=== PATIENT | female | born 1970 | race Caucasian/White ===

== ENCOUNTER 2019-08-08 06:00 | Outpatient (RCR) | payer SELFPAY | END 2019-08-16 00:01 | LOC: SPT 06:00 | PROVIDERS: Family Provider Family Medicine; Visit Provider Podiatrist Foot & Ankle Surgery | DX: Z47.89 Encounter for other orthopedic aftercare (principal) | CPT/HCPCS: 97110 ×2; 97161 ==

== ENCOUNTER → 2019-08-29 00:01 | Outpatient (BNVA) | payer BC, SELFPAY | PROVIDERS: Family Provider Family Medicine; PCP Family Medicine; Visit Provider Podiatrist Foot & Ankle Surgery | DX: S82.401A Unspecified fracture of shaft of right fibula, initial encounter for closed fracture (principal); X58.XXXA Exposure to other specified factors, initial encounter | CPT/HCPCS: 73590; 73610; 73630 ==

== ENCOUNTER 2019-09-14 08:40 | Outpatient (CLI) | payer BC, SELFPAY ==
--- NOTE | 2019-09-14 08:55 | XRR_ITS ---
PROCEDURE INFORMATION: Exam: XR Chest, 2 Views Exam date and time: 09/14/2019 9:29 AM Age: 49 years old Clinical indication: Cough and wheezing; Patient HX: Coughing up phlegm, wheezing; Additional info: Bronchitis TECHNIQUE: Imaging protocol: XR of the chest Views: 2 views. COMPARISON: CR Chest 1 [place] [id number] 12/20/2017 3:39 PM FINDINGS: Lungs: Unremarkable. No consolidation. Pleural space: Unremarkable. No pleural effusion. No pneumothorax. Heart/Mediastinum: Unremarkable. No cardiomegaly. Bones/joints: Unremarkable. XR/XR chest 2V* [id number] IMPRESSION: No acute findings.
== END 2019-09-14 08:41 | disposition home or self-care (01) ==
PROVIDERS: Family Provider Family Medicine; PCP Family Medicine; Visit Provider Family Medicine
DX: J40 Bronchitis, not specified as acute or chronic (principal)
CPT/HCPCS: 71046

== ENCOUNTER → 2019-09-20 14:45 | Outpatient (BNVA) | payer BC, SELFPAY | PROVIDERS: Family Provider Family Medicine; PCP Family Medicine; Visit Provider Anesthesiology | DX: M47.816 Spondylosis without myelopathy or radiculopathy, lumbar region (principal); M47.27 Other spondylosis with radiculopathy, lumbosacral region; M51.36 Other intervertebral disc degeneration, lumbar region; M50.30 Other cervical disc degeneration, unspecified cervical region; Z79.891 Long term (current) use of opiate analgesic | CPT/HCPCS: 99214 ==

== ENCOUNTER → 2019-09-22 13:43 | Outpatient (BNVA) | payer BC, SELFPAY | PROVIDERS: Family Provider Family Medicine; PCP Family Medicine; Visit Provider Podiatrist Foot & Ankle Surgery | DX: S93.322A Subluxation of tarsometatarsal joint of left foot, initial encounter (principal); S82.891A Other fracture of right lower leg, initial encounter for closed fracture; X58.XXXA Exposure to other specified factors, initial encounter; M77.32 Calcaneal spur, left foot | CPT/HCPCS: 73630 ==

== ENCOUNTER 2019-10-03 16:56 | Outpatient (RCR) | payer BC, SELFPAY | END 2019-10-15 23:59 | disposition home or self-care (01) | LOC: SPT 16:56 | PROVIDERS: Absent Provider Podiatrist Foot & Ankle Surgery; Family Provider Family Medicine; PCP Family Medicine; Visit Provider Podiatrist Foot & Ankle Surgery | DX: Z47.89 Encounter for other orthopedic aftercare (principal) | CPT/HCPCS: 97110 ==

== ENCOUNTER 2019-10-07 11:21 | Observation (INO) | payer BC, SELFPAY ==
[2019-10-06 13:06] VITALS: BMI 30.2
[2019-10-07] VITALS (19 sets, daily range): BP systolic 81–132; BP diastolic 60–103; PULSE 72–89; RESP 13–20; TEMP 36.6–37.6; O2SAT 96–100
--- NOTE | 2019-10-07 | SCC_ITS ---
Procedure Done: Primary arthrodesis left first, second and third tarsometatarsal joints. 19 seconds of fluoroscopic guidance, for a cumulative dose of 0.438 mGy, was provided to Dr. Matos by the radiology department. C-arm images of the LEFT foot were saved for the patient's permanent record. [facility]
--- NOTE | 2019-10-07 07:03 | ECG_ITS ---
Measurements Intervals [place] Rate: 79 P: 29 IA: 131 QRS: 6 QRSD: 94 T: 7 QT: 389 QTc: 447 SINUS RHYTHM Compared to ECG 08/18/2018 14:04:18 Sinus bradycardia no longer present Electronically Signed On 10-07-2019 14:13:27 ONLINE PRODUCER by Los Lewis M.D. [email or web address]
[2019-10-07 07:08] LABS: Glucose Point of Care 102 mg/dL (70-110)
--- NOTE | 2019-10-07 07:13 | ANES.PREANE2 ---
Pre-Anesthetic Assessment Pre-Anesthetic Assessment: Height/Weight: Height 1.8 m Weight 98.43 kg Temp Pulse Resp BP Pulse Ox 97.9 F 89 18 132/89 100 10/07/19 06:45 10/07/19 06:45 10/07/19 06:45 10/07/19 06:45 10/07/19 06:45 Preop Diagnosis: Lisfranc dislocation left foot Proposed Procedure: Operation Date: 10/07/19 07:55 Proposed Procedures p First and Second tarsometatarsal joint arthrodesis, poss 3rd metatarsal joint arthrodesis poss percutaneous pinning of the fourt and fifth joint 70001 14757 S93.326A(Left) - Gregorio aMtos DPM s Tendon Lengthening Foot 70600(Left) - Gregorio Matos DPM Familial anesthetic complications: No trouble Was Beta Ashley taken within 24 hours: N/A Last intake: Intake Last Liquid Date 10/06/19 Last Liquid Time 23:59 Last Solid Date 10/06/19 Last Solid Time 18:00 Social: Social History: No alcohol and No tobacco Exam: Pre-Anes Outpt Exam: alert, oriented x 3, clear to auscultation bilaterally and regular rate & rhythm Airway: Cervical ROM: WNL (spondylosis - will have numbness in arms if she extends cervical spine too far) MP: 4 Dentition: False Pulmonary: Comments: Current cold, viral, getting over it. 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, has pseudotumor cerebri Metabolic: Metabolic: DM Musc/skel: Comments: Cervical spondylssis, lumbar facet syndrome, fibromyalgia L Lisfranc facture, tender/painful Neuropsych: Neuropsych: Seizure (last one 5 years ago) Anesthetic Plan: ASA status: 3 Anesthesia: General Risk of > 500 ml blood loss (7ml/kg in children): No PFSH Anesthesia PFSH: Medical History (Updated 10/06/19 @ 15:27 by Brianna Carrillo) DDD (degenerative disc disease), cervical DDD (degenerative disc disease), lumbar Diabetic peripheral neuropathy associated with type 2 diabetes mellitus Facet syndrome, lumbar Fibromyalgia Long-term current use of opiate analgesic Lumbosacral spondylosis with radiculopathy Pain management contract signed Seizures Surgical History History of nephrectomy (~2013) History of ventriculoperitoneal shunting (~01/04/09) Dr. Cordelia Roche 01/04/2009 Ventriculoperitoneal shunt placement. Decision [employer] Programmable Valve, Siphonguard device. Valve at 15cm H2O. 2010 reprogrammed to 14 cm H2O Hx of appendectomy (~2002) Hx of cholecystectomy (~2003) Hx of hysterectomy Social History Smoking and tobacco status: never smoked Alcohol intake: never Caregiver/support person: Yes Lives independently: Yes Household members: spouse Marital status: Current occupational status: disabled History of recent travel: No Data Anesthesia Other Labs: Laboratory Results - last 48 hr 10/07/19 07:02 POC Glucose 102 Cardiac Studies: No Data to Display
[2019-10-07 07:22] LABS: Basophils % 0.4 %; Eosinophils # 0.2 10^3/uL (0.0-0.8); Eosinophils % 3.2 %; Hematocrit 40.3 % (37.0-47.0); Hemoglobin 13.1 g/dL (11.5-15.3); Lymphocytes # 1.5 10^3/uL (0.8-4.8); Lymphocytes % 20.5 %; Mean Corpuscular HGB Conc 32.5 g/dL (30.0-36.0); Mean Corpuscular Hemoglobin 27.5 pg (28.0-34.0); Mean Corpuscular Volume 84.7 fL (81-99); Mean Platelet Volume 10.2 fL (7.4-10.4); Monocytes # 0.5 10^3/uL (0.2-0.9); Monocytes % 6.8 %; Neutrophils # 4.9 10^3/uL (1.8-7.7); Neutrophils % 68.8 %; Nucleated Red Blood Cells % 0 %; Platelet Count 164 10^3/cmm (130-400); Red Blood Count 4.76 10^6/uL (4.1-5.3); Red Cell Distribution Width 12.1 % (12.1-15.1); White Blood Count 7.2 10^3/uL (4.0-10.0)
[2019-10-07 07:34] LABS: Anion Gap 17.2 (5-19); Blood Urea Nitrogen 18 mg/dL (6-20); Calcium 9.8 mg/dL (8.5-10.5); Carbon Dioxide 23 mmol/L (22-29); Chloride 101 mmol/L (98-107); Glomerular Filtration Rate 32.1 mL/min (90-130); Glucose 113 mg/dL (65-115); Osmolality Calculated 281 mOsm/kg (285-295); Potassium 4.2 mmol/L (3.5-5.1); Sodium 137 mmol/L (136-145)
--- NOTE | 2019-10-07 07:56 | W.PM.OPSUD ---
Surgery/Procedure H&P Update DATE OF PROCEDURE: October 07, 2019 DATE H&P PERFORMED: 09/22/19 H&P UPDATE INFORMATION: I have reviewed H&P completed within last 30 days, I have examined patient prior to procedure, No changes to prior documentation and H&P is in [facility] EMR on date indicated PREOP DIAGNOSIS: Lisfranc dislocation left foot PLANNED PROCEDURE: Operation Date: 10/07/19 07:55 Proposed Procedures p First and Second tarsometatarsal joint arthrodesis, poss 3rd metatarsal joint arthrodesis poss percutaneous pinning of the fourt and fifth joint 36167 75520 S93.326A(Left) - Gregorio Matos DPM s Tendon Lengthening Foot 92763(Left) - Gregorio Matos DPM
[2019-10-07] MEDS: sodium chloride 0.9% 1,000 ML 30 ML IV (08:00)
--- NOTE | 2019-10-07 11:16 | XR_ITS ---
WS: [id number] XR foot LT min 3V* [id number] REASON FOR EXAM: post op FINDINGS: Intraoperative fusion of the first, second, third metatarsals with the cuneiforms. Metal pl ates are seen transversing the areas. Fixation appeared to correct a Lisfranc deformity. The foot is seen immobilized in a fiberglass cast. XR/XR foot LT min 3V* [id number] IMPRESSION: Fusion across Lisfranc's joints of the first, second, third metatarsal tarsal a rticulation.
--- NOTE | 2019-10-07 11:44 | SUR.PHASEI ---
1144 PT HAS SENSATION/MOVEMENT TO L. TOES, CAP REFILL <3 SEC
--- NOTE | 2019-10-07 11:51 | PM.OP ---
Operative Report Date of procedure: October 07, 2019 Pre-op Diagnosis: Lisfranc dislocation left foot Post-op diagnosis: same Post-op Findings: Unstable left tarsal metatarsal joint. Procedure Done: Primary arthrodesis left first, second and third tarsometatarsal joints. Implants: Paoli 28 locking plate and screws Specimens removed/disposition: None Pathology: none sent Surgeon: Gregorio Matos D.P.M. Cocktail Lounge Manager: Lloyd Anesthesia: General Estimated blood loss: 50 mL Tourniquet time: See intraoperative documentation IV fluids: None Urine output: None Complications: None Findings: See above Condition: stable Disposition: floor Brief History: Ms. Gan is a pleasant 49-year-old female with history of left Lisfranc injury largely ligamentous with dislocation first, second and third tarsometatarsal joints. This procedure has been staged out for multitude of reasons. Recommending primary arthrodesis. Risks include pain, bleeding, numbness, infection, swelling, bruising, surgical site dehiscence, hardware failure, delayed union, malunion, nonunion, failure to correct deformity, overcorrection of deformity, damage to adjacent soft tissue structures and need for further surgical intervention. Patient is agreeable and wishes to proceed. Procedure: Under mild sedation the patient was brought to the operating room and placed on the operating table in supine position. A timeout was performed. Anesthesia was administered by the anesthesia service. Local anesthesia was injected by myself consisting of 20 cc of 0.5% Marcaine plain and a left ankle block fashion. Well-padded pneumatic tourniquet was applied to the left calf. Left lower extremity was scrubbed, prepped and draped utilizing normal aseptic technique. Left foot was examined a weighted with an Esmarch bandage and the tourniquet was inflated to 250 mmHg. Attention was directed to the dorsal medial aspect of the first tarsometatarsal joint where a linear longitudinal incision was made with a #15 blade. Dissection carried down through subcutaneous tissue utilizing a combination of blunt and sharp technique. Care was taken to retract and preserve neurovascular and tendinous structures. Bleeders were ligated and cauterized as necessary. A periosteal incision was made at the medial aspect of the medial cuneiform and first metatarsal base revealing the dislocation of the first tarsometatarsal joint. This was distracted and articular surface was removed on opposing sides of the arthrodesis site followed by subchondral drilling. First tarsometatarsal joint was reduced in all 3 cardinal planes temporarily fixated and then fixated utilizing standard AO technique with a locking plate and screws provided by Paoli 28. Intra-Op fluoroscopy utilized to confirm positioning of orthopedic hardware and excellent in all 3 cardinal planes. Temporary fixation was removed. Attention was then directed to the second intermetatarsal space where a linear longitudinal incision was made with a #15 blade with dissection carried down through skin and subcutaneous tissue utilizing a combination of blunt and sharp technique. Care was taken to retract and preserve neurovascular and tendinous structures. Bleeders were ligated and cauterized as necessary. Second and third ray periosteal incisions were made revealing the dislocation of the second and third metatarsals on their corresponding cuneiforms. Second and third tarsometatarsal joints were denuded of articular surface utilizing curettage, rongeur followed by subchondral drilling with K wire. Utilizing [id number] tenaculum dislocations were reduced medially utilizing the medial column as a point of contact with a tenaculum to help secure the reduction. Next utilizing standard AO technique locking plates were utilized dorsally at the second and third tarsometatarsal joints provided by Paoli 28 with a combination of locking and nonlocking screws with excellent bony apposition and compression noted. Reduction of the second and third rays were O's appreciated intraoperatively as well as with fluoroscopy in all 3 cardinal planes. Incision sites were flushed with saline solution. Following saline flush periosteal structures were closed at both incisions with 2-0 Vicryl. Subcutaneous tissue closed with 3-0 Vicryl. Skin closed with navneet. Incision sites were dressed with Adaptic, sterile 4 x 4's, Kerlix followed by application of well-padded short leg cast to the left lower extremity. Tourniquet was deflated prior to closure of incisions due to reaching the 120-minute domitila. A prompt hyperemic response was noted to all digits of the left foot. Patient tolerated the procedure well and was transferred to the PACU with vital signs stable and vascular status intact. Following a period of postoperative monitoring she will be transferred to the floor. Dr. Ange Bradshaw agreeable for 24-hour opts, greatly appreciate hospitalist for this. Patient is to remain strict nonweightbearing to the left lower extremity. She is to elevate her left foot at all times while at rest.
--- NOTE | 2019-10-07 12:30 | PC.NURSE ---
Patient in bed upon admission with left foot elevated above hip, patient states that she has to urinate but would rather wait until PT can help her. Bed cross was offered however patient declined bed cross use. Patient resting in bed calmly with no complaints at this time.
--- NOTE | 2019-10-07 13:01 | PC.RESP ---
Patient did not utilize IS at this time. Patient was seeing things move around in her room,and refused the IS at this time. Charge nurse Rhonda was notified.
[2019-10-07 14:16] LABS: Glucose Point of Care 81 mg/dL (70-110)
--- NOTE | 2019-10-07 16:19 | PM.HP ---
Providers/Chief Complaint Admitting Physician: Ange Bradshaw DO Primary Care Provider: Linda Erickson MD Chief Complaint: Dislocation of Tarsometatarsal joints of left foot History of Present Illness Tabby Gan is a 49 year old lady with history of diabetes, peripheral neuropathy, bipolar disorder, anxiety disorder, recurrent falls, DDD, chronic pain, with planned repair of Lisfranc dislocation left foot last month, however, before this could be achieved sustained another fall and had a fracture of the right ankle for which he underwent ORIF, currently being placed in observation after surgical repair of Lisfranc dislocation left foot by podiatry. She is doing well postoperatively, requesting that her home medication break restarted as she is starting to feel somewhat anxious. She otherwise reports is in baseline state of health. Review of Systems Const: Reports: other (Prone to falls.); Denies: fever, chills, body aches or malaise Eyes: Denies: change in vision or eye redness ENMT: Denies: throat pain, oral sores/lesions or ear pain Card: Denies: chest pain, edema, pre-syncope or shortness of breath on exertion Resp: Denies: shortness of breath, productive cough, change in phlegm color or coughing up blood GI: Reports: constipation; Denies: abdominal pain, nausea, vomiting, diarrhea, blood in stool or black tarry stool : Denies: flank pain, urinary frequency or blood in urine Musc: Reports: deformity; Denies: back pain, joint swelling or redness Skin/Breast: Denies: rash, sores or new lesion Neuro: Denies: headache, numbness in extremities, weakness in extremities, dizziness, confusion or seizure-like activity Psych: Reports: anxiety Endo: Denies: excessive urination or excessive thirst Fletcher/Lymph: Denies: easy bleeding or purpura All/Imm: Denies: hives, throat swelling or tongue swelling Medications/Allergies Home Medications Medication Instructions Recorded Confirmed Last Taken Type vitamin B complex 1 cap PO DAILY 10/06/19 10/07/19 10/06/19 History gabapentin 10/07/19 10/07/19 Unknown History metoclopramide HCl [Reglan] 10 mg PO Q6H PRN 10/07/19 10/07/19 Unknown History polyethylene glycol 3350 [Miralax] 17 g PO BID 10/07/19 10/07/19 Unknown History Allergies Allergy/AdvReac Type Severity Reaction Status Date / Time spider venom Allergy ALGY-Anaphy Verified 09/22/19 13:04 laxis NSAIDS (Non-Steroidal AdvReac Unknown CKD4 Verified 09/22/19 13:04 Anti-Inflamma Iodinated Contrast Media AdvReac CKD4 - Verified 09/22/19 13:04 PFSH Acute PFSH: Medical History DDD (degenerative disc disease), cervical DDD (degenerative disc disease), lumbar Diabetic peripheral neuropathy associated with type 2 diabetes mellitus Facet syndrome, lumbar Fibromyalgia Long-term current use of opiate analgesic Lumbosacral spondylosis with radiculopathy Pain management contract signed Seizures Surgical History History of nephrectomy (~2013) History of ventriculoperitoneal shunting (~01/04/09) Dr. Cordelia Roche 01/04/2009 Ventriculoperitoneal shunt placement. [employer] Programmable Valve, Siphonguard device. Valve at 15cm H2O. 2010 reprogrammed to 14 cm H2O Hx of appendectomy (~2002) Hx of cholecystectomy (~2003) Hx of hysterectomy Family History Mother Diabetes DM2 Family/Other Cancer MATERNAL AUNT- BREAST CANCER Social History Smoking and tobacco status: never smoked Alcohol intake: never Caregiver/support person: Yes Lives independently: Yes Household members: spouse Marital status: Current occupational status: disabled History of recent travel: No Vitals/I&O/Wt Last Vital Signs Temp 98.7 F 10/07/19 15:00 Pulse 77 10/07/19 15:00 Resp 20 H 10/07/19 15:00 BP 105/67 10/07/19 15:00 Pulse Ox 99 10/07/19 15:00 10/07/19 10/07/19 10/07/19 06:59 14:59 22:59 Intake Total 50 / 50 Output Total 5 / 5 Balance 45 / 45 Weight last 48 hrs Weight 98.43 kg Physical Exam Const: COMMON NORMALS: no apparent distress and oriented x3 NUTRITIONAL APPEARANCE: obese ORIENTATION/CONSCIOUSNESS: Yes awake HENMT: COMMON NORMALS: oropharynx normal Neck/C-Spine: COMMON NORMALS: no JVD Resp: COMMON NORMALS: normal respiratory effort and clear to auscultation bilaterally AUSCULTATION: clear to auscultation bilaterally Cardio: COMMON NORMALS: no JVD, regular rhythm, S1 normal heart sound, S2 normal heart sound and no murmurs RHYTHM: regular rhythm HEART SOUNDS: S1 normal and S2 normal GI: COMMON NORMALS: normal to inspection, nondistended, normoactive bowel sounds, soft to palpation and non-tender PALPATION: Yes soft Extremity: COMMON NORMALS: no joint enlargement and no pedal edema Neuro: COMMON NORMALS: oriented x3 and moves all extremities Psych: MOOD & AFFECT: Yes anxious Skin: COMMON NORMALS: no rashes or lesions noted GENERAL SKIN EXAM: no rashes or lesions noted Data : 10/07/19 07:04 10/07/19 07:04 A&P Assessment and plan (1) Dislocation of tarsometatarsal joint: S/p repair today. Doing well post surgery. Will restart home medications. Pain management per podiatry. She states has discussed a regimen with Dr Matos already. Discussed with her while here hold DM medications and replace w insulin. Status: Acute Qualifiers: Encounter type: subsequent encounter Laterality: left Qualified Code(s): S93.325D - Dislocation of tarsometatarsal joint of left foot, subsequent encounter Code(s): S93.326A - Dislocation of tarsometatarsal joint of unspecified foot, initial encounter Additional A&P Information Diabetes: Consistent carbohydrate diet. Sliding scale insulin. Resume home medications on discharge. Peripheral neuropathy Recurrent falls: Maintain fall precaution hospital. Follow-up with primary care provider. Consider ambulation assist with cane or walker on a chronic basis. Anxiety: Resume home medications Bipolar disorder: Resume home medications Chronic pain: Continue home morphine dose constipation: Continue bowel regimen Attestations Medical Necessity Statement*: Place in observation. Coding Level of Care Code Acute Clam Bed Laborer for Rama Fwcordelia Exam Comprehensive Diagnoses Dislocation of tarsometatarsal joint S93.325D Encounter type: subsequent encounter Laterality: left
[2019-10-07] MEDS: tizanidine 4 mg Tablet PO (16:38)
[2019-10-07] MEDS: HYDROcodone-acetaminophen 10-325 mg Tablet 1 TAB PO ×2 (16:39→23:09)
[2019-10-07 16:52] LABS: Glucose Point of Care 107 mg/dL (70-110)
[2019-10-07] MEDS: benztropine 1 mg Tablet 2 MG PO (17:26)
[2019-10-07] MEDS: lamoTRIgine 100 mg Tablet 150 MG PO (17:26)
[2019-10-07] MEDS: morphine ER (12 HR) 30 mg tablet PO (17:27)
[2019-10-07] MEDS: CLONazepam 0.5 mg Tablet PO (17:28)
--- NOTE | 2019-10-07 18:43 | PC.RESP ---
Student RT charting reviewed by Namita Ogden CRT.
[2019-10-07 21:30] LABS: Glucose Point of Care 110 mg/dL (70-110)
[2019-10-07] MEDS: prazosin 5 mg Capsule PO (21:57)
[2019-10-07] MEDS: gabapentin 400 mg Capsule PO (21:57)
[2019-10-07] MEDS: gabapentin 300 mg Capsule PO (21:57)
[2019-10-08] VITALS: BP 105/65; PULSE 76; RESP 18; TEMP 36.8; O2SAT 98
[2019-10-08] MEDS: CLONazepam 0.5 mg Tablet PO ×2 (00:30→08:14)
[2019-10-08] MEDS: morphine ER (12 HR) 30 mg tablet PO ×2 (00:30→08:15)
[2019-10-08 04:00] VITALS: BP 139/74; PULSE 124; RESP 18; TEMP 36.9; O2SAT 99
[2019-10-08 05:01] LABS: Basophils % 0.4 %; Eosinophils # 0.1 10^3/uL (0.0-0.8); Eosinophils % 1.6 %; Hematocrit 36.9 % (37.0-47.0); Lymphocytes # 1.8 10^3/uL (0.8-4.8); Lymphocytes % 22.3 %; Mean Corpuscular HGB Conc 32.5 g/dL (30.0-36.0); Mean Corpuscular Hemoglobin 28.3 pg (28.0-34.0); Mean Platelet Volume 9.7 fL (7.4-10.4); Monocytes # 0.7 10^3/uL (0.2-0.9); Neutrophils # 5.3 10^3/uL (1.8-7.7); Neutrophils % 66.4 %; Nucleated Red Blood Cells % 0 %; Platelet Count 141 10^3/cmm (130-400); Red Blood Count 4.24 10^6/uL (4.1-5.3); Red Cell Distribution Width 12.1 % (12.1-15.1); White Blood Count 7.9 10^3/uL (4.0-10.0)
[2019-10-08 05:20] LABS: Anion Gap 15.4 (5-19); Blood Urea Nitrogen 21 mg/dL (6-20); Calcium 9.5 mg/dL (8.5-10.5); Carbon Dioxide 24 mmol/L (22-29); Chloride 101 mmol/L (98-107); Glomerular Filtration Rate 37.1 mL/min (90-130); Glucose 112 mg/dL (65-115); Osmolality Calculated 279 mOsm/kg (285-295); Potassium 4.4 mmol/L (3.5-5.1); Sodium 136 mmol/L (136-145)
[2019-10-08 06:33] LABS: Glucose Point of Care 134 mg/dL (70-110)
[2019-10-08 08:00] VITALS: BP 101/68; PULSE 113; RESP 20; TEMP 36.9; O2SAT 100
[2019-10-08] MEDS: lamoTRIgine 100 mg Tablet 150 MG PO (08:14)
[2019-10-08] MEDS: docusate sodium 100 mg Capsule 400 MG PO (08:14)
[2019-10-08 08:15] VITALS: RESP 16
[2019-10-08] MEDS: gabapentin 300 mg Capsule PO ×2 (08:15→15:10)
[2019-10-08] MEDS: gabapentin 400 mg Capsule PO ×2 (08:15→15:10)
[2019-10-08] MEDS: polyethylene glycol 3350 Pkt 17 gm PO (08:16)
[2019-10-08] MEDS: benztropine 1 mg Tablet 2 MG PO (08:16)
[2019-10-08] MEDS: ARIPiprazole 10 mg Tablet 15 MG PO (08:17)
--- NOTE | 2019-10-08 09:11 | ANE.PACU2 ---
 Inpatient post-anesthesia follow up: Airway intact: Yes Vital signs: Temperature 98.5 F Pulse Rate 113 Respiratory Rate 16 Blood Pressure 101/68 Pulse Oximetry 100 Oxygen Delivery Me thod Room Air Oxygen Flow Rate 8 Fraction of Inspir ed Oxygen Hydration adequate: Yes Nausea and vomiting: No Mental status: Baseline Additional Comments: patient just received morphine for pain, which controls her discomfort
--- NOTE | 2019-10-08 10:16 | PC.NURSE ---
Pt resting in bed watching television. Pt reports that when she went to use the bathroom that she was unsteady, and almost fell This nurse educated patient on importance of using call light and asking for assist when transferring
--- NOTE | 2019-10-08 11:30 | PM.PN ---
Subjective Subjective: Interval history: Patient is 1 day status post left Lisfranc primary arthrodesis. Admitted for 24-hour observation and pain control. Greatly appreciate hospitalist while inpatient. Vitals/I&O/Wt Last Vital Signs Temp 98.5 F 10/08/19 08:00 Pulse 113 H 10/08/19 08:00 Resp 16 10/08/19 08:15 BP 101/68 10/08/19 08:00 Pulse Ox 100 10/08/19 08:00 10/07/19 10/08/19 10/08/19 22:59 06:59 14:59 Intake Total 720 / 770 120 / 120 Output Total 600 / 605 350 / 955 Balance 120 / 165 -350 / -185 120 / 120 Weight last 48 hrs Weight 217 lb Physical Exam Narrative: EXAM NARRATIVE: GENERAL: Patient is alert and oriented ?3 and in no acute distress. The following is a focused left lower extremity exam. VASCULAR:Capillary refill time less than 3 seconds to the distal hallux bilaterally. Calf is supple and nontender proximally and distally. NEUROLOGICAL: Protective sensation diminished to bilateral feet. DERMATOLOGICAL: Toes are pink, normal skin tone at the proximal leg, no proximal streaking, no strikethrough bleeding. Cast was left intact without signs of abrasions or skin necrosis. MUSCULOSKELETAL: Deferred due to postoperative state. No pain with posterior calf squeeze at right. Data : 10/08/19 04:49 10/08/19 04:49 A&P Assessment and plan (1) Postoperative state: Status: Acute Code(s): Z98.890 - Other specified postprocedural states (2) Dislocation of tarsometatarsal joint: Status: Acute Qualifiers: Encounter type: subsequent encounter Laterality: left Qualified Code(s): S93.325D - Dislocation of tarsometatarsal joint of left foot, subsequent encounter Code(s): S93.326A - Dislocation of tarsometatarsal joint of unspecified foot, initial encounter Patient is a 49-year-old pleasant female 1 day status post left tarsometatarsal arthrodesis secondary to Lisfranc injury. Pain controlled overnight, tolerating regular diet. Patient is ready for discharge home with her . She is to remain strict nonweightbearing she has multiple options, she has a wheelchair, knee roller and a walker, she is a high fall risk. She is to remain nonweightbearing, rest and elevate her left foot. She will follow-up on Thursday next week in podiatry clinic. She will continue her 30 mg morphine extended release. DISCONTINUE hydrocodone 10/325 mg at this time, new prescription sent to [facility] for Percocet 10/325 mg to be taken for acute postoperative pain, plan is to step down back to her baseline pain management regimen within 2 weeks. Patient to take 81 mg aspirin once daily. Attestations Medical Necessity Statement*: 1 day postoperative course, status post primary arthrodesis left Lisfranc joint Coding Level of Care Code Acute Database Modeler for Rama Meehan Diagnoses Postoperative state Z98.890 Dislocation of tarsometatarsal joint S93.325D Encounter type: subsequent encounter Laterality: left
--- NOTE | 2019-10-08 14:26 | P.DS_ITS ---
Discharge Providers Date of Admission: 10/07/19 11:21 Date of Discharge: October 08, 2019 Attending Provider at Admission: Ange Bradshaw DO Attending Provider at Discharge: Gregorio Matos DPM Primary Care Provider: Linda Erickson MD Diagnoses at Discharge Discharge Diagnosis (1) Postoperative state: Status: Acute (2) Dislocation of tarsometatarsal joint: Status: Acute Qualifiers: Encounter type: subsequent encounter Laterality: left Qualified Code(s): S93.325D - Dislocation of tarsometatarsal joint of left foot, subsequent encounter Reason for Visit Reason for Visit: Reason For Visit: Dislocation of Tarsometatarsal joints of left foot Hospital Course Hospital Course: 49-year-old pleasant lady with history of diabetes, peripheral neuropathy, recurrent falls, chronic pain, bipolar disorder, anxiety disorder, DDD, underwent repair of Lisfranc dislocation by podiatry with uneventful hospital stay. Pain medications were adjusted by podiatry in consultation with her pain clinic. Hydrocodone and gabapentin are discontinued. Oxycodone is added. Very high risk of falls, instructed to use wheelchair at all times when moving around. Consider additional physical therapy, balance training after she recovers. Physical Exam Const: COMMON NORMALS: no apparent distress and oriented x3 NUTRITIONAL APPEARANCE: obese ORIENTATION/CONSCIOUSNESS: Yes awake HENMT: COMMON NORMALS: oropharynx normal Neck/C-Spine: COMMON NORMALS: no JVD Resp: COMMON NORMALS: normal respiratory effort and clear to auscultation bila terally AUSCULTATION: clear to auscultation bilaterally Cardio: COMMON NORMALS: no JVD, regular rhythm, S1 normal heart sound, S2 normal heart sound and no murmurs RHYTHM: regular rhythm HEART SOUNDS: S1 normal and S2 normal GI: COMMON NORMALS: normal to inspection, nondistended, normoactive bowel sounds, soft to palpation and non-tender PALPATION: Yes soft Extremity: COMMON NORMALS: no joint enlargement and no pedal edema Neuro: COMMON NORMALS: oriented x3 and moves all extremities Psych: MOOD & AFFECT: Yes anxious Skin: COMMON NORMALS: no rashes or lesions noted GENERAL SKIN EXAM: no rashes or lesions noted Discharge Data Data Completed and Pending: Completed Studies During Hospitalization Category Date Time Status XR foot LT min 3V * [id number] Routine Exams 10/07/19 11:16 Completed Pending at discharge Category Date Time Status C-arm Mini [id number] Routine Exams 10/07/19 08:01 Taken Basic Metabolic P [place] AM LABS Lab 10/09/19 04:00 Ordered Basic Metabolic P [place] AM LABS Lab 10/10/19 04:00 Ordered Complete Blood Co unt w/Auto AM LABS Lab 10/09/19 04:00 Ordered Complete Blood Co unt w/Auto AM LABS Lab 10/10/19 04:00 Ordered Labs from last 24 hours 10/08/19 10/08/19 10/08/19 06:25 04:49 04:49 WBC 7.9 RBC 4.24 Hgb 12.0 Hct 36.9 L MCV 87.0 MCH 28.3 MCHC 32.5 RDW 12.1 Plt Count 141 MPV 9.7 Neut % (Auto) 66.4 Lymph % (Auto) 22.3 [place] % (Auto) 9.0 Eos % (Auto) 1.6 Baso % (Auto) 0.4 Neut # (Auto) 5.3 Lymph # (Auto) 1.8 [place] # (Auto) 0.7 Eos # (Auto) 0.1 Baso # (Auto) 0.0 Nucleated RBC % (a uto) 0 Nucleated RBCs # 0.0 Sodium 136 Potassium 4.4 Chloride 101 Carbon Dioxide 24 Anion Gap 15.4 BUN 21 H Creatinine 1.5 H GFR Calculation 37.1 L Glucose 112 POC Glucose 134 Calculated Osmolal ity 279 L Calcium 9.5 10/07/19 10/07/19 21:14 16:49 WBC RBC Hgb Hct MCV MCH MCHC RDW Plt Count MPV Neut % (Auto) Lymph % (Auto) [place] % (Auto) Eos % (Auto) Baso % (Auto) Neut # (Auto) Lymph # (Auto) [place] # (Auto) Eos # (Auto) Baso # (Auto) Nucleated RBC % (a uto) Nucleated RBCs # Sodium Potassium Chloride Carbon Dioxide Anion Gap BUN Creatinine GFR Calculation Glucose POC Glucose 110 107 Calculated Osmolal ity Calcium Vitals: Last Vital Signs Temp 98.5 F 10/08/19 08:00 Pulse 113 H 10/08/19 08:00 Resp 16 10/08/19 08:15 BP 101/68 10/08/19 08:00 Pulse Ox 100 10/08/19 08:00 Discharge Plan Discharge Patient Disposition: Home, Self-Care Condition: Stable Prescriptions: New Percocet 10-325 mg tablet 1 tab PO Q8H 7 Days Qty: 21 RF: 0 Continued lamotrigine [Lamictal] 150 mg tablet 150 mg PO BID RF: 0 bupropion HCl 75 mg tablet 75 mg PO BID RF: 0 prazosin 5 mg capsule 5 mg PO .BEDTIME RF: 0 aripiprazole [Abilify] 15 mg tablet 15 mg PO DAILY RF: 0 morphine 30 mg tablet extended release 30 mg PO Q8H 30 Days Qty: 90 RF: 0 Symproic 0.2 mg tablet 0.2 - 0.4 mg PO QDAY PRN (Reason: constipation) 30 Days Qty: 60 RF: 0 glimepiride 4 mg tablet 4 mg PO QAM RF: 0 tizanidine [Zanaflex] 4 mg tablet 4 mg PO BID PRN (Reason: muscle spasms) RF: 0 Trulicity 1.5 mg/0.5 mL pen injector 1.5 mg SUBCUT .Q WEEKLY RF: 0 rizatriptan 10 mg tablet,disintegrating 10 mg PO .COMPLEX RF: 0 wlxzwmuhuj-vfwigjfchsoxs-apoo 50-325-40 mg tablet 1 tab PO TID PRN (Reason: Migraine Headache) RF: 0 chlorpromazine 50 mg tablet 50 - 100 mg PO . NEEDED RF: 0 aspirin 81 mg tablet,chewable 81 mg PO QDAY RF: 0 docusate sodium 100 mg capsule 400 mg PO QDAY RF: 0 epinephrine 0.3 mg/0.3 mL auto-injector 0.3 mg IM ONCE RF: 0 Januvia 50 mg tablet 50 mg PO QDAY RF: 0 benztropine 1 mg tablet 2 mg PO BID RF: 0 clonazepam 0.5 mg tablet See Rx Instructions PO TID PRN (Reason: Anxiety) RF: 0 metoprolol tartrate 25 mg tablet 12.5 mg PO BID RF: 0 hydroxyzine pamoate [Vistaril] 50 mg capsule 50 mg PO TID PRN (Reason: Itching) RF: 0 melatonin 10 mg capsule See Rx Instructions PO .BEDTIME PRN (Reason: Insomnia) RF: 0 vitamin B complex Capsule 1 cap PO DAILY RF: 0 gabapentin 400 mg capsule 400 mg PO TID RF: 0 Miralax 17 gram/dose Powder 17 g PO BID RF: 0 Reglan 10 mg Tablet 10 mg PO Q6H PRN (Reason: Headache) RF: 0 Discontinued hydrocodone-acetaminophen 10-325 mg tablet 1 tab PO TID PRN (Reason: pain) 30 Days Qty: 90 RF: 0 Discharge Orders: Discharge Order (Routine); Ordered 10/08/19 Ordered By: Rios Lisa Referrals: Linda Erickson MD [Primary Care Provider] - 4-7 days Gregorio Matos DPM [Physician] - 1 week Discharge Diet: Diabetic Discharge Activity: Limit activity as instructed Activity Restrictions/Additional Instructions: Remain nonweightbearing on the left foot. Please use wheelchair to move around at all times. Discharge Attestations Time Spent in Discharge Care*: greater than 30 min Quality Metrics Clinical Quality Measures During this hospital stay, did patient experience: None Coding Level of Care Code Acute Build Automation Engineer for Rama Fwd Diagnoses Postoperative state Z98.890 Dislocation of tarsometatarsal joint S93.325D Encounter type: subsequent encounter Laterality: left
--- NOTE | 2019-10-08 15:14 | PC.NURSE ---
Pt IV cath DC'd intact at this time. Pt tolerated well. Site asymptomatic
[2019-10-08 15:28] VITALS: RESP 16
[2019-10-08 16:22] VITALS: RESP 16
== END 2019-10-08 16:22 | disposition home or self-care (01) ==
LOC: MEDSURG 11:21
PROVIDERS: Anesthesiology; Internal Medicine; Admitting Provider Family Medicine; Family Provider Family Medicine; PCP Family Medicine; Visit Provider Podiatrist Foot & Ankle Surgery
PROC: (CPT 28740; principal; 2019-10-07 07:55)
DX: S93.325A Dislocation of tarsometatarsal joint of left foot, initial encounter (principal); W19.XXXA Unspecified fall, initial encounter; E11.40 Type 2 diabetes mellitus with diabetic neuropathy, unspecified; R29.6 Repeated falls; Z79.891 Long term (current) use of opiate analgesic; E11.22 Type 2 diabetes mellitus with diabetic chronic kidney disease; I12.9 Hypertensive chronic kidney disease with stage 1 through stage 4 chronic kidney disease, or unspecified chronic kidney disease; N18.3 Chronic kidney disease, stage 3 (moderate); M79.7 Fibromyalgia
CPT/HCPCS: 28730; 12345; 36415; 36416; 73630; 76000; 80048; 82962; 85025; 93005; 97161; 97530; C1713; C9290; G0378; J0690; J2001; J2250; J2405; J2704; J2710; J3010; J3490; J7030

== ENCOUNTER → 2019-10-21 13:46 | Outpatient (BNVA) | payer BC, SELFPAY | PROVIDERS: Family Provider Family Medicine; PCP Family Medicine; Visit Provider Podiatrist Foot & Ankle Surgery | DX: Z98.890 Other specified postprocedural states (principal); M24.675 Ankylosis, left foot | CPT/HCPCS: 73630 ==

== ENCOUNTER → 2019-10-27 14:15 | Outpatient (BNVA) | payer BC, SELFPAY | PROVIDERS: Family Provider Family Medicine; PCP Family Medicine; Visit Provider Podiatrist Foot & Ankle Surgery | DX: Z48.89 Encounter for other specified surgical aftercare (principal); S93.305A Unspecified dislocation of left foot, initial encounter; X58.XXXA Exposure to other specified factors, initial encounter | CPT/HCPCS: 73630 ==

== ENCOUNTER → 2019-11-09 14:03 | Outpatient (BNVA) | payer BC, SELFPAY | PROVIDERS: Family Provider Family Medicine; PCP Family Medicine; Visit Provider Podiatrist Foot & Ankle Surgery | DX: Z48.89 Encounter for other specified surgical aftercare (principal); S92.812A Other fracture of left foot, initial encounter for closed fracture; X58.XXXA Exposure to other specified factors, initial encounter | CPT/HCPCS: 73630 ==

== ENCOUNTER → 2019-12-01 11:26 | Outpatient (BNVA) | payer BC, SELFPAY | PROVIDERS: Family Provider Family Medicine; PCP Family Medicine; Visit Provider Podiatrist Foot & Ankle Surgery | DX: Z98.890 Other specified postprocedural states (principal) | CPT/HCPCS: 73630 ==

== ENCOUNTER → 2019-12-22 10:51 | Outpatient (BNVA) | payer BC, SELFPAY | PROVIDERS: Family Provider Family Medicine; PCP Family Medicine; Visit Provider Podiatrist Foot & Ankle Surgery | DX: Z48.89 Encounter for other specified surgical aftercare (principal); M77.32 Calcaneal spur, left foot | CPT/HCPCS: 73630 ==

== ENCOUNTER 2019-12-23 14:15 | Outpatient (CLI) | payer BC, SELFPAY ==
--- NOTE | 2019-12-23 14:55 | XR_ITS ---
WS: [id number] HIP WITH PELVIS RIGHT TECHNIQUE: 3 views of the right hip with pelvis CLINICAL INFORMATION: SOFT TISSUE COMPLAINT, RIGHT HIP PAIN COMPARISON: None. FINDINGS: Degenerative arthritis right hip with moderate joint space narrowing. No acute fractures. Normal femo ral neck. Tubing projected over the pelvis. Normal visualized soft tissues. XR/XR hip RT 2-3V wo/w pel* [id number] IMPRESSION: 1. Moderate degenerative narrowing right hip. No acute fractures. 2. No other abnormalities.
--- NOTE | 2020-11-22 15:33 | XR_ITS ---
WS: [id number] Left foot, 3 views, 11/22/2020. Clinical Data: Post Op Comparison: Left foot, 10/12/2020. Findings: The plate fusions of the second and third metatarsals with the second and third cuneiforms have been removed. There is still a plate fusion with screws of the left first metatarsal with the first cuneif orm. There is a plantar spur.
== END 2019-12-23 14:16 | disposition home or self-care (01) ==
LOC: RADWPI 14:19
PROVIDERS: Family Provider Family Medicine; PCP Family Medicine; Visit Provider Nurse Practitioner Family
DX: M79.9 Soft tissue disorder, unspecified (principal); M16.11 Unilateral primary osteoarthritis, right hip
CPT/HCPCS: 73502

== ENCOUNTER 2019-12-23 15:30 | Outpatient (CLI) | payer BC, SELFPAY ==
--- NOTE | 2019-12-23 | US_ITS ---
WS: [id number] US soft tissue/extremity [id number] REASON FOR EXAM: RT HIP--HARD NODULE WITH PAIN FINDINGS: The soft tissue area over the right hip shows a nodular density increased echogenicity sugg esting a granuloma versus fibroma. Normal alignment is seen throughout the remaining soft tissue. Com parisons were made of the right side which showed no definite changes. US/US soft tissue/extremity 23284 IMPRESSION: A granuloma versus fibroma involving the subcutaneous area of the right hip
== END 2019-12-23 15:31 | disposition home or self-care (01) ==
LOC: LAB 15:38 → RAD 15:38
PROVIDERS: Family Provider Family Medicine; Visit Provider Nurse Practitioner Family
DX: R22.9 Localized swelling, mass and lump, unspecified (principal); M25.551 Pain in right hip
CPT/HCPCS: 36415; 76882

== ENCOUNTER 2019-12-29 10:56 | Outpatient (CLI) | payer BC, SELFPAY ==
--- NOTE | 2019-12-29 11:01 | USCV_ITS ---
Tabby Gan Age: 49 Gender: F : 1970 Exam Date: 12/29/2019 11:08 Ordering Phys: Linda Erickson MD Technologist: Zenaida Lopez [place]am [place] [facility] [place]: R ARM PAIN Risk Factors: Previous Vascular Surgery: Right BP: 110.00 / Left BP: / RIGHT LEFT PSV PSV (cm/s) (cm/s) Waveform Waveform Triphasic 84.7 Subclavian Proximal Triphasic 51.8 Subclavian Distal Triphasic 58.1 Axillary Triphasic 76.0 Brachial Proximal Triphasic 52.5 Brachial Mid Triphasic 46.9 Brachial at AC Triphasic 30.2 Radial Proximal Triphasic 38.0 Radial Mid Triphasic 41.6 Radial at Wrist Triphasic 32.3 Ulnar Proximal Triphasic 40.4 Ulnar Mid Triphasic 30.3 Ulnar at Wrist 1.0 Radial/Brachial Index .90 Ulnar/Brachial Index FINDINGS RADIAL = 100, RT ULNAR = 90 Normal arterial Doppler waveforms Normal Doppler flow velocities Normal RBI and UBI CONCLUSIONS No significant arterial obstruction in the right upper extremity, based on above findings Dr Griselda Bolaños MD [facility] (Electronically Signed) Final Date: 29 Dec 2019 14:24 S
== END 2019-12-29 10:57 | disposition home or self-care (01) ==
LOC: RAD 10:58
PROVIDERS: PCP Family Medicine; Visit Provider Family Medicine
DX: R29.898 Other symptoms and signs involving the musculoskeletal system (principal); M79.601 Pain in right arm
CPT/HCPCS: 93931

== ENCOUNTER 2020-01-04 08:27 | Outpatient (CLI) | payer BC, SELFPAY ==
--- NOTE | 2020-01-04 08:32 | FL_ITS ---
NOTE: Report was unsigned for reason: Order was edited. Original Signature date and time was: 01/04/20 1033 WS: [id number] ESOPHAGRAM TECHNIQUE: Double contrast examination was performed with thin and thick barium. Upright and PRECIADO images were obtained. CLINICAL INFORMATION: DYSPHAGIA COMPARISON: None. FINDINGS: Swallowing: Normal oropharyngeal phase. No evidence of aspiration penetration. Esophagus: Moderate esophageal dysmotility with delayed emptying. Reflux visualized in the supine position to the midesophagus. No significant hiatal hernia. Gastroesophageal reflux: Present Straightening of the normal cervical lordosis with mild spondylitic changes cervical spine. Fluoroscopy time: 2.2 minutes. [facility] FL/FL barium swallow 2cont [id number] IMPRESSION: 1. Normal oropharyngeal phase. No evidence of aspiration or penetration. 2. No evidence of esophageal stricture or obstructing mass. 3. Moderate esophageal dysmotility with reflux visualized to the midesophagus. 4. No significant hiatal hernia.
== END 2020-01-04 08:28 | disposition home or self-care (01) ==
LOC: RAD 08:29
PROVIDERS: PCP Family Medicine; Visit Provider Family Medicine
DX: R13.10 Dysphagia, unspecified (principal); K21.9 Gastro-esophageal reflux disease without esophagitis
CPT/HCPCS: 74220; 74221

== ENCOUNTER → 2020-01-12 13:02 | Outpatient (BNVA) | payer BC, SELFPAY | PROVIDERS: PCP Family Medicine; Visit Provider Podiatrist Foot & Ankle Surgery | DX: M19.072 Primary osteoarthritis, left ankle and foot (principal); Z48.89 Encounter for other specified surgical aftercare; M77.32 Calcaneal spur, left foot | CPT/HCPCS: 73630 ==

== ENCOUNTER → 2020-01-26 13:22 | Outpatient (BNVA) | payer BC, SELFPAY | PROVIDERS: PCP Family Medicine; Visit Provider Anesthesiology | DX: M54.41 Lumbago with sciatica, right side (principal); M54.42 Lumbago with sciatica, left side; M47.816 Spondylosis without myelopathy or radiculopathy, lumbar region; M47.27 Other spondylosis with radiculopathy, lumbosacral region; M51.36 Other intervertebral disc degeneration, lumbar region; M50.30 Other cervical disc degeneration, unspecified cervical region; Z79.891 Long term (current) use of opiate analgesic | CPT/HCPCS: 99214 ==

== ENCOUNTER 2020-02-10 10:01 | Outpatient (CLI) | payer BC, SELFPAY ==
--- NOTE | 2020-02-10 12:36 | PFTS_ITS ---
Date of Study:02/10/20 Date of Dictation: MECHANICS: Forced vital capacity (FVC) is normal. Forced expiratory volume in one second (FEV1) is normal. FEV1/FVC is normal. FLOW VOLUME LOOP: Normal with some degree of hesitation. LUNG VOLUMES: Total lung capacity (TLC) is normal. Residual volume (RV) is normal. DIFFUSING CAPACITY FOR CARBON MONOXIDE: Normal. INTERPRETATION: The pulmonary function tests are normal. MTDD
== END 2020-02-10 10:02 | disposition home or self-care (01) ==
LOC: RT 10:04
PROVIDERS: PCP Family Medicine; Visit Provider Internal Medicine Critical Care Medicine
DX: R06.00 Dyspnea, unspecified (principal)
CPT/HCPCS: 94010; 94726; 94729

== ENCOUNTER 2020-02-23 08:49 | Outpatient (CLI) | payer BC, SELFPAY ==
[2020-02-23] MEDS: barium sulfate 450 mL Oral Susp PO (09:17)
--- NOTE | 2020-02-23 10:30 | CT_ITS ---
WS: [id number] CT ABDOMEN PELVIS TECHNIQUE: Noncontrast CT of the abdomen and pelvis with coronal and sagittal reformatted images. CLINICAL INFORMATION: ABDOMINAL PAIN COMPARISON: March 25, 2019 DLP: 1016.[address] scans at [facility] use at least one of these dose optimization techniques: automat ed exposure control; mA and/or kV adjustment per patient size (includes targeted exams where dose is matched to clinical indication); or iterative reconstruction. FINDINGS: Prior postoperative changes right nephrectomy. Right DIGITAL CONTROLS TECHNICAL OFFICER shunt catheter. Noncontrast liver and spleen are normal in appearance. Prior cholecystectomy. Lung bases are well aerated. Mild fatty atrophy of t he pancreas. Left adrenal gland is normal. Right adrenal gland is normal. No upper abdominal lymphade nopathy. Normal caliber abdominal aorta. Disc space narrowing worse L5-S1. Lumbar curve convex left. No evidence of small or large bowel obstruction. Moderate colonic constipation. No free fluid in the pelvis. Normal bladder. Normal sigmoid colon.Prior hysterectomy. CT/CT abdomen pelvis wo con [id number] IMPRESSION: 1. Prior postoperative changes cholecystectomy and hysterectomy. 2. Prior right nephrectomy. 3. Moderate constipation. 4. No hydronephrosis in the left kidney. No obstructing left renal or ureteral calculi. 5. No free fluid in the abdomen or pelvis. 6. DIGITAL CONTROLS TECHNICAL OFFICER shunt catheter. 7. No acute abdominal or pelvic findings.
== END 2020-02-23 08:50 | disposition home or self-care (01) ==
LOC: RADWPI 08:52
PROVIDERS: Family Provider Family Medicine; PCP Family Medicine; Visit Provider Surgery
DX: R10.9 Unspecified abdominal pain (principal); K59.00 Constipation, unspecified; Z98.2 Presence of cerebrospinal fluid drainage device
CPT/HCPCS: 74176

== ENCOUNTER 2020-03-19 08:17 | Outpatient (CLI) | payer BC, SELFPAY ==
--- NOTE | 2020-03-19 08:26 | XR_ITS ---
WS: [id number] CERVICAL SPINE TECHNIQUE: 3 views of the cervical spine CLINICAL INFORMATION: CERVICALGIA, FALL COMPARISON: None. FINDINGS: Straightening of the normal cervical lordosis. Disc space narrowing C5-C6 and C6-C7. Normal preverteb ral soft tissues. Normal C1-articulation. Mild facet arthropathy. XR/XR cervical spine 3V* [id number] IMPRESSION: Straightening of the normal cervical lordosis. No acute fractures.
== END 2020-03-19 08:18 | disposition home or self-care (01) ==
LOC: RADWPI 08:20
PROVIDERS: Family Provider Family Medicine; PCP Family Medicine; Visit Provider Family Medicine
DX: M54.2 Cervicalgia (principal); W19.XXXA Unspecified fall, initial encounter
CPT/HCPCS: 72040

== ENCOUNTER 2020-03-28 10:40 | Outpatient (CLI) | payer BC, SELFPAY ==
--- NOTE | 2020-03-28 10:46 | XRR_ITS ---
PROCEDURE INFORMATION: Exam: XR Right Hip with Pelvis when Performed Exam date and time: 03/28/2020 11:46 AM Age: 49 years old Clinical indication: Hip pain; Right hip; Additional info: Right hip pain TECHNIQUE: Imaging protocol: XR Right hip with pelvis when performed. Views: 1 view. COMPARISON: CT abdomen pelvis wo con [id number] 02/23/2020 10:50 AM FINDINGS: Bones/joints: Mild right hip joint space narrowing. Mild acetabular and femoral head bony overgrowth/spurring. Femoral head maintains normal round. Soft tissues: Unremarkable. XR/XR hip RT 2-3V wo/w pel* [id number] IMPRESSION: No acute findings. Mild degenerative changes.
== END 2020-03-28 10:41 | disposition home or self-care (01) ==
LOC: RAD 10:44
PROVIDERS: Family Provider Family Medicine; PCP Family Medicine; Visit Provider Specialist
DX: M25.551 Pain in right hip (principal)
CPT/HCPCS: 73502

== ENCOUNTER 2020-03-28 15:09 | Outpatient (CLI) | payer BC, SELFPAY | END 2020-03-28 15:10 | disposition home or self-care (01) | LOC: SPT 15:09 | PROVIDERS: PCP Family Medicine; Visit Provider Podiatrist Foot & Ankle Surgery | DX: Z46.89 Encounter for fitting and adjustment of other specified devices (principal); M21.41 Flat foot [pes planus] (acquired), right foot; M21.42 Flat foot [pes planus] (acquired), left foot | CPT/HCPCS: L3030 ==

== ENCOUNTER → 2020-04-04 09:52 | Outpatient (BNVA) | payer BC, SELFPAY | PROVIDERS: PCP Family Medicine; Visit Provider Nurse Practitioner | DX: M54.42 Lumbago with sciatica, left side (principal); M54.41 Lumbago with sciatica, right side; M47.816 Spondylosis without myelopathy or radiculopathy, lumbar region; M47.27 Other spondylosis with radiculopathy, lumbosacral region; M50.30 Other cervical disc degeneration, unspecified cervical region; K59.03 Drug induced constipation; T40.2X5A Adverse effect of other opioids, initial encounter; X58.XXXA Exposure to other specified factors, initial encounter; Z79.891 Long term (current) use of opiate analgesic | CPT/HCPCS: 99214 ==

== ENCOUNTER 2020-04-23 22:00 | Emergency (ER) | payer BC, MEDICARE, SELFPAY ==
[2020-04-23 22:08] VITALS: BP 124/82; PULSE 86; RESP 18; TEMP 35.1; O2SAT 96; BMI 25.2
--- NOTE | 2020-04-23 22:20 | XR_ITS ---
WS: [id number] CHEST XRAY TECHNIQUE: Portable chest. CLINICAL INFORMATION: ams COMPARISON: None. FINDINGS: Partially visualized left NON PROFIT FINANCIAL CONTROLLER shunt tubing appears intact. Heart: Normal cardiac silhouette. Lungs: Lungs are clear. No consolidation or pleural effusion. Bones: Normal visualized bony structures. XR/XR chest 1V portable [id number] IMPRESSION: 1. Normal chest. 2. Partially visualized left NON PROFIT FINANCIAL CONTROLLER shunt tubing appears intact.
--- NOTE | 2020-04-23 22:20 | CTR_ITS ---
PROCEDURE INFORMATION: Exam: CT Head Without Contrast Exam date and time: 04/23/2020 10:30 PM Age: 50 years old Clinical indication: Altered mental status/memory loss; Confusion or disorientation; Prior surgery; Surgery date: 6+ months; Surgery type: Head Cager shunt; Patient HX: AMS w lethargy TECHNIQUE: Imaging protocol: Computed tomography of the head without contrast. Radiation optimization: All CT scans at this facility use at least one of these dose optimization techniques: automated exposure control; mA and/or kV adjustment per patient size (includes targeted exams where dose is matched to clinical indication); or iterative reconstruction. COMPARISON: CT head wo con* [id number] 03/09/2017 6:57 AM RADIATION DOSE METRICS: Total DLP (mGy-cm): 766.97 FINDINGS: Brain: Normal. No hemorrhage. Unremarkable white matter. No mass effect. Ventricles: There is a left frontal shunt catheter with the tip in the frontal horn of the right lateral ventricle. There is no hydrocephalus. Bones/joints: Unremarkable. No acute fracture. Sinuses: Visualized sinuses are unremarkable. No fluid levels. Mastoid air cells: Visualized mastoid air cells are well aerated. Soft tissues: Unremarkable. CT/CT head wo con* [id number] IMPRESSION: No acute intracranial abnormality. Unchanged exam without hydrocephalus. Radiation Dose CTDIVOL = (mGy): DLP = 766.97 (mGy-cm)
--- NOTE | 2020-04-23 22:21 | ECG_ITS ---
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 Measurements Intervals [place] Rate: 80 P: 49 NV: 164 QRS: 17 QRSD: 93 T: 19 QT: 407 QTc: 472 Interpretive Statements SINUS RHYTHM Compared to ECG 10/07/2019 07:12:56 No significant changes Electronically Signed On 04-24-2020 17:12:00 CDT by Reena Hoyt M.D. [email or web address]
--- NOTE | 2020-04-23 22:27 | W.ED.AMS ---
HPI - Altered Mental Status General: Chief Complaint: Altered Mental Status Stated Complaint: slept all day/fell/ very confused/disoriented Time Seen by Provider: 04/23/20 22:17 Source: patient Mode of arrival: ambulatory Limitations: no limitations History of Present Illness: HPI narrative: 50-year-old female who has a history of diabetes. She states she did not sleep all day yesterday and has been quite tired today. She states she had a fall last night and then fell of her bed today has been found and states that she was confused. Patient denies any confusion states she feels completely normal now. Patient is able to answer all my questions appropriately. She denies any headache. Denies any fever. Associated symptoms: Deny depression Review of Systems Const: Denies: fever(s), chills, body aches or change in appetite Eyes: Denies: blurry vision or eye discomfort ENMT: Denies: throat pain or dental pain Card: Denies: chest pain Resp: Denies: dyspnea GI: Denies: abdominal pain, nausea, vomiting or diarrhea : Denies: dysuria Musc: Denies: neck pain or back pain Skin/Breast: Denies: rash Neuro: Reports: confusion Psych: Denies: depression Fletcher/Lymph: Denies: easy bruising All/Imm: Denies: urticaria PFSH ED PFSH: Medical History Abdominal pain DDD (degenerative disc disease), cervical DDD (degenerative disc disease), lumbar Diabetic peripheral neuropathy associated with type 2 diabetes mellitus Facet syndrome, lumbar Fibromyalgia GERD (gastroesophageal reflux disease) Kidney disease Long-term current use of opiate analgesic Lumbosacral spondylosis with radiculopathy Pain management contract signed Seizures Therapeutic opioid induced constipation Surgical History History of nephrectomy (~2013) History of ventriculoperitoneal shunting (~01/04/09) Dr. Cordelia Roche 01/04/2009 Ventriculoperitoneal shunt placement. William Aaron Programmable Valve, Siphonguard device. Valve at 15cm H2O. 2010 reprogrammed to 14 cm H2O Hx of appendectomy (~2002) Hx of cholecystectomy (~2003) Hx of hysterectomy Family History Mother Diabetes DM2 Family/Other Cancer MATERNAL AUNT- BREAST CANCER Social History Smoking and tobacco status: never smoked Alcohol intake: never Caregiver/support person: Yes Lives independently: Yes Household members: spouse Marital status: Current occupational status: disabled History of recent travel: No Physical Exam Const: COMMON NORMALS: no acute distress, patient oriented x3 and healthy appearing HENMT: COMMON NORMALS: normocephalic and atraumatic HEAD & SCALP: normocephalic and atraumatic Eye: COMMON NORMALS: Equal, round and reactive pupils present and EOMs intact bilaterally PUPIL: Yes Equal, round and reactive pupils present Neck/C-Spine: COMMON NORMALS: full ROM and supple Chest: COMMONS NORMALS: normal inspection of the chest and normal palpation of entire chest wall Resp: COMMON NORMALS: normal respiratory effort, No retractions, No use of accessory muscles and clear to auscultation bilaterally AUSCULTATION: clear to auscultation bilaterally Cardio: COMMON NORMALS: regular rate, regular rhythm and No murmurs present (Cardio) RATE: regular rate RHYTHM: regular rhythm GI: COMMON NORMALS: Normal to inspection, nondistended, normoactive bowel sounds present, Soft to palpation, non-tender and no masses PALPATION: Yes Soft to palpation Extremity: COMMON NORMALS: normal to inspection and full ROM Neuro: COMMON NORMALS: patient oriented x3, moves all extremities and no focal motor deficits Psych: COMMON NORMALS: mental status grossly normal, Normal thought process present and cooperative THOUGHT PROCESS: Normal thought process present Skin: COMMON NORMALS: no rashes or lesions noted and no wounds GENERAL SKIN EXAM: no rashes or lesions noted Course Vital Signs: Vital signs: Vital Signs Temperature 95.2 F L 04/23/20 22:08 Pulse Rate 83 04/23/20 23:56 Respiratory Rate 18 04/23/20 23:56 Blood Pressure 126/76 04/23/20 23:56 Pulse Oximetry 98 04/23/20 23:56 MDM - Altered Mental Status MDM Narrative: Medical decision making narrative: Patient presents with a period of confusion. Her lab work and head CT are normal. This is likely due to hypoglycemia. Patient here is well-appearing and stable for discharge. She is to return if worsening. Lab Data: Labs: Lab Results 04/23/20 04/23/20 04/23/20 Range/Units 22:32 23:55 23:55 WBC 7.0 (4.0-10.0) 10^3/ uL RBC 4.92 (4.1-5.3) 10^6/u L Hgb 13.9 (11.5-15.3) g/dL Hct 43.2 (37.0-47.0) % MCV 87.8 (81-99) fL MCH 28.3 (28.0-34.0) pg MCHC 32.2 (30.0-36.0) g/dL RDW 13.8 (12.1-15.1) % Plt Count 139 (130-400) 10^3/c mm MPV 9.6 (7.4-10.4) fL Neut % (Auto) 80.0 % Lymph % (Auto) 13.6 % [place] % (Auto) 4.7 % Eos % (Auto) 1.1 % Baso % (Auto) 0.3 % Neut # (Auto) 5.58 (1.8-7.7) 10^3/u L Lymph # (Auto) 1.0 (0.8-4.8) 10^3/u L [place] # (Auto) 0.3 (0.2-0.9) 10^3/u L Eos # (Auto) 0.1 (0.0-0.8) 10^3/u L Baso # (Auto) 0.0 (0.0-0.1) 10^3/u L Nucleated RBC % (a uto) 0 % Nucleated RBCs # 0.0 /100WBC Sodium 137 (136-145) mmol/L Potassium 5.0 (3.5-5.1) mmol/L Chloride 103 (98-107) mmol/L Carbon Dioxide 27 (22-29) mmol/L Anion Gap 12.0 (5-19) BUN 12 (6-20) mg/dL Creatinine 1.3 H (0.5-0.9) mg/dL GFR Calculation 43.5 L (90-130) mL/min Glucose 170 H (65-115) mg/dL POC Glucose 75 (70-110) mg/dL Calculated Osmolal ity 284 L (285-295) mOsm/k g Calcium 9.9 (8.5-10.5) mg/dL Total Bilirubin 0.3 (0.15-1.2) mg/dL AST 18 (0-32) U/L ALT 12 (0-33) U/L Alkaline Phosphata se 109 H (35-105) IU/L Total Protein 7.7 (6.6-8.7) g/dL Albumin 4.3 (3.5-5.2) g/dL Globulin 3.4 (1.3-4.6) g/dL Ethyl Alcohol < 10 (0-10) mg/dL Imaging Data^: CXR: Attestation: I personally reviewed and interpreted this imaging study as follows: My impression: No acute abnormality CT Head: Radiologist's impression: [address] [address] [address] Scan Report Signed Patient: Tabby Gan Unit #: [id number] : 1970 Age/Sex: 50 / F ADM Date: 04/23/20 Loc: ER Room/Bed: Attending Dr: Ordering Provider/Ordering MD: Claudette Green MD Date of Service: 04/23/20 Procedure(s): CT head wo con* [id number] Accession Number(s): [id number] Report Number: [id number] PROCEDURE INFORMATION: Exam: CT Head Without Contrast Exam date and time: 04/23/2020 10:30 PM Age: 50 years old Clinical indication: Altered mental status/memory loss; Confusion or disorientation; Prior surgery; Surgery date: 6+ months; 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 Radiation optimization: All CT scans at this facility use at least one of these dose optimization techniques: automated exposure control; mA and/or kV adjustment per patient size (includes targeted exams where dose is matched to clinical indication); or iterative reconstruction. COMPARISON: CT head wo con* [id number] 03/09/2017 6:57 AM RADIATION DOSE METRICS: Total DLP (mGy-cm): 766.97 FINDINGS: Brain: Normal. No hemorrhage. Unremarkable white matter. No mass effect. Ventricles: There is a left frontal shunt catheter with the tip in the frontal horn of the right lateral ventricle. There is no hydrocephalus. Bones/joints: Unremarkable. No acute fracture. Sinuses: Visualized sinuses are unremarkable. No fluid levels. Mastoid air cells: Visualized mastoid air cells are well aerated. Soft tissues: Unremarkable. CT/CT head wo con* [id number] IMPRESSION: No acute intracranial abnormality. Unchanged exam without hydrocephalus. EKG Data^: EKG 1: Attestation: I personally reviewed and interpreted this EKG as follows: EKG interpretation date: 04/23/20 EKG interpretation time: 22:42 Interpretation: Normal sinus rhythm heart rate [address] or T wave normalities QRS 93 QTc 443 Discharge Plan Discharge Patient Disposition: Home Clinical Impression: Confusion Condition: Stable Prescriptions: No Action lamotrigine [Lamictal] 150 mg tablet 150 mg PO BID RF: 0 bupropion HCl 75 mg tablet 75 mg PO BID RF: 0 prazosin 5 mg capsule 5 mg PO .BEDTIME RF: 0 aripiprazole [Abilify] 15 mg tablet 15 mg PO DAILY RF: 0 glimepiride 4 mg tablet 4 mg PO QAM RF: 0 tizanidine [Zanaflex] 4 mg tablet 4 mg PO BID PRN (Reason: muscle spasms) RF: 0 Trulicity 1.5 mg/0.5 mL pen injector 1.5 mg SUBCUT .Q WEEKLY RF: 0 rizatriptan 10 mg tablet,disintegrating 10 mg PO .COMPLEX RF: 0 chlorpromazine 50 mg tablet 50 - 100 mg PO . NEEDED RF: 0 aspirin 81 mg tablet,chewable 81 mg PO QDAY RF: 0 docusate sodium 100 mg capsule 400 mg PO QDAY RF: 0 epinephrine 0.3 mg/0.3 mL auto-injector 0.3 mg IM ONCE RF: 0 Januvia 50 mg tablet 50 mg PO QDAY RF: 0 benztropine 1 mg tablet 2 mg PO BID RF: 0 metoprolol tartrate 25 mg tablet 25 mg PO BID RF: 0 hydroxyzine pamoate [Vistaril] 50 mg capsule 50 mg PO TID PRN (Reason: Itching) RF: 0 melatonin 10 mg capsule See Rx Instructions PO .BEDTIME PRN (Reason: Insomnia) RF: 0 clonazepam 0.5 mg tablet See Rx Instructions PO .1-2 BID PRN (Reason: Anxiety) RF: 0 Symproic 0.2 mg tablet See Rx Instructions PO DAILY PRN (Reason: oic) 30 Days Qty: 180 RF: 1 morphine 30 mg tablet extended release 30 mg PO Q8H 30 Days Qty: 90 RF: 0 morphine 30 mg tablet extended release 30 mg PO Q8H 30 Days Qty: 90 RF: 0 (DME) Sole Supports See Rx Instructions .ROUTE .MEDSUPPLY Qty: 1 RF: 0 topiramate [Topamax] 50 mg tablet 50 mg PO DAILY RF: 0 diclofenac sodium [Voltaren] 1 % gel 4 gm TOPICAL QID 30 Days Qty: 100 RF: 5 diclofenac sodium [Voltaren] 1 % gel 2 gm TOPICAL QID RF: 0 coenzyme Q10 [CoQ-10] 100 mg capsule 400 mg PO DAILY RF: 0 ascorbic acid (vitamin C) 500 mg capsule 500 mg PO DAILY RF: 0 omega-3 fatty acids [Fish Oil Concentrate] 1,000 mg capsule 500 mg PO DAILY RF: 0 biotin 10,000 mcg capsule 10,000 mcg PO DAILY RF: 0 garlic [garlic oil] 1,000 mg capsule 1,000 mg PO DAILY RF: 0 apple cider vinegar 500 mg tablet 1,500 mg PO .am RF: 0 ketoconazole 2 % cream 1 applic TOPICAL BID Qty: 30 RF: 0 (DME) Diabetic Shoes See Rx Instructions .ROUTE .MEDSUPPLY Qty: 1 RF: 0 vitamin B complex Capsule 1 cap PO DAILY RF: 0 gabapentin 400 mg capsule 400 mg PO TID RF: 0 polyethylene glycol 3350 [Miralax] 17 gram/dose Powder 17 g PO BID RF: 0 metoclopramide HCl [Reglan] 10 mg Tablet 10 mg PO Q6H PRN (Reason: Headache) RF: 0 metoclopramide HCl 10 mg tablet 10 mg PO DAILY RF: 0 Discharge Orders: Discharge Order (Routine); Ordered 04/24/20 Ordered By: Claudette Green Referrals: Linda Erickson MD [Primary Care Provider] - 1-3 days Discharge Diet: Advance as tolerated Discharge Activity: Resume usual activity Patient Instructions: Confusion Coding Level of Care Code ED Inorganic Chemistry Professor for Chg Fwd Exam Comprehensive
[2020-04-23 22:39] LABS: Glucose Point of Care 75 mg/dL (70-110)
[2020-04-23 23:56] VITALS: BP 126/76; PULSE 83; RESP 18; O2SAT 98
[2020-04-23 23:58] LABS: Basophils % 0.3 %; Eosinophils # 0.1 10^3/uL (0.0-0.8); Eosinophils % 1.1 %; Hematocrit 43.2 % (37.0-47.0); Hemoglobin 13.9 g/dL (11.5-15.3); Lymphocytes % 13.6 %; Mean Corpuscular HGB Conc 32.2 g/dL (30.0-36.0); Mean Corpuscular Hemoglobin 28.3 pg (28.0-34.0); Mean Corpuscular Volume 87.8 fL (81-99); Mean Platelet Volume 9.6 fL (7.4-10.4); Monocytes # 0.3 10^3/uL (0.2-0.9); Monocytes % 4.7 %; Neutrophils # 5.58 10^3/uL (1.8-7.7); Nucleated Red Blood Cells % 0 %; Platelet Count 139 10^3/cmm (130-400); Red Blood Count 4.92 10^6/uL (4.1-5.3); Red Cell Distribution Width 13.8 % (12.1-15.1)
[2020-04-24 00:28] LABS: Alanine Aminotransferase 12 U/L (0-33); Albumin Level 4.3 g/dL (3.5-5.2); Alkaline Phosphatase 109 IU/L (35-105); Aspartate Amino Transferase 18 U/L (0-32); Blood Urea Nitrogen 12 mg/dL (6-20); Calcium 9.9 mg/dL (8.5-10.5); Carbon Dioxide 27 mmol/L (22-29); Chloride 103 mmol/L (98-107); Globulin 3.4 g/dL (1.3-4.6); Glomerular Filtration Rate 43.5 mL/min (90-130); Glucose 170 mg/dL (65-115); Osmolality Calculated 284 mOsm/kg (285-295); Sodium 137 mmol/L (136-145); Total Bilirubin 0.3 mg/dL (0.15-1.2); Total Protein 7.7 g/dL (6.6-8.7)
[2020-04-24 00:29] LABS: Alcohol Level < 10 mg/dL (0-10)
[2020-04-24 00:44] VITALS: BP 120/81; PULSE 83; RESP 18; O2SAT 100
== END 2020-04-24 00:44 | disposition home or self-care (01) ==
PROVIDERS: Emergency Provider Emergency Medicine; PCP Family Medicine
DX: R41.0 Disorientation, unspecified (principal); Z79.82 Long term (current) use of aspirin; E11.42 Type 2 diabetes mellitus with diabetic polyneuropathy; Z90.5 Acquired absence of kidney
CPT/HCPCS: 12345; 36416; 70450; 71045; 80053; 80307; 82962; 85025; 93005; 99281; 99283

== ENCOUNTER 2020-04-26 10:00 | Outpatient (CLI) | payer BC, SELFPAY | END 2020-04-26 10:01 | disposition home or self-care (01) | LOC: RAD 03-19 04:09 | PROVIDERS: PCP Family Medicine; Visit Provider Podiatrist Foot & Ankle Surgery | DX: S99.921A Unspecified injury of right foot, initial encounter (principal); W19.XXXA Unspecified fall, initial encounter | CPT/HCPCS: 73630 ==

== ENCOUNTER → 2020-05-04 10:58 | Outpatient (BNVA) | payer BC, SELFPAY | PROVIDERS: PCP Family Medicine; Visit Provider Surgery | DX: R10.9 Unspecified abdominal pain (principal); R13.10 Dysphagia, unspecified | CPT/HCPCS: 87635 ==

== ENCOUNTER 2020-05-09 06:41 | Day surgery (SDC) | payer BC, SELFPAY ==
[2020-05-07 12:34] VITALS: BMI 24.7
[2020-05-09 07:00] VITALS: BP 100/53; PULSE 78; RESP 16; TEMP 36.4; O2SAT 100
--- NOTE | 2020-05-09 07:08 | W.PM.OPSFHP ---
Same Day Surgery H&P Indication for Procedure/HPI DATE OF PROCEDURE: May 09, 2020 CHIEF COMPLAINT/INDICATIONFOR SURGICAL PROCEDURE: Difficulty in swallowing PREOP DIAGNOSIS: Difficulty in swallowing PLANNED PROCEDRUE: Operation Date: 05/09/20 07:45 Proposed Procedures p EGD 36498 R13.10(Not Applicable) - Bryce Ruelas MD History of present illness: Patient comes today as a follow-up status post barium swallow that showed: 1. Normal oropharyngeal phase. No evidence of aspiration or penetration. 2. No evidence of esophageal stricture or obstructing mass. 3. Moderate esophageal dysmotility with reflux visualized to the midesophagus. 4. No significant hiatal hernia. Also we did order a CT scan of the abdomen and pelvis that showed: 1. Prior postoperative changes cholecystectomy and hysterectomy. 2. Prior right nephrectomy. 3. Moderate constipation. 4. No hydronephrosis in the left kidney. No obstructing left renal or ureteral calculi. 5. No free fluid in the abdomen or pelvis. 6. ALLEY TENDER shunt catheter. 7. No acute abdominal or pelvic findings. Patient states that she feels her bowels falling outside , in the light of the history taking, physical examination and reviewing the CT scan images there is no evidence of hernia Interim history 05/09/2020 Patient continues to have same symptoms and she is here today for diagnostic EGD, patient was supposed to get a manometry study for her esophageal motility but unfortunately that was done pending insurance clearance. ROS All systems have been reviewed negative except as per the above or per problem list Medications/Allergies* Home Medications Medication Instructions Recorded Confirmed Type aspirin 81 mg chewable tablet 81 mg PO QDAY 09/16/19 05/09/20 History chlorpromazine 50 mg tablet 50 - 100 mg PO . NEEDED tab 09/16/19 05/09/20 History docusate sodium 100 mg capsule 400 mg PO QDAY cap 09/16/19 05/09/20 History dulaglutide 1.5 mg/0.5 mL 1.5 mg SUBCUT .Q WEEKLY ml 09/16/19 05/09/20 History subcutaneous pen injector epinephrine 0.3 mg/0.3 mL 0.3 mg IM ONCE 09/16/19 05/07/20 History injection, auto-injector glimepiride 4 mg tablet 4 mg PO QAM 09/16/19 05/09/20 History rizatriptan 10 mg disintegrating 10 mg PO .COMPLEX tab 09/16/19 05/09/20 History tablet sitagliptin 50 mg tablet 50 mg PO QDAY 09/16/19 05/09/20 History tizanidine 4 mg tablet 4 mg PO BID PRN 09/16/19 05/09/20 History aripiprazole 15 mg tablet 15 mg PO DAILY 09/20/19 05/09/20 History benztropine 1 mg tablet 2 mg PO BID tab 09/20/19 05/09/20 History bupropion HCl 75 mg tablet 75 mg PO BID tab 09/20/19 05/09/20 History hydroxyzine pamoate 50 mg capsule 50 mg PO TID PRN 09/20/19 05/09/20 History lamotrigine 150 mg tablet 150 mg PO BID 09/20/19 05/09/20 History melatonin 10 mg capsule See Rx Instructions PO .BEDTIME 09/20/19 05/09/20 History PRN cap metoprolol tartrate 25 mg tablet 25 mg PO BID tab 09/20/19 05/09/20 History prazosin 5 mg capsule 5 mg PO .BEDTIME cap 09/20/19 05/09/20 History vitamin B complex 1 cap PO DAILY 10/06/19 05/09/20 History gabapentin 400 mg PO TID 10/07/19 05/09/20 History metoclopramide HCl [Reglan] 10 mg PO Q6H PRN 10/07/19 05/09/20 History polyethylene glycol 3350 [Miralax] 17 g PO BID 10/07/19 05/07/20 History apple cider vinegar 500 mg tablet 1,500 mg PO .am tab 02/02/20 05/09/20 History ascorbic acid (vitamin C) 500 mg 500 mg PO DAILY 02/02/20 05/09/20 History capsule biotin 10,000 mcg capsule 10,000 mcg PO DAILY cap 02/02/20 05/09/20 History coenzyme Q10 100 mg capsule 400 mg PO DAILY cap 02/02/20 05/09/20 History diclofenac sodium 1 % topical gel 2 gm TOPICAL QID 02/02/20 05/09/20 History garlic 1,000 mg capsule 1,000 mg PO DAILY 02/02/20 05/09/20 History omega-3 fatty acids 1,000 mg 500 mg PO DAILY cap 02/02/20 05/09/20 History capsule metoclopramide HCl 10 mg PO DAILY 03/30/20 05/09/20 History clonazepam 0.5 mg tablet See Rx Instructions PO .1-2 BID 04/04/20 05/09/20 History PRN tab Allergies/Adverse Reactions Allergy/AdvReac Type Severity Reaction Status Date / Time spider venom Allergy ALGY-Anaphy Verified 04/26/20 14:03 laxis NSAIDS (Non-Steroidal AdvReac Unknown CKD4 Verified 04/26/20 14:03 Anti-Inflamma Iodinated Contrast Media AdvReac CKD4 - Verified 04/26/20 14:03 Pertinent History/Comorbid Conditions* Medical History (Updated 05/02/20 @ 00:01 by ) Abdominal pain DDD (degenerative disc disease), cervical DDD (degenerative disc disease), lumbar Diabetic peripheral neuropathy associated with type 2 diabetes mellitus Facet syndrome, lumbar Fibromyalgia GERD (gastroesophageal reflux disease) Kidney disease Long-term current use of opiate analgesic Lumbosacral spondylosis with radiculopathy Pain management contract signed Seizures Therapeutic opioid induced constipation Surgical History (Updated 10/08/19 @ 12:14 by Gregorio Matos DPM) History of nephrectomy (~2013) History of ventriculoperitoneal shunting (~01/04/09) Dr. Cordelia Roche 01/04/2009 Ventriculoperitoneal shunt placement. William Aaron Programmable Valve, Siphonguard device. Valve at 15cm H2O. 2010 reprogrammed to 14 cm H2O Hx of appendectomy (~2002) Hx of cholecystectomy (~2003) Hx of hysterectomy Family History (Updated 09/16/19 @ 09:01 by Consuelo Lopez LPN) Diabetes Mother DM2 Cancer Family/Other MATERNAL AUNT- BREAST CANCER Social History Smoking and tobacco status: never smoked Alcohol intake: never Caregiver/support person: Yes Lives independently: Yes Household members: spouse Marital status: Current occupational status: disabled History of recent travel: No Pertinent Exam Findings alert, oriented x 3, clear to auscultation bilaterally and procedure specific exam findings (Abdominal examination nontender nondistended soft) Recommendations Surgery/Procedure today (We will plan to perform a diagnostic EGD today with possible biopsy.) Coding Level of Care Code Acute Client Relationship Manager for [facility] Fwd
[2020-05-09] MEDS: sodium chloride 0.9% 1,000 ML 30 ML IV (07:10)
[2020-05-09 07:12] LABS: Glucose Point of Care 75 mg/dL (70-110)
--- NOTE | 2020-05-09 07:15 | P.ANESASSM_ITS ---
Pre-Anesthetic Assessment Pre-Anesthetic Assessment: Height/Weight: Height 1.8 m Weight 80.286 kg Temp Pulse Resp BP Pulse Ox 97.6 F 78 16 100/53 100 05/09/20 07:00 05/09/20 07:00 05/09/20 07:00 05/09/20 07:00 05/09/20 07:00 Preop Diagnosis: Difficulty in swallowing Proposed Procedure: Operation Date: 05/09/20 07:45 Proposed Procedures p EGD 97989 R13.10(Not Applicable) - Bryce Ruelas MD Familial anesthetic complications: none Was Beta Ashley taken within 24 hours: Yes Last intake: Intake Last Liquid Date 05/08/20 Last Liquid Time 19:00 Last Solid Date 05/08/20 Last Solid Time 19:00 Last Intake: 23:00 Social: Social History: No alcohol and No tobacco Exam: Pre-Anes Outpt Exam: alert, oriented x 3, clear to auscultation bilaterally and regular rate & rhythm Airway: Submandibular: WNL Cervical ROM: WNL MP: 1 Dentition: False Pulmonary: Pulmonary: None reported CV/HEM: CV/HEM: Arrythmia (SVT) : : Chronic renal Insufficiency Hepatic: Hepatic: None reported GI: GI: GERD Metabolic: Metabolic: DM (110's) Musc/skel: Musc/skel: Lower Back Pain Comments: chronic pain pt Neuropsych: Neuropsych: Anxiety, Depression and VAUGHN 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 Anesthetic Plan: ASA status: 3 Anesthesia: MAC Risk of > 500 ml blood loss (7ml/kg in children): No Meds/Allergies Current Medications: Current Medications Generic Name Dose Route Start Last Admin Trade Name Freq PRN Reason Stop Dose Admin Sodium Chloride 1,000 mls @ 30 ml s/hr 05/09/20 06:30 05/09/20 07:10 Sodium Chloride 0.9% IV 05/10/20 06:29 30 mls/hr .Q24H ARMIDA Administration PFSH Anesthesia PFSH: Medical History (Updated 05/02/20 @ 00:01 by ) Abdominal pain DDD (degenerative disc disease), cervical DDD (degenerative disc disease), lumbar Diabetic peripheral neuropathy associated with type 2 diabetes mellitus Facet syndrome, lumbar Fibromyalgia GERD (gastroesophageal reflux disease) Kidney disease Long-term current use of opiate analgesic Lumbosacral spondylosis with radiculopathy Pain management contract signed Seizures Therapeutic opioid induced constipation Surgical History History of nephrectomy (~2013) History of ventriculoperitoneal shunting (~01/04/09) Dr. Cordelia Roche 01/04/2009 Ventriculoperitoneal shunt placement. [email or web address] Programmable Valve, Siphonguard device. Valve at 15cm H2O. 2010 reprogrammed to 14 cm H2O Hx of appendectomy (~2002) Hx of cholecystectomy (~2003) Hx of hysterectomy Family History Mother Diabetes DM2 Family/Other Cancer MATERNAL AUNT- BREAST CANCER Social History Smoking and tobacco status: never smoked Alcohol intake: never Caregiver/support person: Yes Lives independently: Yes Household members: spouse Marital status: Current occupational status: disabled History of recent travel: No Data Anesthesia Other Labs: Laboratory Results - last 48 hr 05/09/20 07:08 POC Glucose 75 Cardiac Studies: No Data to Display
[2020-05-09] MEDS: metoclopramide 5 mg/mL SDV 2 mL 10 MG IVP (07:30)
[2020-05-09 08:20] VITALS: BP 91/66; PULSE 81; RESP 16; TEMP 36.3; O2SAT 96
--- NOTE | 2020-05-09 08:22 | ANE.PACU2 ---
Inpatient post-anesthesia follow up: Airway intact: Yes Vital signs: Temperature 97.6 F Pulse Rate 78 Respiratory Rate 16 Blood Pressure 100/53 Pulse Oximetry 100 Oxygen Delivery Me thod Room Air Oxygen Flow Rate Fraction of Inspir ed Oxygen Hydration adequate: Yes Nausea and vomiting: No Pain level: 1
[2020-05-09 08:38] VITALS: BP 95/60; PULSE 78; RESP 18; O2SAT 100
== END 2020-05-09 09:14 | disposition home or self-care (01) ==
PROVIDERS: PCP Family Medicine; Visit Provider Surgery
PROC: 0DJ08ZZ Inspection of Upper Intestinal Tract, Via Natural or Artificial Opening Endoscopic (ICD-10-PCS; CPT 43235; principal; 2020-05-09 07:45)
DX: R13.10 Dysphagia, unspecified (principal); K21.9 Gastro-esophageal reflux disease without esophagitis; K31.89 Other diseases of stomach and duodenum; E11.42 Type 2 diabetes mellitus with diabetic polyneuropathy; M79.7 Fibromyalgia; Z83.3 Family history of diabetes mellitus; Z79.82 Long term (current) use of aspirin; Z79.891 Long term (current) use of opiate analgesic
CPT/HCPCS: 12345; 36416; 43235; 82962; J2704; J2765; J7030

== ENCOUNTER → 2020-05-31 12:35 | Outpatient (BNVA) | payer BC, SELFPAY | PROVIDERS: PCP Family Medicine; Visit Provider Anesthesiology | DX: M47.816 Spondylosis without myelopathy or radiculopathy, lumbar region (principal); M51.36 Other intervertebral disc degeneration, lumbar region; M47.27 Other spondylosis with radiculopathy, lumbosacral region; M50.30 Other cervical disc degeneration, unspecified cervical region; Z79.891 Long term (current) use of opiate analgesic | CPT/HCPCS: 99214 ==

== ENCOUNTER → 2020-06-10 16:47 | Outpatient (BNVA) | payer BC, SELFPAY | PROVIDERS: PCP Family Medicine; Visit Provider Surgery | DX: Z01.812 Encounter for preprocedural laboratory examination (principal); Z20.828 Contact with and (suspected) exposure to other viral communicable diseases | CPT/HCPCS: 87635 ==

== ENCOUNTER 2020-06-14 07:37 | Day surgery (SDC) | payer BC, SELFPAY ==
[2020-06-13 09:11] VITALS: BMI 24.3
[2020-06-14 08:02] VITALS: BP 95/63; PULSE 72; RESP 18; TEMP 36.4; O2SAT 98
[2020-06-14 08:22] LABS: Glucose Point of Care 83 mg/dL (70-110)
[2020-06-14] MEDS: sodium chloride 0.9% 1,000 ML 30 ML IV (08:23)
--- NOTE | 2020-06-14 08:29 | W.PM.OPSUD ---
Surgery/Procedure H&P Update DATE OF PROCEDURE: June 14, 2020 DATE H&P PERFORMED: 06/05/20 H&P UPDATE INFORMATION: No changes to prior documentation PREOP DIAGNOSIS: Difficulty in swallowing PLANNED PROCEDURE: Operation Date: 06/14/20 09:25 Proposed Procedures p Excision of skin Lesion from right hip/buttocks(Right) - Cisco Gonzales MD
--- NOTE | 2020-06-14 08:51 | ANES.PREANE2 ---
Pre-Anesthetic Assessment Pre-Anesthetic Assessment: Height/Weight: Height 1.8 m Weight 78.925 kg Temp Pulse Resp BP Pulse Ox 97.6 F 72 18 95/63 98 06/14/20 08:02 06/14/20 08:02 06/14/20 08:02 06/14/20 08:02 06/14/20 08:02 Preop Diagnosis: Difficulty in swallowing Proposed Procedure: Operation Date: 06/14/20 09:25 Proposed Procedures p Excision of skin Lesion from right hip/buttocks(Right) - Cisco Gonzales MD Familial anesthetic complications: None Was Beta Ashley taken within 24 hours: N/A Last intake: Intake Last Liquid Date 06/13/20 Last Liquid Time 22:00 Last Solid Date 06/13/20 Last Solid Time 20:30 Social: Social History: No alcohol and No tobacco Exam: Pre-Anes Outpt Exam: alert, oriented x 3, clear to auscultation bilaterally and regular rate & rhythm Airway: MP: 1 Dentition: False CV/HEM: Comments: hx SVT : : Chronic renal Insufficiency GI: GI: GERD Comments: dysphagia Metabolic: Comments: recent weight loss Musc/skel: Musc/skel: Lower Back Pain (chronic pain patient (opiates)) Neuropsych: Neuropsych: Anxiety and Depression 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 Anesthetic Plan: ASA status: 3 Anesthesia: MAC Risk of > 500 ml blood loss (7ml/kg in children): No Meds/Allergies Current Medications: Current Medications Generic Name Dose Route Start Last Admin Trade Name Freq PRN Reason Stop Dose Admin Sodium Chloride 1,000 mls @ 30 ml s/hr 06/14/20 07:45 06/14/20 08:23 Sodium Chloride 0.9% IV 06/15/20 07:44 30 mls/hr .Q24H ARMIDA Administration PFSH Anesthesia PFSH: Medical History Abdominal pain DDD (degenerative disc disease), cervical DDD (degenerative disc disease), lumbar Diabetic peripheral neuropathy associated with type 2 diabetes mellitus Facet syndrome, lumbar Fibromyalgia GERD (gastroesophageal reflux disease) Kidney disease Long-term current use of opiate analgesic Lumbosacral spondylosis with radiculopathy Pain management contract signed Seizures Therapeutic opioid induced constipation Surgical History History of nephrectomy (~2013) History of ventriculoperitoneal shunting (~01/04/09) Dr. Cordelia Roche 01/04/2009 Ventriculoperitoneal shunt placement. [employer] Programmable Valve, Siphonguard device. Valve at 15cm H2O. 2010 reprogrammed to 14 cm H2O Hx of appendectomy (~2002) Hx of cholecystectomy (~2003) Hx of hysterectomy Family History Mother Diabetes DM2 Family/Other Cancer MATERNAL AUNT- BREAST CANCER Social History (Updated 05/31/20 @ 13:04 by Halie Griffin LPN) Smoking and tobacco status: never smoked Alcohol intake: never Caregiver/support person: Yes Lives independently: Yes Household members: spouse Marital status: Current occupational status: disabled History of recent travel: No Data Anesthesia Other Labs: Laboratory Results - last 48 hr 06/14/20 08:19 POC Glucose 83 Cardiac Studies: No Data to Display
[2020-06-14] MEDS: midazolam 1 mg/mL INJ 2 mL 2 MG IVP (09:12)
--- NOTE | 2020-06-14 10:08 | PM.OP ---
Operative Report Date of procedure: June 14, 2020 Pre-op Diagnosis: Right hip granuloma/fibroma. Post-op diagnosis: same Procedure Done: 1. Excision of right hip granuloma/fibroma. 2. Layered closure of 9 cm incision. Specimens removed/disposition: As above. Surgeon: Cisco Gonzales Anesthesia: MAC Estimated blood loss (mL): 5 Complications: None. Condition: stable Disposition: same day Brief History: This is a 50-year-old white female who says that ever since she had an IM injection in the right hip a couple of years ago she has had a painful mass and a bruise on her skin over the right hip area. She wanted to get it removed. Procedure: The patient was brought to the operating room and was placed in a left lateral decubitus position on the operating room table. A monitored anesthetic was induced. The right hip was prepped and draped in the sterile fashion. A combination of 1% lidocaine with 1 100,000 parts epinephrine and 0.5% bupivacaine was used for local anesthesia throughout the procedure. A transverse elliptical incision was carried out around the lesion encompassing the entire skin change. Cautery was used to enter the subcutaneous layer and a fatty fibromatous mass was found at the superior edge where the patient had her complaint of pain. This was completely excised with the specimen. As the specimen was completely removed the remaining incision measured a little over 9 cm in greatest diameter. The skin was undermined slightly on either side and was then irrigated extensively. The incision was brought back together in 2 layers with an underlying layer of inverted interrupted sutures of 2-0 Vicryl in the dermis and the skin being approximated with a running subcuticular suture of 3-0 Vicryl. Benzoin and Steri-Strips were placed over the incision and a sterile bandage followed. The patient was taken to the outpatient recovery area in stable condition after the procedure.
[2020-06-14 10:14] VITALS: BP 100/60; PULSE 75; RESP 18; TEMP 36.6; O2SAT 97
[2020-06-14 10:29] VITALS: BP 105/73; PULSE 72; RESP 18; TEMP 36.6; O2SAT 100
--- NOTE | 2020-06-14 10:45 | ANE.PACU2 ---
Inpatient post-anesthesia follow up: Airway intact: Yes Vital signs: Temperature 97.9 F Pulse Rate 72 Respiratory Rate 18 Blood Pressure 105/73 Pulse Oximetry 100 Oxygen Delivery Me thod Room Air Oxygen Flow Rate Fraction of Inspir ed Oxygen Hydration adequate: Yes Nausea and vomiting: No Pain level: 1 Mental status: Baseline
== END 2020-06-14 10:44 | disposition home or self-care (01) ==
PROVIDERS: PCP Family Medicine; Visit Provider Surgery
PROC: (CPT 11406; principal; 2020-06-14 09:15)
DX: L98.9 Disorder of the skin and subcutaneous tissue, unspecified (principal); M89.8X8 Other specified disorders of bone, other site; E11.42 Type 2 diabetes mellitus with diabetic polyneuropathy; M79.7 Fibromyalgia; K21.9 Gastro-esophageal reflux disease without esophagitis; Z79.891 Long term (current) use of opiate analgesic; M19.90 Unspecified osteoarthritis, unspecified site; Z79.82 Long term (current) use of aspirin
CPT/HCPCS: 11406; 12034; 12345; 36416; 82962; 88305; 96374; J0690; J2250; J2704; J3010; J7030

== ENCOUNTER 2020-07-21 07:21 | Emergency (ER) | payer BC, MEDICARE, SELFPAY ==
[2020-07-21 07:25] VITALS: BP 105/77; PULSE 86; RESP 18; TEMP 36.5; O2SAT 96; BMI 23.1
[2020-07-21 07:32] VITALS: BP 105/78; PULSE 84; RESP 18; O2SAT 100
--- NOTE | 2020-07-21 07:41 | CTR_ITS ---
PROCEDURE INFORMATION: Exam: CT Abdomen And Pelvis With Contrast Exam date and time: 07/21/2020 8:44 AM Age: 50 years old Clinical indication: Abdominal pain; Epigastric; Additional info: Abd pain TECHNIQUE: Imaging protocol: Computed tomography of the abdomen and pelvis with intravenous contrast. Radiation optimization: All CT scans at this facility use at least one of these dose optimization techniques: automated exposure control; mA and/or kV adjustment per patient size (includes targeted exams where dose is matched to clinical indication); or iterative reconstruction. Contrast material: VISI 320; Contrast volume: 75 ml; Contrast route: INTRAVENOUS (IV); COMPARISON: CT abdomen pelvis wo con [id number] 02/23/2020 10:50 AM RADIATION DOSE METRICS: Total DLP (mGy-cm): 702.16 FINDINGS: Tubes, catheters and devices: A ventriculoperitoneal shunt is present with the tip in the right lower quadrant. Liver: Normal. No mass. Gallbladder and bile ducts: The patient has undergone cholecystectomy. The bile ducts are normal. Pancreas: Normal. No ductal dilation. Spleen: Normal. No splenomegaly. Adrenal glands: Normal. No mass. Kidneys and ureters: Right nephrectomy. The left kidney is normal. There is a left extrarenal pelvis. No renal mass or calcification is seen. Stomach and bowel: There is a prominent amount of stool in the ascending and transverse colon consistent with constipation. There is no evidence of small bowel obstruction or dilatation. Appendix: No evidence of appendicitis. Intraperitoneal space: There is a trace amount of nonspecific free fluid in the pelvis. Vasculature: Unremarkable. No abdominal aortic aneurysm. Lymph nodes: Unremarkable. No enlarged lymph nodes. Urinary bladder: Unremarkable as visualized. Reproductive: Hysterectomy. No adnexal masses. Bones/joints: Degenerative changes are present in the spine especially at L5-S1 with disc space narrowing osteophyte and disc bulging. Soft tissues: Unremarkable. CT/CT abdomen pelvis w con* [id number] IMPRESSION: 1. No acute abnormalities are seen. 2. Cholecystectomy, right nephrectomy, hysterectomy. 3. Prominent amount of stool consistent with constipation. Radiation Dose CTDIVOL = (mGy): DLP = 702.16 (mGy-cm)
[2020-07-21 07:59] LABS: Basophils % 0.5 %; Eosinophils # 0.1 10^3/uL (0.0-0.8); Eosinophils % 1.6 %; Hematocrit 39.1 % (37.0-47.0); Hemoglobin 12.8 g/dL (11.5-15.3); Lymphocytes # 1.9 10^3/uL (0.8-4.8); Lymphocytes % 24.8 %; Mean Corpuscular HGB Conc 32.7 g/dL (30.0-36.0); Mean Corpuscular Hemoglobin 28.1 pg (28.0-34.0); Mean Corpuscular Volume 85.9 fL (81-99); Mean Platelet Volume 10.4 fL (7.4-10.4); Monocytes # 0.5 10^3/uL (0.2-0.9); Monocytes % 6.4 %; Neutrophils # 4.97 10^3/uL (1.8-7.7); Neutrophils % 66.3 %; Nucleated Red Blood Cells % 0 %; Platelet Count 197 10^3/cmm (130-400); Red Blood Count 4.55 10^6/uL (4.1-5.3); Red Cell Distribution Width 12.9 % (12.1-15.1); White Blood Count 7.5 10^3/uL (4.0-10.0)
[2020-07-21] MEDS: morphine 4 mg/mL SDV 1 mL IVP (08:20)
[2020-07-21] MEDS: sodium chloride 0.9% 1,000 ML 999 ML IV (08:20)
[2020-07-21] MEDS: ondansetron 2 mg/ML SDV 2 mL 4 MG IVP (08:20)
--- NOTE | 2020-07-21 08:32 | W.ED.ABDPA2 ---
HPI - Abdominal Pain General: Chief Complaint: Abdominal Pain Stated Complaint: abdominal pain Time Seen by Provider: 07/21/20 07:39 History of Present Illness: HPI narrative: 50-year-old female presents with complaint of abdominal pain woke her up this morning. She took a Pepcid and has some transient improvement went back to sleep when she woke up later in the morning she had right upper quadrant abdominal pain and epigastric pain. She reports having had this intermittently throughout the last year and usually the Pepcid will help it. She reports losing about 65 pounds in the last year she looking through the records and the EMR here she has had some evaluation for it additionally 3 weeks ago she had a cervical laminectomy. She denies any significant change in her or new symptoms pertaining to GI or issues. Denies any fever or shortness of breath. She has some nausea but denies vomiting or diarrhea. She has some hemorrhoids and chronically to have small amount of bleeding with bowel movements she is generally constipated because of chronic opioid use. Is not had any change in the hemorrhoid bleeding recently. Patient only had a EGD done in April of this year showed diabetic gastroparesis. Patient had evaluation by general surgery in January of this year for chronic abdominal pain at that time CT was done but no IV contrast was used. Location: RUQ Quality: cramping and stabbing Radiation: epigastric Migration to: epigastric Exacerbating factors: eating Relieving factors: nothing Associated Symptoms: Reports anorexia, bloating, GI cramping, dyspepsia and heartburn; Denies belching, change in bowel habits, change in stool character, chills, coffee ground emesis, constipation, diarrhea, dysuria, excessive flatus, fever(s), hematochezia, hematuria, hematemesis, fecal incontinence, loose stools, melena, nausea, poor appetite, syncope and vomiting Review of Systems Const: Denies: fever(s) or chills ENMT: Denies: throat pain, ear or mastoid pain, nasal discharge or nasal congestion Card: Denies: syncope Resp: Denies: dyspnea, productive cough or non-productive cough GI: Reports: heartburn, bloating and GI cramping; Denies: nausea, vomiting, hematemesis, coffee ground emesis, diarrhea, constipation, belching, excessive flatus, fecal incontinence, change in bowel habits, change in stool character, hematochezia or melena : Denies: dysuria or hematuria Skin/Breast: Denies: rash or pruritus PFSH ED PFSH: Medical History Abdominal pain DDD (degenerative disc disease), cervical DDD (degenerative disc disease), lumbar Diabetic peripheral neuropathy associated with type 2 diabetes mellitus Facet syndrome, lumbar Fibromyalgia GERD (gastroesophageal reflux disease) Kidney disease Long-term current use of opiate analgesic Lumbosacral spondylosis with radiculopathy Pain management contract signed Seizures Therapeutic opioid induced constipation Surgical History History of nephrectomy (~2013) History of ventriculoperitoneal shunting (~01/04/09) Dr. Cordelia Roche 01/04/2009 Ventriculoperitoneal shunt placement. [employer] Ha[employer] Programmable Valve, Siphonguard device. Valve at 15cm H2O. 2010 reprogrammed to 14 cm H2O Hx of appendectomy (~2002) Hx of cholecystectomy (~2003) Hx of hysterectomy Family History Mother Diabetes DM2 Family/Other Cancer MATERNAL AUNT- BREAST CANCER Social History Smoking and tobacco status: never smoked Alcohol intake: never Caregiver/support person: Yes Lives independently: Yes Household members: spouse Marital status: Current occupational status: disabled History of recent travel: No Physical Exam Const: COMMON NORMALS: no acute distress GENERAL APPEARANCE: cooperative and comfortable ORIENTATION/CONSCIOUSNESS: Yes awake, Yes oriented to person, Yes oriented to place and Yes oriented to time HENMT: COMMON NORMALS: normocephalic, atraumatic and hearing grossly normal bilaterally HEAD & SCALP: normocephalic and atraumatic Eye: COMMON NORMALS: Equal, round and reactive pupils present, EOMs intact bilaterally, conjunctivae normal and no scleral icterus CONJUNCTIVA: Yes conjunctivae normal PUPIL: Yes Equal, round and reactive pupils present Neck/C-Spine: COMMON NORMALS: full ROM, no lymphadenopathy, supple and no JVD Lymph: LYMPHATIC: no lymphadenopathy noted and no lymphedema noted Resp: COMMON NORMALS: normal respiratory effort, No retractions, No use of accessory muscles and clear to auscultation bilaterally AUSCULTATION: clear to auscultation bilaterally Cardio: COMMON NORMALS: no JVD, regular rate, regular rhythm and No murmurs present (Cardio) RATE: regular rate RHYTHM: regular rhythm GI: COMMON NORMALS: Soft to palpation and No hepatosplenomegaly present AUSCULTATION: Yes normoactive bowel sounds PALPATION: Yes Soft to palpation, Yes Tenderness to palpation present (GI) (epigastric) Details: RUQ, No Guarding due to palpation present (GI) and Yes No hepatosplenomegaly present Extremity: COMMON NORMALS: normal to inspection, capillary refill normal, no clubbing, cyanosis or edema, no calf tenderness and no pedal edema Neuro: SENSORIUM/ORIENTATION: Yes oriented to person, Yes oriented to place and Yes oriented to time Skin: COMMON NORMALS: no rashes or lesions noted GENERAL SKIN EXAM: no rashes or lesions noted Course Vital Signs: Vital signs: Vital Signs Temperature 97.7 F 07/21/20 07:25 Pulse Rate 77 07/21/20 08:35 Respiratory Rate 14 07/21/20 08:35 Blood Pressure 116/77 07/21/20 08:35 Pulse Oximetry 100 07/21/20 08:35 MDM - Abdominal Pain MDM Narrative: Medical decision making narrative: CT shows significant constipation but no no other significant findings are noted on report. Laboratory studies unremarkable. We will go ahead and discharge patient home to use mag citrate as needed clear liquid diet for 44 hours advance as tolerated. Lab Data: Labs: Lab Results 07/21/20 07/21/20 07/21/20 Range/Units 07:45 07:45 08:38 WBC 7.5 (4.0-10.0) 10^3/ uL RBC 4.55 (4.1-5.3) 10^6/u L Hgb 12.8 (11.5-15.3) g/dL Hct 39.1 (37.0-47.0) % MCV 85.9 (81-99) fL MCH 28.1 (28.0-34.0) pg MCHC 32.7 (30.0-36.0) g/dL RDW 12.9 (12.1-15.1) % Plt Count 197 (130-400) 10^3/c mm MPV 10.4 (7.4-10.4) fL Neut % (Auto) 66.3 % Lymph % (Auto) 24.8 % [place] % (Auto) 6.4 % Eos % (Auto) 1.6 % Baso % (Auto) 0.5 % Neut # (Auto) 4.97 (1.8-7.7) 10^3/u L Lymph # (Auto) 1.9 (0.8-4.8) 10^3/u L [place] # (Auto) 0.5 (0.2-0.9) 10^3/u L Eos # (Auto) 0.1 (0.0-0.8) 10^3/u L Baso # (Auto) 0.0 (0.0-0.1) 10^3/u L Nucleated RBC % (a uto) 0 % Nucleated RBCs # 0.0 /100WBC Sodium 139 (136-145) mmol/L Potassium 3.9 (3.5-5.1) mmol/L Chloride 107 (98-107) mmol/L Carbon Dioxide 22 (22-29) mmol/L Anion Gap 13.9 (5-19) BUN 22 H (6-20) mg/dL Creatinine 1.2 H (0.5-0.9) mg/dL GFR Calculation 47.7 L (90-130) mL/min Glucose 123 H (65-115) mg/dL Calculated Osmolal ity 293 (285-295) mOsm/k g Calcium 9.6 (8.5-10.5) mg/dL Total Bilirubin 0.3 (0.15-1.2) mg/dL AST 15 (0-32) U/L ALT 18 (0-33) U/L Alkaline Phosphata se 107 H (35-105) IU/L Total Protein 7.2 (6.6-8.7) g/dL Albumin 4.3 (3.5-5.2) g/dL Globulin 2.9 (1.3-4.6) g/dL Lipase 84 H (13-60) U/L Urine Color Yellow (Yellow) Urine Appearance Sl hazy (CLEAR) Urine pH 6 (5-7) Ur Specific Gravit y 1.015 (1.005-1.030) Urine Protein Neg (Negative) Urine Glucose (UA) Norm (Normal) Urine Ketones Negative (Negative) Urine Blood Neg (Negative) Urine Nitrate Negative (Negative) Urine Bilirubin Neg (Negative) Urine Urobilinogen Norm (Negative) mg/dL Ur Leukocyte Andreina ase Negative (Negative) Urine RBC None (0-2) /hpf Urine WBC None (0-5) /hpf Ur Squamous Epith Cells 15-25 H (0-5) /hpf Amorphous Sediment Not Reportable Urine Bacteria Trace (NONE) /hpf Urine Mucus Trace /hpf Discharge Plan Discharge Patient Disposition: Home Clinical Impression: Abdominal pain, Constipation Condition: Stable Prescriptions: New magnesium citrate Solution 150 ml PO BID PRN (Reason: constipation) Qty: 296 RF: 0 No Action lamotrigine [Lamictal] 150 mg tablet 150 mg PO BID RF: 0 bupropion HCl 75 mg tablet 75 mg PO BID RF: 0 prazosin 5 mg capsule 5 mg PO .BEDTIME RF: 0 aripiprazole [Abilify] 15 mg tablet 15 mg PO DAILY RF: 0 Trulicity 1.5 mg/0.5 mL pen injector 1.5 mg SUBCUT .Q WEEKLY RF: 0 rizatriptan 10 mg tablet,disintegrating 10 mg PO .COMPLEX RF: 0 chlorpromazine 50 mg tablet 50 - 100 mg PO . NEEDED RF: 0 aspirin 81 mg tablet,chewable 81 mg PO QDAY RF: 0 docusate sodium 100 mg capsule 1,000 mg PO QDAY RF: 0 epinephrine 0.3 mg/0.3 mL auto-injector 0.3 mg IM ONCE PRN (Reason: Allergic Reaction) RF: 0 Januvia 50 mg tablet 50 mg PO QDAY RF: 0 benztropine 1 mg tablet 2 mg PO BID RF: 0 metoprolol tartrate 25 mg tablet 25 mg PO BID RF: 0 hydroxyzine pamoate [Vistaril] 50 mg capsule 50 mg PO TID PRN (Reason: Itching) RF: 0 melatonin 10 mg capsule See Rx Instructions PO .BEDTIME PRN (Reason: Insomnia) RF: 0 clonazepam 0.5 mg tablet 1 mg PO BID RF: 0 (DME) Sole Supports See Rx Instructions .ROUTE .MEDSUPPLY Qty: 1 RF: 0 coenzyme Q10 [CoQ-10] 100 mg capsule 900 mg PO DAILY RF: 0 ascorbic acid (vitamin C) 500 mg capsule 500 mg PO DAILY RF: 0 omega-3 fatty acids [Fish Oil Concentrate] 1,000 mg capsule 500 mg PO DAILY RF: 0 biotin 10,000 mcg capsule 10,000 mcg PO DAILY RF: 0 garlic [garlic oil] 1,000 mg capsule 1,000 mg PO DAILY RF: 0 apple cider vinegar 500 mg tablet 1,000 mg PO .am RF: 0 morphine 30 mg tablet extended release 30 mg PO Q8H 30 Days Qty: 90 RF: 0 (DME) Diabetic Shoes See Rx Instructions .ROUTE .MEDSUPPLY Qty: 1 RF: 0 vitamin B complex Capsule 1 cap PO DAILY RF: 0 gabapentin 400 mg capsule 400 mg PO TID RF: 0 polyethylene glycol 3350 [Miralax] 17 gram/dose Powder 17 g PO BID PRN (Reason: Constipation) RF: 0 metoclopramide HCl 10 mg tablet 10 mg PO DAILY PRN (Reason: Migraine Headache) RF: 0 methocarbamol 500 mg tablet 1,000 mg PO TID PRN (Reason: Muscle Pain) RF: 0 glimepiride 2 mg Tablet 2 mg PO QAM RF: 0 ketoconazole 2 % cream 1 applic TOPICAL BID PRN (Reason: Itching) RF: 0 Voltaren 1 % gel 4 gm TOPICAL QID MDD pain PRN (Reason: arthritis) RF: 0 Symproic 0.2 mg tablet See Rx Instructions PO DAILY RF: 0 magnesium 200 mg Tablet 400 mg PO DAILY RF: 0 Discharge Orders: Discharge ED (Routine); Ordered 07/21/20 Ordered By: Roe Gautam Referrals: Linda Erickson MD [Primary Care Provider] - Discharge Diet: Clear Liquid Discharge Activity: Increase activity as tolerated Activity Restrictions/Additional Instructions: Clear liquid diet for 24 hours then advance as tolerated. Mag citrate [id number] take approximately half a bottle every 8 hours until desired result achieved. Coding Level of Care Code ED Ssrs Report Developer for Chg Fwd Exam Comprehensive
[2020-07-21 08:35] VITALS: BP 116/77; PULSE 77; RESP 14; O2SAT 100
[2020-07-21 08:40] LABS: Alanine Aminotransferase 18 U/L (0-33); Albumin Level 4.3 g/dL (3.5-5.2); Alkaline Phosphatase 107 IU/L (35-105); Anion Gap 13.9 (5-19); Aspartate Amino Transferase 15 U/L (0-32); Blood Urea Nitrogen 22 mg/dL (6-20); Calcium 9.6 mg/dL (8.5-10.5); Carbon Dioxide 22 mmol/L (22-29); Chloride 107 mmol/L (98-107); Globulin 2.9 g/dL (1.3-4.6); Glomerular Filtration Rate 47.7 mL/min (90-130); Glucose 123 mg/dL (65-115); Lipase 84 U/L (13-60); Osmolality Calculated 293 mOsm/kg (285-295); Potassium 3.9 mmol/L (3.5-5.1); Sodium 139 mmol/L (136-145); Total Bilirubin 0.3 mg/dL (0.15-1.2); Total Protein 7.2 g/dL (6.6-8.7)
[2020-07-21 09:04] LABS: Add Urine Microscopic? YES; Bilirubin Urine Neg (Negative); Blood Urine Neg (Negative); Glucose Urine UA Norm (Normal); Ketones Urine Negative (Negative); Leukocyte Esterase Urine Negative (Negative); Nitrate Urine Negative (Negative); Protein Urine Neg (Negative); Specific Gravity, Urine 1.015 (1.005-1.030); Urine Appearance SL Hazy (CLEAR); Urine Color Yellow (Yellow); Urobilinogen Urine Norm (Negative); pH Urine 6 (5-7)
[2020-07-21 09:05] LABS: Bacteria Urine TRACE /hpf; Mucus Urine TRACE /hpf; Squamous Epithelial Cell Urine 15-25 /hpf (0-5)
[2020-07-21 09:06] LABS: Add Urine Culture? No
[2020-07-21] MEDS: iodixanol 320 mg/mL 100mL Btl IV (09:14)
[2020-07-21 10:34] VITALS: BP 115/73; PULSE 65; RESP 18; O2SAT 100
[2020-07-21 10:39] VITALS: BP 115/73; PULSE 65; RESP 18; O2SAT 100
== END 2020-07-21 10:40 | disposition home or self-care (01) ==
PROVIDERS: Emergency Provider Family Medicine; PCP Family Medicine
DX: K59.00 Constipation, unspecified (principal); Z79.82 Long term (current) use of aspirin; Z79.84 Long term (current) use of oral hypoglycemic drugs; E11.42 Type 2 diabetes mellitus with diabetic polyneuropathy; Z90.5 Acquired absence of kidney
CPT/HCPCS: 12345; 74177; 80053; 81001; 83690; 85025; 96361; 96374; 96375; 99283; J2270; J2405; J7030; Q9967

== ENCOUNTER → 2020-07-24 14:03 | Outpatient (BNVA) | payer BC, SELFPAY | PROVIDERS: PCP Family Medicine; Visit Provider Anesthesiology | DX: M54.2 Cervicalgia (principal); M47.816 Spondylosis without myelopathy or radiculopathy, lumbar region; M47.27 Other spondylosis with radiculopathy, lumbosacral region; M51.36 Other intervertebral disc degeneration, lumbar region; Z79.891 Long term (current) use of opiate analgesic | CPT/HCPCS: 99214 ==

== ENCOUNTER 2020-07-27 20:44 | Emergency (ER) | payer BC, MEDICARE, SELFPAY ==
[2020-07-27 21:08] VITALS: BP 119/82; PULSE 82; RESP 18; TEMP 36.5; O2SAT 98; BMI 23.1
--- NOTE | 2020-07-27 21:12 | XRR_ITS ---
PROCEDURE INFORMATION: Exam: XR Abdomen, 1 View Exam date and time: 07/27/2020 9:40 PM Age: 50 years old Clinical indication: Prior surgery; Surgery date: 6+ months; Surgery type: Nephrectomy 2013. Shunt 2008; Patient HX: C/O constipation, lower abd pain TECHNIQUE: Imaging protocol: XR of the abdomen. Views: Frontal supine view of the abdomen. 1 View. COMPARISON: CT abdomen pelvis w con* [id number] 07/21/2020 8:57 AM FINDINGS: Gastrointestinal tract: Normal. No bowel dilation. Bones/joints: Unremarkable. Other findings: Status post right nephrectomy. XR/XR KUB [id number] IMPRESSION: There are no acute abdominal findings.
--- NOTE | 2020-07-27 21:17 | ED_ITS ---
HPI - Abdominal Pain General: Chief Complaint: Abdominal Pain Stated Complaint: lower abd pain Time Seen by Provider: 07/27/20 21:10 Source: patient Mode of arrival: ambulatory Limitations: no limitations History of Present Illness: HPI narrative: 50-year-old female patient presents to the emergency department with 1-1/2-hour history of right-sided abdominal pain. She reports seen in the ED 07/21/2020, constipation visualized on CT scan, resolved with use of magnesium citrate. States pain is similar to that of small bowel obstruction she experiences from time to time. She denies vomiting, reports nausea. MD elicited complaint: abdominal pain Pertinent past history: other (Small bowel obstruction, right-sided nephrectomy, appendectomy, cholecystectomy) Onset (ago): hour(s) (1-2) Pain Consistency: intermittent Location: RLQ and R flank Severity: moderate Pain scale (0-10): 6 Quality: sharp Radiation: RUQ and RLQ Exacerbating factors: nothing Relieving factors: nothing Associated Symptoms: Reports constipation (States constipation now resolved with use of mag citrate), hematochezia (Due to hemorrhoid, none today) and nausea; Denies change in bowel habits, chills, diarrhea, fever(s), heartburn, hematuria, syncope and vomiting Review of Systems General: Reports: 10 or more systems reviewed and unremarkable except in HPI and below Const: Denies: fever(s), chills or diaphoresis Eyes: Denies: blurry vision or eye redness ENMT: Denies: throat pain, dental pain or disequilibrium Card: Denies: syncope Resp: Denies: dyspnea, productive cough, non-productive cough or wheezing GI: Reports: nausea, constipation (States constipation now resolved with use of mag citrate) and hematochezia (Due to hemorrhoid, none today); Denies: vomiting, heartburn, diarrhea or change in bowel habits : Denies: hematuria Musc: Reports: neck pain (chronic) and back pain (chronic); Denies: joint pain Skin/Breast: Denies: rash or pruritus Neuro: Denies: headache(s), numbness in extremities, weakness in extremities, difficulty walking or behavioral changes Psych: Denies: anxiety, depression or change in appetite Fletcher/Lymph: Denies: easy bruising PFS ED PFSH: Medical History (Updated 07/27/20 @ 23:55 by SAMMI Malcolm) Abdominal pain DDD (degenerative disc disease), cervical DDD (degenerative disc disease), lumbar Diabetic peripheral neuropathy associated with type 2 diabetes mellitus Facet syndrome, lumbar Fibromyalgia GERD (gastroesophageal reflux disease) Kidney disease Long-term current use of opiate analgesic Lumbosacral spondylosis with radiculopathy Pain management contract signed Seizures Therapeutic opioid induced constipation Surgical History History of nephrectomy (~2013) History of ventriculoperitoneal shunting (~01/04/09) Dr. Cordelia Roche 01/04/2009 Ventriculoperitoneal shunt placement. [employer] Programmable Valve, Siphonguard device. Valve at 15cm H2O. 2010 reprogrammed to 14 cm H2O Hx of appendectomy (~2002) Hx of cholecystectomy (~2003) Hx of hysterectomy Family History Mother Diabetes DM2 Family/Other Cancer MATERNAL AUNT- BREAST CANCER Social History Smoking and tobacco status: never smoked Alcohol intake: never Caregiver/support person: Yes Lives independently: Yes Household members: spouse Marital status: Current occupational status: disabled History of recent travel: No Physical Exam Const: COMMON NORMALS: no acute distress, patient oriented x3, healthy appearing and alert GENERAL APPEARANCE: cooperative, comfortable and well hydrated HENMT: COMMON NORMALS: normocephalic, Normal external nose present and moist oral mucous membranes HEAD & SCALP: normocephalic NOSE: Normal external nose present Eye: COMMON NORMALS: Equal, round and reactive pupils present and EOMs intact bilaterally GENERAL EYE: appearance normal, both eyes and all related structures PUPIL: Yes Equal, round and reactive pupils present Neck/C-Spine: COMMON NORMALS: full ROM and no lymphadenopathy GENERAL: Yes normal visual inspection and Yes trachea midline CERVICAL SPINE: Yes cervical ROM normal Lymph: LYMPHATIC: no lymphadenopathy noted Chest: COMMONS NORMALS: normal inspection of the chest Resp: COMMON NORMALS: normal respiratory effort and clear to auscultation bilaterally AUSCULTATION: clear to auscultation bilaterally Cardio: COMMON NORMALS: regular rhythm, S1 normal heart sound present and S2 normal heart sound present RHYTHM: regular rhythm HEART SOUNDS: S1 normal heart sound present and S2 normal heart sound present GI: COMMON NORMALS: Normal to inspection, nondistended, normoactive bowel sounds present, Soft to palpation and no masses INSPECTION: Yes normal to inspection, No abdominal wall ecchymosis, No Abdominal wall edema, Yes central obesity, Yes scar, No visible herniation and No GI erythema present AUSCULTATION: Yes normoactive bowel sounds PALPATION: Yes Soft to palpation and Yes Tenderness to palpation present (GI) Details: RLQ and RUQ Back/Pelvis: COMMON NORMALS: thoracic and lumbar spine normal to inspection, no thoracic nor lumbar tenderness and thoraco-lumbar ROM normal GENERAL BACK: Yes CVA tenderness CVA tenderness: right Extremity: COMMON NORMALS: normal to inspection and capillary refill normal Neuro: COMMON NORMALS: patient oriented x3 and no focal motor deficits SENSORIUM/ORIENTATION: Yes alert Psych: COMMON NORMALS: mental status grossly normal, Normal thought process present and cooperative ACTIVITY/MOTOR BEHAVIOR: Yes appropriate eye contact THOUGHT PROCESS: Normal thought process present Skin: COMMON NORMALS: no rashes or lesions noted and turgor normal GENERAL SKIN EXAM: no rashes or lesions noted and turgor normal Course ED course: 50-year-old female patient presents to the emergency department with right side abdominal pain. Previous appendectomy, cholecystectomy, right nephrectomy. Reports nausea, Zofran administered, she states Zofran does not work well is requesting prescription of promethazine for home. She has not experienced vomiting. Nausea is mild and resolved in the ED. White blood count normal, lipase 92, CT scan of the abdomen pelvis revealed bowel wall thickening and subtle haziness of the descending colon. Mild colitis suspected, diverticulosis noted of the descending colon. Prescription of Augmentin with follow-up with primary care provider next week recommended. Advised to return the emergency department if she developed continued vomiting despite use of promethazine. Verbalized understanding. She request prescription of Diflucan to take with Augmentin due to yeast infections that occur. Vital Signs: Vital signs: Vital Signs Temperature 97.7 F 07/27/20 21:08 Pulse Rate 72 07/27/20 23:32 Respiratory Rate 16 07/27/20 23:32 Blood Pressure 111/75 07/27/20 23:32 Pulse Oximetry 100 07/27/20 23:32 MDM - Abdominal Pain Differential Diagnosis: Differential diagnosis abdominal pain: Likely abdominal pain, diverticulitis and small bowel obstruction Lab Data: Labs: Lab Results 07/27/20 07/27/20 07/27/20 Range/Units 21:44 21:57 21:57 WBC 9.1 (4.0-10.0) 10^3/ uL RBC 4.71 (4.1-5.3) 10^6/u L Hgb 13.5 (11.5-15.3) g/dL Hct 41.6 (37.0-47.0) % MCV 88.3 (81-99) fL MCH 28.7 (28.0-34.0) pg MCHC 32.5 (30.0-36.0) g/dL RDW 13.3 (12.1-15.1) % Plt Count 160 (130-400) 10^3/c mm MPV 10.2 (7.4-10.4) fL Neut % (Auto) 60.9 % Lymph % (Auto) 28.2 % Ware % (Auto) 6.6 % Eos % (Auto) 3.6 % Baso % (Auto) 0.4 % Neut # (Auto) 5.55 (1.8-7.7) 10^3/u L Lymph # (Auto) 2.6 (0.8-4.8) 10^3/u L Ware # (Auto) 0.6 (0.2-0.9) 10^3/u L Eos # (Auto) 0.3 (0.0-0.8) 10^3/u L Baso # (Auto) 0.0 (0.0-0.1) 10^3/u L Nucleated RBC % (a uto) 0 % Nucleated RBCs # 0.0 /100WBC Sodium 141 (136-145) mmol/L Potassium 3.9 (3.5-5.1) mmol/L Chloride 110 H (98-107) mmol/L Carbon Dioxide 20 L (22-29) mmol/L Anion Gap 14.9 (5-19) BUN 20 (6-20) mg/dL Creatinine 1.2 H (0.5-0.9) mg/dL GFR Calculation 47.7 L (90-130) mL/min Glucose 99 (65-115) mg/dL Calculated Osmolal ity 295 (285-295) mOsm/k g Calcium 9.7 (8.5-10.5) mg/dL Total Bilirubin 0.2 (0.15-1.2) mg/dL AST 15 (0-32) U/L ALT 26 (0-33) U/L Alkaline Phosphata se 99 (35-105) IU/L Total Protein 7.3 (6.6-8.7) g/dL Albumin 4.0 (3.5-5.2) g/dL Globulin 3.3 (1.3-4.6) g/dL Lipase 92 H (13-60) U/L Urine Color Yellow (Yellow) Urine Appearance Clear (CLEAR) Urine pH 7 (5-7) Ur Specific Gravit y 1.010 (1.005-1.030) Urine Protein Neg (Negative) Urine Glucose (UA) Norm (Normal) Urine Ketones Negative (Negative) Urine Blood Neg (Negative) Urine Nitrate Negative (Negative) Urine Bilirubin Neg (Negative) Urine Urobilinogen Norm (Negative) mg/dL Ur Leukocyte Andreina ase Negative (Negative) Imaging Data ^: Other CT: Radiologist's impression: [place] [address] XRay Report Signed Patient: Tabby Gan #: [id number] : 1970Acct#:[id number] Age/Sex: 50 / FADM Date: 07/27/20 Loc: [facility]/Bed: Attending Dr: Ordering Provider/Ordering MD: Alix Foote Date of Service: 07/27/20 Procedure(s): XR [id number] Accession Number(s): [id number] Report Number: [id number] PROCEDURE INFORMATION: Exam: XR Abdomen, 1 View Exam date and time: 07/27/2020 9:40 PM Age: 50 years old Clinical indication: Prior surgery; Surgery date: 6+ months; Surgery type: Nephrectomy 2013. Shunt 2008; Patient HX: C/O constipation, lower abd pain TECHNIQUE: Imaging protocol: XR of the abdomen. Views: Frontal supine view of the abdomen. 1 View. COMPARISON: CT abdomen pelvis w con* [id number] 07/21/2020 8:57 AM FINDINGS: Gastrointestinal tract: Normal. No bowel dilation. Bones/joints: Unremarkable. Other findings: Status post right nephrectomy. XR/XR KUB [id number] IMPRESSION: There are no acute abdominal findings. Dictated By:Matt Boyle MD Signed By:Matt Boyle MDSigned Date/Time:07/27/202204 DD/ 03 CT Abd/Pel: Radiologist's impression: [facility] [address] [place] [address] CT Scan Report Signed Patient: Tabby Gan Unit #: [id number] : 1970 Age/Sex: 50 / F ADM Date: 07/27/20 Loc: ER Room/Bed: Attending Dr: Ordering Provider/Ordering MD: Alix Foote Date of Service: 07/27/20 Procedure(s): CT chest abd pel w con* Accession Number(s): [id number] Report Number: [id number] PROCEDURE INFORMATION: Exam: CT Chest With Contrast; Diagnostic Exam date and time: 07/27/2020 10:58 PM Age: 50 years old Clinical indication: Abdominal pain; Localized; Right lower quadrant (rlq); Prior surgery; Surgery type: Customer Technical Services Manager shunt. Nephrectomy. Cervical laminectomy. ; Patient HX: Epigastric and rlq pain. History of medication induced constipation. ; Additional info: Continued abdominal pain TECHNIQUE: Imaging protocol: Diagnostic computed tomography of the chest with intravenous contrast. Radiation optimization: All CT scans at this facility use at least one of these dose optimization techniques: automated exposure control; mA and/or kV adjustment per patient size (includes targeted exams where dose is matched to clinical indication); or iterative reconstruction. Contrast material: VISI 320; Contrast volume: 75 ml; Contrast route: INTRAVENOUS (IV); COMPARISON: No relevant prior studies available. RADIATION DOSE METRICS: Total DLP (mGy-cm): 1354.21 FINDINGS: Lungs: Some strandy opacities are seen in the lung apices compatible some pleural and parenchymal scarring. Minimal haziness seen in the dependent portion of the lungs likely representing mild dependent atelectasis. Pleural space: Unremarkable. No pneumothorax. No pleural effusion. Heart: Unremarkable. No cardiomegaly. No pericardial effusion. Aorta: Unremarkable. No aortic aneurysm. Lymph nodes: Unremarkable. No enlarged lymph nodes. Bones/joints: Unremarkable. No acute fracture. Soft tissues: Unremarkable. IMPRESSION: There are no acute chest findings. PROCEDURE INFORMATION: Exam: CT Abdomen And Pelvis With Contrast Exam date and time: 07/27/2020 10:58 PM Age: 50 years old Clinical indication: Abdominal pain; Localized; Right lower quadrant (rlq); Prior surgery; Surgery type: Customer Technical Services Manager shunt. Nephrectomy. Cervical laminectomy. ; Patient HX: Epigastric and rlq pain. History of medication induced constipation. ; Additional info: Continued abdominal pain TECHNIQUE: Imaging protocol: Computed tomography of the abdomen and pelvis with intravenous contrast. Radiation optimization: All CT scans at this facility use at least one of these dose optimization techniques: automated exposure control; mA and/or kV adjustment per patient size (includes targeted exams where dose is matched to clinical indication); or iterative reconstruction. Contrast material: VISI 320; Contrast volume: 75 ml; Contrast route: INTRAVENOUS (IV); COMPARISON: No relevant prior studies available. RADIATION DOSE METRICS: Total DLP (mGy-cm): 1354.21 FINDINGS: Tubes, catheters and devices: Ventriculoperitoneal shunt tubing is seen within the abdomen on the right. Liver: Normal. No mass. Gallbladder and bile ducts: Status post cholecystectomy. Pancreas: Normal. No ductal dilation. Spleen: Normal. No splenomegaly. Adrenal glands: Normal. No mass. Kidneys and ureters: Status post right nephrectomy. There is a 9 mm hypoattenuation cystic lesions seen within the left kidney posteriorly compatible with a simple cyst. Stomach and bowel: There are diverticula present on the descending colon. There is some bowel wall thickening and subtle haziness seen along the serosal margin of the descending colon, findings that could represent mild colitis although the descending colon is decompressed. Appendix: No evidence of appendicitis. Intraperitoneal space: Unremarkable. No free air. No significant fluid collection. Vasculature: Unremarkable. No abdominal aortic aneurysm. Lymph nodes: Unremarkable. No enlarged lymph nodes. Urinary bladder: Unremarkable as visualized. Reproductive: Status post hysterectomy. Bones/joints: Loss of disc height and vacuum disc phenomenon is seen at the L5-S1 level compatible with degenerative disc disease. Soft tissues: Unremarkable. CT/CT chest abd pel w con* IMPRESSION: 1. Bowel wall thickening and subtle haziness seen along the serosal margin of the descending colon, finding that could represent mild colitis although the descending colon appears decompressed. 2. Mild diverticulosis of the descending colon 3. Simple left renal cyst measuring 9 mm. No further workup needed. COMMENTS: Consistent with the [employer]'s Incidental Findings Committee white paper (J Am Ale Radiol 2018): Any incidental renal lesion less than 1 cm or classified as too small to characterize, or any incidental cystic renal lesion characterized as simple-appearing, is likely benign. No follow-up imaging is recommended for these lesions per consensus recommendations based on imaging criteria. Radiation Dose CTDIVOL = (mGy): DLP = 1354.21 1354.21 (mGy-cm) Dictated By: Matt Boyle MD Signed By: Matt Boyle MD Signed Date/Time: 07/27/202337 DD/ 36 Discharge Plan Discharge Patient Disposition: Home Clinical Impression: Colitis Abdominal pain Qualifiers: Abdominal location: right lower quadrant Qualified Code(s): R10.31 - Right lower quadrant pain Condition: Stable Prescriptions: New Augmentin 875-125 mg tablet 1 tab PO BID Qty: 14 RF: 0 Diflucan 150 mg tablet 150 mg PO Q3D Qty: 2 RF: 0 promethazine 25 mg tablet 25 mg PO Q6H PRN (Reason: nausea and vomiting) Qty: 10 RF: 0 No Action lamotrigine [Lamictal] 150 mg tablet 150 mg PO BID RF: 0 bupropion HCl 75 mg tablet 75 mg PO BID RF: 0 prazosin 5 mg capsule 5 mg PO .BEDTIME RF: 0 aripiprazole [Abilify] 15 mg tablet 15 mg PO DAILY RF: 0 Trulicity 1.5 mg/0.5 mL pen injector 1.5 mg SUBCUT .Q WEEKLY RF: 0 rizatriptan 10 mg tablet,disintegrating 10 mg PO .COMPLEX RF: 0 chlorpromazine 50 mg tablet 50 - 100 mg PO . NEEDED RF: 0 aspirin 81 mg tablet,chewable 81 mg PO QDAY RF: 0 docusate sodium 100 mg capsule 1,000 mg PO QDAY RF: 0 epinephrine 0.3 mg/0.3 mL auto-injector 0.3 mg IM ONCE PRN (Reason: Allergic Reaction) RF: 0 Januvia 50 mg tablet 50 mg PO QDAY RF: 0 benztropine 1 mg tablet 2 mg PO BID RF: 0 metoprolol tartrate 25 mg tablet 25 mg PO BID RF: 0 hydroxyzine pamoate [Vistaril] 50 mg capsule 50 mg PO TID PRN (Reason: Itching) RF: 0 melatonin 10 mg capsule See Rx Instructions PO .BEDTIME PRN (Reason: Insomnia) RF: 0 clonazepam 0.5 mg tablet 1 mg PO BID RF: 0 (DME) Sole Supports See Rx Instructions .ROUTE .MEDSUPPLY Qty: 1 RF: 0 coenzyme Q10 [CoQ-10] 100 mg capsule 900 mg PO DAILY RF: 0 ascorbic acid (vitamin C) 500 mg capsule 500 mg PO DAILY RF: 0 omega-3 fatty acids [Fish Oil Concentrate] 1,000 mg capsule 500 mg PO DAILY RF: 0 biotin 10,000 mcg capsule 10,000 mcg PO DAILY RF: 0 garlic [garlic oil] 1,000 mg capsule 1,000 mg PO DAILY RF: 0 apple cider vinegar 500 mg tablet 1,000 mg PO .am RF: 0 morphine 30 mg tablet extended release 30 mg PO Q8H 30 Days Qty: 90 RF: 0 oxycodone-acetaminophen [Percocet] 5-325 mg tablet 1 tab PO Q6H PRN (Reason: pain) 30 Days Qty: 120 RF: 0 Symproic 0.2 mg tablet See Rx Instructions PO DAILY 30 Days Qty: 60 RF: 1 (DME) Diabetic Shoes See Rx Instructions .ROUTE .MEDSUPPLY Qty: 1 RF: 0 vitamin B complex Capsule 1 cap PO DAILY RF: 0 gabapentin 400 mg capsule 400 mg PO TID RF: 0 polyethylene glycol 3350 [Miralax] 17 gram/dose Powder 17 g PO BID PRN (Reason: Constipation) RF: 0 metoclopramide HCl 10 mg tablet 10 mg PO DAILY PRN (Reason: Migraine Headache) RF: 0 magnesium citrate Solution 150 ml PO BID PRN (Reason: constipation) Qty: 296 RF: 0 methocarbamol 500 mg tablet 1,000 mg PO TID PRN (Reason: Muscle Pain) RF: 0 glimepiride 2 mg Tablet 2 mg PO QAM RF: 0 ketoconazole 2 % cream 1 applic TOPICAL BID PRN (Reason: Itching) RF: 0 Voltaren 1 % gel 4 gm TOPICAL QID MDD pain PRN (Reason: arthritis) RF: 0 magnesium 200 mg Tablet 400 mg PO DAILY RF: 0 Discharge Orders: Discharge ED (Routine); Ordered 07/27/20 Ordered By: Alix Foote Referrals: Linda Erickson MD [Primary Care Provider] - Discharge Diet: GI Soft Discharge Activity: Resume usual activity Patient Instructions: Diverticulosis (ED), Acute Abdominal Pain (ED), Diverticulitis Diet (ED), Abdominal Pain (ED), Infectious Colitis (ED) Activity Restrictions/Additional Instructions: Follow-up with your primary care provider next week to ensure you are improving Return to the emergency department if you develop worsening abdominal pain, vomiting despite use of promethazine, inability to tolerate oral fluids Take antibiotics, Augmentin until all gone Coding Level of Care Code ED Metalsmith Apprentice for Chg Fwd Exam Comprehensive
[2020-07-27 21:55] VITALS: BP 116/75; PULSE 79; RESP 16; RESP 18; O2SAT 97; O2SAT 99
[2020-07-27] MEDS: ondansetron 2 mg/ML SDV 2 mL 4 MG IVP (21:55)
[2020-07-27] MEDS: morphine 4 mg/mL SDV 1 mL IVP (21:55)
[2020-07-27 22:08] LABS: Add Urine Microscopic? NO
[2020-07-27 22:34] LABS: Bilirubin Urine Neg (Negative); Blood Urine Neg (Negative); Glucose Urine UA Norm (Normal); Ketones Urine Negative (Negative); Leukocyte Esterase Urine Negative (Negative); Nitrate Urine Negative (Negative); Protein Urine Neg (Negative); Urine Appearance Clear (CLEAR); Urine Color Yellow (Yellow); Urobilinogen Urine Norm (Negative); pH Urine 7 (5-7)
[2020-07-27 22:34] LABS: Basophils % 0.4 %; Eosinophils # 0.3 10^3/uL (0.0-0.8); Eosinophils % 3.6 %; Hematocrit 41.6 % (37.0-47.0); Hemoglobin 13.5 g/dL (11.5-15.3); Lymphocytes # 2.6 10^3/uL (0.8-4.8); Lymphocytes % 28.2 %; Mean Corpuscular HGB Conc 32.5 g/dL (30.0-36.0); Mean Corpuscular Hemoglobin 28.7 pg (28.0-34.0); Mean Corpuscular Volume 88.3 fL (81-99); Mean Platelet Volume 10.2 fL (7.4-10.4); Monocytes # 0.6 10^3/uL (0.2-0.9); Monocytes % 6.6 %; Neutrophils # 5.55 10^3/uL (1.8-7.7); Neutrophils % 60.9 %; Nucleated Red Blood Cells % 0 %; Platelet Count 160 10^3/cmm (130-400); Red Blood Count 4.71 10^6/uL (4.1-5.3); Red Cell Distribution Width 13.3 % (12.1-15.1); White Blood Count 9.1 10^3/uL (4.0-10.0)
[2020-07-27 22:41] LABS: Alanine Aminotransferase 26 U/L (0-33); Alkaline Phosphatase 99 IU/L (35-105); Anion Gap 14.9 (5-19); Aspartate Amino Transferase 15 U/L (0-32); Blood Urea Nitrogen 20 mg/dL (6-20); Calcium 9.7 mg/dL (8.5-10.5); Carbon Dioxide 20 mmol/L (22-29); Chloride 110 mmol/L (98-107); Globulin 3.3 g/dL (1.3-4.6); Glomerular Filtration Rate 47.7 mL/min (90-130); Glucose 99 mg/dL (65-115); Lipase 92 U/L (13-60); Osmolality Calculated 295 mOsm/kg (285-295); Potassium 3.9 mmol/L (3.5-5.1); Sodium 141 mmol/L (136-145); Total Bilirubin 0.2 mg/dL (0.15-1.2); Total Protein 7.3 g/dL (6.6-8.7)
[2020-07-27 22:44] VITALS: BP 110/74; PULSE 76; RESP 18; O2SAT 98
--- NOTE | 2020-07-27 22:48 | CTR_ITS ---
PROCEDURE INFORMATION: Exam: CT Chest With Contrast; Diagnostic Exam date and time: 07/27/2020 10:58 PM Age: 50 years old Clinical indication: Abdominal pain; Localized; Right lower quadrant (rlq); Prior surgery; Surgery type: Shuttlecock Feather Trimmer shunt. Nephrectomy. Cervical laminectomy. ; Patient HX: Epigastric and rlq pain. History of medication induced constipation. ; Additional info: Continued abdominal pain TECHNIQUE: Imaging protocol: Diagnostic computed tomography of the chest with intravenous contrast. Radiation optimization: All CT scans at this facility use at least one of these dose optimization techniques: automated exposure control; mA and/or kV adjustment per patient size (includes targeted exams where dose is matched to clinical indication); or iterative reconstruction. Contrast material: VISI 320; Contrast volume: 75 ml; Contrast route: INTRAVENOUS (IV); COMPARISON: No relevant prior studies available. RADIATION DOSE METRICS: Total DLP (mGy-cm): 1354.21 FINDINGS: Lungs: Some strandy opacities are seen in the lung apices compatible some pleural and parenchymal scarring. Minimal haziness seen in the dependent portion of the lungs likely representing mild dependent atelectasis. Pleural space: Unremarkable. No pneumothorax. No pleural effusion. Heart: Unremarkable. No cardiomegaly. No pericardial effusion. Aorta: Unremarkable. No aortic aneurysm. Lymph nodes: Unremarkable. No enlarged lymph nodes. Bones/joints: Unremarkable. No acute fracture. Soft tissues: Unremarkable. IMPRESSION: There are no acute chest findings. PROCEDURE INFORMATION: Exam: CT Abdomen And Pelvis With Contrast Exam date and time: 07/27/2020 10:58 PM Age: 50 years old Clinical indication: Abdominal pain; Localized; Right lower quadrant (rlq); Prior surgery; Surgery type: Shuttlecock Feather Trimmer shunt. Nephrectomy. Cervical laminectomy. ; Patient HX: Epigastric and rlq pain. History of medication induced constipation. ; Additional info: Continued abdominal pain TECHNIQUE: Imaging protocol: Computed tomography of the abdomen and pelvis with intravenous contrast. Radiation optimization: All CT scans at this facility use at least one of these dose optimization techniques: automated exposure control; mA and/or kV adjustment per patient size (includes targeted exams where dose is matched to clinical indication); or iterative reconstruction. Contrast material: VISI 320; Contrast volume: 75 ml; Contrast route: INTRAVENOUS (IV); COMPARISON: No relevant prior studies available. RADIATION DOSE METRICS: Total DLP (mGy-cm): 1354.21 FINDINGS: Tubes, catheters and devices: Ventriculoperitoneal shunt tubing is seen within the abdomen on the right. Liver: Normal. No mass. Gallbladder and bile ducts: Status post cholecystectomy. Pancreas: Normal. No ductal dilation. Spleen: Normal. No splenomegaly. Adrenal glands: Normal. No mass. Kidneys and ureters: Status post right nephrectomy. There is a 9 mm hypoattenuation cystic lesions seen within the left kidney posteriorly compatible with a simple cyst. Stomach and bowel: There are diverticula present on the descending colon. There is some bowel wall thickening and subtle haziness seen along the serosal margin of the descending colon, findings that could represent mild colitis although the descending colon is decompressed. Appendix: No evidence of appendicitis. Intraperitoneal space: Unremarkable. No free air. No significant fluid collection. Vasculature: Unremarkable. No abdominal aortic aneurysm. Lymph nodes: Unremarkable. No enlarged lymph nodes. Urinary bladder: Unremarkable as visualized. Reproductive: Status post hysterectomy. Bones/joints: Loss of disc height and vacuum disc phenomenon is seen at the L5-S1 level compatible with degenerative disc disease. Soft tissues: Unremarkable. CT/CT chest abd pel w con* IMPRESSION: 1. Bowel wall thickening and subtle haziness seen along the serosal margin of the descending colon, finding that could represent mild colitis although the descending colon appears decompressed. 2. Mild diverticulosis of the descending colon 3. Simple left renal cyst measuring 9 mm. No further workup needed. COMMENTS: Consistent with the [employer]'s Incidental Findings Committee white paper (J Am Ale Radiol 2018): Any incidental renal lesion less than 1 cm or classified as too small to characterize, or any incidental cystic renal lesion characterized as simple-appearing, is likely benign. No follow-up imaging is recommended for these lesions per consensus recommendations based on imaging criteria. Radiation Dose CTDIVOL = (mGy): DLP = 1354.21~1354.21 (mGy-cm)
[2020-07-27] MEDS: iodixanol 320 mg/mL 100mL Btl IV (23:15)
[2020-07-27 23:32] VITALS: BP 111/75; PULSE 72; RESP 16; O2SAT 100
[2020-07-28] MEDS: amoxicillin-clav 875-125 mg Tablet 1 TAB PO (01:11)
[2020-07-28 01:18] VITALS: BP 102/70; PULSE 81; RESP 18; O2SAT 100
== END 2020-07-28 01:18 | disposition home or self-care (01) ==
PROVIDERS: Emergency Provider Nurse Practitioner Family; PCP Family Medicine
DX: K52.9 Noninfective gastroenteritis and colitis, unspecified (principal); Z79.82 Long term (current) use of aspirin; E11.42 Type 2 diabetes mellitus with diabetic polyneuropathy; Z90.5 Acquired absence of kidney
CPT/HCPCS: 12345; 36415; 71260; 74018; 74177; 80053; 81003; 83690; 85025; 96374; 96375; 99283; J2270; J2405; Q9967

== ENCOUNTER → 2020-08-01 08:50 | Outpatient (BNVA) | payer BC, SELFPAY | PROVIDERS: PCP Family Medicine; Visit Provider Podiatrist Foot & Ankle Surgery | DX: M19.072 Primary osteoarthritis, left ankle and foot (principal); S93.325D Dislocation of tarsometatarsal joint of left foot, subsequent encounter; X58.XXXD Exposure to other specified factors, subsequent encounter | CPT/HCPCS: 73630 ==

== ENCOUNTER 2020-08-02 09:46 | Outpatient (CLI) | payer BC, SELFPAY ==
--- NOTE | 2020-08-02 09:51 | MM_ITS ---
WS: [id number] Bilateral screening digital mammogram, 08/02/2020 Clinical Data: SCREENING Comparison: 06/29/2014, 03/11/2013, 03/24/2012, 05/05/2008. Findings: The breast parenchymal pattern shows fibroglandular tissue. No spiculated masses or clustered calcifi cations are seen. There are no secondary signs of carcinoma. MM/[id number] Impression: 1. Negative bilateral mammogram unchanged. 2. Recommend annual screening mammograms. BIRADS: 1-Negative FOLLOW UP: 1 Year Follow-up The CAD raspberry checker was used.
== END 2020-08-02 09:47 | disposition home or self-care (01) ==
LOC: RADSHAW 09:48
PROVIDERS: PCP Family Medicine; Visit Provider Family Medicine
DX: Z12.31 Encounter for screening mammogram for malignant neoplasm of breast (principal)
CPT/HCPCS: 77067

== ENCOUNTER 2020-08-16 15:18 | Outpatient (CLI) | payer BC, SELFPAY ==
--- NOTE | 2020-08-16 | XR_ITS ---
WS: [id number] Exam: XR elbow RT min 3V* [id number] Date/Time of Exam: 08/16/2020 3:35 PM Reason For Exam: RIGHT ELBOW PAIN Comparison 06/13/2013. Findings: There are no fractures, soft tissue swelling, or calcifications. The elbow shows normal bony alignme nt. There is no irregularity of the bony architecture. XR/XR elbow RT min 3V* [id number] IMPRESSION: Negative right elbow.
== END 2020-08-16 15:19 | disposition home or self-care (01) ==
PROVIDERS: PCP Family Medicine; Visit Provider Family Medicine
DX: M25.521 Pain in right elbow (principal)
CPT/HCPCS: 73080

== ENCOUNTER 2020-08-16 15:27 | Outpatient (CLI) | payer BC, SELFPAY ==
[2020-08-16 16:42] LABS: Albumin Level 4.4 g/dL (3.5-5.2); Anion Gap 12.2 (5-19); Blood Urea Nitrogen 26 mg/dL (6-20); Calcium 9.5 mg/dL (8.5-10.5); Carbon Dioxide 28 mmol/L (22-29); Chloride 103 mmol/L (98-107); Glomerular Filtration Rate 36.9 mL/min (90-130); Glucose 80 mg/dL (65-115); Phosphorus 4.3 mg/dL (2.5-4.5); Potassium 4.2 mmol/L (3.5-5.1); Sodium 139 mmol/L (136-145)
[2020-08-16 16:59] LABS: Calcium 9.7 mg/dL (8.5-10.5)
[2020-08-16 18:19] LABS: Creatinine Urine, Random 224 mg/dL (28-217)
[2020-08-16 18:56] LABS: Microalbum Creatinine Ratio Ur 4 mg/dL (0-20); Microalbumin Random Urine 1 ug/dL (0-20)
[2020-08-17 00:16] LABS: Parathyroid Hormone 9.5 pg/mL (15-65)
== END 2020-08-16 15:28 | disposition home or self-care (01) ==
PROVIDERS: PCP Family Medicine; Visit Provider Internal Medicine Nephrology
DX: N18.30 Chronic kidney disease, stage 3 unspecified (principal)
CPT/HCPCS: 36415; 80069; 82044; 82310; 83970

== ENCOUNTER → 2020-08-21 12:47 | Outpatient (BNVA) | payer BC, SELFPAY | PROVIDERS: PCP Family Medicine; Visit Provider Anesthesiology | DX: G89.29 Other chronic pain (principal); M50.30 Other cervical disc degeneration, unspecified cervical region; M47.816 Spondylosis without myelopathy or radiculopathy, lumbar region; M51.36 Other intervertebral disc degeneration, lumbar region; M47.27 Other spondylosis with radiculopathy, lumbosacral region; Z79.891 Long term (current) use of opiate analgesic | CPT/HCPCS: 99214 ==

== ENCOUNTER → 2020-08-30 17:20 | Outpatient (BNVA) | payer BC, SELFPAY | PROVIDERS: PCP Family Medicine; Visit Provider Nurse Practitioner Family | DX: Z11.59 Encounter for screening for other viral diseases (principal) | CPT/HCPCS: 87635 ==

== ENCOUNTER 2020-09-21 13:42 | Outpatient (CLI) | payer BC, SELFPAY ==
[2020-09-21 15:04] LABS: Albumin Level 3.9 g/dL (3.5-5.2); Anion Gap 14.2 (5-19); Blood Urea Nitrogen 24 mg/dL (6-20); Calcium 9.3 mg/dL (8.5-10.5); Carbon Dioxide 20 mmol/L (22-29); Chloride 107 mmol/L (98-107); Glomerular Filtration Rate 43.5 mL/min (90-130); Glucose 61 mg/dL (65-115); Potassium 4.2 mmol/L (3.5-5.1); Sodium 137 mmol/L (136-145)
== END 2020-09-21 13:43 | disposition home or self-care (01) ==
PROVIDERS: PCP Family Medicine; Visit Provider Internal Medicine Nephrology
DX: N18.32 Chronic kidney disease, stage 3b (principal); R30.0 Dysuria
CPT/HCPCS: 80069

== ENCOUNTER → 2020-10-12 13:58 | Outpatient (BNVA) | payer BC, SELFPAY | PROVIDERS: PCP Family Medicine; Visit Provider Podiatrist Foot & Ankle Surgery | DX: S93.326A Dislocation of tarsometatarsal joint of unspecified foot, initial encounter (principal); S90.121A Contusion of right lesser toe(s) without damage to nail, initial encounter; M79.673 Pain in unspecified foot | CPT/HCPCS: 73610; 73630 ==

== ENCOUNTER → 2020-10-16 13:10 | Outpatient (BNVA) | payer BC, SELFPAY | PROVIDERS: PCP Family Medicine; Visit Provider Anesthesiology | DX: G89.29 Other chronic pain (principal); M47.27 Other spondylosis with radiculopathy, lumbosacral region; M47.816 Spondylosis without myelopathy or radiculopathy, lumbar region; M51.36 Other intervertebral disc degeneration, lumbar region; M50.30 Other cervical disc degeneration, unspecified cervical region; Z79.891 Long term (current) use of opiate analgesic | CPT/HCPCS: 99214 ==

== ENCOUNTER → 2020-10-20 13:30 | Outpatient (BNVA) | payer BC, SELFPAY | PROVIDERS: PCP Family Medicine; Visit Provider Podiatrist Foot & Ankle Surgery | DX: T84.84XA Pain due to internal orthopedic prosthetic devices, implants and grafts, initial encounter (principal); Z11.52 Encounter for screening for COVID-19; X58.XXXA Exposure to other specified factors, initial encounter | CPT/HCPCS: 87635 ==

== ENCOUNTER 2020-10-26 06:35 | Day surgery (SDC) | payer BC, SELFPAY ==
[2020-10-25 11:09] VITALS: BMI 23.8
[2020-10-26] VITALS (7 sets, daily range): BP systolic 98–121; BP diastolic 69–85; PULSE 75–84; RESP 15–20; TEMP 36.2–36.6; O2SAT 97–100
--- NOTE | 2020-10-26 | SCC_ITS ---
Procedure Done: Deep Hardware Removal Left Foot [id number] 60 seconds of fluoroscopic guidance, for a cumulative dose of 1.1 mGy, was provided to Dr. Matos by the radiology department. C-arm images of the LEFT foot were saved for the patient's permanent record. [facility]
[2020-10-26 07:21] LABS: Glucose Point of Care 90 mg/dL (70-110)
--- NOTE | 2020-10-26 07:40 | P.ANESASSM_ITS ---
Pre-Anesthetic Assessment Pre-Anesthetic Assessment: Height/Weight: Height 1.8 m Weight 77.564 kg Temp Pulse Resp BP Pulse Ox 97.3 F L 80 18 119/77 99 10/26/20 07:10 10/26/20 07:10 10/26/20 07:10 10/26/20 07:10 10/26/20 07:10 Preop Diagnosis: Painful retained hardware left foot Proposed Procedure: Operation Date: 10/26/20 08:10 Proposed Procedures p Deep Hardware Removal Left Foot 34314 T84.84XA(Left) - Gregorio Matos, DPM Was Beta Ashley taken within 24 hours: N/A Last intake: Intake Last Liquid Date 10/25/20 Last Liquid Time 20:00 Last Solid Date 10/25/20 Last Solid Time 18:00 Social: Social History: No alcohol and No tobacco Exam: Pre-Anes Outpt Exam: alert, oriented x 3, clear to auscultation bilaterally and regular rate & rhythm Airway: Submandibular: WNL Cervical ROM: WNL MP: 2 Dentition: False CV/HEM: CV/HEM: Arrythmia (PSVT) Metabolic: Metabolic: DM Musc/skel: Musc/skel: Fibromyalgia Comments: Chronic pain/opioid Neuropsych: Neuropsych: Anxiety and Seizure 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: 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 Anesthetic Plan: ASA status: 3 Anesthesia: MAC Risk of > 500 ml blood loss (7ml/kg in children): No PFSH Anesthesia PFSH: Medical History Abdominal pain DDD (degenerative disc disease), cervical DDD (degenerative disc disease), lumbar Diabetic peripheral neuropathy associated with type 2 diabetes mellitus Facet syndrome, lumbar Fibromyalgia GERD (gastroesophageal reflux disease) Kidney disease Long-term current use of opiate analgesic Lumbosacral spondylosis with radiculopathy Pain management contract signed Seizures Therapeutic opioid induced constipation Surgical History History of nephrectomy (~2013) History of ventriculoperitoneal shunting (~01/04/09) Dr. Cordelia Roche 01/04/2009 Ventriculoperitoneal shunt placement. William Aaron Programmable Valve, Siphonguard device. Valve at 15cm H2O. 2010 reprogrammed to 14 cm H2O Hx of appendectomy (~2002) Hx of cholecystectomy (~2003) Hx of hysterectomy Family History Mother Diabetes DM2 Family/Other Cancer MATERNAL AUNT- BREAST CANCER Social History Smoking and tobacco status: never smoked Alcohol intake: never Caregiver/support person: Yes Lives independently: Yes Household members: spouse Marital status: Current occupational status: disabled History of recent travel: No Data Anesthesia Other Labs: Laboratory Results - last 48 hr 10/26/20 07:16 POC Glucose 90 Cardiac Studies: No Data to Display
--- NOTE | 2020-10-26 08:22 | W.PM.OPSUD ---
Surgery/Procedure H&P Update DATE OF PROCEDURE: October 26, 2020 DATE H&P PERFORMED: 10/12/20 H&P UPDATE INFORMATION: I have reviewed H&P completed within last 30 days, I have examined patient prior to procedure, No changes to prior documentation and H&P is in [facility] EMR on date indicated PREOP DIAGNOSIS: Painful retained hardware left foot PLANNED PROCEDURE: Operation Date: 10/26/20 08:10 Proposed Procedures p Deep Hardware Removal Left Foot 59512 T84.84XA(Left) - Gregorio Matos DPM
[2020-10-26] MEDS: midazolam 1 mg/mL INJ 2 mL 2 MG IVP (08:35)
[2020-10-26] MEDS: sodium chloride 0.9% 1,000 ML 30 ML IV (08:43)
[2020-10-26 09:37] LABS: Glucose Point of Care 79 mg/dL (70-110)
--- NOTE | 2020-10-26 14:33 | ANE.PACU2 ---
Inpatient post-anesthesia follow up: Airway intact: Yes Vital signs: Temperature 97.1 F Pulse Rate 79 Respiratory Rate 18 Blood Pressure 121/83 Pulse Oximetry 100 Oxygen Delivery Me thod Room Air Oxygen Flow Rate 8 Fraction of Inspir ed Oxygen Hydration adequate: Yes Nausea and vomiting: No Pain level: 1 Mental status: Baseline
--- NOTE | 2020-10-26 18:32 | P.OP_ITS ---
Operative Report Date of procedure: October 26, 2020 Pre-op Diagnosis: Painful retained hardware left foot Post-op diagnosis: same Post-op Findings: None Procedure Done: Deep Hardware Removal Left Foot [id number] Implants: 3-0 Vicryl, 4-0 Vicryl, 4-0 nylon Specimens removed/disposition: 2 plates 11 screws removed from left foot Pathology: none sent Surgeon: Gregorio Matos D.P.M. Senior It Architect: See intraoperative documentation Anesthesia: MAC Estimated blood loss: Less than 5 mL Tourniquet time: See intraoperative documentation IV fluids: None Urine output: none Complications: none Findings: none Condition: stable Disposition: PACU Brief History: Patient complains of irritation at the site of hardware at the second third tarsometatarsal joints. Describes the pain is more of an achiness increased with activity. Denies any instability or weakness. Would like to have hardware removed. Risks include pain, bleeding, numbness, infection, failure to remove hardware/extract hardware, hardware breakage, damage to adjacent soft tissue structures and failure to alleviate underlying pain. Patient is agreeable wishes to proceed. Patient interviewed preoperatively and informed consent was signed by myself and patient. I initialed patient's left foot. All questions answered to patient satisfaction she wishes to proceed. No guarantees written, expressed or implied. Procedure: Under mild sedation the patient was brought to the operating room and placed on the operating table in supine position. A timeout was performed. Anesthesia was then administered by the anesthesia service. Local anesthesia injected by myself consisting of 20 cc of a left ankle block utilizing one-to-one mixture 1% lidocaine and 0.5% Marcaine plain. Well-padded pneumatic tourniquet applied to the left ankle. Left lower extremity was then scrubbed, prepped and draped utilizing normal aseptic technique. Left foot was extenuated with an Esmarch bandage and the tourniquet inflated to 250 mmHg. Attention was directed to the dorsum of the left foot where previous cicatrix was utilized as the incision site directly over the previous scar a #15 blade was utilized to perform a linear incision over the second interspace adjacent to the second and third metatarsals and intermediate and lateral cuneiforms. Dissection was carried down through subcutaneous tissue utilizing accommodation of blunt and sharp technique. Care was taken to retract and preserve all neurovascular and tendinous structures. All bleeders were ligated and ca uterized as necessary. Hardware was removed at the arthrodesis site of the tarsal metatarsal joints 2 and 3 total of 2 plates and 11 screws and intraoperative fluoroscopy confirming removal of complete hardware at these 2 locations. It was noted intraoperatively that no crepitus, binding or impingement with range of motion of the first ray indicated, first ray hardware was left intact. Incision site was flushed with copious amounts of sterile saline solution. Deep structures closed utilizing 3-0 Vicryl. Subcutaneous tissue closed utilizing 4-0 Vicryl and skin closed utilizing 4-0 nylon. Incision site was dressed with Adaptic, sterile 4 x 4, Kerlix and John wrap, postop shoe was applied. Tourniquet was deflated and a prompt hyperemic response was noted to the distal digits of the left foot. Patient tolerated the procedure and anesthesia well and was transferred to the PACU with vital signs stable vascular status intact. Following a period of postoperative monitoring she will be discharged home. Will hold her current pain medication regimen which entails Percocet 7.5/325 mg 4 times daily. During 7 days postoperative immediately she will be taking an increase in pain medication I prescribed her Percocet 10/325 mg to be taken every 6 hours as needed for pain. Planning on returning back to her current regimen through pain management following November 02, 2020. Patient may be weightbearing as tolerated in a postop shoe.
== END 2020-10-26 10:40 | disposition home or self-care (01) ==
PROVIDERS: PCP Family Medicine; Visit Provider Podiatrist Foot & Ankle Surgery
PROC: (CPT 20680; principal; 2020-10-26 08:00)
DX: T84.84XA Pain due to internal orthopedic prosthetic devices, implants and grafts, initial encounter (principal); E11.9 Type 2 diabetes mellitus without complications; M79.7 Fibromyalgia; E11.40 Type 2 diabetes mellitus with diabetic neuropathy, unspecified; Z79.891 Long term (current) use of opiate analgesic
CPT/HCPCS: 20680; 36416; 76000; 82962; 96365; 96374; J0690; J2250; J2704; J3010; J3490; J7030

== ENCOUNTER → 2020-11-03 14:49 | Outpatient (BNVA) | payer BC, SELFPAY | PROVIDERS: PCP Family Medicine; Visit Provider Nurse Practitioner Family | DX: Z20.822 Contact with and (suspected) exposure to COVID-19 (principal) | CPT/HCPCS: 87635 ==

== ENCOUNTER 2020-11-08 12:39 | Outpatient (CLI) | payer BC, SELFPAY ==
--- NOTE | 2020-11-08 | XR_ITS ---
WS: [id number] CERVICAL SPINE TECHNIQUE: 3 views of the cervical spine CLINICAL INFORMATION: CERVICAL SPINAL STENOSIS COMPARISON: March 19, 2020 FINDINGS: Straightening of the normal cervical lordosis. Slight retrolisthesis C3 on C4. Posterior element fusi on C3-C6 with interconnecting rods. Normal prevertebral soft tissues. Normal C1-2 articulation. Hard kidd appears intact. Lung apices are well aerated. Normal dens. XR/XR cervical spine 3V* [id number] IMPRESSION: 1. Postoperative changes posterior element fusion C3-C6. Hardware appears inta ct. 2. Mild disc space narrowing C5-C6 and C6-C7 is unchanged from previous. 3. Cervical alignment with straightening of the normal cervical lordosis is un changed.
== END 2020-11-08 12:40 | disposition home or self-care (01) ==
LOC: RADWPI 12:44
PROVIDERS: PCP Family Medicine; Visit Provider Physician Assistant
DX: M48.02 Spinal stenosis, cervical region (principal)
CPT/HCPCS: 72040

== ENCOUNTER → 2020-11-22 16:00 | Outpatient (BNVA) | payer BC, SELFPAY | PROVIDERS: PCP Family Medicine; Visit Provider Podiatrist Foot & Ankle Surgery | DX: Z48.89 Encounter for other specified surgical aftercare (principal); L97.522 Non-pressure chronic ulcer of other part of left foot with fat layer exposed; S93.326A Dislocation of tarsometatarsal joint of unspecified foot, initial encounter | CPT/HCPCS: 73630; 87070; 87075; 87205 ==

== ENCOUNTER 2020-11-25 16:17 | Emergency (ER) | payer BC, SELFPAY ==
[2020-11-25 17:00] VITALS: BP 92/65; PULSE 91; RESP 18; TEMP 36.9; O2SAT 97; BMI 23.7
--- NOTE | 2020-11-25 17:46 | W.ED.ABDPA2 ---
HPI - Abdominal Pain General: Chief Complaint: Abdominal Pain Stated Complaint: AB PAIN Time Seen by Provider: 11/25/20 17:46 History of Present Illness: HPI narrative: Patient is a 50-year-old female comes to the ED with abdominal pain and nausea. Patient has a past medical history of hypertension, chronic kidney disease and has had 1 kidney removed. Past surgical history of an appendectomy and cholecystectomy. Patient says abdominal pain started this morning when she woke up. Pain has gotten more severe throughout the day. Abdominal pain is located in the left lower quadrant and she rates it currently a 6 out of 10. She describes the pain as a sharp, stabbing and intermittent pain. She endorses having nausea with it but denies any diarrhea, emesis or blood in the stool or blood in vomit. Patient has been able to eat normally today with no worsening symptoms. She states she has been told in the past that she has diverticulosis. Patient also says that she sees chronic pain management and has been taking oxycodone to help with her abdominal pain today. She also reports that she currently sees Dr. Matos due to a ulcer on left foot and was recently taking cephalexin and Levaquin to help treat ulcer. Associated Symptoms: Reports nausea; Denies chills, constipation, diarrhea, dysuria, fever(s), hematochezia, hematuria and vomiting Review of Systems Const: Denies: fever(s), chills or fatigue Eyes: Denies: change in vision or eye discomfort ENMT: Denies: throat pain, odynophagia, nasal discharge or nasal congestion Card: Denies: chest pain, palpitations, edema, swelling of feet/ankles, dyspnea on exertion or orthopnea Resp: Denies: dyspnea, productive cough or non-productive cough GI: Reports: abdominal pain and nausea; Denies: vomiting, diarrhea, constipation or hematochezia : Denies: flank pain, dysuria or hematuria Musc: Denies: neck pain, back pain or extremity swelling Skin/Breast: Denies: rash or new lesions Neuro: Denies: headache(s), numbness in extremities or weakness in extremities FORMERLY [facility], [facility] ED PFSH: Medical History Abdominal pain DDD (degenerative disc disease), cervical DDD (degenerative disc disease), lumbar Diabetic peripheral neuropathy associated with type 2 diabetes mellitus Facet syndrome, lumbar Fibromyalgia GERD (gastroesophageal reflux disease) Kidney disease Long-term current use of opiate analgesic Lumbosacral spondylosis with radiculopathy Pain management contract signed Seizures Therapeutic opioid induced constipation Surgical History History of nephrectomy (~2013) History of ventriculoperitoneal shunting (~01/04/09) Dr. Cordelia Roche 01/04/2009 Ventriculoperitoneal shunt placement. [employer] Programmable Valve, Siphonguard device. Valve at 15cm H2O. 2010 reprogrammed to 14 cm H2O Hx of appendectomy (~2002) Hx of cholecystectomy (~2003) Hx of hysterectomy Family History Mother Diabetes DM2 Family/Other Cancer MATERNAL AUNT- BREAST CANCER Social History Smoking and tobacco status: never smoked Alcohol intake: never Caregiver/support person: Yes Lives independently: Yes Household members: spouse Marital status: Current occupational status: disabled History of recent travel: No Female Reproductive History: Spontaneous abortions: No Physical Exam Const: COMMON NORMALS: no acute distress, patient oriented x3, healthy appearing and alert GENERAL APPEARANCE: cooperative and comfortable HENMT: COMMON NORMALS: normocephalic HEAD & SCALP: normocephalic MOUTH: Normal oral and palatal mucosa present THROAT: posterior oropharynx normal and uvula midline Eye: COMMON NORMALS: Equal, round and reactive pupils present PUPIL: Yes Equal, round and reactive pupils present Neck/C-Spine: COMMON NORMALS: supple GENERAL: Yes normal visual inspection Resp: COMMON NORMALS: normal respiratory effort, No retractions, No use of accessory muscles and clear to auscultation bilaterally AUSCULTATION: clear to auscultation bilaterally Cardio: COMMON NORMALS: regular rate, regular rhythm, S1 normal heart sound present, S2 normal heart sound present, No gallops present (Cardio), No clicks present (Cardio), No murmurs present (Cardio) and Peripheral pulses 2+ throughout RATE: regular rate RHYTHM: regular rhythm HEART SOUNDS: S1 normal heart sound present and S2 normal heart sound present PERIPHERAL PULSES: Peripheral pulses 2+ throughout GI: COMMON NORMALS: Soft to palpation and no masses INSPECTION: Yes normal to inspection and No abdominal distension AUSCULTATION: Yes Hypoactive bowel sounds present PALPATION: Yes Soft to palpation and Yes Tenderness to palpation present (GI) Details: LLQ : COMMON NORMALS: Yes no CVA tenderness BLADDER/KIDNEY EXAM: Yes no CVA tenderness Back/Pelvis: COMMON NORMALS: no CVA tenderness Extremity: COMMON NORMALS: no pedal edema NARRATIVE EXTREMITY EXAM: Patient had bandage on left foot. GENERAL: Yes normal exam except as noted Neuro: COMMON NORMALS: patient oriented x3 SENSORIUM/ORIENTATION: Yes alert GAIT: Yes Normal gait present Skin: GENERAL SKIN EXAM: dry skin Course Vital Signs: Vital signs: Vital Signs Temperature 98.4 F 11/25/20 17:00 Pulse Rate 83 11/25/20 20:37 Respiratory Rate 18 11/25/20 17:00 Blood Pressure 105/70 11/25/20 18:55 Pulse Oximetry 99 11/25/20 20:37 MDM - Abdominal Pain MDM Narrative: Medical decision making narrative: Patient is a 50-year-old female who comes to the ED with abdominal pain. Patient has a past medical history of hypertension, CKD degenerative disc disease, diabetes. Patient appears nontoxic and in no acute distress. She has some left lower quadrant abdominal tenderness upon palpation. CBC and CMP, lipase and UA were all unremarkable. CT of the abdomen showed some mild enlargement of the spleen but no other acute findings. Patient's symptoms were controlled with IV morphine, Zofran while here in the ED. Patient diagnosed with abdominal pain and was discharged home with a prescription for Zofran for nausea. Patient currently has a prescription of oxycodone for pain and sees pain management. She was told to contact her PCP and follow-up with them in 7 to 10 days for reevaluation. Return to ED precautions given. Patient understood and agreed with plan. Lab Data: Attestation: I reviewed the patient's lab results. Labs: Lab Results 11/25/20 11/25/20 11/25/20 Range/Units 19:12 19:12 19:35 WBC 8.7 (4.0-10.0) 10^3/ uL RBC 4.22 (4.1-5.3) 10^6/u L Hgb 12.6 (11.5-15.3) g/dL Hct 39.7 (37.0-47.0) % MCV 94.1 (81-99) fL MCH 29.9 (28.0-34.0) pg MCHC 31.7 (30.0-36.0) g/dL RDW 13.2 (12.1-15.1) % Plt Count 136 (130-400) 10^3/c mm MPV 10.1 (7.4-10.4) fL Neut % (Auto) 70.7 % Lymph % (Auto) 19.0 % [place] % (Auto) 6.4 % Eos % (Auto) 3.1 % Baso % (Auto) 0.5 % Neut # (Auto) 6.15 (1.8-7.7) 10^3/u L Lymph # (Auto) 1.7 (0.8-4.8) 10^3/u L [place] # (Auto) 0.6 (0.2-0.9) 10^3/u L Eos # (Auto) 0.3 (0.0-0.8) 10^3/u L Baso # (Auto) 0.0 (0.0-0.1) 10^3/u L Nucleated RBC % (a uto) 0 % Nucleated RBCs # 0.0 /100WBC Sodium 139 (136-145) mmol/L Potassium 3.7 (3.5-5.1) mmol/L Chloride 104 (98-107) mmol/L Carbon Dioxide 26 (22-29) mmol/L Anion Gap 12.7 (5-19) BUN 21 H (6-20) mg/dL Creatinine 1.1 H (0.5-0.9) mg/dL GFR Calculation 52.8 L (90-130) mL/min Glucose 84 (65-115) mg/dL Calculated Osmolal ity 290 (285-295) mOsm/k g Calcium 8.8 (8.5-10.5) mg/dL Total Bilirubin 0.2 (0.15-1.2) mg/dL AST 10 (0-32) U/L ALT 12 (0-33) U/L Alkaline Phosphata se 79 (35-105) IU/L Total Protein 6.8 (6.6-8.7) g/dL Albumin 4.1 (3.5-5.2) g/dL Globulin 2.7 (1.3-4.6) g/dL Lipase 23 (13-60) U/L Urine Color Yellow (Yellow) Urine Appearance Clear (CLEAR) Urine pH 7 (5-7) Ur Specific Gravit y 1.005 (1.005-1.030) Urine Protein Neg (Negative) Urine Glucose (UA) Norm (Normal) Urine Ketones Negative (Negative) Urine Blood Neg (Negative) Urine Nitrate Negative (Negative) Urine Bilirubin Neg (Negative) Urine Urobilinogen Norm (Negative) mg/dL Ur Leukocyte Andreina ase Negative (Negative) Urine RBC 0-4 H (0-2) /hpf Urine WBC 0-4 H (0-5) /hpf Ur Squamous Epith Cells 0-4 H (0-5) /hpf Amorphous Sediment Trace /hpf Urine Bacteria Trace (NONE) /hpf Imaging Data ^: CT Abd/Pel: Attestation: I personally reviewed and interpreted this imaging study as follows: Radiologist's impression: [place] [address] CT Scan Report Signed Patient: Tabby Gan Unit #: [id number] : 1970 Age/Sex: 50 / F ADM Date: 11/25/20 Loc: ER Room/Bed: Attending Dr: Ordering Provider/Ordering MD: Rick Palm Date of Service: 11/25/20 Procedure(s): CT abdomen pelvis wo con [id number] Accession Number(s): [id number] Report Number: [id number] PROCEDURE INFORMATION: Exam: CT Abdomen And Pelvis Without Contrast Exam date and time: 11/25/2020 6:09 PM Age: 50 years old Clinical indication: Abdominal pain; Localized; Left lower quadrant (llq); Prior surgery; Surgery date: 6+ months; Surgery type: R neph, appy, gb, hyst, vp care management shunt; Patient HX: C/O llq abd pain; Additional info: Llq abdom pain TECHNIQUE: Imaging protocol: Computed tomography of the abdomen and pelvis without contrast. Radiation optimization: All CT scans at this facility use at least one of these dose optimization techniques: automated exposure control; mA and/or kV adjustment per patient size (includes targeted exams where dose is matched to clinical indication); or iterative reconstruction. COMPARISON: CT chest abd pel w con* 07/27/2020 11:05 PM RADIATION DOSE METRICS: Total DLP (mGy-cm): 1517.28 FINDINGS: Tubes, catheters and devices: COUNSEL[employer] shunt tubing demonstrated with tip adjacent to the liver. No fluid collection associated. Lungs: The lung bases appear unremarkable. Liver: The liver is unremarkable in appearance. Gallbladder and bile ducts: The gallbladder is surgically absent. No biliary dilatation. Pancreas: Unremarkable. No ductal dilation. Spleen: There is mild splenomegaly present. The spleen measures 14 cm in length. Adrenal glands: Unremarkable. No mass. Kidneys and ureters: Status post right nephrectomy. Left kidney is morphologically normal. Extrarenal pelvis noted. No hydronephrosis. No calculus. Left ureter is unremarkable. Stomach and bowel: No acute gastric abnormality demonstrated. The small bowel is unremarkable as demonstrated. The ascending and transverse portions of the colon are distended with stool and air. The descending and rectosigmoid portions of the colon are relatively empty. Appendix: Status post appendectomy by history. Intraperitoneal space: No pneumoperitoneum. No significant fluid collection. Vasculature: The aorta is unremarkable as demonstrated. Lymph nodes: No enlarged lymph nodes. Urinary bladder: Unremarkable as visualized. Reproductive: The uterus is not visualized, consistent with hysterectomy. Bones/joints: Degenerative spine changes are noted. No fracture or other acute osseous abnormality. Soft tissues: Unremarkable. CT/CT abdomen pelvis wo con [id number] IMPRESSION: 1. There is mild splenomegaly present. The spleen measures 14 cm in length. 2. COUN[employer] shunt tubing demonstrated with tip adjacent to the liver. No fluid collection associated. 3. Status post right nephrectomy. 4. The ascending and transverse portions of the colon are distended with stool and air. The descending and rectosigmoid portions of the colon are relatively empty. This is a nonspecific finding. This is unchanged from 07/27/2020. No inflammatory change of the colon noted. Radiation Dose CTDIVOL = (mGy): DLP = 1517.28 (mGy-cm) Dictated By: Clark Gaspar MD Signed By: Clark Gaspar MD Signed Date/Time: 11/25/201853 DD/ 52 Discharge Plan Discharge Patient Disposition: Home Clinical Impression: Abdominal pain Qualifiers: Abdominal location: left lower quadrant Qualified Code(s): R10.32 - Left lower quadrant pain Condition: Stable Prescriptions: New ondansetron 4 mg tablet,disintegrating 4 mg PO Q8H Qty: 10 RF: 0 No Action lamotrigine [Lamictal] 150 mg tablet 150 mg PO BID@0700,2099 RF: 0 bupropion HCl 75 mg tablet 75 mg PO BID@699,2099 RF: 0 prazosin 5 mg capsule 5 mg PO BEDTIME@2099 RF: 0 aripiprazole [Abilify] 15 mg tablet 7.5 mg PO DAILY@2099 RF: 0 Trulicity 1.5 mg/0.5 mL pen injector 1.5 mg SUBCUT Q7D RF: 0 rizatriptan 10 mg tablet,disintegrating 10 mg PO .COMPLEX RF: 0 docusate sodium 100 mg capsule 1,000 mg PO DAILY RF: 0 epinephrine 0.3 mg/0.3 mL auto-injector 0.3 mg IM ONCE PRN (Reason: Allergic Reaction) RF: 0 benztropine 1 mg tablet 2 mg PO BID@699,2099 RF: 0 metoprolol tartrate 25 mg tablet 25 mg PO BID@699,2099 RF: 0 (DME) Sole Supports See Rx Instructions .ROUTE .MEDSUPPLY Qty: 1 RF: 0 oxycodone-acetaminophen 7.5-325 mg tablet 1 tab PO QID PRN (Reason: pain) 30 Days Qty: 120 RF: 0 Hold Instructions: Resume on 11/02/20. coenzyme Q10 [CoQ-10] 100 mg capsule 800 mg PO DAILY@0700 RF: 0 ascorbic acid (vitamin C) 500 mg capsule 500 mg PO DAILY@0700 RF: 0 biotin 10,000 mcg capsule 10,000 mcg PO DAILY@0700 RF: 0 apple cider vinegar 500 mg tablet 1,600 mg PO DAILY@0700 RF: 0 (DME) Diabetic Shoes See Rx Instructions .ROUTE .MEDSUPPLY Qty: 1 RF: 0 gabapentin 400 mg capsule 400 mg PO TID@,, RF: 0 polyethylene glycol 3350 [Miralax] 17 gram/dose Powder 17 g PO BID PRN (Reason: Constipation) RF: 0 melatonin 1 mg Tablet 1 mg PO BEDTIME RF: 0 diphenhydramine HCl [Benadryl Allergy] 25 mg Tablet 25 mg PO TID PRN (Reason: Allergic Symptoms) RF: 0 Symproic 0.2 mg Tablet 0.2 mg PO DAILY@2099 RF: 0 garlic 1,000 mg Capsule 1,000 mg PO DAILY@2099 RF: 0 topiramate 50 mg Tablet 50 mg PO DAILY@0700 RF: 0 fish,bora,flax oils-om3,6,9no1 [Triple [place] 3-6-9] 400-400-400 mg Capsule 3 cap PO DAILY@2099 RF: 0 methocarbamol 500 mg tablet 3,000 mg PO TID PRN (Reason: Muscle Pain) RF: 0 glimepiride 2 mg Tablet 1 mg PO DAILY@0700 RF: 0 magnesium 200 mg Tablet 400 mg PO DAILY@2099 RF: 0 atorvastatin 20 mg tablet 20 mg PO DAILY@0700 RF: 0 hydroxyzine pamoate 50 mg capsule 50 mg PO TID@,, RF: 0 pantoprazole 40 mg tablet,delayed release (DR/EC) 40 mg PO BID@0700,2099 RF: 0 diazepam 5 mg tablet 5 mg PO TID PRN (Reason: Anxiety) RF: 0 Rexulti 1 mg tablet 1 mg PO DAILY@0700 RF: 0 Vitamin B-12 1 tab PO DAILY@0700 RF: 0 Vitamin B-2 1 tab PO DAILY@0700 RF: 0 Vitamin C 1 tab PO DAILY@0700 RF: 0 geriatric multivitamin-min 1 tab PO DAILY@0700 RF: 0 Diflucan 150 mg tablet 150 mg PO DAILY@0700 RF: 0 levofloxacin 750 mg tablet 750 mg PO DAILY@0700 RF: 0 Discharge Orders: Discharge ED (Routine); Ordered 11/25/20 Ordered By: Rick Palm Referrals: Linda Erickson MD [Primary Care Provider] - Discharge Diet: Advance as tolerated Discharge Activity: Increase activity as tolerated Patient Instructions: Abdominal Pain (ED) Activity Restrictions/Additional Instructions: Follow-up with medical provider as directed in 7 days for reevaluation. Take medications as prescribed. Return to the ER or your medical provider if condition worsens. Please read and understand discharge instructions. If any questions, please ask. Coding Level of Care Code ED Pediatric Clinical Nurse Specialist for Rama Fwd Exam Comprehensive
--- NOTE | 2020-11-25 18:04 | CTR_ITS ---
PROCEDURE INFORMATION: Exam: CT Abdomen And Pelvis Without Contrast Exam date and time: 11/25/2020 6:09 PM Age: 50 years old Clinical indication: Abdominal pain; Localized; Left lower quadrant (llq); Prior surgery; Surgery date: 6+ months; Surgery type: R neph, appy, gb, hyst, second vp hr assessment shunt; Patient HX: C/O llq abd pain; Additional info: Llq abdom pain TECHNIQUE: Imaging protocol: Computed tomography of the abdomen and pelvis without contrast. Radiation optimization: All CT scans at this facility use at least one of these dose optimization techniques: automated exposure control; mA and/or kV adjustment per patient size (includes targeted exams where dose is matched to clinical indication); or iterative reconstruction. COMPARISON: CT chest abd pel w con* 07/27/2020 11:05 PM RADIATION DOSE METRICS: Total DLP (mGy-cm): 1517.28 FINDINGS: Tubes, catheters and devices: [employer] shunt tubing demonstrated with tip adjacent to the liver. No fluid collection associated. Lungs: The lung bases appear unremarkable. Liver: The liver is unremarkable in appearance. Gallbladder and bile ducts: The gallbladder is surgically absent. No biliary dilatation. Pancreas: Unremarkable. No ductal dilation. Spleen: There is mild splenomegaly present. The spleen measures 14 cm in length. Adrenal glands: Unremarkable. No mass. Kidneys and ureters: Status post right nephrectomy. Left kidney is morphologically normal. Extrarenal pelvis noted. No hydronephrosis. No calculus. Left ureter is unremarkable. Stomach and bowel: No acute gastric abnormality demonstrated. The small bowel is unremarkable as demonstrated. The ascending and transverse portions of the colon are distended with stool and air. The descending and rectosigmoid portions of the colon are relatively empty. Appendix: Status post appendectomy by history. Intraperitoneal space: No pneumoperitoneum. No significant fluid collection. Vasculature: The aorta is unremarkable as demonstrated. Lymph nodes: No enlarged lymph nodes. Urinary bladder: Unremarkable as visualized. Reproductive: The uterus is not visualized, consistent with hysterectomy. Bones/joints: Degenerative spine changes are noted. No fracture or other acute osseous abnormality. Soft tissues: Unremarkable. CT/CT abdomen pelvis wo con [id number] IMPRESSION: 1. There is mild splenomegaly present. The spleen measures 14 cm in length. 2. [employer] shunt tubing demonstrated with tip adjacent to the liver. No fluid collection associated. 3. Status post right nephrectomy. 4. The ascending and transverse portions of the colon are distended with stool and air. The descending and rectosigmoid portions of the colon are relatively empty. This is a nonspecific finding. This is unchanged from 07/27/2020. No inflammatory change of the colon noted. Radiation Dose CTDIVOL = (mGy): DLP = 1517.28 (mGy-cm)
--- NOTE | 2020-11-25 18:13 | PC.NURSE ---
pt to CT by stretcher with tech
[2020-11-25] MEDS: ondansetron 2 mg/ML SDV 2 mL 4 MG IVP (18:51)
[2020-11-25] MEDS: morphine 4 mg/mL SDV 1 mL IVP ×2 (18:51→20:19)
[2020-11-25 18:55] VITALS: BP 105/70; PULSE 79; O2SAT 100
[2020-11-25 19:19] LABS: Basophils % 0.5 %; Eosinophils # 0.3 10^3/uL (0.0-0.8); Eosinophils % 3.1 %; Hematocrit 39.7 % (37.0-47.0); Hemoglobin 12.6 g/dL (11.5-15.3); Lymphocytes # 1.7 10^3/uL (0.8-4.8); Mean Corpuscular HGB Conc 31.7 g/dL (30.0-36.0); Mean Corpuscular Hemoglobin 29.9 pg (28.0-34.0); Mean Corpuscular Volume 94.1 fL (81-99); Mean Platelet Volume 10.1 fL (7.4-10.4); Monocytes # 0.6 10^3/uL (0.2-0.9); Monocytes % 6.4 %; Neutrophils # 6.15 10^3/uL (1.8-7.7); Neutrophils % 70.7 %; Nucleated Red Blood Cells % 0 %; Platelet Count 136 10^3/cmm (130-400); Red Blood Count 4.22 10^6/uL (4.1-5.3); Red Cell Distribution Width 13.2 % (12.1-15.1); White Blood Count 8.7 10^3/uL (4.0-10.0)
[2020-11-25 19:43] LABS: Alanine Aminotransferase 12 U/L (0-33); Albumin Level 4.1 g/dL (3.5-5.2); Alkaline Phosphatase 79 IU/L (35-105); Anion Gap 12.7 (5-19); Aspartate Amino Transferase 10 U/L (0-32); Blood Urea Nitrogen 21 mg/dL (6-20); Calcium 8.8 mg/dL (8.5-10.5); Carbon Dioxide 26 mmol/L (22-29); Chloride 104 mmol/L (98-107); Globulin 2.7 g/dL (1.3-4.6); Glomerular Filtration Rate 52.8 mL/min (90-130); Glucose 84 mg/dL (65-115); Lipase 23 U/L (13-60); Osmolality Calculated 290 mOsm/kg (285-295); Potassium 3.7 mmol/L (3.5-5.1); Sodium 139 mmol/L (136-145); Total Bilirubin 0.2 mg/dL (0.15-1.2); Total Protein 6.8 g/dL (6.6-8.7)
[2020-11-25 20:00] LABS: Bilirubin Urine Neg (Negative); Blood Urine Neg (Negative); Glucose Urine UA Norm (Normal); Ketones Urine Negative (Negative); Leukocyte Esterase Urine Negative (Negative); Nitrate Urine Negative (Negative); Protein Urine Neg (Negative); Specific Gravity, Urine 1.005 (1.005-1.030); Urine Appearance Clear (CLEAR); Urine Color Yellow (Yellow); Urobilinogen Urine Norm (Negative); pH Urine 7 (5-7)
[2020-11-25 20:02] LABS: Add Urine Culture? No; Amorphous Sediment Urine TRACE /hpf; Bacteria Urine TRACE /hpf; RBC Urine 0-4 /hpf (0-2); Squamous Epithelial Cell Urine 0-4 /hpf (0-5); WBC Urine 0-4 /hpf (0-5)
[2020-11-25 20:37] VITALS: PULSE 83; O2SAT 99
== END 2020-11-25 20:35 | disposition home or self-care (01) ==
PROVIDERS: Emergency Provider Physician Assistant; PCP Family Medicine
DX: R10.32 Left lower quadrant pain (principal); E11.42 Type 2 diabetes mellitus with diabetic polyneuropathy; Z90.5 Acquired absence of kidney
CPT/HCPCS: 74176; 80053; 81001; 83690; 85025; 96374; 96375; 96376; 99283; J2270; J2405

== ENCOUNTER → 2020-12-04 09:05 | Outpatient (BNVA) | payer BC, SELFPAY | PROVIDERS: PCP Family Medicine; Visit Provider Nurse Practitioner | DX: M47.27 Other spondylosis with radiculopathy, lumbosacral region (principal); M47.816 Spondylosis without myelopathy or radiculopathy, lumbar region; M51.36 Other intervertebral disc degeneration, lumbar region; M50.30 Other cervical disc degeneration, unspecified cervical region; T40.2X5A Adverse effect of other opioids, initial encounter; X58.XXXA Exposure to other specified factors, initial encounter; Z79.891 Long term (current) use of opiate analgesic | CPT/HCPCS: 99214 ==

== ENCOUNTER → 2020-12-19 13:58 | Outpatient (BNVA) | payer BC, SELFPAY | PROVIDERS: PCP Family Medicine; Visit Provider Podiatrist Foot & Ankle Surgery | DX: T84.84XA Pain due to internal orthopedic prosthetic devices, implants and grafts, initial encounter (principal) | CPT/HCPCS: 73630 ==

== ENCOUNTER 2021-01-11 23:32 | Emergency (ER) | payer BC, SELFPAY ==
[2021-01-11 23:35] VITALS: BP 136/80; PULSE 108; RESP 24; TEMP 36.9; O2SAT 97; BMI 23.1
--- NOTE | 2021-01-11 23:45 | ED_ITS ---
HPI - General Adult General: Chief complaint: Abdominal Pain Stated complaint: constipation, ab pain Time Seen by Provider: 01/11/21 23:40 History of Present Illness: HPI narrative: Patient states she was fine up to 2 hours ago then she need to have a bowel movement and she can get her bowels moving so she does got it because it was hurting and she said she is got a fecal impaction now she has a history of this and needs to have stool removed from her rectal cavity denies fever chills or bladder problems. MD complaint: Constipation Onset (ago): year(s) (Worse last 2 hours) Severity: similar to prior episodes Severity scale (1-10): 10 Quality: aching Pain Consistency: constant Relieving factors: none Associated symptoms: Reports no associated symptoms; Deny chest pain, dyspnea, headache(s), nausea, rash or vomiting Treatments prior to arrival: other (Remove stool by herself with her finger) Review of Systems Const: Denies: fever(s), chills or body aches Eyes: Denies: change in vision or blurry vision ENMT: Denies: throat pain or nasal congestion Card: Denies: chest pain or dyspnea on exertion Resp: Denies: dyspnea, productive cough or non-productive cough GI: Reports: abdominal pain (Back pain), constipation (Says she feels she has a fecal impaction) and rectal pain; Denies: nausea or vomiting Musc: Denies: extremity pain Skin/Breast: Denies: rash Neuro: Denies: headache(s) Psych: Denies: anxiety or depression Fletcher/Lymph: Denies: easy bruising PFSH ED PFSH: Medical History Abdominal pain DDD (degenerative disc disease), cervical DDD (degenerative disc disease), lumbar Diabetic peripheral neuropathy associated with type 2 diabetes mellitus Facet syndrome, lumbar Fibromyalgia GERD (gastroesophageal reflux disease) Kidney disease Long-term current use of opiate analgesic Lumbosacral spondylosis with radiculopathy Pain management contract signed Seizures Therapeutic opioid induced constipation Surgical History History of nephrectomy (~2013) History of ventriculoperitoneal shunting (~01/04/09) Dr. Cordelia Roche 01/04/2009 Ventriculoperitoneal shunt placement. William Aaron Programmable Valve, Siphonguard device. Valve at 15cm H2O. 2010 reprogrammed to 14 cm H2O Hx of appendectomy (~2002) Hx of cholecystectomy (~2003) Hx of hysterectomy Family History Mother Diabetes DM2 Family/Other Cancer MATERNAL AUNT- BREAST CANCER Social History Smoking and tobacco status: never smoked Alcohol intake: never Caregiver/support person: Yes Lives independently: Yes Household members: spouse Marital status: Current occupational status: disabled History of recent travel: No Female Reproductive History: Spontaneous abortions: No Physical Exam Const: GENERAL APPEARANCE: anxious Resp: COMMON NORMALS: normal respiratory effort Cardio: RATE: tachycardic GI: AUSCULTATION: Yes Hypoactive bowel sounds present PERCUSSION: dullness to percussion Course Vital Signs: Vital signs: Vital Signs Temperature 98.4 F 01/11/21 23:35 Pulse Rate 108 H 01/11/21 23:35 Respiratory Rate 24 H 01/11/21 23:35 Blood Pressure 136/80 01/11/21 23:35 Pulse Oximetry 97 01/11/21 23:35 MDM - General Adult MDM Narrative: Medical decision making narrative: Patient had a large bowel movement here and felt much better and requesting go home. Discharge Plan Discharge Patient Disposition: Home Clinical Impression: Constipation Qualifiers: Constipation type: drug induced constipation Qualified Code(s): K59.03 - Drug induced constipation Condition: Stable Prescriptions: No Action lamotrigine [Lamictal] 150 mg tablet 150 mg PO BID@699,2099 RF: 0 bupropion HCl 75 mg tablet 75 mg PO BID@699,2099 RF: 0 prazosin 5 mg capsule 5 mg PO BEDTIME@2099 RF: 0 Trulicity 1.5 mg/0.5 mL pen injector 1.5 mg SUBCUT Q7D RF: 0 rizatriptan 10 mg tablet,disintegrating 10 mg PO .COMPLEX RF: 0 docusate sodium 100 mg capsule 1,000 mg PO DAILY RF: 0 epinephrine 0.3 mg/0.3 mL auto-injector 0.3 mg IM ONCE PRN (Reason: Allergic Reaction) RF: 0 benztropine 1 mg tablet 2 mg PO BID@0700,2100 RF: 0 metoprolol tartrate 25 mg tablet 25 mg PO BID@0700,2100 RF: 0 (DME) Sole Supports See Rx Instructions .ROUTE .MEDSUPPLY Qty: 1 RF: 0 Symproic 0.2 mg tablet See Rx Instructions PO DAILY@2100 90 Days Qty: 180 RF: 0 oxycodone-acetaminophen 7.5-325 mg tablet 1 tab PO QID PRN (Reason: pain) 30 Days Qty: 120 RF: 0 oxycodone-acetaminophen 7.5-325 mg tablet 1 tab PO QID PRN (Reason: pain) 30 Days Qty: 120 RF: 0 coenzyme Q10 [CoQ-10] 100 mg capsule 800 mg PO DAILY@0700 RF: 0 ascorbic acid (vitamin C) 500 mg capsule 500 mg PO DAILY@0700 RF: 0 biotin 10,000 mcg capsule 10,000 mcg PO DAILY@0700 RF: 0 apple cider vinegar 500 mg tablet 1,600 mg PO DAILY@0700 RF: 0 (DME) Diabetic Shoes See Rx Instructions .ROUTE .MEDSUPPLY Qty: 1 RF: 0 gabapentin 400 mg capsule 400 mg PO TID@,, RF: 0 polyethylene glycol 3350 [Miralax] 17 gram/dose Powder 17 g PO BID PRN (Reason: Constipation) RF: 0 melatonin 1 mg Tablet 1 mg PO BEDTIME RF: 0 diphenhydramine HCl [Benadryl Allergy] 25 mg Tablet 25 mg PO TID PRN (Reason: Allergic Symptoms) RF: 0 garlic 1,000 mg Capsule 1,000 mg PO DAILY@2099 RF: 0 fish,bora,flax oils-om3,6,9no1 [Triple [place] 3-6-9] 400-400-400 mg Capsule 3 cap PO DAILY@2099 RF: 0 methocarbamol 500 mg tablet 3,000 mg PO TID PRN (Reason: Muscle Pain) RF: 0 glimepiride 2 mg Tablet 1 mg PO DAILY@0700 RF: 0 magnesium 200 mg Tablet 400 mg PO DAILY@2100 RF: 0 atorvastatin 20 mg tablet 20 mg PO DAILY@0700 RF: 0 hydroxyzine pamoate 50 mg capsule 50 mg PO TID@,, RF: 0 diazepam 5 mg tablet 5 mg PO TID PRN (Reason: Anxiety) RF: 0 Vitamin B-12 1 tab PO DAILY@0700 RF: 0 Vitamin B-2 1 tab PO DAILY@0700 RF: 0 geriatric multivitamin-min 1 tab PO DAILY@0700 RF: 0 Diflucan 150 mg tablet 150 mg PO DAILY@0700 PRNRF: 0 Discharge Orders: Discharge ED (Routine); Ordered 01/12/21 Ordered By: Kristopher Alejo Referrals: Linda Erickson MD [Primary Care Provider] - Discharge Diet: As Directed Discharge Activity: Resume usual activity Patient Instructions: Laxatives, Stimulant (Enema) (Rectal), Constipation (ED) Activity Restrictions/Additional Instructions: Use enemas as needed. Follow-up family medical provider as needed. Crease fiber in diet drink plenty of fluids. 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
--- NOTE | 2021-01-12 00:31 | PC.NURSE ---
Pt states she is here for constipation but after being placed in room has a very large bowel movement. Pt provided depends per request.
== END 2021-01-12 00:34 | disposition home or self-care (01) ==
PROVIDERS: Emergency Provider Nurse Practitioner Family; PCP Family Medicine
DX: K59.03 Drug induced constipation (principal); Z79.84 Long term (current) use of oral hypoglycemic drugs; E11.42 Type 2 diabetes mellitus with diabetic polyneuropathy; Z90.5 Acquired absence of kidney
CPT/HCPCS: 99281

== ENCOUNTER 2021-02-16 17:37 | Emergency (ER) | payer BC, SELFPAY ==
[2021-02-16 17:42] VITALS: BP 146/77; PULSE 117; RESP 19; TEMP 36.1; O2SAT 98; BMI 26.4
[2021-02-16] MEDS: famotidine 20 mg/2 mL INJ IVP (17:52)
[2021-02-16 17:59] VITALS: PULSE 93; RESP 18; O2SAT 98
[2021-02-16] MEDS: haloperidol inj 5 mg/mL INJ 1 mL 3 MG IVP (18:42)
--- NOTE | 2021-02-16 18:53 | W.ED.ALLEREA ---
HPI - Allergic Reaction General: Chief complaint: Allergic Reaction Stated complaint: ALLERGIC REACTION/ams Time Seen by Provider: 02/16/21 18:12 History of Present Illness: HPI narrative: 50-year-old female who states that she was cleaning a closet, and several brown recluse spiders were there. She reports that they crawled on her hands. She may have been bitten. Following this, she had an intense allergic reaction in which she started itching, and she felt tightness in her throat. 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 In route she was given 0.3 mg of IM epinephrine, and 50 mg of IM Benadryl. complaint: allergic reaction Onset (ago): minute(s) Exposure: insect bite (See above) Associated symptoms: Reports difficulty breathing, dysphagia, hoarseness, itching, nausea and rash; Deny abdominal pain, lip swelling or vomiting Severity: moderate Treatment prior to arrival: benadryl and epinephrine Previous Allergic Reaction History: anaphylaxis Review of Systems Const: Denies: fever(s) ENMT: Reports: hoarseness Card: Denies: chest pain or palpitations Resp: Reports: dyspnea; Denies: productive cough, non-productive cough or wheezing GI: Reports: nausea and dysphagia; Denies: abdominal pain or vomiting : Denies: difficulty voiding Skin/Breast: Reports: rash, pruritus and erythema Neuro: Reports: headache(s); Denies: weakness in extremities PFS ED PFSH: Medical History Abdominal pain DDD (degenerative disc disease), cervical DDD (degenerative disc disease), lumbar Diabetic peripheral neuropathy associated with type 2 diabetes mellitus Facet syndrome, lumbar Fibromyalgia GERD (gastroesophageal reflux disease) Kidney disease Long-term current use of opiate analgesic Lumbosacral spondylosis with radiculopathy Pain management contract signed Seizures Therapeutic opioid induced constipation Surgical History History of nephrectomy (~2013) History of ventriculoperitoneal shunting (~01/04/09) Dr. Cordelia Roche 01/04/2009 Ventriculoperitoneal shunt placement. William Aaron Programmable Valve, Siphonguard device. Valve at 15cm H2O. 2010 reprogrammed to 14 cm H2O Hx of appendectomy (~2002) Hx of cholecystectomy (~2003) Hx of hysterectomy Family History Mother Diabetes DM2 Family/Other Cancer MATERNAL AUNT- BREAST CANCER Social History Smoking and tobacco status: never smoked Alcohol intake: never Caregiver/support person: Yes Lives independently: Yes Household members: spouse Marital status: Current occupational status: disabled History of recent travel: No Female Reproductive History: Spontaneous abortions: No Physical Exam Const: GENERAL APPEARANCE: cooperative and anxious ORIENTATION/CONSCIOUSNESS: Yes oriented to person, Yes oriented to place and Yes oriented to time HENMT: COMMON NORMALS: normocephalic, external ears normal and Normal external nose present HEAD & SCALP: normocephalic FACE & SINUS: normal facial exam NOSE: Normal external nose present and No nasal discharge present EXTERNAL EAR: Yes external ears normal MOUTH: tongue normal TEETH & GINGIVA: no abnormal tooth and associated gingiva THROAT: posterior oropharynx normal Eye: COMMON NORMALS: Equal, round and reactive pupils present, EOMs intact bilaterally and conjunctivae normal EYELID: eyelids normal CONJUNCTIVA: Yes conjunctivae normal PUPIL: Yes Equal, round and reactive pupils present Neck/C-Spine: GENERAL: No tracheal deviation Chest: COMMONS NORMALS: normal inspection of the chest Resp: COMMON NORMALS: clear to auscultation bilaterally EFFORT & INSPECTION: No tachypneic, No respiratory distress, No retractions, No uses accessory muscles and No tracheal deviation AUSCULTATION: clear to auscultation bilaterally, no rhonchi, no wheezes and lung sounds not diminished Cardio: COMMON NORMALS: regular rate and regular rhythm RATE: regular rate RHYTHM: regular rhythm HEART SOUNDS: no murmurs PERIPHERAL PULSES: radial pulses present GI: INSPECTION: No abdominal distension AUSCULTATION: No Hyperactive bowel sounds present and No Hypoactive bowel sounds present PALPATION: No Guarding due to palpation present (GI) and No Rigid due to palpation Neuro: TOMAS COMA SCALE: document GCS findings [place] coma scale eye opening: Spontaneous [place] coma scale verbal response: Orientated [place] coma scale motor response: Obey commands Tomas coma scale total score: 15 COMMON NORMALS: no focal motor deficits SENSORIUM/ORIENTATION: Yes oriented to person, Yes oriented to place and Yes oriented to time Psych: COMMON NORMALS: mental status grossly normal and Normal thought process present APPEARANCE: Yes grossly normal ATTITUDE: Yes bizarre and Yes agitated ACTIVITY/MOTOR BEHAVIOR: Yes psychomotor agitation, Yes fidgeting and Yes restless SPEECH: Yes Pressured speech present THOUGHT PROCESS: Normal thought process present THOUGHT CONTENT: No Suicidality present Skin: NARRATIVE SKIN EXAM: Excoriations on neck present from scratching. No noted urticaria. No definite insect bite. Course Vital Signs: Vital signs: Vital Signs Temperature 97.0 F L 02/16/21 17:42 Pulse Rate 95 02/16/21 19:21 Respiratory Rate 14 02/16/21 19:21 Blood Pressure 114/65 02/16/21 19:21 Pulse Oximetry 97 02/16/21 19:21 MDM - Allergic Reaction MDM Narrative: Medical decision making narrative: 50-year-old anxious female after exposure to spiders she has had bad reactions to in the past. She was given Benadryl and epinephrine in route to the hospital. Her heart rate is 96. Oxygen saturation 98% on room air. Tongue appears normal. She states she has a headache, is nauseated, and is seeing halos . She is given IV haloperidol for nausea, itch, and the halos. Lab Data: Labs: Lab Results 02/16/21 Range/Units 19:15 POC Glucose 268 H (70-110) mg/dL Discharge Plan Discharge Patient Disposition: Home Clinical Impression: Allergic reaction Qualifiers: Encounter type: initial encounter Qualified Code(s): T78.40XA - Allergy, unspecified, initial encounter Condition: Stable Prescriptions: No Action lamotrigine [Lamictal] 150 mg tablet 150 mg PO BID@0700,2100 RF: 0 bupropion HCl 75 mg tablet 75 mg PO BID@0700,2100 RF: 0 prazosin 5 mg capsule 5 mg PO BEDTIME@2100 RF: 0 Trulicity 1.5 mg/0.5 mL pen injector 1.5 mg SUBCUT Q7D RF: 0 epinephrine 0.3 mg/0.3 mL auto-injector 0.3 mg IM ONCE PRN (Reason: Allergic Reaction) RF: 0 metoprolol tartrate 25 mg tablet 25 mg PO BID@0700,2100 RF: 0 (DME) Sole Supports See Rx Instructions .ROUTE .MEDSUPPLY Qty: 1 RF: 0 oxycodone-acetaminophen 7.5-325 mg tablet 1 tab PO QID PRN (Reason: pain) 30 Days Qty: 120 RF: 0 biotin 10,000 mcg capsule 10,000 mcg PO DAILY@0700 RF: 0 lactulose 10 gram/15 mL solution 10 g PO BID@0700,2100 RF: 0 (DME) Diabetic Shoes See Rx Instructions .ROUTE .MEDSUPPLY Qty: 1 RF: 0 gabapentin 400 mg capsule 400 mg PO TID@,, RF: 0 melatonin 1 mg Tablet 1 mg PO BEDTIME@2100 RF: 0 diphenhydramine HCl [Benadryl Allergy] 25 mg Tablet 25 mg PO TID PRN (Reason: Allergic Symptoms) RF: 0 fish,bora,flax oils-om3,6,9no1 [Triple [place] 3-6-9] 400-400-400 mg Capsule 3 cap PO DAILY@2100 RF: 0 Aspir-81 81 mg PO PRN RF: 0 clonazepam 0.5 mg tablet 0.5 mg PO TID PRN (Reason: unknown) RF: 0 glimepiride 1 mg tablet 1 mg PO DAILY@0700 RF: 0 pantoprazole 40 mg tablet,delayed release (DR/EC) 40 mg PO BID@07,2099 RF: 0 Premarin 0.625 mg/gram cream See Rx Instructions .ROUTE .COMPLEX RF: 0 ziprasidone HCl 40 mg capsule 40 mg PO DAILY@1700 RF: 0 estradiol 0.0375 mg/24 hr patch semiweekly 0.0675 mg transdermal Q14D RF: 0 metoclopramide HCl 10 mg tablet 10 mg PO PRN RF: 0 Symproic 0.2 mg tablet 0.2 mg PO BID@0700,2099 RF: 0 multivitamin 1 tab PO DAILY@0700 RF: 0 methocarbamol 500 mg tablet 3,000 mg PO TID PRN (Reason: Muscle Pain) RF: 0 atorvastatin 20 mg tablet 20 mg PO DAILY@0700 RF: 0 hydroxyzine pamoate 50 mg capsule 50 mg PO TID@, RF: 0 diazepam 5 mg tablet 5 mg PO TID PRN (Reason: Anxiety) RF: 0 Discharge Orders: Discharge ED (Routine); Ordered 02/16/21 Ordered By: Jorge Jarrett Referrals: [place],Linda A, MD [Primary Care Provider] - 4-7 days Patient Instructions: Allergic Reaction Activity Restrictions/Additional Instructions: Return for return of hives, itching, worsening trouble breathing, swelling of the face or tongue, other concerning symptoms. Coding Level of Care Code ED [employer] Bi Consultant for Chg Fwd Exam Comprehensive
[2021-02-16 19:19] LABS: Glucose Point of Care 268 mg/dL (70-110)
[2021-02-16 19:21] VITALS: BP 114/65; PULSE 95; RESP 14; O2SAT 97
== END 2021-02-16 19:57 | disposition home or self-care (01) ==
PROVIDERS: Emergency Provider Emergency Medicine; PCP Family Medicine
DX: T78.40XA Allergy, unspecified, initial encounter (principal); Z79.82 Long term (current) use of aspirin; Z79.84 Long term (current) use of oral hypoglycemic drugs; E11.42 Type 2 diabetes mellitus with diabetic polyneuropathy; Z90.5 Acquired absence of kidney
CPT/HCPCS: 36416; 82962; 96374; 96375; 99283; J1630; J3490

== ENCOUNTER → 2021-02-20 15:35 | Outpatient (BNVA) | payer BC, SELFPAY | PROVIDERS: PCP Family Medicine; Visit Provider Podiatrist Foot & Ankle Surgery | DX: M79.672 Pain in left foot (principal); S99.929A Unspecified injury of unspecified foot, initial encounter; X58.XXXA Exposure to other specified factors, initial encounter | CPT/HCPCS: 73630 ==

== ENCOUNTER 2021-02-20 16:29 | Outpatient (CLI) | payer BC, SELFPAY | END 2021-02-20 16:30 | disposition home or self-care (01) | LOC: SPT 16:29 | PROVIDERS: PCP Family Medicine; Visit Provider Podiatrist Foot & Ankle Surgery | DX: Z46.89 Encounter for fitting and adjustment of other specified devices (principal); S93.602D Unspecified sprain of left foot, subsequent encounter; X58.XXXD Exposure to other specified factors, subsequent encounter | CPT/HCPCS: 97760; L4361 ==

== ENCOUNTER → 2021-02-21 12:56 | Outpatient (BNVA) | payer BC, SELFPAY | PROVIDERS: PCP Family Medicine; Visit Provider Anesthesiology | DX: G89.29 Other chronic pain (principal); M47.27 Other spondylosis with radiculopathy, lumbosacral region; M47.816 Spondylosis without myelopathy or radiculopathy, lumbar region; M51.36 Other intervertebral disc degeneration, lumbar region; M50.30 Other cervical disc degeneration, unspecified cervical region; M79.673 Pain in unspecified foot; M25.579 Pain in unspecified ankle and joints of unspecified foot; Z79.891 Long term (current) use of opiate analgesic | CPT/HCPCS: 99214 ==

== ENCOUNTER 2021-02-22 14:41 | Outpatient (CLI) | payer BC, SELFPAY ==
[2021-02-22 15:30] LABS: Basophils # 0.1 10^3/uL (0.0-0.1); Basophils % 0.9 %; Eosinophils # 0.3 10^3/uL (0.0-0.8); Eosinophils % 4.6 %; Hematocrit 44.5 % (37.0-47.0); Hemoglobin 14.5 g/dL (11.5-15.3); Lymphocytes # 1.6 10^3/uL (0.8-4.8); Lymphocytes % 23.9 %; Mean Corpuscular HGB Conc 32.6 g/dL (30.0-36.0); Mean Platelet Volume 9.6 fL (7.4-10.4); Monocytes # 0.5 10^3/uL (0.2-0.9); Monocytes % 7.4 %; Neutrophils # 4.09 10^3/uL (1.8-7.7); Neutrophils % 62.7 %; Nucleated Red Blood Cells % 0 %; Platelet Count 170 10^3/cmm (130-400); White Blood Count 6.5 10^3/uL (4.0-10.0)
[2021-02-22 15:32] LABS: Albumin Level 4.2 g/dL (3.5-5.2); Blood Urea Nitrogen 18 mg/dL (6-20); Calcium 9.6 mg/dL (8.5-10.5); Carbon Dioxide 19 mmol/L (22-29); Chloride 104 mmol/L (98-107); Glomerular Filtration Rate 47.7 mL/min (90-130); Glucose 159 mg/dL (65-115); Phosphorus 3.2 mg/dL (2.5-4.5); Sodium 134 mmol/L (136-145)
[2021-02-22 15:36] LABS: Anion Gap 15.8 (5-19); Potassium 4.8 mmol/L (3.5-5.1)
[2021-02-22 15:54] LABS: Creatinine Urine, Random 84 mg/dL (28-217)
[2021-02-22 15:55] LABS: Calcium 9.2 mg/dL (8.5-10.5)
[2021-02-22 15:58] LABS: Microalbum Creatinine Ratio Ur 12 mg/dL (0-20); Microalbumin Random Urine 1 ug/dL (0-20)
== END 2021-02-22 14:42 | disposition home or self-care (01) ==
PROVIDERS: PCP Family Medicine; Visit Provider Internal Medicine Nephrology
DX: N18.32 Chronic kidney disease, stage 3b (principal)
CPT/HCPCS: 36415; 80069; 82044; 82310; 83970; 85025

== ENCOUNTER → 2021-03-06 14:49 | Outpatient (BNVA) | payer BC, SELFPAY | PROVIDERS: PCP Family Medicine; Visit Provider Nurse Practitioner Family | DX: Z20.822 Contact with and (suspected) exposure to COVID-19 (principal); J06.9 Acute upper respiratory infection, unspecified | CPT/HCPCS: 87635 ==

== ENCOUNTER → 2021-04-01 13:48 | Outpatient (BNVA) | payer BC, SELFPAY | PROVIDERS: PCP Family Medicine; Visit Provider Nurse Practitioner Family | DX: Z20.822 Contact with and (suspected) exposure to COVID-19 (principal); J06.9 Acute upper respiratory infection, unspecified | CPT/HCPCS: 87426 ==

== ENCOUNTER 2021-04-04 12:28 | Outpatient (RCR) | payer BC, SELFPAY | END 2021-04-16 23:59 | disposition home or self-care (01) | LOC: SPT 12:28 | PROVIDERS: PCP Family Medicine; Referring Provider Podiatrist Foot & Ankle Surgery; Visit Provider Podiatrist Foot & Ankle Surgery | DX: M79.672 Pain in left foot (principal); S93.602D Unspecified sprain of left foot, subsequent encounter; X58.XXXD Exposure to other specified factors, subsequent encounter | CPT/HCPCS: 97161 ==

== ENCOUNTER → 2021-04-15 13:50 | Outpatient (BNVA) | payer BC, SELFPAY | PROVIDERS: PCP Family Medicine; Visit Provider Podiatrist Foot & Ankle Surgery | DX: Z01.818 Encounter for other preprocedural examination (principal); Z20.822 Contact with and (suspected) exposure to COVID-19 | CPT/HCPCS: 87635 ==

== ENCOUNTER 2021-04-19 09:05 | Day surgery (SDC) | payer BC, MEDICARE, SELFPAY ==
[2021-04-18 09:47] VITALS: BMI 28.5
--- NOTE | 2021-04-19 | SCC_ITS ---
Procedure Done: Deep hardware removal left foot CPT code 01583 1seconds of fluoroscopic guidance, for a cumulative dose of 0.03mGy, was provided to Dr. Matos by the radiology department. C-arm images of the LEFT foot were saved for the patient's permanent record. [facility]
[2021-04-19 09:25] VITALS: BP 135/84; PULSE 70; RESP 18; TEMP 36.1; O2SAT 97
[2021-04-19] MEDS: sodium chloride 0.9% 1,000 ML 30 ML IV (09:30)
--- NOTE | 2021-04-19 10:23 | P.HPUD_ITS ---
Surgery/Procedure H&P Update DATE OF PROCEDURE: April 19, 2021 DATE H&P PERFORMED: 04/19/21 H&P UPDATE INFORMATION: I have reviewed H&P completed within last 30 days, I have examined patient prior to procedure, No changes to prior documentation and H&P is in [facility] EMR on date indicated PREOP DIAGNOSIS: Painful retained hardware left foot PLANNED PROCEDURE: Operation Date: 04/19/21 10:45 Proposed Procedures p Hardware Removal left foot [id number] T84.84X(Left) - Gregorio Matos DPM
--- NOTE | 2021-04-19 10:23 | PM.OPSURHP ---
Providers/Chief Complaint Primary Care Provider: Linda Erickson MD Chief Complaint: deep hardware removal History of Present Illness Tabby Gan is a 51 year old female with painful retained hardware to her left foot is also will be limiting the effectiveness of MRI which will be next step in her work-up. Requesting hardware removal. Covid is negative. Has been n.p.o. Meet with her preoperatively. Patient denies any subjective nausea, vomiting, fever, chills, shortness of breath or chest pain. Review of Systems General: Reports: 10 or more systems reviewed and unremarkable except in HPI and below Const: Denies: fever(s) or chills Eyes: Denies: change in vision Card: Denies: chest pain or palpitations Resp: Denies: dyspnea or productive cough GI: Denies: abdominal pain, nausea or vomiting : Denies: flank pain Musc: Reports: extremity pain, joint pain, joint stiffness, limited range of motion and deformity Skin/Breast: Reports: skin tenderness; Denies: rash Neuro: Reports: difficulty walking; Denies: numbness in extremities, sensory changes or frequent falls Psych: Denies: suicidal ideation Fletcher/Lymph: Denies: easy bruising Medications/Allergies Home Medications Medication Instructions Recorded Confirmed Last Taken Type dulaglutide 1.5 mg/0.5 mL 1.5 mg SUBCUT Q7D ml 09/16/19 04/18/21 02/09/21 History subcutaneous pen injector epinephrine 0.3 mg/0.3 mL 0.3 mg IM ONCE PRN 09/16/19 04/18/21 Unknown History injection, auto-injector bupropion HCl 75 mg tablet 75 mg PO BID@0700,2100 tab 09/20/19 04/19/21 1 Day Ago History ~04/18/21 lamotrigine 150 mg tablet 150 mg PO BID@0700,2100 09/20/19 04/19/21 1 Day Ago History ~04/18/21 metoprolol tartrate 25 mg tablet 25 mg PO BID@0700,2100 tab 09/20/19 04/19/21 04/19/21 08:00 History prazosin 5 mg capsule 5 mg PO BEDTIME@2100 cap 09/20/19 04/19/21 1 Day Ago History ~04/18/21 gabapentin 400 mg PO TID@06,12,18 10/07/1904/19/21 1 Day Ago History ~04/18/21 Diabetic Shoes #1 each 01/25/20 04/05/21 Unknown Rx biotin 10,000 mcg capsule 10,000 mcg PO DAILY@0700 cap 02/02/20 04/19/21 1 Day Ago History ~04/18/21 Sole Supports #1 each 02/06/20 04/05/21 Unknown Rx methocarbamol 3,000 mg PO TID PRN 06/13/20 04/19/21 1 Day Ago History ~04/18/21 diphenhydramine HCl [Benadryl 25 mg PO TID PRN 10/25/20 04/19/21 1 Day Ago History Allergy] ~04/18/21 fish,bora,flax oils-om3,6,9no1 3 cap PO DAILY@2100 10/25/20 04/19/21 3 Days Ago History [Triple [place] 3-6-9] ~04/16/21 melatonin 1 mg PO BEDTIME@2100 10/25/20 04/19/21 1 Day Ago History ~04/18/21 atorvastatin 20 mg PO DAILY@0700 11/25/20 04/19/21 1 Day Ago History ~04/18/21 hydroxyzine pamoate 50 mg PO TID@11/25/20 04/19/21 1 Day Ago History ~04/18/21 Aspir-81 81 mg PO PRN 02/16/21 04/19/21 2 Days Ago History ~04/17/21 clonazepam 0.5 mg PO TID PRN 02/16/21 04/19/21 04/19/21 08:00 History conjugated estrogens [Premarin] See Rx Instructions .ROUTE .COMPLEX 02/16/21 04/18/21 Unknown History estradiol 0.0675 mg TRANSDERMAL Q14D 02/16/21 04/18/21 Unknown History metoclopramide HCl 10 mg PO PRN 02/16/21 04/18/21 Unknown History multivitamin 1 tab PO DAILY@0700 02/16/21 04/19/21 1 Day Ago History ~04/18/21 pantoprazole 40 mg PO BID@0700,2100 02/16/21 04/19/21 04/19/21 08:00 History ziprasidone HCl 40 mg PO DAILY@1700 02/16/21 04/19/21 1 Day Ago History ~04/18/21 cam boot #1 ea 02/20/21 04/05/21 Unknown Rx oxycodone-acetaminophen 10 mg-325 1 tab PO .5 times a day PRN 30 04/04/21 04/19/21 04/19/21 08:00 Rx mg tablet Days #150 tab lactulose 15 ml PO BID 04/18/21 04/19/21 1 Day Ago History ~04/18/21 Allergies Allergy/AdvReac Type Severity Reaction Status Date / Time spider venom Allergy ALGY-Anaphy Verified 04/19/21 09:29 laxis NSAIDS (Non-Steroidal AdvReac Unknown CKD4 Verified 04/19/21 09:29 Anti-Inflamma Iodinated Contrast Media AdvReac CKD4 - Verified 04/19/21 09:29 PFSH PFSH: Medical History Abdominal pain DDD (degenerative disc disease), cervical DDD (degenerative disc disease), lumbar Diabetic peripheral neuropathy associated with type 2 diabetes mellitus Facet syndrome, lumbar Fibromyalgia GERD (gastroesophageal reflux disease) Kidney disease Long-term current use of opiate analgesic Lumbosacral spondylosis with radiculopathy Pain management contract signed Seizures Therapeutic opioid induced constipation Surgical History History of nephrectomy (~2013) History of ventriculoperitoneal shunting (~01/04/09) Dr. Cordelia Roche 01/04/2009 Ventriculoperitoneal shunt placement. William Aaron Programmable Valve, Siphonguard device. Valve at 15cm H2O. 2010 reprogrammed to 14 cm H2O Hx of appendectomy (~2002) Hx of cholecystectomy (~2003) Hx of hysterectomy Family History Mother Diabetes DM2 Family/Other Cancer MATERNAL AUNT- BREAST CANCER Social History Alcohol intake: never Caregiver/support person: Yes Lives independently: Yes Household members: spouse Marital status: Current occupational status: disabled History of recent travel: No Female Reproductive History: Spontaneous abortions: No Dietary Habits: Caffeine: Yes Caffeine intake frequency: tea Vital Signs Vitals Signs: Last Vital Signs Temp 97 F L 04/19/21 09:25 Pulse 70 04/19/21 09:25 Resp 18 04/19/21 09:25 BP 135/84 04/19/21 09:25 Pulse Ox 97 04/19/21 09:25 Weight: Weight last 48 hrs Weight 205 lb Physical Exam Narrative: EXAM NARRATIVE: Patient is alert and oriented ?3 and in no acute distress. The following is a focused left lower extremity exam. VASCULAR: Dorsalis pedis and posterior tibial arteries palpable +2. Capillary refill time less than 3 seconds to the distal hallux bilaterally. Calf is supple and nontender proximally and distally. Mild edema to the left medial midfoot and forefoot. NEUROLOGICAL: Positive Tinel's sign on percussion of left common peroneal nerve as well as left tarsal tunnel. DERMATOLOGICAL: Ecchymosis at the left foot just dorsal to the first metatarsal base as well as plantar to the first metatarsal base at the instep. No open wounds. No erythema. MUSCULOSKELETAL: Tenderness to the area of hardware at the first metatarsal medial cuneiform left foot. CARDIOVASCULAR: S1, S2, normal rate, normal rhythm. Dorsalis pedis and posterior tibial arteries palpable. LUNGS: Clear to auscltation, no use of acessory muscles, no crackles or wheezes. A&P Assessment and plan (1) Retained orthopedic hardware: Status: Acute Retained hardware left foot will likely obscure MRI work-up for soft tissue injury also could be contributing to hardware pain she is painful to this region. Recommending hardware removal in a stepwise approach followed by MRI left foot without contrast. Would like to proceed with hardware removal on April 19 can be done outpatient under MAC anesthesia, risks include pain, bleeding, numbness, infection, failure to alleviate pain and need for further surgical intervention. Patient will have Covid screening done Thursday prior to surgery. Hardware removal left foot 04/19/2021, MAC anesthesia, duration of procedure 30 minutes. Coding Level of Care Code Acute Retirement Manager for Rama Meehan Diagnoses Retained orthopedic hardware Z96.9
--- NOTE | 2021-04-19 10:31 | P.ANESASSM_ITS ---
Pre-Anesthetic Assessment Pre-Anesthetic Assessment: Height/Weight: Height 1.8 m Weight 92.986 kg Temp Pulse Resp BP Pulse Ox 97 F L 70 18 135/84 97 04/19/21 09:25 04/19/21 09:25 04/19/21 09:25 04/19/21 09:25 04/19/21 09:25 Preop Diagnosis: Painful retained hardware left foot Proposed Procedure: Operation Date: 04/19/21 10:45 Proposed Procedures p Hardware Removal left foot [id number] T84.84X(Left) - JOSEPHINE OglesbyM Was Beta Ashley taken within 24 hours: N/A Was Clonidine taken within 24 hours: N/A Last intake: Intake Last Liquid Date 04/18/21 Last Liquid Time 21:00 Last Solid Date 04/18/21 Last Solid Time 21:00 Social: Social History: No alcohol and No tobacco Exam: Pre-Anes Outpt Exam: alert, oriented x 3, clear to auscultation bilaterally and regular rate & rhythm Airway: Submandibular: WNL Cervical ROM: WNL MP: 2 Dentition: Full History/ROS: No significant history except as noted and No significant complaints Pulmonary: Pulmonary: None reported CV/HEM: CV/HEM: None reported : : Chronic renal Insufficiency Hepatic: Hepatic: None reported GI: GI: GERD Metabolic: Metabolic: DM Musc/skel: Musc/skel: Lower Back Pain and OA/DJD Neuropsych: Neuropsych: Seizure Anesthetic Plan: ASA status: 3 Anesthesia: Anesthesia Evaluation and MAC Risk of > 500 ml blood loss (7ml/kg in children): No Meds/Allergies Current Medications: Current Medications Generic Name Dose Route Start Last Admin Trade Name Freq PRN Reason Stop Dose Admin Sodium Chloride 1,000 mls @ 30 ml s/hr 04/19/21 09:30 04/19/21 09:30 Sodium Chloride 0.9% IV 04/20/21 09:29 30 mls/hr .Q24H ARMIDA Administration PFSH Anesthesia PFSH: Medical History Abdominal pain DDD (degenerative disc disease), cervical DDD (degenerative disc disease), lumbar Diabetic peripheral neuropathy associated with type 2 diabetes mellitus Facet syndrome, lumbar Fibromyalgia GERD (gastroesophageal reflux disease) Kidney disease Long-term current use of opiate analgesic Lumbosacral spondylosis with radiculopathy Pain management contract signed Seizures Therapeutic opioid induced constipation Surgical History History of nephrectomy (~2013) History of ventriculoperitoneal shunting (~01/04/09) Dr. Cordelia Roche 01/04/2009 Ventriculoperitoneal shunt placement. [employer] Programmable Valve, Siphonguard device. Valve at 15cm H2O. 2010 reprogrammed to 14 cm H2O Hx of appendectomy (~2002) Hx of cholecystectomy (~2003) Hx of hysterectomy Family History Mother Diabetes DM2 Family/Other Cancer MATERNAL AUNT- BREAST CANCER Social History Alcohol intake: never Caregiver/support person: Yes Lives independently: Yes Household members: spouse Marital status: Current occupational status: disabled History of recent travel: No Female Reproductive History: Spontaneous abortions: No Data Anesthesia Cardiac Studies: No Data to Display
[2021-04-19] MEDS: lidocaine 1% INJ 20 mL 10 ML INJECTION (11:10)
[2021-04-19 12:00] VITALS: BP 115/65; PULSE 75; RESP 20; TEMP 36.1; O2SAT 98
--- NOTE | 2021-04-19 12:00 | PM.OP ---
Operative Report Date of procedure: April 19, 2021 Pre-op Diagnosis: Painful retained hardware left foot Post-op diagnosis: same Post-op Findings: None Procedure Done: Deep hardware removal left foot CPT code 69671 Implants: 4-0 PDS and 4-0 Prolene Specimens removed/disposition: 5 screws 1 plate removed from the left foot. Pathology: none sent Surgeon: Gregorio Matos D.P.M. Digital Strategy Manager: Carri Anesthesia: MAC Estimated blood loss: Less than 5 mL Tourniquet time: 55 minutes IV fluids: None Urine output: None Complications: None Findings: None Condition: stable Disposition: PACU Brief History: Painful retained hardware also next step would be an MRI of her left foot requiring hardware removal. Risks include pain, bleeding, numbness, infection, failure to alleviate pain, need for further surgical invention and advanced imaging as well as therapy. Also need for orthotics and functional support through bracing and dirty shoes. Patient has been n.p.o. since midnight, Covid screening negative, informed consent signed by patient and myself I initialed her left foot she wishes to proceed. Procedure: Under mild sedation the patient was brought to the operating room and remained on the gurney in supine position. A timeout was performed. Anesthesia was then administered by the anesthesia service. Local anesthesia injected by myself consisting of 0.5% Marcaine plain and a proximal Kelly block of the left foot total of 20 cc utilized. Well-padded pneumatic tourniquet applied to the left calf and the left lower extremity was then scrubbed, prepped and draped utilizing normal aseptic technique. Left foot wrapped with an Esmarch bandage and the tourniquet inflated to 250 mmHg. Over the previous cicatrix the incision was planned out and directly over the previous incision a 15 blade was utilized through skin with blunt and sharp dissection through subcutaneous tissue with care taken to retract and preserve neurovascular and tendinous structures. All bleeders were ligated and cauterized as necessary. Hardware was removed from bone total of 5 screws one plate and passed from operative field. Incision was irrigated with copious amounts of sterile saline solution. I did attempt stressing the spring ligament I was unable to see any diastases under C arm. Would like to get an MRI for further evaluation now the hardware is out. Incision was closed with 4-0 PDS and 4-0 Prolene. Incision was then dressed with Adaptic, sterile 4 x 4, Kerlix and John wrap followed by postop shoe. Tourniquet was deflated and a prompt hyperemic response was noted to the distal digits of the left foot. Patient tolerated the procedure and anesthesia well and was transferred to the PACU with vital signs stable and vascular status intact. Following a period of postoperative monitoring she will be discharged home may be weightbearing as tolerated and is to elevate her left foot while at rest. Follow-up next week in podiatry clinic.
[2021-04-19 12:05] VITALS: BP 128/78; PULSE 72; RESP 18; TEMP 36.5; O2SAT 98
[2021-04-19 12:09] VITALS: BP 109/84; PULSE 74; RESP 18; TEMP 36.2; O2SAT 98
--- NOTE | 2021-04-19 12:10 | XR_ITS ---
WS: [id number] Left foot, 3 views, 04/19/2021 Clinical Data: post op Comparison: Left foot, 02/20/2021. Findings: The fusion plate and screws which were at the base of the first metatarsal and first cuneiform have b een removed. There are postfusion changes of the second and third metatarsals and adjacent cuneiforms .The bunion of the head of the left first metatarsal and the plantar spur are noted. XR/XR foot LT min 3V* [id number] Impression: 1. Removal of fusion plate and screws from base of left first metatarsal and le ft first cuneiform. 2. The remainder of the left foot appears the same.
[2021-04-19 12:35] VITALS: BP 102/69; PULSE 65; RESP 18; O2SAT 98
[2021-04-19 13:00] VITALS: BP 138/84; PULSE 65; RESP 18; O2SAT 98
--- NOTE | 2021-04-19 16:01 | ANE.PACU2 ---
Inpatient post-anesthesia follow up: Airway intact: Yes Vital signs: Temperature 97.2 F Pulse Rate 65 Respiratory Rate 18 Blood Pressure 138/84 Pulse Oximetry 98 Oxygen Delivery Me thod Room Air Oxygen Flow Rate Fraction of Inspir ed Oxygen Hydration adequate: Yes Nausea and vomiting: No Pain level: 2 Mental status: Baseline
[2021-04-21 07:59] LABS: Glucose Point of Care 121 mg/dL (70-110)
== END 2021-04-19 13:05 | disposition home or self-care (01) ==
PROVIDERS: PCP Family Medicine; Visit Provider Podiatrist Foot & Ankle Surgery
PROC: (CPT 20680; principal; 2021-04-19 10:35)
DX: T84.84XA Pain due to internal orthopedic prosthetic devices, implants and grafts, initial encounter (principal); K21.9 Gastro-esophageal reflux disease without esophagitis; M19.90 Unspecified osteoarthritis, unspecified site; E11.42 Type 2 diabetes mellitus with diabetic polyneuropathy; M79.7 Fibromyalgia
CPT/HCPCS: 20680; 36416; 73630; 76000; 82962; J0690; J2250; J2704; J3010; J3490; J7030

== ENCOUNTER 2021-04-20 01:24 | Emergency (ER) | payer BC, MEDICARE, SELFPAY ==
[2021-04-20 01:31] VITALS: BP 87/57; PULSE 83; RESP 16; TEMP 36.7; O2SAT 96; BMI 28.5
[2021-04-20] MEDS: fentaNYL 100 mcg Patch 1 PATCH TRANSDERMA (04:01)
[2021-04-20 04:18] VITALS: BP 114/72; PULSE 75; RESP 18; O2SAT 97
--- NOTE | 2021-04-20 04:38 | ED_ITS ---
HPI - General Adult General: Chief complaint: General Medical Stated complaint: post op site pain Time Seen by Provider: 04/20/21 03:12 History of Present Illness: HPI narrative: 51-year-old female who had surgery yesterday on her foot for hardware removal. She is on oxycodone chronically for other chronic pain issues. She presents with uncontrolled postoperative pain to her left foot. She has noticed some bloody drainage from the incision. She denies any fever or other drainage. She has tried ice without much relief. She has been taking her normal oxycodone pills without significant relief. Onset (ago): hour(s) Location: lower extremity Radiation: non-radiation Severity: severe Quality: stabbing and aching Pain Consistency: constant Relieving factors: none Exacerbating factors: movement Associated symptoms: Deny chest pain, cough, diaphoresis, headache(s) or vomiting Review of Systems Const: Denies: diaphoresis Card: Denies: chest pain GI: Denies: vomiting Neuro: Denies: headache(s) PFS ED PFSH: Medical History Abdominal pain DDD (degenerative disc disease), cervical DDD (degenerative disc disease), lumbar Diabetic peripheral neuropathy associated with type 2 diabetes mellitus Facet syndrome, lumbar Fibromyalgia GERD (gastroesophageal reflux disease) Kidney disease Long-term current use of opiate analgesic Lumbosacral spondylosis with radiculopathy Pain management contract signed Seizures Therapeutic opioid induced constipation Surgical History History of nephrectomy (~2013) History of ventriculoperitoneal shunting (~01/04/09) Dr. Cordelia Roche 01/04/2009 Ventriculoperitoneal shunt placement. William Aaron Programmable Valve, Siphonguard device. Valve at 15cm H2O. 2010 reprogrammed to 14 cm H2O Hx of appendectomy (~2002) Hx of cholecystectomy (~2003) Hx of hysterectomy Family History Mother Diabetes DM2 Family/Other Cancer MATERNAL AUNT- BREAST CANCER Social History Alcohol intake: never Caregiver/support person: Yes Lives independently: Yes Household members: spouse Marital status: Current occupational status: disabled History of recent travel: No Female Reproductive History: Spontaneous abortions: No Physical Exam Const: COMMON NORMALS: no acute distress and alert Resp: COMMON NORMALS: normal respiratory effort and No use of accessory muscles Cardio: COMMON NORMALS: regular rate and regular rhythm RATE: regular rate RHYTHM: regular rhythm Extremity: NARRATIVE EXTREMITY EXAM: Examination of the left foot reveals the clean, closed surgical incision. Some light ecchymosis surrounding. There is mild bloody drainage from the site. no redness, no streaking. No tightness of the skin to suggest compartment syndrome sensation is intact distally capillary refill is 2 sec Neuro: SENSORIUM/ORIENTATION: Yes alert Course Vital Signs: Vital signs: Vital Signs Temperature 98.1 F 04/20/21 01:31 Pulse Rate 75 04/20/21 04:18 Respiratory Rate 18 04/20/21 04:18 Blood Pressure 114/72 04/20/21 04:18 Pulse Oximetry 97 04/20/21 04:18 MDM - General Adult MDM Narrative: Medical decision making narrative: Plan is to give the patient 1 Duragesic patch here for baseline pain control. She can use her oxycodone for breakthrough pain if needed. She states that she has morphine at home, that is long-acting. She used to take 30 mg 3 times daily she was told she has the option to do this after the Duragesic patch runs out and is removed, but not before. She will call her pain management physician in the beginning of the week. She has an appointment on . She was also told to ice diligently, as it can help with pain postoperatively, particularly orthopedic pain. Discharge Plan Discharge Patient Disposition: Home Clinical Impression: Post-operative pain Condition: Stable Prescriptions: No Action lamotrigine [Lamictal] 150 mg tablet 150 mg PO BID@0700,2100 RF: 0 bupropion HCl 75 mg tablet 75 mg PO BID@0700,2099 RF: 0 prazosin 5 mg capsule 5 mg PO BEDTIME@2099 RF: 0 Trulicity 1.5 mg/0.5 mL pen injector 1.5 mg SUBCUT Q7D RF: 0 epinephrine 0.3 mg/0.3 mL auto-injector 0.3 mg IM ONCE PRN (Reason: Allergic Reaction) RF: 0 metoprolol tartrate 25 mg tablet 25 mg PO BID@0700,2100 RF: 0 (DME) Sole Supports See Rx Instructions .ROUTE .MEDSUPPLY Qty: 1 RF: 0 (DME) cam boot See Rx Instructions .ROUTE .MEDSUPPLY Qty: 1 RF: 0 biotin 10,000 mcg capsule 10,000 mcg PO DAILY@0700 RF: 0 (DME) Diabetic Shoes See Rx Instructions .ROUTE .MEDSUPPLY Qty: 1 RF: 0 oxycodone-acetaminophen 10-325 mg tablet 1 tab PO .5 times a day PRN (Reason: pain) 30 Days Qty: 150 RF: 0 gabapentin 400 mg capsule 400 mg PO TID@,,18 RF: 0 melatonin 1 mg Tablet 1 mg PO BEDTIME@2100 RF: 0 diphenhydramine HCl [Benadryl Allergy] 25 mg Tablet 25 mg PO TID PRN (Reason: Allergic Symptoms) RF: 0 fish,bora,flax oils-om3,6,9no1 [[place]ple [place] 3-6-9] 400-400-400 mg Capsule 3 cap PO DAILY@2100 RF: 0 Aspir-81 81 mg PO PRN RF: 0 clonazepam 0.5 mg tablet 0.5 mg PO TID PRN (Reason: unknown) RF: 0 pantoprazole 40 mg tablet,delayed release (DR/EC) 40 mg PO BID@0700,2100 RF: 0 Premarin 0.625 mg/gram cream See Rx Instructions .ROUTE .COMPLEX RF: 0 ziprasidone HCl 40 mg capsule 40 mg PO DAILY@1700 RF: 0 estradiol 0.0375 mg/24 hr patch semiweekly 0.0675 mg transdermal Q14D RF: 0 metoclopramide HCl 10 mg tablet 10 mg PO PRN RF: 0 multivitamin 1 tab PO DAILY@0700 RF: 0 methocarbamol 500 mg tablet 3,000 mg PO TID PRN (Reason: Muscle Pain) RF: 0 atorvastatin 20 mg tablet 20 mg PO DAILY@0700 RF: 0 hydroxyzine pamoate 50 mg capsule 50 mg PO TID@,, RF: 0 lactulose 10 gram/15 mL solution 15 ml PO BID RF: 0 Discharge Orders: Discharge ED (Routine); Ordered 04/20/21 Ordered By: Jorge Jarrett Referrals: Linda Erickson MD [Primary Care Provider] - Patient Instructions: Opioid Safety, Pain Management Activity Restrictions/Additional Instructions: You have been supplied a fentanyl patch for baseline pain management. You may use oxycodone you have at home for breakthrough pain, but please be careful to monitor your mental status as well as your breathing, as pain medication can affect both. Call your doctor on Thursday, and let them know that you had to come in to the emergency department for pain management, and what the plan was. Keep your foot cold with ice, as ice can help considerably in postoperative orthopedic pain management. Return for any problems. Coding Level of Care Code ED Battery Container Tester for Rama Meehan
== END 2021-04-20 04:15 | disposition home or self-care (01) ==
PROVIDERS: Emergency Provider Emergency Medicine; PCP Family Medicine
DX: G89.18 Other acute postprocedural pain (principal); Z79.82 Long term (current) use of aspirin; E11.42 Type 2 diabetes mellitus with diabetic polyneuropathy; Z90.5 Acquired absence of kidney
CPT/HCPCS: 99283

== ENCOUNTER → 2021-04-25 12:55 | Outpatient (BNVA) | payer BC, MEDICARE, SELFPAY | PROVIDERS: PCP Family Medicine; Visit Provider Anesthesiology | DX: M47.27 Other spondylosis with radiculopathy, lumbosacral region (principal); M47.816 Spondylosis without myelopathy or radiculopathy, lumbar region; M51.36 Other intervertebral disc degeneration, lumbar region; M50.30 Other cervical disc degeneration, unspecified cervical region; M79.673 Pain in unspecified foot; Z79.891 Long term (current) use of opiate analgesic | CPT/HCPCS: 99214 ==

== ENCOUNTER → 2021-06-04 07:51 | Outpatient (BNVA) | payer BC, SELFPAY | PROVIDERS: PCP Family Medicine; Visit Provider Anesthesiology | DX: G89.29 Other chronic pain (principal); M51.36 Other intervertebral disc degeneration, lumbar region; M47.816 Spondylosis without myelopathy or radiculopathy, lumbar region; M47.27 Other spondylosis with radiculopathy, lumbosacral region; M50.30 Other cervical disc degeneration, unspecified cervical region; Z79.891 Long term (current) use of opiate analgesic | CPT/HCPCS: 99214 ==

== ENCOUNTER 2021-06-15 14:09 | Observation (INO) | payer BC, SELFPAY ==
[2021-06-15 14:14] VITALS: BP 155/92; PULSE 105; RESP 22; TEMP 37; O2SAT 97; BMI 30.7
--- NOTE | 2021-06-15 14:20 | W.ED.PSYCH ---
HPI - Psych General: Chief Complaint: Psychiatric Symptoms Stated Complaint: MHE Time Seen by Provider: 06/15/21 14:20 History of Present Illness: HPI Narrative: Ms Gan is a 51-year-old lady with complex past medical history including psychiatric disorder who presents emergency department due to altered mental status and behavior changes. She has had a longstanding history of depression and was previously started on vilazodone. This was increased about a week ago from 10 mg to 20 mg. Last definitive normal as far as behavior and mental status change was about 4 days ago however today has been noticed that she was confused, agitated, and not acting like her normal self. She has difficulty characterizing her symptoms and shows emotional lability. She does endorse hallucinations and not feeling herself. She is unsure specifically of infectious symptoms however did feel flushed and hot yesterday. She otherwise denies changes in health. No similar episodes. No other known specific exacerbating or relieving factors. Review of Systems General: Reports: 10 or more systems reviewed and unremarkable except in HPI and below PFSH ED PFSH: Medical History Abdominal pain chronic Anxiety Chronic kidney disease DDD (degenerative disc disease), cervical DDD (degenerative disc disease), lumbar Depression Diabetes mellitus, type II Diabetic peripheral neuropathy associated with type 2 diabetes mellitus Facet syndrome, lumbar Fibromyalgia GERD (gastroesophageal reflux disease) History of pulmonary function tests (01/2020) normal Hyperlipidemia Long-term current use of opiate analgesic Lumbosacral spondylosis with radiculopathy Panic attacks Seizures Therapeutic opioid induced constipation Surgical History History of ankle surgery (~2018) ORIF right ankle, Dr Matos History of arthrodesis (09/2019) left 1st, 2nd, and 3rd tarsometatarsal joints by Dr Matos, due to Lisfranc dislocation History of esophagogastroduodenoscopy (EGD) (04/2020) Dr Ruelas History of excision of mass (05/2020) right hip fibroma/granuloma by Dr Gonzales History of nephrectomy (~2013) History of ventriculoperitoneal shunting (~01/04/09) Dr. Cordelia Roche 01/04/2009 Ventriculoperitoneal shunt placement. William Aaron Programmable Valve, Siphonguard device. Valve at 15cm H2O. 2010 reprogrammed to 14 cm H2O Hx of appendectomy (~2002) Hx of cholecystectomy (~2003) Hx of hysterectomy Hx of laminectomy S/P hardware removal (10/26/20) deep hardware left foot by Dr Matos Status post hardware removal (04/19/21) deep hardware left foot by Dr Matos Family History Mother Diabetes DM2 Family/Other Cancer MATERNAL AUNT- BREAST CANCER Social History Second hand smoke exposure: No Alcohol intake: never Caregiver/support person: Yes Lives independently: Yes Household members: spouse Marital status: Current occupational status: disabled Female Reproductive History: Spontaneous abortions: No Physical Exam Narrative: EXAM NARRATIVE: GENERAL/CONSTITUTIONAL - well-appearing. Tearful. Tremulous. Eyes - PERRL, no conjunctival injection ENMT - Atraumatic external nose and ears. Moist mucous membranes NECK - supple. trachea midline CARDIOVASCULAR - regular rate and rhythm. Peripheral pulses 2+ and equal RESPIRATORY -clear to auscultation bilaterally. No retractions or accessory muscle use. ABDOMEN/GI - Nontender/Nondistended. No tenderness to percussion or evidence of peritonitis MSK - Extremities without obvious deformity or tenderness to palpation SKIN - Warm, Dry NEURO - alert and appropriately oriented. Cranial nerves II through XII intact. Patient is hyperreflexic and tremulous though lacks clonus. PSYCH -labile mood. Tearful. Anxious Course ED course: - Patient was seen and evaluated by me at bedside - Patient placed on cardiac monitors, IV access obtained - Initial evaluation notable for exam as noted above. Though somewhat atypical given the combination of tachycardia and hyperreflexia with tremor concern for mild serotonin syndrome -Ativan and fluids ordered - Labs notable for no leukocytosis, normal hemoglobin. New baseline creatinine 1.2. No evidence of urinary tract infection given nitrate negative and squamous epithelial contamination. Toxic ingestion labs positive for benzodiazepine, likely secondary to Ativan administered emergency department, cocaine is positive. - Patient does not have a history of substance abuse and unfortunately due to mental status denial is challenging to interpret. Certainly patient's clinical presentation is not consistent with acute cocaine intoxication toxidrome. Blood pressure more or less normal upon presentation - Imaging notable for no acute intracranial pathology to explain patient's symptoms. Ventricles not dilated, MOTOR BIKE MECHANIC shunt in place - Upon serial reexamination after treatment the patient was improved though mental status remains abnormal - Based on patient history, evaluation, labs, and imaging as interpreted the most likely cause of the patient's condition is altered mental status of unclear etiology. Clinical presentation raises concern for mild serotonin syndrome which improved with treatment. - Discussed case with hospitalist on-call, after discussion with hospitalist and psychiatrist patient to be admitted to psychiatric service with medicine consult. - Patient was admitted without further deterioration or significant events. Vital Signs: Vital signs: Vital Signs Temperature 98.3 F 06/16/21 16:20 Pulse Rate 69 06/16/21 16:20 Respiratory Rate 17 06/16/21 16:20 Blood Pressure 117/75 06/16/21 16:20 Pulse Oximetry 99 06/16/21 16:20 MDM - Psych Medical Records: Attestation: I reviewed the patient's medical records. Lab Data: Attestation: I reviewed the patient's lab results. Labs: Lab Results 06/15/21 06/15/21 06/15/21 15:04 15:14 15:14 WBC 5.8 10^3/uL 10^3/ uL (4.0-10.0) RBC 5.13 10^6/uL 10^6 /uL (4.1-5.3) Hgb 14.5 g/dL g/dL (11.5-15.3) Hct 43.9 % % (37.0-47.0) MCV 85.6 fl fl (81-99) MCH 28.3 pg pg (28.0-34.0) MCHC 33.0 g/dL g/dL (30.0-36.0) RDW 11.9 % L % (12.1-15.1) Plt Count 142 10^3/cmm 10^3 /cmm (130-400) MPV 9.5 fL fL (7.4-10.4) Neut % (Auto) 64.7 % % Lymph % (Auto) 24.9 % % [place] % (Auto) 6.6 % % Eos % (Auto) 2.6 % % Baso % (Auto) 0.3 % % Neut # (Auto) 3.74 10^3/uL 10^3 /uL (1.8-7.7) Lymph # (Auto) 1.4 10^3/uL 10^3/ uL (0.8-4.8) [place] # (Auto) 0.4 10^3/uL 10^3/ uL (0.2-0.9) Eos # (Auto) 0.2 10^3/uL 10^3/ uL (0.0-0.8) Baso # (Auto) 0.0 10^3/uL 10^3/ uL (0.0-0.1) Nucleated RBC % (a uto) 0 % % Nucleated RBCs # 0.0 /100WBC /100W BC Sodium 137 mmol/L mmol/L (136-145) Potassium 3.7 mmol/L mmol/L (3.5-5.1) Chloride 104 mmol/L mmol/L (98-107) Carbon Dioxide 22 mmol/L mmol/L (22-29) Anion Gap 14.7 (5-19) BUN 19 mg/dL mg/dL (6-20) Creatinine 1.2 mg/dL H mg/dL (0.5-0.9) GFR Calculation 47.6 mL/min L mL/ min (90-130) Glucose 146 mg/dL H mg/dL (65-115) POC Glucose 159 mg/dL H mg/dL (70-110) Calculated Osmolal ity 289 mOsm/kg mOsm/ kg (285-295) Calcium 8.5 mg/dL mg/dL (8.5-10.5) Magnesium 1.9 mg/dL mg/dL (1.7-2.3) Total Bilirubin 0.4 mg/dL mg/dL (0.15-1.2) AST 12 U/L U/L (0-32) ALT 15 U/L U/L (0-33) Alkaline Phosphata se 77 IU/L IU/L (35-105) Total Protein 6.9 g/dL g/dL (6.6-8.7) Albumin 3.9 g/dL g/dL (3.5-5.2) Globulin 3.0 g/dL g/dL (1.3-4.6) TSH 1.28 uIU/mL uIU/m L (0.27-4.20) Urine Color Urine Appearance Urine pH Ur Specific Gravit y Urine Protein Urine Glucose (UA) Urine Ketones Urine Blood Urine Nitrate Urine Bilirubin Urine Urobilinogen Ur Leukocyte Andreina ase Urine RBC Urine WBC Ur Squamous Epith Cells Amorphous Sediment Urine Bacteria Urine Mucus Salicylates < 0.3 mg/dL L mg/ dL (3-10) Urine Opiates Scre en Acetaminophen < 5.0 ug/mL L ug/ mL (10-30) Ur Barbiturates Sc reen Ur Phencyclidine S crn Ur Amphetamines Sc reen U Benzodiazepines Scrn Urine Cocaine Scre en U Marijuana (THC) Screen Ethyl Alcohol < 10 mg/dL mg/dL (0-10) 06/15/21 06/15/21 15:52 15:52 WBC RBC Hgb Hct MCV MCH MCHC RDW Plt Count MPV Neut % (Auto) Lymph % (Auto) [place] % (Auto) Eos % (Auto) Baso % (Auto) Neut # (Auto) Lymph # (Auto) [place] # (Auto) Eos # (Auto) Baso # (Auto) Nucleated RBC % (a uto) Nucleated RBCs # Sodium Potassium Chloride Carbon Dioxide Anion Gap BUN Creatinine GFR Calculation Glucose POC Glucose Calculated Osmolal ity Calcium Magnesium Total Bilirubin AST ALT Alkaline Phosphata se Total Protein Albumin Globulin TSH Urine Color Yellow (Yellow) Urine Appearance Sl hazy (CLEAR) Urine pH 5 (5-7) Ur Specific Gravit y 1.020 (1.005-1.030) Urine Protein Trace (Negative) Urine Glucose (UA) Norm (Normal) Urine Ketones Negative (Negative) Urine Blood Neg (Negative) Urine Nitrate Negative (Negative) Urine Bilirubin 1+ H (Negative) Urine Urobilinogen Norm mg/dL mg/dL (Negative) Ur Leukocyte Andreina ase 2+ H (Negative) Urine RBC None /hpf /hpf (0-2) Urine WBC 15-25 /hpf H /hpf (0-5) Ur Squamous Epith Cells 15-25 /hpf H /hpf (0-5) Amorphous Sediment Not Reportable Urine Bacteria 2+ /hpf H /hpf (NONE) Urine Mucus 1+ /hpf /hpf Salicylates Urine Opiates Scre en Negative ng/mL ng /mL (Negative) Acetaminophen Ur Barbiturates Sc reen Negative ng/mL ng /mL (Negative) Ur Phencyclidine S crn Negative ng/mL ng /mL (Negative) Ur Amphetamines Sc reen Negative ng/mL ng /mL (Negative) U Benzodiazepines Scrn Positive ng/mL H ng/mL (Negative) Urine Cocaine Scre en Positive ng/mL H ng/mL (Negative) U Marijuana (THC) Screen Negative ng/mL ng /mL (Negative) Ethyl Alcohol EKG Data^: EKG 1: Attestation: I personally reviewed and interpreted this EKG as follows: EKG interpretation date: 06/15/21 EKG interpretation time: 15:03 Interpretation: Twelve-lead EKG shows a regular rhythm at a rate of 92. MI interval 159, QRS duration 88, QTc 425. Normal axis. Interpretation: Sinus rhythm. Discharge Plan Discharge Patient Disposition: Admitted As Inpatient Admit Provider: Miky Palacios Condition: Stable Discharge Diet: Diabetic Discharge Activity: Resume usual activity Coding Level of Care Code ED Vault Clerk for Rama Meehan
[2021-06-15 14:22] VITALS: BP 150/88; PULSE 112; RESP 22; TEMP 37; O2SAT 96
--- NOTE | 2021-06-15 14:38 | ECG_ITS ---
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
[2021-06-15 15:06] LABS: Glucose Point of Care 159 mg/dL (70-110)
--- NOTE | 2021-06-15 15:17 | XRR_ITS ---
PROCEDURE INFORMATION: Exam: XR Chest Exam date and time: 06/15/2021 3:17 PM Age: 51 years old Clinical indication: Other: AMS TECHNIQUE: Imaging protocol: XR of the chest. Views: 1 view. COMPARISON: CT chest abd pel w con* 07/27/2020 11:05 PM FINDINGS: Tubes, catheters and devices: FINANCIAL QUANTITATIVE ANALYST shunt catheter projects over the left chest. Lungs: Unremarkable. No consolidation. Pleural spaces: Unremarkable. No pleural effusion. No pneumothorax. Heart/Mediastinum: Unremarkable. No cardiomegaly. Bones/joints: Unremarkable. XR/XR chest 1V portable 39020 IMPRESSION: No evidence of active cardiopulmonary disease. Radiation Dose CTDIVOL = (mGy): DLP = (mGy-cm)
--- NOTE | 2021-06-15 15:17 | CTR_ITS ---
PROCEDURE INFORMATION: Exam: CT Head Without Contrast Exam date and time: 06/15/2021 3:17 PM Age: 51 years old Clinical indication: Altered mental status/memory loss; Confusion or disorientation; Prior surgery; Surgery date: 6+ months; Surgery type: It Applications Analyst shunt; Patient HX: AMS TECHNIQUE: Imaging protocol: Computed tomography of the head without contrast. Radiation optimization: All CT scans at this facility use at least one of these dose optimization techniques: automated exposure control; mA and/or kV adjustment per patient size (includes targeted exams where dose is matched to clinical indication); or iterative reconstruction. COMPARISON: No relevant prior studies available. RADIATION DOSE METRICS: Total DLP (mGy-cm): 944.26 FINDINGS: Brain: Normal. No hemorrhage. Unremarkable white matter. No mass effect. Cerebral ventricles: Left frontal ventricular peritoneal shunt coursing through the left frontal bone and lobe with tip in the anterior horn of the right lateral ventricle. Paranasal sinuses: Visualized sinuses are unremarkable. No fluid levels. Mastoid air cells: Visualized mastoid air cells are well aerated. Bones/joints: Unremarkable. No acute fracture. Soft tissues: Unremarkable. CT/CT head wo con* [id number] IMPRESSION: 1. Negative for intracranial hemorrhage or mass effect 2. Left frontal ventricular peritoneal shunt coursing through the left frontal bone and lobe with tip in the anterior horn of the right lateral ventricle. Ventricles appear within normal limits. Radiation Dose CTDIVOL = (mGy): DLP = 944.26 (mGy-cm)
[2021-06-15] MEDS: LORazepam 2 mg/mL INJ 1 mL IVP (15:24)
[2021-06-15] MEDS: sodium chloride 0.9% 1,000 ML 999 ML IV (15:24)
[2021-06-15 15:26] VITALS: PULSE 90; O2SAT 97
[2021-06-15 15:27] LABS: Basophils % 0.3 %; Eosinophils # 0.2 10^3/uL (0.0-0.8); Eosinophils % 2.6 %; Hematocrit 43.9 % (37.0-47.0); Hemoglobin 14.5 g/dL (11.5-15.3); Lymphocytes # 1.4 10^3/uL (0.8-4.8); Lymphocytes % 24.9 %; Mean Corpuscular Hemoglobin 28.3 pg (28.0-34.0); Mean Corpuscular Volume 85.6 fl (81-99); Mean Platelet Volume 9.5 fL (7.4-10.4); Monocytes # 0.4 10^3/uL (0.2-0.9); Monocytes % 6.6 %; Neutrophils # 3.74 10^3/uL (1.8-7.7); Neutrophils % 64.7 %; Nucleated Red Blood Cells % 0 %; Platelet Count 142 10^3/cmm (130-400); Red Blood Count 5.13 10^6/uL (4.1-5.3); Red Cell Distribution Width 11.9 % (12.1-15.1); White Blood Count 5.8 10^3/uL (4.0-10.0)
[2021-06-15 15:57] LABS: Alanine Aminotransferase 15 U/L (0-33); Albumin Level 3.9 g/dL (3.5-5.2); Alkaline Phosphatase 77 IU/L (35-105); Anion Gap 14.7 (5-19); Aspartate Amino Transferase 12 U/L (0-32); Blood Urea Nitrogen 19 mg/dL (6-20); Calcium 8.5 mg/dL (8.5-10.5); Carbon Dioxide 22 mmol/L (22-29); Chloride 104 mmol/L (98-107); Glomerular Filtration Rate 47.6 mL/min (90-130); Glucose 146 mg/dL (65-115); Magnesium 1.9 mg/dL (1.7-2.3); Osmolality Calculated 289 mOsm/kg (285-295); Potassium 3.7 mmol/L (3.5-5.1); Sodium 137 mmol/L (136-145); Thyroid Stimulating Hormone 1.28 uIU/mL (0.27-4.20); Total Bilirubin 0.4 mg/dL (0.15-1.2); Total Protein 6.9 g/dL (6.6-8.7)
[2021-06-15 16:01] LABS: Acetaminophen < 5.0 ug/mL (10-30); Alcohol Level < 10 mg/dL (0-10); Salicylate < 0.3 mg/dL (3-10)
--- NOTE | 2021-06-15 16:02 | PC.NURSE ---
PATIENT APPEARS TO BE MORE RELAXED. PATIENT STRAIGHT CATH FOR UA. PATIENT TOLERATED WELL.
[2021-06-15] MEDS: ondansetron 2 mg/ML SDV 2 mL 4 MG IVP (16:23)
--- NOTE | 2021-06-15 16:24 | PC.NURSE ---
THIS NURSE CHECKED ON PATIENT AND ADMINISTERED MEDICATION. THIS NURSE EXPLAINED MEDS TO BE GIVEN, ZOFRAN, AND PATIENT ASKED ARE YOU GOING TO HURT ME? ARE YOU TRYING TO KILL ME? THIS NURSE EXPLAINED WHAT ZOFRAN IS GIVEN FOR AND STATED NO, THE MEDICINE I'M GIVING YOU IS TO MAKE YOU FEEL BETTER. ARE YOU OK WITH ME ADMINISTERING IT? PATIENT CHECKED WITH PRESENT AT BEDSIDE AND PATIENT WAS OK WITH THIS NURSE ADMINISTERING MEDICATION.
[2021-06-15 16:39] LABS: Amphetamines Screen Urine Negative (Negative); Barbiturates Screen Urine Negative (Negative); Benzodiazepines Screen Urine Positive (Negative); Cocaine Screen Urine Positive (Negative); Opiate Screen Urine Negative (Negative); PCP Screen Urine Negative (Negative); THC Screen Urine Negative (Negative)
[2021-06-15 16:59] LABS: Bilirubin Urine 1+ (Negative); Blood Urine Neg (Negative); Glucose Urine UA Norm (Normal); Ketones Urine Negative (Negative); Nitrate Urine Negative (Negative); Protein Urine Trace (Negative); Urine Appearance SL Hazy (CLEAR); Urine Color Yellow (Yellow); Urobilinogen Urine Norm (Negative); pH Urine 5 (5-7)
[2021-06-15 17:00] LABS: Add Urine Microscopic? YES; Leukocyte Esterase Urine 2+ (Negative)
[2021-06-15 17:04] LABS: Add Urine Culture? No; Bacteria Urine 2+ /hpf; Mucus Urine 1+ /hpf; Squamous Epithelial Cell Urine 15-25 /hpf (0-5); WBC Urine 15-25 /hpf (0-5)
[2021-06-15 17:36] VITALS: BP 126/75; PULSE 76; RESP 16; O2SAT 98
[2021-06-15 19:19] VITALS: BP 134/89; PULSE 83; RESP 17; TEMP 36.6; O2SAT 95
[2021-06-15 20:22] VITALS: BP 121/75; PULSE 79; RESP 16; TEMP 37.1; O2SAT 99
[2021-06-15 20:45] LABS: Creatine Phosphokinase 42 U/L (26-192)
[2021-06-15 20:53] LABS: Troponin(5th) Baseline 8 ng/L (0-10)
[2021-06-15] MEDS: metoprolol tartrate 25 mg Tablet PO (21:02)
[2021-06-15] MEDS: pantoprazole DR 40 mg Tablet PO (21:02)
[2021-06-15 21:36] LABS: Glucose Point of Care 129 mg/dL (70-110)
--- NOTE | 2021-06-15 21:49 | ECG_ITS ---
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
[2021-06-15 22:34] LABS: Troponin 5 2HR 8.07 ng/L (0-10); Troponin 5 2HR Delta 0.07 ABS# (0-10)
[2021-06-15] MEDS: hyDROXYzine 25 mg Capsule 50 MG PO (23:07)
--- NOTE | 2021-06-15 23:52 | PC.ADMIT ---
[email or web address] Admission Note: Ms Gan is a 51-year-old female here on voluntary admission. Patient was transported to [facility] by her for altered mental status. Patient reports she was started on viibryd recently. She reports one week ago the dose was increased. Shortly after medication increase patient began having altered mental status to include AVH and irritability. Patient reports her doctor told her she may have been experiencing serotonin syndrome. Patient endorses current auditory hallucinations of whispers. She has a history of DMII, eczema, diabetic neuropathy, GERD, chronic kidney disease, major depressive disorder, and chronic pain. Patient reports she is incontinent of bladder. Patient has an order for orthopedic shoes. Patient is ACHS accuchecks and uses weekly injectable Trulicity for treatment of DM. Today in the ED patient was confused, agitated, and not acting like her normal self. She has difficulty characterizing her symptoms and shows emotional lability. Patient denies suicidal/homicidal ideation. Vital Signs - 8 hr 06/15/21 17:36 06/15/21 19:19 06/15/21 20:22 Temperature 97.8 F 98.8 F Pulse Rate 83 79 Pulse Rate [Monitor] 76 Respiratory Rate 16 17 16 Blood Pressure 134/89 121/75 Blood Pressure [Left Arm] 126/75 Pulse Oximetry 98 95 99
[2021-06-16 01:41] LABS: Troponin 5 6HR 8.19 ng/L (0-10); Troponin 5 6HR Delta 0.19 ng/L (0-12)
[2021-06-16] MEDS: aspirin 81 mg Chew Tablet PO (01:44)
[2021-06-16] MEDS: metoclopramide 10 mg Tablet PO ×2 (01:44→09:24)
[2021-06-16] MEDS: prazosin 1 mg Capsule 4 MG PO (01:44)
[2021-06-16 01:45] VITALS: RESP 18
[2021-06-16] MEDS: oxyCODONE-APAP 10-325 mg Tablet 1 TAB PO ×2 (01:45→11:07)
--- NOTE | 2021-06-16 01:49 | ECG_ITS ---
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
[2021-06-16] MEDS: pneumococcal (23 valent) SDV 0.5 mL IM (01:53)
[2021-06-16] MEDS: fentaNYL 50 mcg Patch 1 PATCH TRANSDERMA (01:58)
[2021-06-16] MEDS: gabapentin 400 mg Capsule 800 MG PO (02:43)
--- NOTE | 2021-06-16 02:51 | PM.CONSULT ---
Providers/Reason For Consult Consulting Physician/Specialty*: Frase/Hospitalist Reason for Consult*: AMS Attending Physician: Miky Palacios MD Primary Care Provider: Linda Erickson MD History of Present Illness History of Present Illness but she does not think so.Tabby Gan is a 51 year old female who presented to the emergency room with chief complaint of not acting right. Her has been away on a trip for a few days. She was normal when he left. When he returned she was confused and agitated. She reports experiencing both audio and visual hallucinations and knowing that something was wrong. She attributes what has happened to her recent change in the dose of one of her depression medications. She follows with a psychiatrist in [place]. Her dose of vilazodone was increased from 10 to 20 mg daily a week ago. She is also on Lamictal, chronic narcotics, as needed Valium, gabapentin, histamine blockers and other medicines that can impact mental status. She denies any changes to other medicines. No report of any fever. No complaints of acute neck pain or stiffness. Not known if she has been having fluctuating blood sugars. In the emergency room she received 2 mg of Ativan to facilitate cooperation with work-up as well as secondary to concern about possibility of serotonin syndrome from the behavior she was presenting with along with tachycardia. No report of any abnormal movements, recent seizure activity or indications of seizure activity reported. She was improved a while after the ativan, but continued to have auditory hallucinations after the Ativan. CT of the head did not show any abnormalities and laboratory work-up was really unrevealing. Creatinine was 1.2 which is near baseline, blood sugars 140s. Heart rate normalized. Urine drug screen positive for benzodiazepines (prescribed) and cocaine. Patient absolutely denies taking cocaine or any illicit substances. She denies getting any pain medication or other substances from anyone. She was initially moderately hypertensive when agitated but BP has since normalized. Patient was admitted to the [facility] and hospitalist were consulted. At the time of my evaluation, patient feels back to her normal self. No further hallucinations. Review of Systems Const: Reports: fatigue; Denies: fever(s) or chills ENMT: Reports: tinnitus; Denies: throat pain or nasal congestion Card: Denies: chest pain or palpitations Resp: Denies: dyspnea or productive cough GI: Reports: abdominal pain and constipation; Denies: nausea, vomiting or diarrhea : Denies: difficulty voiding or hematuria Musc: Reports: other (No new pains) Skin/Breast: Reports: sores (At the base of the right great toe which is new) and other (Healing surgical wounds to her left foot); Denies: rash Neuro: Reports: headache(s), numbness in extremities (from neuropathy), difficulty walking (chronic), frequent falls and confusion Psych: Reports: anxiety, depression, sleeping less, irritability, visual hallucinations, auditory hallucinations and tactile hallucinations; Denies: suicidal ideation or homicidal ideation Fletcher/Lymph: Denies: easy bruising or easy bleeding Meds/Allergies Home Medications and Allergies Home Medications Medication Instructions Recorded Confirmed Last Taken Type dulaglutide 1.5 mg/0.5 mL 1.5 mg SUBCUT Q7D ml 09/16/19 06/15/21 02/09/21 History subcutaneous pen injector epinephrine 0.3 mg/0.3 mL 0.3 mg IM ONCE PRN 09/16/19 06/15/21 Unknown History injection, auto-injector bupropion HCl 75 mg tablet 75 mg PO BID@0700,2100 tab 09/20/19 06/15/21 06/14/21 History metoprolol tartrate 25 mg tablet 25 mg PO BID@0700,2100 tab 09/20/19 06/15/21 06/15/21 History gabapentin 400 mg PO TID@06,12,18 10/07/19 06/15/21 1 Day Ago History ~04/18/21 Diabetic Shoes #1 each 01/25/20 06/15/21 Unknown Rx biotin 10,000 mcg capsule 10,000 mcg PO DAILY@0700 cap 02/02/20 06/15/21 06/14/21 History Sole Supports #1 each 02/06/20 06/15/21 Unknown Rx diphenhydramine HCl [Benadryl 25 mg PO TID PRN 10/25/20 06/15/21 1 Day Ago History Allergy] ~04/18/21 fish,bora,flax oils-om3,6,9no1 3 cap PO DAILY@209910/25/20 06/15/21 3 Days Ago History [Triple [place] 3-6-9] ~04/16/21 melatonin 1 mg PO BEDTIME@2100 10/25/20 06/15/21 1 Day Ago History ~04/18/21 atorvastatin 20 mg PO DAILY 11/25/20 06/15/21 06/14/21 History hydroxyzine pamoate 50 mg PO TID@11/25/20 06/15/21 1 Day Ago History ~04/18/21 Premarin See Rx Instructions .ROUTE .COMPLEX 02/16/21 06/15/21 Unknown History aspirin 81 mg PO DAILY PRN #0 02/16/21 06/15/21 2 Days Ago History ~04/17/21 metoclopramide HCl 10 mg PO PRN 02/16/21 06/15/21 Unknown History multivitamin 1 tab PO DAILY #0 02/16/21 06/15/21 06/14/21 History pantoprazole 40 mg PO BID@0700,2100 02/16/21 06/15/21 06/15/21 History lactulose 15 ml PO BID PRN 04/18/21 06/15/21 1 Day Ago History ~04/18/21 methocarbamol 500 mg tablet 1,000 mg PO TID PRN tab 04/25/21 06/15/21 06/15/21 History diazepam 2 mg tablet 2.5 mg PO BID PRN tab 06/04/21 06/15/21 Unknown History estradiol 0.5 mg tablet 1 mg PO DAILY tab 06/04/21 06/15/21 Unknown History fentanyl 50 mcg/hr transdermal 1 patch TRANSDERMAL Q72H 30 Days 06/04/21 06/15/21 Unknown Rx patch #10 ea fentanyl 50 mcg/hr transdermal 1 patch TRANSDERMAL Q72H 30 Days 06/04/21 06/15/21 06/15/21 Rx patch #10 ea oxycodone-acetaminophen 10 mg-325 1 tab PO TID PRN 30 Days #90 tab 06/04/21 06/15/21 06/15/21 Rx mg tablet vilazodone 10 mg tablet 20 mg PO DAILY 06/04/21 06/15/21 06/15/21 History B complex-vitamin C-folic acid 1 tab PO DAILY 06/15/21 06/15/21 06/14/21 History [Dialyvite] pizttqpx-xbbqklbsds-vtuq-hops 1 cap PO DAILY 06/15/21 06/15/21 06/14/21 History docusate sodium [Stool Softener] 200 mg PO BID 06/15/21 06/15/21 06/14/21 History lamotrigine [Lamictal] 200 mg PO BID 06/15/21 06/15/21 Unknown History magnesium 250 mg PO DAILY 06/15/21 06/15/21 06/14/21 History mirabegron [Myrbetriq] 25 mg PO DAILY MDD see pharmacy 06/15/21 06/15/21 Unknown History comment prazosin 4 mg PO BEDTIME 06/15/21 06/15/21 06/14/21 History riboflavin (vitamin B2) [Vitamin 25 mg PO DAILY 06/15/21 06/15/21 06/14/21 History B-2] valacyclovir 1,000 mg PO BID 06/15/21 06/15/21 06/14/21 History Allergies Allergy/AdvReac Type Severity Reaction Status Date / Time spider venom Allergy ALGY-Anaphy Verified 06/04/21 08:17 laxis NSAIDS (Non-Steroidal AdvReac Unknown CKD4 Verified 06/04/21 08:17 Anti-Inflamma Iodinated Contrast Media AdvReac CKD4 - Verified 06/04/21 08:17 Current Medications Current Medications Generic Name Dose Route Start Last Admin Trade Name Freq PRN Reason Stop Dose Admin Aspirin 81 mg 06/15/21 19:50 06/16/21 01:44 Aspirin 81 Mg Chew Tablet PO 81 mg DAILY PRN Administration with metoclopramide Fentanyl 1 patch 06/16/21 00:30 06/16/21 01:58 Fentanyl 50 Mcg Patch TRANSDERMA 1 patch Q72H ARMIDA Administration Hydroxyzine Pamoate 50 mg 06/15/21 22:56 06/15/21 23:07 Hydroxyzine 25 Mg Capsule PO 50 mg Q6H PRN Administration ANXIETY Insulin Human Lispro 0 unit 06/15/21 21:00 06/15/21 21:22 Insulin Lispro 100 Unit/1 Ml SUBCUT Not Given BEDTIME ARMIDA Protocol Metoclopramide HCl 10 mg 06/16/21 00:30 06/16/21 01:44 Metoclopramide 10 Mg Tablet PO 10 mg QID PRN Administration STOMACH DISTRESS Oxycodone/Acetaminophen 1 tab 06/16/21 00:17 06/16/21 01:45 Oxycodone-Apap 10-325 Mg Tablet PO 1 tab TID PRN Administration pain Pantoprazole Sodium 40 mg 06/15/21 21:00 06/15/21 21:[address] 40 Mg Tablet PO 40 mg BID@0700,2100 ARMIDA Administration Prazosin HCl 4 mg 06/16/21 00:45 06/16/21 01:44 Prazosin 1 Mg Capsule PO 4 mg BEDTIME ARMIDA Administration PFSH Acute PFSH: Medical History (Updated 06/16/21 @ 04:38 by Sejal Cade MD) Abdominal pain chronic Anxiety Chronic kidney disease DDD (degenerative disc disease), cervical DDD (degenerative disc disease), lumbar Depression Diabetes mellitus, type II Diabetic peripheral neuropathy associated with type 2 diabetes mellitus Facet syndrome, lumbar Fibromyalgia GERD (gastroesophageal reflux disease) History of pulmonary function tests (01/2020) normal Hyperlipidemia Long-term current use of opiate analgesic Lumbosacral spondylosis with radiculopathy Panic attacks Seizures Therapeutic opioid induced constipation Surgical History (Updated 06/16/21 @ 03:17 by Sejal Cade MD) History of ankle surgery (~2018) ORIF right ankle, Dr Matos History of arthrodesis (09/2019) left 1st, 2nd, and 3rd tarsometatarsal joints by Dr Matos, due to Lisfranc dislocation History of esophagogastroduodenoscopy (EGD) (04/2020) Dr Ruelas History of excision of mass (05/2020) right hip fibroma/granuloma by Dr Gonzales History of nephrectomy (~2013) History of ventriculoperitoneal shunting (~01/04/09) Dr. Cordelia Roche 01/04/2009 Ventriculoperitoneal shunt placement. William Aaron Programmable Valve, Siphonguard device. Valve at 15cm H2O. 2010 reprogrammed to 14 cm H2O Hx of appendectomy (~2002) Hx of cholecystectomy (~2003) Hx of hysterectomy Hx of laminectomy S/P hardware removal (10/26/20) deep hardware left foot by Dr Matos Status post hardware removal (04/19/21) deep hardware left foot by Dr Matos Family History Mother Diabetes DM2 Family/Other Cancer MATERNAL AUNT- BREAST CANCER Social History (Updated 06/16/21 @ 02:53 by Sejal Cade MD) Second hand smoke exposure: No Alcohol intake: never Caregiver/support person: Yes Lives independently: Yes Household members: spouse Marital status: Current occupational status: disabled Vitals/I&O/Wt Last Vital Signs Temp 98.8 F 06/15/21 20:22 Pulse 79 06/15/21 20:22 Resp 18 06/16/21 01:45 BP 121/75 06/15/21 20:22 Pulse Ox 99 06/15/21 20:22 06/15/21 06/15/21 06/16/21 14:59 22:59 06:59 Intake Total 1000 / 1000 Balance 1000 / 1000 Weight last 48 hrs Weight 99.79 kg Physical Exam Narrative: EXAM NARRATIVE: Constitutional: Lying in bed, easily arousable, not startled by my approach, cooperative HEENT: Extraocular movements are intact, no nystagmus, pupils are reactive, oropharynx is clear with moist mucous membranes, nasopharynx is clear with no lesions noted Neck: Good range of motion for her Respiratory: Clear to auscultation bilaterally without any rales rhonchi or wheezes Cardiovascular: Regular rate and rhythm without any murmurs gallops or rubs Abdomen: Soft, nontender, positive bowel sounds Extremities: No pitting edema, evidence of prior surgery to foot noted Skin: Scars to left foot are healing well with no open areas, sore to the right great toe at the base with open skin but no drainage, looks where she tried to take a callus off, no redness, skin is dry, no areas of significant bruising Neuro: Speech is clear, smile is symmetric, normal gait for someone with her diabetic neuropathy and chronic foot pain issues, handgrip equal, no abnormal movements noted during my examination Psych: Patient is alert and oriented x3, she is appropriate in response to answers to questions, during our discussions regarding the positive drug scree, she is surprised by the result and is adamant that she has not been around cocaine but is not overly defensive in reporting this. She does not become overly emotional. She talks frankly about the medications that she is on, her chronic pain medication use, her pain medication contract, her medical history. She does not have pressured speech. Her sentences structure and thought processes seem intact. A&P Assessment and plan (1) Diabetes mellitus, type II: Status: Chronic Qualifiers: Diabetes mellitus termite exterminator insulin use: without termite exterminator use Diabetes mellitus complication status: with neurologic complications Diabetes mellitus complication detail: with polyneuropathy Qualified Code(s): E11.42 - Type 2 diabetes mellitus with diabetic polyneuropathy (2) Chronic kidney disease: Status: Chronic Qualifiers: Chronic kidney disease stage: stage 2 (mild) Qualified Code(s): N18.2 - Chronic kidney disease, stage 2 (mild) (3) Hyperlipidemia: Status: Chronic Qualifiers: Hyperlipidemia type: unspecified Qualified Code(s): E78.5 - Hyperlipidemia, unspecified (4) Long-term current use of opiate analgesic: Related to chronic back and neck pain, chronic foot pain from recurrent injuries, follows with Dr. Hayes, has a pain management contract signed Status: Chronic Additional A&P Information Sliding scale insulin for diabetes Anticipate resumption of Trulicity upon disposition Continue home metoprolol Continue home atorvastatin Recommend continuation of home fentanyl and gabapentin with oxycodone for breakthrough pain as she usually takes Hold hormone therapy currently Psychiatric medications as per psychiatrist Hold most as needed home medications at least initially Hold vitamin replacement and herbals currently Serial cardiac enzymes and EKGs Repeat drug screen Check CK level Continue usual stool softeners and laxative therapy Supportive care otherwise Will follow along and address acute medical issues as needed Patient has expressed a desire to be discharged and follow-up with her psychiatrist in [place] on Thursday. Recommended that she speak with attending physician regarding this which will be Dr. Rocha in the morning and she was agreeable to that plan. Coding Level of Care Code Acute Pumper Helper for [facility] Fwd Diagnoses Diabetes mellitus, type II E11.42 Diabetes mellitus termite exterminator insulin use: without termite exterminator use Diabetes mellitus complication status: with neurologic complications Diabetes mellitus complication detail: with polyneuropathy Chronic kidney disease N18.2 Chronic kidney disease stage: stage 2 (mild) Hyperlipidemia E78.5 Hyperlipidemia type: unspecified Long-term current use of opiate analgesic Z79.891
[2021-06-16 04:58] LABS: Amphetamines Screen Urine Negative (Negative); Barbiturates Screen Urine Negative (Negative); Benzodiazepines Screen Urine Positive (Negative); Cocaine Screen Urine Negative (Negative); Opiate Screen Urine Negative (Negative); PCP Screen Urine Negative (Negative); THC Screen Urine Negative (Negative)
[2021-06-16 06:00] VITALS: BP 121/78; PULSE 98; RESP 17; TEMP 36.8; O2SAT 96; BMI 30.7
[2021-06-16] MEDS: pantoprazole DR 40 mg Tablet PO (06:42)
[2021-06-16 06:59] LABS: Glucose Point of Care 117 mg/dL (70-110)
[2021-06-16] MEDS: docusate sodium 100 mg Capsule 200 MG PO (09:23)
[2021-06-16] MEDS: lamoTRIgine 100 mg Tablet 200 MG PO (09:23)
[2021-06-16] MEDS: b-complex-vitamin c Tablet 1 EACH PO (09:23)
[2021-06-16] MEDS: metoprolol tartrate 25 mg Tablet PO (09:23)
[2021-06-16] MEDS: multivitamin therapeutic Tablet 1 TAB PO (09:24)
[2021-06-16] MEDS: hyDROXYzine 25 mg Capsule 50 MG PO ×2 (09:24→16:18)
[2021-06-16] MEDS: gabapentin 400 mg Capsule PO ×2 (09:24→16:19)
[2021-06-16] MEDS: diazePAM 5 mg Tablet 2.5 MG PO (09:25)
[2021-06-16] MEDS: methocarbamol 500 mg Tablet 1000 MG PO ×2 (11:06→16:20)
--- NOTE | 2021-06-16 11:25 | PC.NURSE ---
patient refued blood sugar check
[2021-06-16] MEDS: aspirin 81 mg EC Tablet PO (11:30)
[2021-06-16 12:50] LABS: Basophils % 0.3 %; Eosinophils # 0.2 10^3/uL (0.0-0.8); Eosinophils % 2.8 %; Hematocrit 39.1 % (37.0-47.0); Hemoglobin 12.5 g/dL (11.5-15.3); Lymphocytes # 1.6 10^3/uL (0.8-4.8); Lymphocytes % 22.9 %; Mean Corpuscular Hemoglobin 27.4 pg (28.0-34.0); Mean Corpuscular Volume 85.6 fl (81-99); Mean Platelet Volume 10.4 fL (7.4-10.4); Monocytes # 0.6 10^3/uL (0.2-0.9); Monocytes % 7.8 %; Neutrophils # 4.63 10^3/uL (1.8-7.7); Neutrophils % 65.8 %; Nucleated Red Blood Cells % 0 %; Platelet Count 143 10^3/cmm (130-400); Red Blood Count 4.57 10^6/uL (4.1-5.3); Red Cell Distribution Width 11.9 % (12.1-15.1)
[2021-06-16 13:00] LABS: Anion Gap 13.1 (5-19); Blood Urea Nitrogen 19 mg/dL (6-20); Calcium 8.8 mg/dL (8.5-10.5); Carbon Dioxide 24 mmol/L (22-29); Chloride 104 mmol/L (98-107); Glomerular Filtration Rate 47.6 mL/min (90-130); Glucose 140 mg/dL (65-115); Osmolality Calculated 289 mOsm/kg (285-295); Potassium 4.1 mmol/L (3.5-5.1); Sodium 137 mmol/L (136-145)
--- NOTE | 2021-06-16 13:21 | W.PM.NPUH&PS ---
Providers/Chief Complaint Admitting Physician: Miky Palacios MD Primary Care Provider: Linda Erickson MD Chief Complaint: MHE HPI [facility] History of Present Illness Tabby Gan is a 51 year old female who presented to the ED with the following report: Chief Complaint: Psychiatric Symptoms Stated Complaint: MHE Time Seen by Provider: 06/15/21 14:20 History of Present Illness: HPI Narrative: Ms Gan is a 51-year-old lady with complex past medical history including psychiatric disorder who presents emergency department due to altered mental status and behavior changes. She has had a longstanding history of depression and was previously started on vilazodone. This was increased about a week ago from 10 mg to 20 mg. Last definitive normal as far as behavior and mental status change was about 4 days ago however today has been noticed that she was confused, agitated, and not acting like her normal self. She has difficulty characterizing her symptoms and shows emotional lability. She does endorse hallucinations and not feeling herself. She is unsure specifically of infectious symptoms however did feel flushed and hot yesterday. She otherwise denies changes in health. No similar episodes. No other known specific exacerbating or relieving factors. She was admitted to the neuropsychiatric unit for definitive treatment of those issues. Patient presents today reporting that she has had multiple psychiatric inpatient services and history of outpatient services in this system. Her last noted inpatient stay was in 2018. She reports that she has been making a medication change and that led to her feeling really odd and she discontinued that medication. She came to the hospital because she was feeling odd but she reports that now those feelings have passed and she knows that it was a drug reaction. She reports that there is no need for continued hospitalization and she denies any lethality. We discussed that we would work on evaluating this information by getting collateral information and ensuring that there are no concerns for safety outside of the hospital. She reports that things are stable at home she denies any problems with her life right now and that she was just reacting to this reaction that she had from the medication. An excerpt from her past outpatient psychiatric evaluation is included below for context. Per her 05/31/2015 [facility] outpatient psychiatric evaluation: [facility] Psychiatric Evaluation 900-1000 CHIEF COMPLAINT: I am not sleeping well. HISTORY OF PRESENT ILLNESS: The patient has been previously seen at [facility]. She was then admitted for worsening symptoms of her bipolar disorder. She reported that she was also diagnosed with sleep disordered breathing but has been non compliant to her CPAP due to mask related difficulties. She has been seeing another psychiatrist who has continued her medications. She is not sure that she needs continued follow up here at [facility]. She reported mood irregularities and fluctuations. She suffers from a variety of both physical and mental disorders. She has been many times in mental institutes for bipolar disorder, borderline personality disorder and anxiety disorder. She reported chronic suicidal thoughts. She denied current active thoughts of suicide. She has had history of hearing voices at times telling her to her harm herself. She feels worsening anxiety. She cannot get a deeper asleep. She wakes up gasping for air. She has reported snoring. She has comorbid medical issues likely contributing to also possible obstructive sleep apnea. Somatic symptoms. She has been seeing Neurology services for pseudoseizures. PAST MEDICAL HISTORY: Arrhythmia, hypertension, anemia, diabetes, hyperlipidemia, pseudoseizures, hydrocephalus, irritable bowel syndrome, gastroesophageal reflux disease, gout and fibromyalgia. PAST SURGICAL HISTORY: Appendectomy, bladder suspension surgery, cholecystectomy, hysterectomy, right nephrectomy, ureteral stent placement and [employer] shunt surgeries. MEDICATIONS: BuSpar 10 milligrams twice daily. Lamictal 200 milligrams in the morning. Docusate 300 milligrams daily. Celexa 40 milligrams daily. Aspirin 81 milligrams daily. Zonegran 300 milligrams at bedtime. Seroquel 25 milligrams at bedtime. Lopressor 12.5 milligrams twice daily. Methadone 20 milligrams three times daily. Lamictal 400 milligrams at bedtime. Morphine 15 to 30 milligrams four times daily p.r.n. Insulin. ALLERGIES: Fentanyl. SOCIAL HISTORY: The patient reported that she has a daughter who is 20-year-old. She is . Her had sleep apnea. 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 The last time she was employed was 5 years ago. Her is an research attorney. REVIEW OF SYSTEMS: Review of systems is as described above. Otherwise, the rest of the Review of Systems is negative. FAMILY HISTORY: Denied a family history of psychiatric illness. SUBSTANCE ABUSE HISTORY: She has denied. PHYSICAL EXAMINATION: She was seen through telepsychiatry MENTAL STATUS EXAM: Somewhat anxious. Cooperative. She has good eye contact, spontaneous. speech. Normal rate, volume and tone of speech. Poor insight and judgment. Reports no active suicidal thoughts. She denied current hearing of voices. Described her mood as being very labile. Anxious mood was also reported. Attention and concentration is fair. ASSESSMENT: Bipolar disorder, mixed. F 31.60 Panic disorder. F 41.0 Post-traumatic stress disorder. F 43.1 Borderline personality disorder. 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 Obstructive sleep apnea Global Assessment of Functionin Meds [facility] Home Medications Medication Instructions Recorded Confirmed Last Taken Type dulaglutide 1.5 mg/0.5 mL 1.5 mg SUBCUT Q7D ml 09/16/19 06/18/21 02/09/21 History subcutaneous pen injector epinephrine 0.3 mg/0.3 mL 0.3 mg IM ONCE PRN 09/16/19 06/18/21 Unknown History injection, auto-injector bupropion HCl 75 mg tablet 75 mg PO BID@0700,2100 tab 09/20/19 06/18/21 06/14/21 History metoprolol tartrate 25 mg tablet 25 mg PO BID@0700,2100 tab 09/20/19 06/18/21 06/15/21 History gabapentin 400 mg PO TID@06,12,10/07/19 06/18/21 1 Day Ago History ~04/18/21 Diabetic Shoes #1 each 01/25/20 06/18/21 Unknown Rx biotin 10,000 mcg capsule 10,000 mcg PO DAILY@0700 cap 02/02/20 06/18/21 06/14/21 History Sole Supports #1 each 02/06/20 06/18/21 Unknown Rx diphenhydramine HCl [Benadryl 25 mg PO TID PRN 10/25/20 06/18/21 1 Day Ago History Allergy] ~04/18/21 fish,bora,flax oils-om3,6,9no1 3 cap PO DAILY@209910/25/20 06/18/21 3 Days Ago History [Triple [place] 3-6-9] ~04/16/21 melatonin 1 mg PO BEDTIME@209910/25/20 06/18/21 1 Day Ago History ~04/18/21 atorvastatin 20 mg PO DAILY 0406/18/21 06/14/21 History hydroxyzine pamoate 50 mg PO TID@07,12,11/25/20 06/18/21 1 Day Ago History ~04/18/21 Premarin See Rx Instructions .ROUTE .COMPLEX 02/16/21 06/18/21 Unknown History aspirin 81 mg PO DAILY PRN #0 02/16/21 06/18/21 2 Days Ago History ~04/17/21 metoclopramide HCl 10 mg PO PRN 02/16/21 06/18/21 Unknown History multivitamin 1 tab PO DAILY #0 02/16/21 06/18/21 06/14/21 History pantoprazole 40 mg PO BID@0700,2100 02/16/21 06/18/21 06/15/21 History lactulose 15 ml PO BID PRN 04/18/21 06/18/21 1 Day Ago History ~04/18/21 methocarbamol 500 mg tablet 1,000 mg PO TID PRN tab 04/25/21 06/18/21 06/15/21 History diazepam 2 mg tablet 2.5 mg PO BID PRN tab 06/04/21 06/18/21 Unknown History estradiol 0.5 mg tablet 1 mg PO DAILY tab 06/04/21 06/18/21 Unknown History fentanyl 50 mcg/hr transdermal 1 patch TRANSDERMAL Q72H 30 Days 06/04/21 06/18/21 Unknown Rx patch #10 ea fentanyl 50 mcg/hr transdermal 1 patch TRANSDERMAL Q72H 30 Days 06/04/21 06/18/21 06/15/21 Rx patch #10 ea oxycodone-acetaminophen 10 mg-325 1 tab PO TID PRN 30 Days #90 tab 06/04/21 06/18/21 06/15/21 Rx mg tablet Dialyvite 1 tab PO DAILY 06/15/21 06/18/21 06/14/21 History Lamictal 200 mg PO BID 06/15/21 06/18/21 Unknown History Myrbetriq 25 mg PO DAILY MDD see pharmacy 06/15/21 06/18/21 Unknown History comment Stool Softener 200 mg PO BID 06/15/21 06/18/21 06/14/21 History Vitamin B-2 25 mg PO DAILY 06/15/21 06/18/21 06/14/21 History rutbesol-rrkunyqnhs-brnf-hops 1 cap PO DAILY 06/15/21 06/18/21 06/14/21 History magnesium 250 mg PO DAILY 06/15/21 06/18/21 06/14/21 History prazosin 4 mg PO BEDTIME 06/15/21 06/18/21 06/14/21 History valacyclovir 1,000 mg PO BID 06/15/21 06/18/21 06/14/21 History Allergies Allergy/AdvReac Type Severity Reaction Status Date / Time spider venom Allergy ALGY-Anaphy Verified 06/20/21 02:03 laxis vilazodone [From Viibryd] Allergy ADR-Halluci Verified 06/20/21 02:03 nating NSAIDS (Non-Steroidal AdvReac Unknown CKD4 Verified 06/20/21 02:03 Anti-Inflamma Iodinated Contrast Media AdvReac CKD4 - Verified 06/20/21 02:03 PFSH [facility] PFSH: Medical History Abdominal pain chronic Anxiety Chronic kidney disease DDD (degenerative disc disease), cervical DDD (degenerative disc disease), lumbar Depression Diabetes mellitus, type II Diabetic peripheral neuropathy associated with type 2 diabetes mellitus Facet syndrome, lumbar Fibromyalgia GERD (gastroesophageal reflux disease) History of pulmonary function tests (01/2020) normal Hyperlipidemia Long-term current use of opiate analgesic Lumbosacral spondylosis with radiculopathy Panic attacks Seizures Therapeutic opioid induced constipation Surgical History History of ankle surgery (~2018) ORIF right ankle, Dr Matos History of arthrodesis (09/2019) left 1st, 2nd, and 3rd tarsometatarsal joints by Dr Matos, due to Lisfranc dislocation History of esophagogastroduodenoscopy (EGD) (04/2020) Dr Ruelas History of excision of mass (05/2020) right hip fibroma/granuloma by Dr Gonzales History of nephrectomy (~2013) History of ventriculoperitoneal shunting (~01/04/09) Dr. Cordelia Roche 01/04/2009 Ventriculoperitoneal shunt placement. William Aaron Programmable Valve, Siphonguard device. Valve at 15cm H2O. 2010 reprogrammed to 14 cm H2O Hx of appendectomy (~2002) Hx of cholecystectomy (~2003) Hx of hysterectomy Hx of laminectomy S/P hardware removal (10/26/20) deep hardware left foot by Dr Matos Status post hardware removal (04/19/21) deep hardware left foot by Dr Matos Family History Mother Diabetes DM2 Family/Other Cancer MATERNAL AUNT- BREAST CANCER Social History Second hand smoke exposure: No Alcohol intake: never Caregiver/support person: Yes Lives independently: Yes Household members: spouse Marital status: Current occupational status: disabled Mental Status Exam MSE Comments: This is an overweight versus obese white female in hospital scrubs with adequate grooming and eye contact. No abnormal movements. Cooperative with exam in no acute distress. Speech was normal rate and volume. Mood described as good affect congruent. Thought process organized. Thought content: Patient denied suicidal or homicidal ideation, there were no delusions reported or noted, she denied any auditory or visual hallucinations. Attention and concentration were intact and memory appeared reliable but none were formally tested. She was alert and oriented x3. Insight and judgment appeared fair impulse control appeared fair. Vitals/I&O/Wt Last Vital Signs Temp 98.3 F 06/16/21 06:00 Pulse 98 06/16/21 06:00 Resp 17 06/16/21 06:00 BP 121/78 06/16/21 06:00 Pulse Ox 96 06/16/21 06:00 06/15/21 06/16/21 06/16/21 22:59 06:59 14:59 Intake Total 1000 / 1000 Balance 1000 / 1000 Weight last 48 hrs Weight 99.79 kg Weight 99.79 kg Data [facility] : 06/16/21 12:25 06/16/21 12:25 A&P Assessment and plan (1) Drug reaction resulting in brief psychotic states: Status: Acute (2) Major depressive disorder: Status: Acute (3) Anxiety disorder: Status: Acute Additional A&P Information This is a 51-year-old white female with a long history of psychiatric illness and treatment who presented after recent medication change where she had altered mental status and discontinue that medication but came into the hospital just to be sure that she was all right. During the time that she has been here she has had continued improvement and she would like to discharge and not continue treatment. 1. Continue current medication. 2. Encourage individual, group and milieu therapies. 3. Continue every 15 minute checks for safety. 4. Gathering collateral information to identify and ensure the patient is safe. She is a voluntary patient and if confirmed information is accurate will likely discharge shortly. Involuntary Hold Information 96 Hour Hold: 96 Hour Involuntary Admission: No Attestations [facility] Medical Necessity Statement*: Inpatient hospitalization is medically necessary and the clinically appropriate intervention at this time. We will monitor medications and make changes as indicated. Patient is voluntary and feeling that she is safe for discharge we will verify with significant others her recent stability. Likely discharge today. Coding Level of Care Code Acute Public Service Director for Rama Meehan Diagnoses Drug reaction resulting in brief psychotic states F19.959 Major depressive disorder F32.9 Anxiety disorder F41.9
[2021-06-16 13:22] LABS: Slide Review Slide Review Perform
[2021-06-16 14:00] VITALS: BP 117/75; PULSE 69; RESP 17; TEMP 36.8; O2SAT 99
--- NOTE | 2021-06-16 16:14 | P.NPUDS_ITS ---
Diagnoses at Discharge Discharge Diagnosis (1) Drug reaction resulting in brief psychotic states: Status: Acute (2) Major depressive disorder: Status: Acute (3) Anxiety disorder: Status: Acute Reason for Visit Reason for Visit: MHE Brief History: History of Present Illness Tabby Gan is a 51 year old female who presented to the ED with the following report: Chief Complaint: Psychiatric Symptoms Stated Complaint: MHE Time Seen by Provider: 06/15/21 14:20 History of Present Illness: HPI Narrative: Ms Gan is a 51-year-old lady with complex past medical history including psychiatric disorder who presents emergency department due to altered mental status and behavior changes. She has had a longstanding history of depression and was previously started on vilazodone. This was increased about a week ago from 10 mg to 20 mg. Last definitive normal as far as behavior and mental status change was about 4 days ago however today has been noticed that she was confused, agitated, and not acting like her normal self. She has difficulty characterizing her symptoms and shows emotional lability. She does endorse hallucinations and not feeling herself. She is unsure specifically of infectious symptoms however did feel flushed and hot yesterday. She otherwise denies changes in health. No similar episodes. No other known specific exacerbating or relieving factors. She was admitted to the neuropsychiatric unit for definitive treatment of those issues. Patient presents today reporting that she has had multiple psychiatric inpatient services and history of outpatient services in this system. Her last noted inpatient stay was in 2018. She reports that she has been making a medication change and that led to her feeling really odd and she discontinued that medication. She came to the hospital because she was feeling odd but she reports that now those feelings have passed and she knows that it was a drug reaction. She reports that there is no need for continued hospitalization and she denies any lethality. We discussed that we would work on evaluating this information by getting collateral information and ensuring that there are no concerns for safety outside of the hospital. She reports that things are stable at home she denies any problems with her life right now and that she was just reacting to this reaction that she had from the medication. An excerpt from her past outpatient psychiatric evaluation is included below for context. Per her 05/31/2015 [facility] outpatient psychiatric evaluation: [facility] Psychiatric Evaluation 900-1000 CHIEF COMPLAINT: I am not sleeping well. HISTORY OF PRESENT ILLNESS: The patient has been previously seen at [facility]. She was then admitted for worsening symptoms of her bipolar disorder. She reported that she was also diagnosed with sleep disordered breathing but has been non compliant to her CPAP due to mask related difficulties. She has been seeing another psychiatrist who has continued her medications. She is not sure that she needs continued follow up here at [facility]. She reported mood irregularities and fluctuations. She suffers from a variety of both physical and mental disorders. She has been many times in mental institutes for bipolar disorder, borderline personality disorder and anxiety disorder. She reported chronic suicidal thoughts. She denied current active thoughts of suicide. She has had history of hearing voices at times telling her to her harm herself. She feels worsening anxiety. She cannot get a deeper asleep. She wakes up gasping for air. She has reported snoring. She has comorbid medical issues likely contributing to also possible obstructive sleep apnea. Somatic symptoms. She has been seeing Neur ology services for pseudoseizures. PAST MEDICAL HISTORY: Arrhythmia, hypertension, anemia, diabetes, hyperlipidemia, pseudoseizures, hydrocephalus, irritable bowel syndrome, gastroesophageal reflux disease, gout and fibromyalgia. PAST SURGICAL HISTORY: Appendectomy, bladder suspension surgery, cholecystectomy, hysterectomy, right nephrectomy, ureteral stent placement and COMPUTER PROCESSING SCHEDULER shunt surgeries. MEDICATIONS: BuSpar 10 milligrams twice daily. Lamictal 200 milligrams in the morning. Docusate 300 milligrams daily. Celexa 40 milligrams daily. Aspirin 81 milligrams daily. Zonegran 300 milligrams at bedtime. Seroquel 25 milligrams at bedtime. Lopressor 12.5 milligrams twice daily. Methadone 20 milligrams three times daily. Lamictal 400 milligrams at bedtime. Morphine 15 to 30 milligrams four times daily p.r.n. Insulin. ALLERGIES: Fentanyl. SOCIAL HISTORY: The patient reported that she has a daughter who is 20-year-old. She is . Her had sleep apnea. 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 The last time she was employed was 5 years ago. Her is an sports attorney. REVIEW OF SYSTEMS: Review of systems is as described above. Otherwise, the rest of the Review of Systems is negative. FAMILY HISTORY: Denied a family history of psychiatric illness. SUBSTANCE ABUSE HISTORY: She has denied. PHYSICAL EXAMINATION: She was seen through telepsychiatry MENTAL STATUS EXAM: Somewhat anxious. Cooperative. She has good eye contact, spontaneous. speech. Normal rate, volume and tone of speech. Poor insight and judgment. Reports no active suicidal thoughts. She denied current hearing of voices. Described her mood as being very labile. Anxious mood was also reported. Attention and concentration is fair. ASSESSMENT: Bipolar disorder, mixed. F 31.60 Panic disorder. F 41.0 Post-traumatic stress disorder. F 43.1 Borderline personality disorder. 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 Obstructive sleep apnea Global Assessment of Functionin Hospital Course Hospital Course She quickly acclimated to the individual, group and milieu therapies provided. She never endorsed any lethality nor were there any concerns expressed by previous providers that there was a concern. She had a likely response to a medication and/or interaction between medications which led to strange behavior which had resolved by the time she saw this parts data writer. She had no safety issues and had scheduled appointments in place. She wanted to pursue any adjustments with her outpatient team. She was able to contract for safety prior to discharge. During the hospitalization, she had routine laboratory studies which were within normal limits except for a few outliers. She also had a general medical evaluation which was also within normal limits and revealed no new acute processes outside of her mental status changes. She was seen by hospitalist for medical clearance to ensure there was no clear medical explanation for her presentation. At the time of discharge, she denied lethality or psychosis. Her mood and anxiety were well managed. She endorsed a plan to avoid all drugs of abuse and follow-up with her outpatient appointments that were already in place. She was evaluated and deemed to be absent credible lethality and was a voluntary patient so she was allowed to discharge. Involuntary Hold Information 96 Hour Hold: 96 Hour Involuntary Admission: No Mental Status Exam MSE Comments: This is an overweight versus obese white female in hospital scrubs with adequate grooming and eye contact. No abnormal movements. Cooperative with exam in no acute distress. Speech was normal rate and volume. Mood described as good affect congruent. Thought process organized. Thought content: Patient denied suicidal or homicidal ideation, there were no delusions reported or noted, she denied any auditory or visual hallucinations. Attention and concentration were intact and memory appeared reliable but none were formally tested. She was alert and oriented x3. Insight and judgment appeared fair impulse control appeared fair. Discharge Data Data Completed and Pending: Completed Studies During Hospitalization Category Date Time Status CT head wo con* 7 [id number] Urgent Cat Scan 06/15/21 15:17 Completed XR chest 1V rick ble [id number] Stat Exams 06/15/21 15:17 Completed Labs from last 24 hours 06/16/21 06/16/21 06/16/21 12:25 12:25 06:55 WBC 7.0 RBC 4.57 Hgb 12.5 Hct 39.1 MCV 85.6 MCH 27.4 L MCHC 32.0 RDW 11.9 L Plt Count 143 MPV 10.4 Neut % (Auto) 65.8 Lymph % (Auto) 22.9 Menard % (Auto) 7.8 Eos % (Auto) 2.8 Baso % (Auto) 0.3 Neut # (Auto) 4.63 Lymph # (Auto) 1.6 Menard # (Auto) 0.6 Eos # (Auto) 0.2 Baso # (Auto) 0.0 Nucleated RBC % (a uto) 0 Nucleated RBCs # 0.0 Sodium 137 Potassium 4.1 Chloride 104 Carbon Dioxide 24 Anion Gap 13.1 BUN 19 Creatinine 1.2 H GFR Calculation 47.6 L Glucose 140 H POC Glucose 117 H Calculated Osmolal ity 289 Calcium 8.8 Creatine Kinase Troponin T Baselin e Troponin T 120 Min [place] Troponin T Troponin T Hi Sens 6Hr Troponin T Hi Sens 6Hr Delta Urine Color Urine Appearance Urine pH Ur Specific Gravit y Urine Protein Urine Glucose (UA) Urine Ketones Urine Blood Urine Nitrate Urine Bilirubin Urine Urobilinogen Ur Leukocyte Andreina ase Urine RBC Urine WBC Ur Squamous Epith Cells Amorphous Sediment Urine Bacteria Urine Mucus Urine Opiates Scre en Ur Barbiturates Sc reen Ur Phencyclidine S crn Ur Amphetamines Sc reen U Benzodiazepines Scrn Urine Cocaine Scre en U Marijuana (THC) Screen 06/16/21 06/16/21 06/15/21 04:41 00:50 21:50 WBC RBC Hgb Hct MCV MCH MCHC RDW Plt Count MPV Neut % (Auto) Lymph % (Auto) [place]ard % (Auto) Eos % (Auto) Baso % (Auto) Neut # (Auto) Lymph # (Auto) [place] # (Auto) Eos # (Auto) Baso # (Auto) Nucleated RBC % (a uto) Nucleated RBCs # Sodium Potassium Chloride Carbon Dioxide Anion Gap BUN Creatinine GFR Calculation Glucose POC Glucose Calculated Osmolal ity Calcium Creatine Kinase Troponin T Baselin e Troponin T 120 Min [place] 8.07 Delta Troponin T 0.07 Troponin T Hi Sens 6Hr 8.19 Troponin T Hi Sens 6Hr Delta 0.19 Urine Color Urine Appearance Urine pH Ur Specific Gravit y Urine Protein Urine Glucose (UA) Urine Ketones Urine Blood Urine Nitrate Urine Bilirubin Urine Urobilinogen Ur Leukocyte Andreina ase Urine RBC Urine WBC Ur Squamous Epith Cells Amorphous Sediment Urine Bacteria Urine Mucus Urine Opiates Scre en Negative Ur Barbiturates Sc reen Negative Ur Phencyclidine S crn Negative Ur Amphetamines Sc reen Negative U Benzodiazepines Scrn Positive H Urine Cocaine Scre en Negative U Marijuana (THC) Screen Negative 06/15/21 06/15/21 06/15/21 21:34 19:12 19:12 WBC RBC Hgb Hct MCV MCH MCHC RDW Plt Count MPV Neut % (Auto) Lymph % (Auto) [place] % (Auto) Eos % (Auto) Baso % (Auto) Neut # (Auto) Lymph # (Auto) [place] # (Auto) Eos # (Auto) Baso # (Auto) Nucleated RBC % (a uto) Nucleated RBCs # Sodium Potassium Chloride Carbon Dioxide Anion Gap BUN Creatinine GFR Calculation Glucose POC Glucose 129 H Calculated Osmolal ity Calcium Creatine Kinase 42 Troponin T Baselin e 8 Troponin T 120 Min [place] Troponin T Troponin T Hi Sens 6Hr Troponin T Hi Sens 6Hr Delta Urine Color Urine Appearance Urine pH Ur Specific Gravit y Urine Protein Urine Glucose (UA) Urine Ketones Urine Blood Urine Nitrate Urine Bilirubin Urine Urobilinogen Ur Leukocyte Andreina ase Urine RBC Urine WBC Ur Squamous Epith Cells Amorphous Sediment Urine Bacteria Urine Mucus Urine Opiates Scre en Ur Barbiturates Sc reen Ur Phencyclidine S crn Ur Amphetamines Sc reen U Benzodiazepines Scrn Urine Cocaine Scre en U Marijuana (THC) Screen 06/15/21 06/15/21 15:52 15:52 WBC RBC Hgb Hct MCV MCH MCHC RDW Plt Count MPV Neut % (Auto) Lymph % (Auto) [place] % (Auto) Eos % (Auto) Baso % (Auto) Neut # (Auto) Lymph # (Auto) [place] # (Auto) Eos # (Auto) Baso # (Auto) Nucleated RBC % (a uto) Nucleated RBCs # Sodium Potassium Chloride Carbon Dioxide Anion Gap BUN Creatinine GFR Calculation Glucose POC Glucose Calculated Osmolal ity Calcium Creatine Kinase Troponin T Baselin e Troponin T 120 Min [place] Troponin T Troponin T Hi Sens 6Hr Troponin T Hi Sens 6Hr Delta Urine Color Yellow Urine Appearance Sl hazy Urine pH 5 Ur Specific Gravit y 1.020 Urine Protein Trace Urine Glucose (UA) Norm Urine Ketones Negative Urine Blood Neg Urine Nitrate Negative Urine Bilirubin 1+ H Urine Urobilinogen Norm Ur Leukocyte Andreina ase 2+ H Urine RBC None Urine WBC 15-25 H Ur Squamous Epith Cells 15-25 H Amorphous Sediment Not Reportable Urine Bacteria 2+ H Urine Mucus 1+ Urine Opiates Scre en Negative Ur Barbiturates Sc reen Negative Ur Phencyclidine S crn Negative Ur Amphetamines Sc reen Negative U Benzodiazepines Scrn Positive H Urine Cocaine Scre en Positive H U Marijuana (THC) Screen Negative Vitals: Last Vital Signs Temp 98.3 F 06/16/21 14:00 Pulse 69 06/16/21 14:00 Resp 17 06/16/21 14:00 BP 117/75 06/16/21 14:00 Pulse Ox 99 06/16/21 14:00 Discharge Plan Discharge Patient Disposition: Home Condition: Stable Prescriptions: Continued bupropion HCl 75 mg tablet 75 mg PO BID@0700,2100 RF: 0 Trulicity 1.5 mg/0.5 mL pen injector 1.5 mg SUBCUT Q7D RF: 0 epinephrine 0.3 mg/0.3 mL auto-injector 0.3 mg IM ONCE PRN (Reason: Allergic Reaction) RF: 0 metoprolol tartrate 25 mg tablet 25 mg PO BID@0700,2100 RF: 0 (DME) Sole Supports See Rx Instructions .ROUTE .MEDSUPPLY Qty: 1 RF: 0 fentanyl 50 mcg/hr patch 72 hour 1 patch transdermal Q72H 30 Days Qty: 10 RF: 0 fentanyl 50 mcg/hr patch 72 hour 1 patch transdermal Q72H 30 Days Qty: 10 RF: 0 oxycodone-acetaminophen 10-325 mg tablet 1 tab PO TID PRN (Reason: pain) 30 Days Qty: 90 RF: 0 biotin 10,000 mcg capsule 10,000 mcg PO DAILY@0700 RF: 0 estradiol 0.5 mg tablet 1 mg PO DAILY RF: 0 diazepam [Valium] 2 mg tablet 2.5 mg PO BID PRN (Reason: Anxiety) RF: 0 (DME) Diabetic Shoes See Rx Instructions .ROUTE .MEDSUPPLY Qty: 1 RF: 0 gabapentin 400 mg capsule 400 mg PO TID@,, RF: 0 melatonin 1 mg Tablet 1 mg PO BEDTIME@2099 RF: 0 diphenhydramine HCl [Benadryl Allergy] 25 mg Tablet 25 mg PO TID PRN (Reason: Allergic Symptoms) RF: 0 fish,bora,flax oils-om3,6,9no1 [[place] 3-6-9] 400-400-400 mg Capsule 3 cap PO DAILY@2099 RF: 0 multivitamin Tablet 1 tab PO DAILY Qty: 0 RF: 0 pantoprazole 40 mg tablet,delayed release (DR/EC) 40 mg PO BID@0700,2099 RF: 0 Premarin 0.625 mg/gram cream See Rx Instructions .ROUTE .COMPLEX RF: 0 aspirin 81 mg Tablet,Chewable 81 mg PO DAILY PRN (Reason: with metoclopramide) Qty: 0 RF: 0 metoclopramide HCl 10 mg tablet 10 mg PO PRN RF: 0 methocarbamol 500 mg tablet 1,000 mg PO TID PRN (Reason: Muscle Pain) RF: 0 atorvastatin 20 mg tablet 20 mg PO DAILY RF: 0 hydroxyzine pamoate 50 mg capsule 50 mg PO TID@,, RF: 0 lactulose 10 gram/15 mL solution 15 ml PO BID PRN (Reason: Constipation) RF: 0 Vitamin B-2 25 mg Tablet 25 mg PO DAILY RF: 0 Lamictal 200 mg Tablet 200 mg PO BID RF: 0 valacyclovir 1 gram Tablet 1,000 mg PO BID RF: 0 Stool Softener 100 mg Capsule 200 mg PO BID RF: 0 magnesium 250 mg Tablet 250 mg PO DAILY RF: 0 prazosin 2 mg Capsule 4 mg PO BEDTIME RF: 0 Dialyvite 100-1 mg Tablet 1 tab PO DAILY RF: 0 Myrbetriq 25 mg tablet extended release 24 hr 25 mg PO DAILY MDD see pharmacy comment RF: 0 royavvpv-gzoxghouig-wifx-hops 490 mg Capsule 1 cap PO DAILY RF: 0 Discharge Orders: Discharge Order (Routine); Ordered 06/16/21 Ordered By: Chente Rocha Referrals: Linda Erickson MD [Primary Care Provider] - Discharge Diet: Diabetic Discharge Activity: Resume usual activity Patient Instructions: Opioid Safety Discharge Attestations [facility] Time Spent in Discharge Care*: greater than 30 min Specific Discharge Activities: Specific discharge activities: educating patient, discussing with caser up/social workers/dc planners, documenting/other paperwork and evaluating patient/reviewing data Coding Level of Care Code Acute g DC note Diagnoses Drug reaction resulting in brief psychotic states F19.959 Major depressive disorder F32.9 Anxiety disorder F41.9
--- NOTE | 2021-06-16 16:16 | P.PN_ITS ---
Subjective Subjective: Interval history: Patient unable to be seen today. Discussed with RN at length. I went to psych unit to see her. Patient is continuing to do well from medical standpoint and does not need to be seen today. We will see her tomorrow. She was recently seen by Dr. Cade at 3 AM when the initial consult was done. Labs were reviewed and chart was reviewed. We will continue to follow along. Vitals/I&O/Wt Last Vital Signs Temp 98.3 F 06/16/21 14:00 Pulse 69 06/16/21 14:00 Resp 17 06/16/21 14:00 BP 117/75 06/16/21 14:00 Pulse Ox 99 06/16/21 14:00 Weight last 48 hrs Weight 99.79 kg Weight 99.79 kg Physical Exam Narrative: EXAM NARRATIVE: Did not examine. Data : 06/16/21 12:25 06/16/21 12:25 A&P Assessment and plan (1) Diabetic peripheral neuropathy associated with type 2 diabetes mellitus: Status: Chronic (2) Chronic kidney disease: Status: Chronic Qualifiers: Chronic kidney disease stage: stage 2 (mild) Qualified Code(s): N18.2 - Chronic kidney disease, stage 2 (mild) (3) Hyperlipidemia: Status: Chronic Qualifiers: Hyperlipidemia type: unspecified Qualified Code(s): E78.5 - Hyperlipidemia, unspecified (4) Long-term current use of opiate analgesic: Status: Chronic Additional A&P Information Sliding scale insulin for diabetes Anticipate resumption of Trulicity upon disposition Continue home metoprolol Continue home atorvastatin Recommend continuation of home fentanyl and gabapentin with oxycodone for breakthrough pain as she usually takes Hold hormone therapy currently Psychiatric medications as per psychiatrist Hold most as needed home medications at least initially Hold vitamin replacement and herbals currently Serial cardiac enzymes and EKGs Repeat drug screen Check CK level Continue usual stool softeners and laxative therapy Supportive care otherwise Will follow along and address acute medical issues as needed Attestations Medical Necessity Statement*: defer to primary medical attending Coding Level of Care Code Acute Waste Disposal Leakage Tester for Rama Meehan Diagnoses Diabetic peripheral neuropathy associated with type 2 diabetes mellitus E11.42 Chronic kidney disease N18.2 Chronic kidney disease stage: stage 2 (mild) Hyperlipidemia E78.5 Hyperlipidemia type: unspecified Long-term current use of opiate analgesic Z79.891
[2021-06-16 16:20] VITALS: BP 117/75; PULSE 69; RESP 17; TEMP 36.8; O2SAT 99
== END 2021-06-16 16:30 | disposition home or self-care (01) ==
LOC: ER 18:00 → NP 18:33
PROVIDERS: Hospitalist; Internal Medicine; Admitting Provider Psychiatry & Neurology Child & Adolescent Psychiatry; Emergency Provider Emergency Medicine; PCP Family Medicine; Visit Provider Psychiatry & Neurology Child & Adolescent Psychiatry
DX: F19.959 Other psychoactive substance use, unspecified with psychoactive substance-induced psychotic disorder, unspecified (principal); F32.9 Major depressive disorder, single episode, unspecified; F41.9 Anxiety disorder, unspecified; E78.5 Hyperlipidemia, unspecified; N18.2 Chronic kidney disease, stage 2 (mild); K21.9 Gastro-esophageal reflux disease without esophagitis; M79.7 Fibromyalgia; M47.896 Other spondylosis, lumbar region; M51.36 Other intervertebral disc degeneration, lumbar region; M50.30 Other cervical disc degeneration, unspecified cervical region; Z79.82 Long term (current) use of aspirin; Z79.891 Long term (current) use of opiate analgesic
CPT/HCPCS: 36415; 36416; 51701; 70450; 71045; 80048; 80053; 80306; 80307; 81001; 82550; 82962; 83735; 84443; 84484; 85025; 90471; 90732; 93005; 96361; 96374; 96375; 99285; G0378; J2060; J2405; J7030; J8597

== ENCOUNTER → 2021-06-18 13:59 | Outpatient (BNVA) | payer BC, SELFPAY | PROVIDERS: PCP Family Medicine; Visit Provider Podiatrist Foot & Ankle Surgery | DX: M79.672 Pain in left foot (principal) | CPT/HCPCS: 73630 ==

== ENCOUNTER 2021-06-20 02:00 | Emergency (ER) | payer BC, SELFPAY ==
[2021-06-20 02:04] VITALS: BP 141/107; PULSE 120; RESP 16; TEMP 36.6; O2SAT 99; BMI 29.2
--- NOTE | 2021-06-20 02:04 | XRR_ITS ---
PROCEDURE INFORMATION: Exam: XR Chest Exam date and time: 06/20/2021 2:04 AM Age: 51 years old Clinical indication: Chest pressure; Prior surgery; Surgery type: Machine Binder Stripper shunt; Patient HX: Chest pains with palpitations. ; Additional info: Cp TECHNIQUE: Imaging protocol: XR of the chest. Views: 1 view. COMPARISON: CR (CHEST, ) 06/15/2021 3:27 PM FINDINGS: Lungs: Unremarkable. No consolidation. Pleural spaces: Unremarkable. No pleural effusion. No pneumothorax. Heart/Mediastinum: Unremarkable. No cardiomegaly. Bones/joints: Posterior fusion hardware is present in the cervical spine. Old right clavicular fracture. XR/XR chest 1V portable [id number] IMPRESSION: No acute disease. Radiation Dose CTDIVOL = (mGy): DLP = (mGy-cm)
--- NOTE | 2021-06-20 02:04 | ECG_ITS ---
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 Measurements Intervals [place] Rate: 131 P: 73 NV: 142 QRS: 54 QRSD: 86 T: 57 QT: 325 QTc: 481 Interpretive Statements SINUS TACHYCARDIA POSSIBLE RIGHT VENTRICULAR CONDUCTION DELAY [RSR (QR) IN V1/V2] Compared to ECG 06/16/2021 00:00:32 Sinus rhythm no longer present Electronically Signed On 06-20-2021 17:08:37 CDT by Gordo Burch M.D. [id number]
--- NOTE | 2021-06-20 02:19 | W.ED.CHESTPA ---
HPI - Chest Pain General: Chief Complaint: Chest Pain Stated Complaint: Heart is Racing Time Seen by Provider: 06/20/21 02:05 Source: patient Mode of arrival: ambulatory Limitations: no limitations History of Present Illness: HPI narrative: 51-year-old female states she has a history of SVT and felt like she is having palpitations tonight. States she had done Valsalva maneuvers at home with no improvement in triage she was sinus tach heart rate 130s now in the room her heart rate is 110. Said some slight dyspnea denies any chest pain. She was admitted recently to the psychiatric unit for acute psychosis she has no signs of that currently states she feels much improved. She denies any chest pain denies any abdominal pain. Associated symptoms: Reports dyspnea and palpitations; Deny abdominal pain, fever(s), nausea or vomiting Review of Systems Const: Denies: fever(s), chills, body aches or change in appetite Eyes: Denies: blurry vision or eye discomfort ENMT: Denies: throat pain or dental pain Card: Reports: palpitations Resp: Reports: dyspnea GI: Denies: abdominal pain, nausea, vomiting or diarrhea : Denies: dysuria Musc: Denies: neck pain or back pain Skin/Breast: Denies: rash Neuro: Denies: headache(s) Psych: Denies: depression Fletcher/Lymph: Denies: easy bruising All/Imm: Denies: urticaria PFSH ED PFSH: Medical History Abdominal pain chronic Anxiety Chronic kidney disease DDD (degenerative disc disease), cervical DDD (degenerative disc disease), lumbar Depression Diabetes mellitus, type II Diabetic peripheral neuropathy associated with type 2 diabetes mellitus Facet syndrome, lumbar Fibromyalgia GERD (gastroesophageal reflux disease) History of pulmonary function tests (01/2020) normal Hyperlipidemia Long-term current use of opiate analgesic Lumbosacral spondylosis with radiculopathy Panic attacks Seizures Therapeutic opioid induced constipation Surgical History History of ankle surgery (~2019) ORIF right ankle, Dr Matos History of arthrodesis (09/2019) left 1st, 2nd, and 3rd tarsometatarsal joints by Dr Matos, due to Lisfranc dislocation History of esophagogastroduodenoscopy (EGD) (04/2020) Dr Ruelas History of excision of mass (05/2020) right hip fibroma/granuloma by Dr Gonzales History of nephrectomy (~2013) History of ventriculoperitoneal shunting (~01/04/09) Dr. Cordelia Roche 01/04/2009 Ventriculoperitoneal shunt placement. William Hakim Programmable Valve, Siphonguard device. Valve at 15cm H2O. 2010 reprogrammed to 14 cm H2O Hx of appendectomy (~2002) Hx of cholecystectomy (~2003) Hx of hysterectomy Hx of laminectomy S/P hardware removal (10/26/20) deep hardware left foot by Dr Matos Status post hardware removal (04/19/21) deep hardware left foot by Dr Matos Family History Mother Diabetes DM2 Family/Other Cancer MATERNAL AUNT- BREAST CANCER Social History Second hand smoke exposure: No Alcohol intake: never Caregiver/support person: Yes Lives independently: Yes Household members: spouse Marital status: Current occupational status: disabled Physical Exam Const: COMMON NORMALS: no acute distress, patient oriented x3 and healthy appearing HENMT: COMMON NORMALS: normocephalic and atraumatic HEAD & SCALP: normocephalic and atraumatic Eye: COMMON NORMALS: Equal, round and reactive pupils present and EOMs intact bilaterally PUPIL: Yes Equal, round and reactive pupils present Neck/C-Spine: COMMON NORMALS: full ROM and supple Chest: COMMONS NORMALS: normal inspection of the chest and normal palpation of entire chest wall Resp: COMMON NORMALS: normal respiratory effort, No retractions, No use of accessory muscles and clear to auscultation bilaterally AUSCULTATION: clear to auscultation bilaterally Cardio: COMMON NORMALS: regular rhythm and No murmurs present (Cardio) RATE: tachycardic RHYTHM: regular rhythm GI: COMMON NORMALS: Normal to inspection, nondistended, normoactive bowel sounds present, Soft to palpation, non-tender and no masses PALPATION: Yes Soft to palpation Extremity: COMMON NORMALS: normal to inspection and full ROM Neuro: COMMON NORMALS: patient oriented x3, moves all extremities and no focal motor deficits Psych: COMMON NORMALS: mental status grossly normal, Normal thought process present and cooperative THOUGHT PROCESS: Normal thought process present Skin: COMMON NORMALS: no rashes or lesions noted and no wounds GENERAL SKIN EXAM: no rashes or lesions noted Course Vital Signs: Vital signs: Vital Signs Temperature 97.9 F 06/20/21 02:04 Pulse Rate 55 L 06/20/21 04:22 Respiratory Rate 16 06/20/21 04:22 Blood Pressure 122/76 06/20/21 04:22 Pulse Oximetry 96 06/20/21 04:22 MDM - Chest Pain MDM Narrative: Medical decision making narrative: Patient presents here with palpitations patient's heart rate is improving here is now 104 D-dimer is negative troponins negative she has no signs of acute coronary syndrome or pulmonary embolism she is well-appearing she stable for discharge she is to return if worsening follow-up with PCP. Lab Data: Labs: Lab Results 06/20/21 06/20/21 06/20/21 02:30 02:30 02:30 WBC 7.8 10^3/uL 10^3/ uL (4.0-10.0) RBC 5.02 10^6/uL 10^6 /uL (4.1-5.3) Hgb 13.9 g/dL g/dL (11.5-15.3) Hct 41.3 % % (37.0-47.0) MCV 82.3 fl fl (81-99) MCH 27.7 pg L pg (28.0-34.0) MCHC 33.7 g/dL g/dL (30.0-36.0) RDW 11.9 % L % (12.1-15.1) Plt Count 185 10^3/cmm 10^3 /cmm (130-400) MPV 10.2 fL fL (7.4-10.4) Neut % (Auto) 63.0 % % Lymph % (Auto) 26.6 % % [place] % (Auto) 8.1 % % Eos % (Auto) 1.4 % % Baso % (Auto) 0.4 % % Neut # (Auto) 4.91 10^3/uL 10^3 /uL (1.8-7.7) Lymph # (Auto) 2.1 10^3/uL 10^3/ uL (0.8-4.8) [place] # (Auto) 0.6 10^3/uL 10^3/ uL (0.2-0.9) Eos # (Auto) 0.1 10^3/uL 10^3/ uL (0.0-0.8) Baso # (Auto) 0.0 10^3/uL 10^3/ uL (0.0-0.1) Nucleated RBC % (a uto) 0 % % Nucleated RBCs # 0.0 /100WBC /100W BC D-Dimer Sodium 136 mmol/L mmol/L (136-145) Potassium 3.8 mmol/L mmol/L (3.5-5.1) Chloride 103 mmol/L mmol/L (98-107) Carbon Dioxide 23 mmol/L mmol/L (22-29) Anion Gap 13.8 (5-19) BUN 25 mg/dL H mg/dL (6-20) Creatinine 1.1 mg/dL H mg/dL (0.5-0.9) GFR Calculation 52.6 mL/min L mL/ min (90-130) Glucose 140 mg/dL H mg/dL (65-115) Calculated Osmolal ity 289 mOsm/kg mOsm/ kg (285-295) Calcium 8.5 mg/dL mg/dL (8.5-10.5) Total Bilirubin 0.2 mg/dL mg/dL (0.15-1.2) AST 9 U/L U/L (0-32) ALT 12 U/L U/L (0-33) Alkaline Phosphata se 85 IU/L IU/L (35-105) Troponin T Baselin e 6 ng/L ng/L (0-10) Total Protein 6.5 g/dL L g/dL (6.6-8.7) Albumin 3.9 g/dL g/dL (3.5-5.2) Globulin 2.6 g/dL g/dL (1.3-4.6) 06/20/21 02:30 WBC RBC Hgb Hct MCV MCH MCHC RDW Plt Count MPV Neut % (Auto) Lymph % (Auto) [place] % (Auto) Eos % (Auto) Baso % (Auto) Neut # (Auto) Lymph # (Auto) [place] # (Auto) Eos # (Auto) Baso # (Auto) Nucleated RBC % (a uto) Nucleated RBCs # D-Dimer <= 0.27 ug/mIFEU ug/mIFEU (0-0.59) Sodium Potassium Chloride Carbon Dioxide Anion Gap BUN Creatinine GFR Calculation Glucose Calculated Osmolal ity Calcium Total Bilirubin AST ALT Alkaline Phosphata se Troponin T Baselin e Total Protein Albumin Globulin Imaging Data^: CXR: Attestation: I personally reviewed and interpreted this imaging study as follows: Radiologist's impression: [address] [address] XRay Report Signed Patient: Tabby Gan Unit #: [id number] : 1970 Age/Sex: 51 / F ADM Date: 06/20/21 Loc: ER Room/Bed: Attending Dr: Ordering Provider/Ordering MD: Claudette Green MD Date of Service: 06/20/21 Procedure(s): XR chest 1V portable [id number] Accession Number(s): [id number] Report Number: [id number] PROCEDURE INFORMATION: Exam: XR Chest Exam date and time: 06/20/2021 2:04 AM Age: 51 years old Clinical indication: Chest pressure; Prior surgery; Surgery type: Apiculture Teacher shunt; Patient HX: Chest pains with palpitations. ; Additional info: Cp TECHNIQUE: Imaging protocol: XR of the chest. Views: 1 view. COMPARISON: CR (CHEST, ) 06/15/2021 3:27 PM FINDINGS: Lungs: Unremarkable. No consolidation. Pleural spaces: Unremarkable. No pleural effusion. No pneumothorax. Heart/Mediastinum: Unremarkable. No cardiomegaly. Bones/joints: Posterior fusion hardware is present in the cervical spine. Old right clavicular fracture. XR/XR chest 1V portable [id number] IMPRESSION: No acute disease. Radiation Dose CTDIVOL = (mGy): DLP = (mGy-cm) Dictated By: Thiago Newman Signed By: Thiago Newman Signed Date/Time: 06/20/21 0300 DD/ 0204 EKG Data^: EKG 1: Attestation: I personally reviewed and interpreted this EKG as follows: EKG interpretation date: 06/20/21 EKG interpretation time: 02:07 Interpretation: sinus tach hr [address] or t wave abnormalities qrs 86 qtc 402 Discharge Plan Discharge Patient Disposition: Home Clinical Impression: Heart palpitations Condition: Stable Prescriptions: No Action bupropion HCl 75 mg tablet 75 mg PO BID@0700,2099 RF: 0 Trulicity 1.5 mg/0.5 mL pen injector 1.5 mg SUBCUT Q7D RF: 0 epinephrine 0.3 mg/0.3 mL auto-injector 0.3 mg IM ONCE PRN (Reason: Allergic Reaction) RF: 0 metoprolol tartrate 25 mg tablet 25 mg PO BID@0700,2099 RF: 0 (DME) Sole Supports See Rx Instructions .ROUTE .MEDSUPPLY Qty: 1 RF: 0 fentanyl 50 mcg/hr patch 72 hour 1 patch transdermal Q72H 30 Days Qty: 10 RF: 0 fentanyl 50 mcg/hr patch 72 hour 1 patch transdermal Q72H 30 Days Qty: 10 RF: 0 oxycodone-acetaminophen 10-325 mg tablet 1 tab PO TID PRN (Reason: pain) 30 Days Qty: 90 RF: 0 biotin 10,000 mcg capsule 10,000 mcg PO DAILY@0700 RF: 0 estradiol 0.5 mg tablet 1 mg PO DAILY RF: 0 diazepam [Valium] 2 mg tablet 2.5 mg PO BID PRN (Reason: Anxiety) RF: 0 (DME) Diabetic Shoes See Rx Instructions .ROUTE .MEDSUPPLY Qty: 1 RF: 0 gabapentin 400 mg capsule 400 mg PO TID@06,12,18 RF: 0 melatonin 1 mg Tablet 1 mg PO BEDTIME@2099 RF: 0 diphenhydramine HCl [Benadryl Allergy] 25 mg Tablet 25 mg PO TID PRN (Reason: Allergic Symptoms) RF: 0 fish,bora,flax oils-om3,6,9no1 [Triple [place] 3-6-9] 400-400-400 mg Capsule 3 cap PO DAILY@2099 RF: 0 multivitamin Tablet 1 tab PO DAILY Qty: 0 RF: 0 pantoprazole 40 mg tablet,delayed release (DR/EC) 40 mg PO BID@00,2099 RF: 0 Premarin 0.625 mg/gram cream See Rx Instructions .ROUTE .COMPLEX RF: 0 aspirin 81 mg Tablet,Chewable 81 mg PO DAILY PRN (Reason: with metoclopramide) Qty: 0 RF: 0 metoclopramide HCl 10 mg tablet 10 mg PO PRN RF: 0 methocarbamol 500 mg tablet 1,000 mg PO TID PRN (Reason: Muscle Pain) RF: 0 atorvastatin 20 mg tablet 20 mg PO DAILY RF: 0 hydroxyzine pamoate 50 mg capsule 50 mg PO TID@,, RF: 0 lactulose 10 gram/15 mL solution 15 ml PO BID PRN (Reason: Constipation) RF: 0 Vitamin B-2 25 mg Tablet 25 mg PO DAILY RF: 0 Lamictal 200 mg Tablet 200 mg PO BID RF: 0 valacyclovir 1 gram Tablet 1,000 mg PO BID RF: 0 Stool Softener 100 mg Capsule 200 mg PO BID RF: 0 magnesium 250 mg Tablet 250 mg PO DAILY RF: 0 prazosin 2 mg Capsule 4 mg PO BEDTIME RF: 0 Dialyvite 100-1 mg Tablet 1 tab PO DAILY RF: 0 Myrbetriq 25 mg tablet extended release 24 hr 25 mg PO DAILY MDD see pharmacy comment RF: 0 osjhqayj-ooceqicpbj-ashu-hops 490 mg Capsule 1 cap PO DAILY RF: 0 Discharge Orders: Discharge ED (Routine); Ordered 06/20/21 Ordered By: Claudette Green Referrals: Linda Erickson MD [Primary Care Provider] - Discharge Diet: Advance as tolerated Discharge Activity: Resume usual activity Patient Instructions: Heart Palpitations (ED) Coding Level of Care Code ED Administrative Services Director for Andrewg Fwd Exam Comprehensive
[2021-06-20] MEDS: sodium chloride 0.9% 1,000 ML 999 ML IV (02:30)
[2021-06-20] MEDS: LORazepam 2 mg/mL INJ 1 mL 1 MG IVP ×2 (02:35→03:28)
[2021-06-20 02:55] LABS: Basophils % 0.4 %; Eosinophils # 0.1 10^3/uL (0.0-0.8); Eosinophils % 1.4 %; Hematocrit 41.3 % (37.0-47.0); Hemoglobin 13.9 g/dL (11.5-15.3); Lymphocytes # 2.1 10^3/uL (0.8-4.8); Lymphocytes % 26.6 %; Mean Corpuscular HGB Conc 33.7 g/dL (30.0-36.0); Mean Corpuscular Hemoglobin 27.7 pg (28.0-34.0); Mean Corpuscular Volume 82.3 fl (81-99); Mean Platelet Volume 10.2 fL (7.4-10.4); Monocytes # 0.6 10^3/uL (0.2-0.9); Monocytes % 8.1 %; Neutrophils # 4.91 10^3/uL (1.8-7.7); Nucleated Red Blood Cells % 0 %; Platelet Count 185 10^3/cmm (130-400); Red Blood Count 5.02 10^6/uL (4.1-5.3); Red Cell Distribution Width 11.9 % (12.1-15.1); White Blood Count 7.8 10^3/uL (4.0-10.0)
[2021-06-20 03:27] LABS: D Dimer <= 0.27 ug/mIFEU (0-0.59)
[2021-06-20 03:32] LABS: Troponin(5th) Baseline 6 ng/L (0-10)
[2021-06-20 03:33] LABS: Alanine Aminotransferase 12 U/L (0-33); Albumin Level 3.9 g/dL (3.5-5.2); Alkaline Phosphatase 85 IU/L (35-105); Anion Gap 13.8 (5-19); Aspartate Amino Transferase 9 U/L (0-32); Blood Urea Nitrogen 25 mg/dL (6-20); Calcium 8.5 mg/dL (8.5-10.5); Carbon Dioxide 23 mmol/L (22-29); Chloride 103 mmol/L (98-107); Globulin 2.6 g/dL (1.3-4.6); Glomerular Filtration Rate 52.6 mL/min (90-130); Glucose 140 mg/dL (65-115); Osmolality Calculated 289 mOsm/kg (285-295); Potassium 3.8 mmol/L (3.5-5.1); Sodium 136 mmol/L (136-145); Total Bilirubin 0.2 mg/dL (0.15-1.2); Total Protein 6.5 g/dL (6.6-8.7)
[2021-06-20 03:36] LABS: Creatinine Clr Calc Pharmacy 77.8345
[2021-06-20 04:22] VITALS: BP 122/76; PULSE 55; RESP 16; O2SAT 96
== END 2021-06-20 04:20 | disposition home or self-care (01) ==
PROVIDERS: Emergency Provider Emergency Medicine; PCP Family Medicine
DX: R00.2 Palpitations (principal); Z79.891 Long term (current) use of opiate analgesic; Z79.82 Long term (current) use of aspirin; E11.22 Type 2 diabetes mellitus with diabetic chronic kidney disease; N18.9 Chronic kidney disease, unspecified; Z79.4 Long term (current) use of insulin; E78.5 Hyperlipidemia, unspecified; F41.9 Anxiety disorder, unspecified; G89.29 Other chronic pain
CPT/HCPCS: 71045; 80053; 84484; 85025; 85378; 93005; 96361; 96374; 96376; 99283; J2060; J7030

== ENCOUNTER → 2021-06-25 11:34 | Outpatient (BNVA) | payer BC, SELFPAY | PROVIDERS: PCP Family Medicine; Visit Provider Nurse Practitioner | DX: R39.9 Unspecified symptoms and signs involving the genitourinary system (principal) | CPT/HCPCS: 81000 ==

== ENCOUNTER 2021-07-01 13:03 | Outpatient (CLI) | payer BC, SELFPAY ==
[2021-07-01 13:43] LABS: Basophils # 0.1 10^3/uL (0.0-0.1); Basophils % 0.9 %; Eosinophils # 0.2 10^3/uL (0.0-0.8); Eosinophils % 3.4 %; Hematocrit 40.1 % (37.0-47.0); Hemoglobin 12.9 g/dL (11.5-15.3); Lymphocytes % 34.6 %; Mean Corpuscular HGB Conc 32.2 g/dL (30.0-36.0); Mean Corpuscular Hemoglobin 27.1 pg (28.0-34.0); Mean Corpuscular Volume 84.2 fl (81-99); Mean Platelet Volume 9.4 fL (7.4-10.4); Monocytes # 0.5 10^3/uL (0.2-0.9); Neutrophils # 2.98 10^3/uL (1.8-7.7); Neutrophils % 52.6 %; Nucleated Red Blood Cells % 0 %; Platelet Count 160 10^3/cmm (130-400); Red Blood Count 4.76 10^6/uL (4.1-5.3); Red Cell Distribution Width 11.5 % (12.1-15.1); White Blood Count 5.7 10^3/uL (4.0-10.0)
[2021-07-01 14:03] LABS: Anion Gap 14.4 (5-19); Blood Urea Nitrogen 19 mg/dL (6-20); Carbon Dioxide 23 mmol/L (22-29); Chloride 103 mmol/L (98-107); Glomerular Filtration Rate 43.4 mL/min (90-130); Glucose 118 mg/dL (65-115); Phosphorus 2.8 mg/dL (2.5-4.5); Potassium 4.4 mmol/L (3.5-5.1); Sodium 136 mmol/L (136-145)
[2021-07-01 14:24] LABS: Creatinine Urine, Random 139 mg/dL (28-217)
[2021-07-01 14:26] LABS: Microalbum Creatinine Ratio Ur 7 mg/dL (0-20); Microalbumin Random Urine < 1 ug/dL (0-20)
[2021-07-01 14:27] LABS: Calcium 8.9 mg/dL (8.5-10.5)
== END 2021-07-01 13:04 | disposition home or self-care (01) ==
PROVIDERS: PCP Family Medicine; Visit Provider Internal Medicine Nephrology
DX: N18.32 Chronic kidney disease, stage 3b (principal)
CPT/HCPCS: 36415; 80069; 82044; 82310; 83970; 85025

== ENCOUNTER → 2021-07-08 11:54 | Outpatient (BNVA) | payer BC, SELFPAY | PROVIDERS: PCP Family Medicine; Visit Provider Nurse Practitioner | DX: N39.0 Urinary tract infection, site not specified (principal) | CPT/HCPCS: 81000; 87077; 87086; 87184 ==

== ENCOUNTER 2021-07-09 20:01 | Observation (INO) | payer BC, SELFPAY ==
[2021-07-09 20:12] VITALS: BP 147/80; PULSE 99; RESP 18; TEMP 37.1; O2SAT 99; BMI 29.9
--- NOTE | 2021-07-09 21:03 | ECG_ITS ---
[facility] Test Date: 2021-07-09 Pat Name: Tabby Gan Department: Room: 131 Gender: Female News Director: : 1970 Requested By: Claudette Green Order Number: [id number] Mamadou MD: Gordo Burch M.D. Measurements Intervals [employer] Rate: 89 P: 42 MS: 126 QRS: 2 QRSD: 83 T: 11 QT: 368 QTc: 449 Interpretive Statements SINUS RHYTHM Compared to ECG 06/20/2021 02:07:37 Sinus tachycardia no longer present Electronically Signed On 07-10-2021 17:38:35 INFORMATION AND DATA ARCHITECT ANALYST by Gordo Burch M.D. [id number]
--- NOTE | 2021-07-09 21:10 | W.ED.PSYCHS ---
HPI - Psych General: Chief Complaint: Psychiatric Symptoms Stated Complaint: SI Time Seen by Provider: 07/09/21 20:40 Source: patient and EMS Mode of arrival: EMS Limitations: no limitations History of Present Illness: HPI Narrative: 51-year-old female who is here by EMS for suicidal ideation. Patient here has an extremely flat affect just covers her head with a blanket normal hardly even speak to me at all. She will answer any my questions her is here and states that she has had increasing depression that she had told him today that she just wanted to she laid in the floor when I get up has been sleeping much more lately Associated symptoms: Reports depression and suicidal ideation Review of Systems Const: Denies: fever(s), chills, body aches or change in appetite Eyes: Denies: blurry vision or eye discomfort ENMT: Denies: throat pain or dental pain Card: Denies: chest pain Resp: Denies: dyspnea GI: Denies: abdominal pain, nausea, vomiting or diarrhea : Denies: dysuria Musc: Denies: neck pain or back pain Skin/Breast: Denies: rash Neuro: Denies: headache(s) Psych: Reports: depression and suicidal ideation Fletcher/Lymph: Denies: easy bruising All/Imm: Denies: urticaria PFSH ED PFSH: Medical History Abdominal pain chronic Anxiety Chronic kidney disease DDD (degenerative disc disease), cervical DDD (degenerative disc disease), lumbar Depression Diabetes mellitus, type II Diabetic peripheral neuropathy associated with type 2 diabetes mellitus Facet syndrome, lumbar Fibromyalgia GERD (gastroesophageal reflux disease) History of pulmonary function tests (01/2020) normal Hyperlipidemia Long-term current use of opiate analgesic Lumbosacral spondylosis with radiculopathy Panic attacks Seizures Therapeutic opioid induced constipation Surgical History History of ankle surgery (~2018) ORIF right ankle, Dr Matos History of arthrodesis (09/2019) left 1st, 2nd, and 3rd tarsometatarsal joints by Dr Matos, due to Lisfranc dislocation History of esophagogastroduodenoscopy (EGD) (04/2020) Dr Ruelas History of excision of mass (05/2020) right hip fibroma/granuloma by Dr Gonzales History of nephrectomy (~2013) History of ventriculoperitoneal shunting (~01/04/09) Dr. Cordelia Roche 01/04/2009 Ventriculoperitoneal shunt placement. William Morenom Programmable Valve, Siphonguard device. Valve at 15cm H2O. 2010 reprogrammed to 14 cm H2O Hx of appendectomy (~2002) Hx of cholecystectomy (~2003) Hx of hysterectomy Hx of laminectomy S/P hardware removal (10/26/20) deep hardware left foot by Dr Matos Status post hardware removal (04/19/21) deep hardware left foot by Dr Matos Family History Mother Diabetes DM2 Family/Other Cancer MATERNAL AUNT- BREAST CANCER Social History Second hand smoke exposure: No Alcohol intake: never Caregiver/support person: Yes Lives independently: Yes Household members: spouse Marital status: Current occupational status: disabled Physical Exam Const: COMMON NORMALS: no acute distress, patient oriented x3 and healthy appearing HENMT: COMMON NORMALS: normocephalic and atraumatic HEAD & SCALP: normocephalic and atraumatic Eye: COMMON NORMALS: Equal, round and reactive pupils present and EOMs intact bilaterally PUPIL: Yes Equal, round and reactive pupils present Neck/C-Spine: COMMON NORMALS: full ROM and supple Chest: COMMONS NORMALS: normal inspection of the chest and normal palpation of entire chest wall Resp: COMMON NORMALS: normal respiratory effort, No retractions, No use of accessory muscles and clear to auscultation bilaterally AUSCULTATION: clear to auscultation bilaterally Cardio: COMMON NORMALS: regular rate, regular rhythm and No murmurs present (Cardio) RATE: regular rate RHYTHM: regular rhythm GI: COMMON NORMALS: Normal to inspection, nondistended, normoactive bowel sounds present, Soft to palpation, non-tender and no masses PALPATION: Yes Soft to palpation Extremity: COMMON NORMALS: normal to inspection and full ROM Neuro: COMMON NORMALS: patient oriented x3, moves all extremities and no focal motor deficits Psych: COMMON NORMALS: mental status grossly normal and cooperative ACTIVITY/MOTOR BEHAVIOR: Yes Avoids eye contact (attititude/behavior) MOOD & AFFECT: Yes depressed mood and Yes Flat affect present THOUGHT CONTENT: Yes Suicidality present Skin: COMMON NORMALS: no rashes or lesions noted and no wounds GENERAL SKIN EXAM: no rashes or lesions noted Course Vital Signs: Vital signs: Vital Signs Temperature 98.7 F 07/09/21 20:12 Pulse Rate 99 07/09/21 20:12 Respiratory Rate 18 07/09/21 20:12 Blood Pressure 147/80 07/09/21 20:12 Pulse Oximetry 99 07/09/21 20:12 MDM - Psych MDM Narrative: Medical decision making narrative: Patient presents here with suicidal ideation patient placed under 96-hour hold medically cleared and will admit. I spoke to psychiatrist and will bit to the Neuropsych Unit Lab Data: Labs: Lab Results 07/09/21 07/09/21 22:42 22:42 WBC 7.3 10^3/uL 10^3/ uL (4.0-10.0) RBC 4.79 10^6/uL 10^6 /uL (4.1-5.3) Hgb 13.2 g/dL g/dL (11.5-15.3) Hct 41.6 % % (37.0-47.0) MCV 86.8 fl fl (81-99) MCH 27.6 pg L pg (28.0-34.0) MCHC 31.7 g/dL g/dL (30.0-36.0) RDW 12.1 % % (12.1-15.1) Plt Count 168 10^3/cmm 10^3 /cmm (130-400) MPV 9.4 fL fL (7.4-10.4) Neut % (Auto) 72.9 % % Lymph % (Auto) 18.5 % % [place] % (Auto) 5.8 % % Eos % (Auto) 1.9 % % Baso % (Auto) 0.4 % % Neut # (Auto) 5.30 10^3/uL 10^3 /uL (1.8-7.7) Lymph # (Auto) 1.4 10^3/uL 10^3/ uL (0.8-4.8) [place] # (Auto) 0.4 10^3/uL 10^3/ uL (0.2-0.9) Eos # (Auto) 0.1 10^3/uL 10^3/ uL (0.0-0.8) Baso # (Auto) 0.0 10^3/uL 10^3/ uL (0.0-0.1) Nucleated RBC % (a uto) 0 % % Nucleated RBCs # 0.0 /100WBC /100W BC Sodium 139 mmol/L mmol/L (136-145) Potassium 4.5 mmol/L mmol/L (3.5-5.1) Chloride 104 mmol/L mmol/L (98-107) Carbon Dioxide 22 mmol/L mmol/L (22-29) Anion Gap 17.5 (5-19) BUN 20 mg/dL mg/dL (6-20) Creatinine 1.3 mg/dL H mg/dL (0.5-0.9) GFR Calculation 43.4 mL/min L mL/ min (90-130) Glucose 125 mg/dL H mg/dL (65-115) Calculated Osmolal ity 292 mOsm/kg mOsm/ kg (285-295) Calcium 8.4 mg/dL L mg/dL (8.5-10.5) Total Bilirubin 0.2 mg/dL mg/dL (0.15-1.2) AST 12 U/L U/L (0-32) ALT 14 U/L U/L (0-33) Alkaline Phosphata se 86 IU/L IU/L (35-105) Total Protein 7.0 g/dL g/dL (6.6-8.7) Albumin 4.0 g/dL g/dL (3.5-5.2) Globulin 3.0 g/dL g/dL (1.3-4.6) Salicylates 1.2 mg/dL L mg/dL (3-10) Acetaminophen < 5.0 ug/mL L ug/ mL (10-30) Ethyl Alcohol < 10 mg/dL mg/dL (0-10) EKG Data^: EKG 1: Attestation: I personally reviewed and interpreted this EKG as follows: EKG interpretation date: 07/09/21 EKG interpretation time: 23:02 Interpretation: nsr hr [address] or t wave abnormalities qrs 83 qtc 415 Discharge Plan Discharge Patient Disposition: Admitted As Inpatient Clinical Impression: Suicidal ideation Condition: Stable Coding Level of Care Code ED Junior Paralegal for Chg Fwd Exam Comprehensive
[2021-07-09 22:50] LABS: Basophils % 0.4 %; Eosinophils # 0.1 10^3/uL (0.0-0.8); Eosinophils % 1.9 %; Hematocrit 41.6 % (37.0-47.0); Hemoglobin 13.2 g/dL (11.5-15.3); Lymphocytes # 1.4 10^3/uL (0.8-4.8); Lymphocytes % 18.5 %; Mean Corpuscular HGB Conc 31.7 g/dL (30.0-36.0); Mean Corpuscular Hemoglobin 27.6 pg (28.0-34.0); Mean Corpuscular Volume 86.8 fl (81-99); Mean Platelet Volume 9.4 fL (7.4-10.4); Monocytes # 0.4 10^3/uL (0.2-0.9); Monocytes % 5.8 %; Neutrophils % 72.9 %; Nucleated Red Blood Cells % 0 %; Platelet Count 168 10^3/cmm (130-400); Red Blood Count 4.79 10^6/uL (4.1-5.3); Red Cell Distribution Width 12.1 % (12.1-15.1); White Blood Count 7.3 10^3/uL (4.0-10.0)
[2021-07-09 23:17] LABS: Alanine Aminotransferase 14 U/L (0-33); Alkaline Phosphatase 86 IU/L (35-105); Anion Gap 17.5 (5-19); Aspartate Amino Transferase 12 U/L (0-32); Blood Urea Nitrogen 20 mg/dL (6-20); Calcium 8.4 mg/dL (8.5-10.5); Carbon Dioxide 22 mmol/L (22-29); Chloride 104 mmol/L (98-107); Glomerular Filtration Rate 43.4 mL/min (90-130); Glucose 125 mg/dL (65-115); Osmolality Calculated 292 mOsm/kg (285-295); Potassium 4.5 mmol/L (3.5-5.1); Salicylate 1.2 mg/dL (3-10); Sodium 139 mmol/L (136-145); Total Bilirubin 0.2 mg/dL (0.15-1.2)
[2021-07-09 23:28] LABS: Acetaminophen < 5.0 ug/mL (10-30); Alcohol Level < 10 mg/dL (0-10)
[2021-07-10 00:03] VITALS: BP 140/88; PULSE 74; RESP 20; O2SAT 97
--- NOTE | 2021-07-10 00:05 | PC.NURSE ---
pt refusing napoleon stating she had a bad reaction last time but could not provide details of reaction. Dr notified. ok with pt refusal if pt is willing to cooperate with blood draw and ECG. Pt cooperated with blood draw and ECG
[2021-07-10 00:25] VITALS: BP 140/88; PULSE 74; RESP 20; O2SAT 97
[2021-07-10 00:30] VITALS: BP 157/77; PULSE 97; RESP 22; TEMP 36.7; O2SAT 99
[2021-07-10] MEDS: hyDROXYzine 25 mg Capsule 50 MG PO (01:46)
[2021-07-10] MEDS: trazodone 50 mg Tablet PO (01:46)
[2021-07-10 03:50] LABS: Add Urine Microscopic? YES; Bilirubin Urine Neg (Negative); Blood Urine Neg (Negative); Glucose Urine UA Norm (Normal); Ketones Urine Negative (Negative); Leukocyte Esterase Urine 2+ (Negative); Nitrate Urine Positive (Negative); Protein Urine Neg (Negative); Urine Appearance Cloudy (CLEAR); Urine Color Yellow (Yellow); Urobilinogen Urine Neg (Negative); pH Urine 6.5 (5-7)
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
[2021-07-10 04:50] LABS: Add Urine Culture? Yes; Bacteria Urine 4+ /hpf; Mucus Urine 1+ /hpf; RBC Urine 0-4 /hpf (0-2); Squamous Epithelial Cell Urine RARE /hpf (0-5); WBC Urine 80-100 /hpf (0-5)
[2021-07-10 05:16] LABS: Amphetamines Screen Urine Negative (Negative); Barbiturates Screen Urine Negative (Negative); Cocaine Screen Urine Negative (Negative); PCP Screen Urine Negative (Negative); THC Screen Urine Negative (Negative)
[2021-07-10 05:17] LABS: Benzodiazepines Screen Urine Positive (Negative); Opiate Screen Urine Negative (Negative)
[2021-07-10] MEDS: acetaminophen 325 mg Tablet 650 MG PO (05:44)
[2021-07-10 06:00] VITALS: BP 139/80; PULSE 88; RESP 16; TEMP 37.1; O2SAT 97
--- NOTE | 2021-07-10 07:11 | PC.NURSE ---
pt glucose was 101
--- NOTE | 2021-07-10 08:25 | P.NPUHP_ITS ---
Providers/Chief Complaint Admitting Physician: Van James MD Primary Care Provider: Linda Erickson MD Chief Complaint: SI HPI [facility] History of Present Illness Tabby Gan is a 51 year old female admitted through the emergency department with the following report: HPI Narrative: 51-year-old female who is here by EMS for suicidal ideation. Patient here has an extremely flat affect just covers her head with a blanket normal hardly even speak to me at all. She will answer any my questions her is here and states that she has had increasing depression that she had told him today that she just wanted to she laid in the floor when I get up has been sleeping much more lately Associated symptoms: Reports depression and suicidal ideation She was recently discharged from this unit approximately 1 month ago with the following discharge summary: Reason for Visit Reason for Visit: MHE Brief History: History of Present Illness Tabby Gan is a 51 year old female who presented to the ED with the following report: Chief Complaint: Psychiatric Symptoms Stated Complaint: MHE Time Seen by Provider: 06/15/21 14:20 History of Present Illness: HPI Narrative: Ms Gan is a 51-year-old lady with complex past medical history including psychiatric disorder who presents emergency department due to altered mental status and behavior changes. She has had a longstanding history of depression and was previously started on vilazodon e. This was increased about a week ago from 10 mg to 20 mg. Last definitive normal as far as behavior and mental status change was about 4 days ago however today has been noticed that she was confused, agitated, and not acting like her normal self. She has difficulty characterizing her symptoms and shows emotional lability. She does endorse hallucinations and not feeling herself. She is unsure specifically of infectious symptoms however did feel flushed and hot yesterday. She otherwise denies changes in health. No similar episodes. No other known specific exacerbating or relieving factors. She was admitted to the neuropsychiatric unit for definitive treatment of those issues. Patient presents today reporting that she has had multiple psychiatric inpatient services and history of outpatient services in this system. Her last noted inpatient stay was in 2018. She reports that she has been making a medication change and that led to her feeling really odd and she discontinued th at medication. She came to the hospital because she was feeling odd but she reports that now those feelings have passed and she knows that it was a drug reaction. She reports that there is no need for continued hospitalization and she denies any lethality. We discussed that we would work on evaluating this information by getting collateral information and ensuring that there are no concerns for safety outside of the hospital. She reports that things are stable at home she denies any problems with her life right now and that she was just reacting to this reaction that she had from the medication. An excerpt from her past outpatient psychiatric evaluation is included below for context. Per her 05/31/2015 [facility] outpatient psychiatric evaluation: [facility] Psychiatric Evaluation 900-1000 CHIEF COMPLAINT: I am not sleeping well. HISTORY OF PRESENT ILLNESS: The patient has been previously seen at [facility]. She was then admitted for worsening symptoms of her bipolar disorder. She reported t hat she was also diagnosed with sleep disordered breathing but has been non compliant to her CPAP due to mask related difficulties. She has been seeing another psychiatrist who has continued her medications. She is not sure that she needs continued follow up here at [facility]. She reported mood irregularities and fluctuations. She suffers from a variety of both physical and mental disorders. She has been many times in mental institutes for bipolar disorder, borderline personality disorder and anxiety disorder. She reported chronic suicidal thoughts. She denied current active thoughts of suicide. She has had history of hearing voices at times telling her to her harm herself. She feels worsening anxiety. She cannot get a deeper asleep. She wakes up gasping for air. She has reported snoring. She has comorbid medical issues likely contributing to also possible obstructive sleep apnea. Somatic symptoms. She has been seeing Neurology services for pseudoseizures. PAST MEDICAL HISTORY: Arrhythmia, hypertension, anemia, diabetes, hyperlipidemia, pseudoseizures, hydrocephalus, irritable bowel syndrome, gastroesophageal reflux disease, gout and fibromyalgia. 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 MEDICATIONS: BuSpar 10 milligrams twice daily. Lamictal 200 milligrams in the morning. Docusate 300 milligrams daily. Celexa 40 milligrams daily. Aspirin 81 milligrams daily. Zonegran 300 milligrams at bedtime. Seroquel 25 milligrams at bedtime. Lopressor 12.5 milligrams twice daily. Methadone 20 milligrams three times daily. Lamictal 400 milligrams at bedtime. Morphine 15 to 30 milligrams four times daily p.r.n. Insulin. ALLERGIES: Fentanyl. SOCIAL HISTORY: The patient reported that she has a daughter who is 20-year-old. She is . Her had sleep apnea. 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 The last time she was employed was 5 years ago. Her is an assistant prosecuting attorney. REVIEW OF SYSTEMS: Review of systems is as described above. Otherwise, the rest of the Review of Systems is negative. FAMILY HISTORY: Denied a family history of psychiatric illness. SUBSTANCE ABUSE HISTORY: She has denied. PHYSICAL EXAMINATION: She was seen through telepsychiatry MENTAL STATUS EXAM: Somewhat anxious. Cooperative. She has good eye contact, spontaneous. speech. Normal rate, volume and tone of speech. Poor insight and judgment. Reports no active suicidal thoughts. She denied current hearing of voices. Described her mood as being very labile. Anxious mood was also reported. Attention and concentration is fair. ASSESSMENT: Bipolar disorder, mixed. F 31.60 Panic disorder. F 41.0 Post-traumatic stress disorder. F 43.1 Borderline personality disorder. 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 Obstructive sleep apnea Global Assessment of Functionin Hospital Course Hospital Course She quickly acclimated to the individual, group and milieu therapies provided. She never endorsed any lethality nor were there any concerns expressed by previous providers that there was a concern. She had a likely response to a medication and/or interaction between medications which led to strange behavior which had resolved by the time she saw this advertising copywriter. She had no safety issues and had scheduled appointments in place. She wanted to pursue any adjustments with her outpatient team. She was able to contract for safety prior to discharge. During the hospitalization, she had routine laboratory studies which were within normal limits except for a few outliers. She also had a general medical evaluation which was also within normal limits and revealed no new acute processes outside of her mental status changes. She was seen by hospitalist for medical clearance to ensure there was no clear medical explanation for her presentation. At the time of discharge, she denied lethality or psychosis. Her mood and anxiety were well managed. She endorsed a plan to avoid all drugs of abuse and follow-up with her outpatient appointments that were already in place. She was evaluated and deemed to be absent credible lethality and was a voluntary patient so she was allowed to discharge. She was admitted to the neuropsychiatry unit for definitive treatment of these issues. She was angry that she was in the hospital. She complained of not getting her medication and having terrible pain and it felt like her brain was coming out her ear. She complained that she had medication at home for her urinary tract infection which she felt was a large part of her problem. Her also agreed that she should be home. He did not feel that her statement of wanting to kill herself was credible. They were both adamant that she was safe to go home and she was allowed to return home. Meds [facility] Home Medications Medication Instructions Recorded Confirmed Last Taken Type dulaglutide 1.5 mg/0.5 mL 1.5 mg SUBCUT Q7D ml 09/16/19 07/10/21 02/09/21 History subcutaneous pen injector epinephrine 0.3 mg/0.3 mL 0.3 mg IM ONCE PRN 09/16/19 07/10/21 Unknown History injection, auto-injector bupropion HCl 75 mg tablet 75 mg PO BID@0700,2100 tab 09/20/19 07/10/21 06/14/21 History metoprolol tartrate 25 mg tablet 25 mg PO BID@0700,2100 tab 09/20/19 07/10/21 06/15/21 History gabapentin 400 mg PO TID@,10/07/19 07/10/21 1 Day Ago History ~04/18/21 Diabetic Shoes #1 each 01/25/20 07/10/21 Unknown Rx biotin 10,000 mcg capsule 10,000 mcg PO DAILY@0700 cap 02/02/20 07/10/21 06/14/21 History Sole Supports #1 each 02/06/20 07/10/21 Unknown Rx diphenhydramine HCl [Benadryl 25 mg PO TID PRN 10/25/20 07/10/21 1 Day Ago History Allergy] ~04/18/21 fish,bora,flax oils-om3,6,9no1 3 cap PO DAILY@209910/25/20 07/10/21 3 Days Ago History [Triple [place] 3-6-9] ~04/16/21 melatonin 1 mg PO BEDTIME@209910/25/20 07/10/21 1 Day Ago History ~04/18/21 atorvastatin 20 mg PO DAILY 11/25/20 07/10/21 06/14/21 History hydroxyzine pamoate 50 mg PO TID@,,11/25/20 07/10/21 1 Day Ago History ~04/18/21 Premarin See Rx Instructions .ROUTE .COMPLEX 02/16/21 07/10/21 Unknown History aspirin 81 mg PO DAILY PRN #0 02/16/21 07/10/21 2 Days Ago History ~04/17/21 metoclopramide HCl 10 mg PO PRN 02/16/21 07/10/21 Unknown History multivitamin 1 tab PO DAILY #0 02/16/21 07/10/21 06/14/21 History pantoprazole 40 mg PO BID@0700,2100 02/16/21 07/10/21 06/15/21 History lactulose 15 ml PO BID PRN 04/18/21 07/10/21 1 Day Ago History ~04/18/21 methocarbamol 500 mg tablet 1,000 mg PO TID PRN tab 04/25/21 07/10/21 06/15/21 History diazepam 2 mg tablet 2.5 mg PO BID PRN tab 06/04/21 07/10/21 Unknown History estradiol 0.5 mg tablet 1 mg PO DAILY tab 06/04/21 07/10/21 Unknown History fentanyl 50 mcg/hr transdermal 1 patch TRANSDERMAL Q72H 30 Days 06/04/21 07/10/21 06/15/21 Rx patch #10 ea oxycodone-acetaminophen 10 mg-325 1 tab PO TID PRN 30 Days #90 tab 06/04/21 07/10/21 06/15/21 Rx mg tablet Dialyvite 1 tab PO DAILY 06/15/21 07/10/21 06/14/21 History Myrbetriq 25 mg PO DAILY MDD see pharmacy 06/15/21 07/10/21 Unknown History comment Vitamin B-2 25 mg PO DAILY 06/15/21 07/10/21 06/14/21 History kvsofrxm-vrlfalkleu-ctco-hops 1 cap PO DAILY 06/15/21 07/10/21 06/14/21 History docusate sodium [Stool Softener] 200 mg PO BID 06/15/21 07/10/21 06/14/21 History lamotrigine [Lamictal] 200 mg PO BID 06/15/21 07/10/21 Unknown History magnesium 250 mg PO DAILY 06/15/21 07/10/21 06/14/21 History prazosin 4 mg PO BEDTIME 06/15/21 07/10/21 06/14/21 History valacyclovir 1,000 mg PO BID 06/15/21 07/10/21 06/14/21 History sulfamethoxazole 800 1 tab PO Q12H 7 Days #14 tab 07/09/21 07/10/21 Unknown Rx mg-trimethoprim 160 mg tablet phenazopyridine 200 mg PO TID 07/10/21 07/10/21 Unknown History Allergies Allergy/AdvReac Type Severity Reaction Status Date / Time spider venom Allergy ALGY-Anaphy Verified 07/08/21 11:13 laxis vilazodone [From Viibryd] Allergy ADR-Halluci Verified 07/08/21 11:13 nating NSAIDS (Non-Steroidal AdvReac Unknown CKD4 Verified 07/08/21 11:13 Anti-Inflamma Iodinated Contrast Media AdvReac CKD4 - Verified 07/08/21 11:13 PFSH [facility] PFSH: Medical History Abdominal pain chronic Anxiety Chronic kidney disease DDD (degenerative disc disease), cervical DDD (degenerative disc disease), lumbar Depression Diabetes mellitus, type II Diabetic peripheral neuropathy associated with type 2 diabetes mellitus Facet syndrome, lumbar Fibromyalgia GERD (gastroesophageal reflux disease) History of pulmonary function tests (01/2020) normal Hyperlipidemia Long-term current use of opiate analgesic Lumbosacral spondylosis with radiculopathy Panic attacks Seizures Therapeutic opioid induced constipation Surgical History History of ankle surgery (~2018) ORIF right ankle, Dr Matos History of arthrodesis (09/2019) left 1st, 2nd, and 3rd tarsometatarsal joints by Dr Matos, due to Lisfranc dislocation History of esophagogastroduodenoscopy (EGD) (04/2020) Dr Ruelas History of excision of mass (05/2020) right hip fibroma/granuloma by Dr Gonzales History of nephrectomy (~2013) History of ventriculoperitoneal shunting (~01/04/09) Dr. Cordelia Roche 01/04/2009 Ventriculoperitoneal shunt placement. [employer] Programmable Valve, Siphonguard device. Valve at 15cm H2O. 2010 reprogrammed to 14 cm H2O Hx of appendectomy (~2002) Hx of cholecystectomy (~2003) Hx of hysterectomy Hx of laminectomy S/P hardware removal (10/26/20) deep hardware left foot by Dr Matos Status post hardware removal (04/19/21) deep hardware left foot by Dr Matos Family History Mother Diabetes DM2 Family/Other Cancer MATERNAL AUNT- BREAST CANCER Social History Second hand smoke exposure: No Alcohol intake: never Caregiver/support person: Yes Lives independently: Yes Household members: spouse Marital status: Current occupational status: disabled Mental Status Exam MSE Comments: This is a 51-year old overweight female who appears her stated age in hospital scrubs. She is somewhat disheveled. psychomotor activity increased. Speech is at a regular rate and rhythm, normal volume, good articulation, not pressured. She was angry and complaining and difficult to interview other than her complaints about her medical issues that are not being addressed. Alert, she was very angry and we did not talk about orientation questions Attention and concentration appear to be intact. Memory is intact Mood is angry. Affect is irritable. Thought process is logical and goal-directed. Thought content: Denies auditory and visual hallucinations. No delusions or paranoia are noted. No current suicidal ideation, and no homicidal ideation. Fund of knowledge is appears to be intact. Insight and judgment appear to be poor. Impulse control is poor. Vitals/I&O/Wt Last Vital Signs Temp 98.7 F 07/10/21 06:00 Pulse 88 07/10/21 06:00 Resp 16 07/10/21 06:00 BP 139/80 07/10/21 06:00 Pulse Ox 97 07/10/21 06:00 Weight last 48 hrs Weight 97.522 kg Data [facility] : 07/09/21 22:42 07/09/21 22:42 A&P Assessment and plan (1) Borderline personality disorder: Status: Acute (2) Major depressive disorder: Status: Acute (3) Anxiety disorder: Status: Acute Additional A&P Information Plan: 1. We did not give her any medications. She was only here for about 2 hours and insisted on going home and we allowed her to go home where she felt her medical needs were more adequately addressed. 2. Continue every 15 minute checks for safety. 3. Encourage sober living treatment after discharge at the highest level of care to which she is willing to commit. 4. We will monitor for safety for herself in the community prior to discharge. Involuntary Hold Information 96 Hour Hold: 96 Hour Involuntary Admission: Yes Attestations [facility] Medical Necessity Statement*: Inpatient hospitalization is medically necessary and the clinically appropriate intervention at this time. We will initiate med ications and make changes as indicated. She will be in the hospital for over 2 midnights. Likely length of stay 4-6 days Coding Level of Care Code Acute Student Services Vice President for Rama Meehan Diagnoses Borderline personality disorder F60.3 Major depressive disorder F32.9 Anxiety disorder F41.9
[2021-07-10 10:09] VITALS: BP 139/80; PULSE 88; RESP 16; TEMP 37.1; O2SAT 97
--- NOTE | 2021-07-11 06:44 | P.NPUDS_ITS ---
Diagnoses at Discharge Discharge Diagnosis (1) Borderline personality disorder: Status: Acute (2) Major depressive disorder: Status: Acute (3) Anxiety disorder: Status: Acute Reason for Visit Reason for Visit: SI Brief History: History of Present Illness Tabby Gan is a 51 year old female admitted through the emergency department with the following report: HPI Narrative: 51-year-old female who is here by EMS for suicidal ideation. Patient here has an extremely flat affect just covers her head with a blanket normal hardly even speak to me at all. She will answer any my questions her is here and states that she has had increasing depression that she had told him today that she just wanted to she laid in the floor when I get up has been sleeping much more lately Associated symptoms: Reports depression and suicidal ideation She was recently discharged from this unit approximately 1 month ago with the following discharge summary: Reason for Visit Reason for Visit: MHE Brief History: History of Present Illness Tabby Gan is a 51 year old female who presented to the ED with the following report: Chief Complaint: Psychiatric Symptoms Stated Complaint: MHE Time Seen by Provider: 06/15/21 14:20 History of Present Illness: HPI Narrative: Ms Gan is a 51-year-old lady with complex past medical history including psychiatric disorder who presents emergency department due to altered mental status and behavior changes. She has had a longstanding history of depression and was previously started on vilazodone. This was increased about a week ago from 10 mg to 20 mg. Last definitive normal as far as behavior and mental status change was about 4 days ago however today has been noticed that she was confused, agitated, and not acting like her normal self. She has difficulty characterizing her symptoms and shows emotional lability. She does endorse hallucinations and not feeling herself. She is unsure specifically of infectious symptoms however did feel flushed and hot yesterday. She otherwise denies changes in health. No similar episodes. No other known specific exacerbating or relieving factors. She was admitted to the neuropsychiatric unit for definitive treatment of those issues. Patient presents today reporting that she has had multiple psychiatric inpatient services and history of outpatient services in this system. Her last noted inpatient stay was in 2018. She reports that she has been making a medication change and that led to her feeling really odd and she discontinued that medication. She came to the hospital because she was feeling odd but she reports that now those feelings have passed and she knows that it was a drug reaction. She reports that there is no need for continued hospitalization and she denies any lethality. We discussed that we would work on evaluating this information by getting collateral information and ensuring that there are no concerns for safety outside of the hospital. She reports that things are stable at home she denies any problems with her life right now and that she was just reacting to this reaction that she had from the medication. An excerpt from her past outpatient psychiatric evaluation is included below for context. Per her 05/31/2015 [facility] [place] outpatient psychiatric evaluation: [facility] [place] Psychiatric Evaluation 900-1000 CHIEF COMPLAINT: I am not sleeping well. HISTORY OF PRESENT ILLNESS: The patient has been previously seen at [facility]. She was then admitted for worsening symptoms of her bipolar disorder. She reported that she was also diagnosed with sleep disordered breathing but has been non compliant to her CPAP due to mask related difficulties. She has been seeing another psychiatrist who has continued her medications. She is not sure that she needs continued follow up here at [facility] [place]. She reported mood irregularities and fluctuations. She suffers from a variety of both physical and mental disorders. She has been many times in mental institutes for bipolar disorder, borderline personality disorder and anxiety disorder. She reported chronic suicidal thoughts. She denied current active thoughts of suicide. She has had history of hearing voices at times telling her to her harm herself. She feels worsening anxiety. She cannot get a deeper asleep. She wakes up gasping for air. She has reported snoring. She has comorbid medical issues likely contributing to also possible obstructive sleep apnea. Somatic symptoms. She has been seeing Neurology services for pseudoseizures. PAST MEDICAL HISTORY: Arrhythmia, hypertension, anemia, diabetes, hyperlipidemia, pseudoseizures, hydrocephalus, irritable bowel syndrome, gastroesophageal reflux disease, gout and fibromyalgia. 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 MEDICATIONS: BuSpar 10 milligrams twice daily. Lamictal 200 milligrams in the morning. Docusate 300 milligrams daily. Celexa 40 milligrams daily. Aspirin 81 milligrams daily. Zonegran 300 milligrams at bedtime. Seroquel 25 milligrams at bedtime. Lopressor 12.5 milligrams twice daily. Methadone 20 milligrams three times daily. Lamictal 400 milligrams at bedtime. Morphine 15 to 30 milligrams four times daily p.r.n. Insulin. ALLERGIES: Fentanyl. SOCIAL HISTORY: The patient reported that she has a daughter who is 20-year-old. She is . Her had sleep apnea. 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 The last time she was employed was 5 years ago. Her is an electrolysis engineer. REVIEW OF SYSTEMS: Review of systems is as described above. Otherwise, the rest of the Review of Systems is negative. FAMILY HISTORY: Denied a family history of psychiatric illness. SUBSTANCE ABUSE HISTORY: She has denied. PHYSICAL EXAMINATION: She was seen through telepsychiatry MENTAL STATUS EXAM: Somewhat anxious. Cooperative. She has good eye contact, spontaneous. speech. Normal rate, volume and tone of speech. Poor insight and judgment. Reports no active suicidal thoughts. She denied current hearing of voices. Described her mood as being very labile. Anxious mood was also reported. Attention and concentration is fair. ASSESSMENT: Bipolar disorder, mixed. F 31.60 Panic disorder. F 41.0 Post-traumatic stress disorder. F 43.1 Borderline personality disorder. 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 Obstructive sleep apnea Global Assessment of Functionin Hospital Course Hospital Course She quickly acclimated to the individual, group and milieu therapies provided. She never endorsed any lethality nor were there any concerns expressed by previous providers that there was a concern. She had a likely response to a medication and/or interaction between medications which led to strange behavior which had resolved by the time she saw this documentation writer. She had no safety issues and had scheduled appointments in place. She wanted to pursue any adjustments with her outpatient team. She was able to contract for safety prior to d ischarge. During the hospitalization, she had routine laboratory studies which were within normal limits except for a few outliers. She also had a general medical evaluation which was also within normal limits and revealed no new acute processes outside of her mental status changes. She was seen by hospitalist for medical clearance to ensure there was no clear medical explanation for her presentation. At the time of discharge, she denied lethality or psychosis. Her mood and anxiety were well managed. She endorsed a plan to avoid all drugs of abuse and follow-up with her outpatient appointments that were already in place. She was evaluated and deemed to be absent credible lethality and was a voluntary patient so she was allowed to discharge. She was admitted to the neuropsychiatry unit for definitive treatment of these issues. She was angry that she was in the hospital. She complained of not getting her medication and having terrible pain and it felt like her brain was coming out her ear. She complained that she had medication at home for her urinary tract infection which she felt was a large part of her problem. Her also agreed that she should be home. He did not feel that her statement of wanting to kill herself was credible. They were both adamant that she was safe to go home and she was allowed to return home. Hospital Course Hospital Course She slowly acclimated to the individual, group and milieu therapies provided. She was not given medication because she insisted on leaving immediately after arrival. She was able to contract for safety outside hospital prior to discharge. During the hospitalization, patient had routine laboratory studies which were within normal limits except for few outliers. Additionally there was a general medical evaluation which was also within normal limits and revealed no new acute processes. Discharge Summary: At the time of discharge, lethality was denied. Mood and anxiety were well managed. Patient endorsed a plan to follow-up with the aftercare recommendations of the treatment team. Patient was evaluated and deemed to be absent credible lethality, and had achieved the maximum benefit from an inpatient hospitalization, so was discharged. Involuntary Hold Information 96 Hour Hold: 96 Hour Involuntary Admission: Yes Mental Status Exam MSE Comments: This is a 51-year old overweight female who appears her stated age in hospital scrubs. She is somewhat disheveled. psychomotor activity increased. Speech is at a regular rate and rhythm, normal volume, good articulation, not pressured. She was angry and complaining and difficult to interview other than her complaints about her medical issues that are not being addressed. Alert, she was very angry and we did not talk about orientation questions Attention and concentration appear to be intact. Memory is intact Mood is angry. Affect is irritable. Thought process is logical and goal-directed. Thought content: Denies auditory and visual hallucinations. No delusions or paranoia are noted. No current suicidal ideation, and no homicidal ideation. Fund of knowledge is appears to be intact. Insight and judgment appear to be poor. Impulse control is poor. Cognition: Level of Consciousness: Awake, Alert and Appropriate Patient Cognition Impaired: No Ability to Follow Directions: Fair Patient Orientation (long list): Time Comprehension Ability: No Impairment Hallucination Type: None Delusion Description: Not Present Thought Process: Blocking Affect: Affect Description: Appropriate and Anxious Depressive Symptoms: Unhappiness Behavior: Patient Behavior: Appropriate and Cooperative Speech Pattern: Appropriate, Clear and Delayed Discharge Data Data Completed and Pending: Pending at discharge Category Date Time Status Urine Culture Sta t Lab 07/10/21 03:30 Received Vitals: Last Vital Signs Temp 98.7 F 07/10/21 10:09 Pulse 88 07/10/21 10:09 Resp 16 07/10/21 10:09 BP 139/80 07/10/21 10:09 Pulse Ox 97 07/10/21 10:09 Discharge Plan Discharge Patient Disposition: Home Condition: Stable Prescriptions: Continued bupropion HCl 75 mg tablet 75 mg PO BID@0700,2100 RF: 0 Trulicity 1.5 mg/0.5 mL pen injector 1.5 mg SUBCUT Q7D RF: 0 epinephrine 0.3 mg/0.3 mL auto-injector 0.3 mg IM ONCE PRN (Reason: Allergic Reaction) RF: 0 metoprolol tartrate 25 mg tablet 25 mg PO BID@0700,2100 RF: 0 (DME) Sole Supports See Rx Instructions .ROUTE .MEDSUPPLY Qty: 1 RF: 0 fentanyl 50 mcg/hr patch 72 hour 1 patch transdermal Q72H 30 Days Qty: 10 RF: 0 oxycodone-acetaminophen 10-325 mg tablet 1 tab PO TID PRN (Reason: pain) 30 Days Qty: 90 RF: 0 biotin 10,000 mcg capsule 10,000 mcg PO DAILY@0700 RF: 0 estradiol 0.5 mg tablet 1 mg PO DAILY RF: 0 diazepam [Valium] 2 mg tablet 2.5 mg PO BID PRN (Reason: Anxiety) RF: 0 (DME) Diabetic Shoes See Rx Instructions .ROUTE .MEDSUPPLY Qty: 1 RF: 0 sulfamethoxazole-trimethoprim [Bactrim DS] 800-160 mg tablet 1 tab PO Q12H 7 Days Qty: 14 RF: 0 gabapentin 400 mg capsule 400 mg PO TID@06,12,18 RF: 0 melatonin 1 mg Tablet 1 mg PO BEDTIME@2100 RF: 0 diphenhydramine HCl [Benadryl Allergy] 25 mg Tablet 25 mg PO TID PRN (Reason: Allergic Symptoms) RF: 0 fish,bora,flax oils-om3,6,9no1 [Triple [place] 3-6-9] 400-400-400 mg Capsule 3 cap PO DAILY@2100 RF: 0 multivitamin Tablet 1 tab PO DAILY Qty: 0 RF: 0 pantoprazole 40 mg tablet,delayed release (DR/EC) 40 mg PO BID@0700,2100 RF: 0 Premarin 0.625 mg/gram cream See Rx Instructions .ROUTE .COMPLEX RF: 0 aspirin 81 mg Tablet,Chewable 81 mg PO DAILY PRN (Reason: with metoclopramide) Qty: 0 RF: 0 metoclopramide HCl 10 mg tablet 10 mg PO PRN RF: 0 phenazopyridine 200 mg Tablet 200 mg PO TID RF: 0 methocarbamol 500 mg tablet 1,000 mg PO TID PRN (Reason: Muscle Pain) RF: 0 atorvastatin 20 mg tablet 20 mg PO DAILY RF: 0 hydroxyzine pamoate 50 mg capsule 50 mg PO TID@,, RF: 0 lactulose 10 gram/15 mL solution 15 ml PO BID PRN (Reason: Constipation) RF: 0 Vitamin B-2 25 mg Tablet 25 mg PO DAILY RF: 0 lamotrigine [Lamictal] 200 mg Tablet 200 mg PO BID RF: 0 valacyclovir 1 gram Tablet 1,000 mg PO BID RF: 0 docusate sodium [Stool Softener] 100 mg Capsule 200 mg PO BID RF: 0 magnesium 250 mg Tablet 250 mg PO DAILY RF: 0 prazosin 2 mg Capsule 4 mg PO BEDTIME RF: 0 Dialyvite 100-1 mg Tablet 1 tab PO DAILY RF: 0 Myrbetriq 25 mg tablet extended release 24 hr 25 mg PO DAILY MDD see pharmacy comment RF: 0 sfvjnwpe-ksqwtoevva-pcju-hops 490 mg Capsule 1 cap PO DAILY RF: 0 Discharge Orders: Discharge Order (Routine); Ordered 07/10/21 Ordered By: Van James Referrals: Linda Erickson MD [Primary Care Provider] - Discharge Diet: Regular Discharge Activity: Resume usual activity Patient Instructions: Bipolar Disorder (ED), Opioid Safety Discharge Attestations [facility] Time Spent in Discharge Care*: less than 30 min Specific Discharge Activities: Specific discharge activities: educating patient, discussing with pillowcase cleaner/social workers/dc planners, documenting/other paperwork and evaluating patient/reviewing data Coding Level of Care Code Acute g FW MO note Diagnoses Borderline personality disorder F60.3 Major depressive disorder F32.9 Anxiety disorder F41.9
== END 2021-07-10 11:05 | disposition home or self-care (01) ==
LOC: ER 23:09 → NP 07-10 09:52
PROVIDERS: Admitting Provider Psychiatry & Neurology Psychiatry; Emergency Provider Emergency Medicine; PCP Family Medicine; Visit Provider Psychiatry & Neurology Psychiatry
DX: F60.3 Borderline personality disorder (principal); F32.9 Major depressive disorder, single episode, unspecified; F41.9 Anxiety disorder, unspecified; I10 Essential (primary) hypertension; E11.9 Type 2 diabetes mellitus without complications; E78.5 Hyperlipidemia, unspecified; K21.9 Gastro-esophageal reflux disease without esophagitis; M79.7 Fibromyalgia; D64.9 Anemia, unspecified; M10.9 Gout, unspecified; Z79.82 Long term (current) use of aspirin; Z79.891 Long term (current) use of opiate analgesic
CPT/HCPCS: 80053; 80306; 80307; 81001; 85025; 87077; 87086; 87186; 93005; 99285; G0378

== ENCOUNTER 2021-07-22 01:48 | Emergency (ER) | payer BC, SELFPAY ==
[2021-07-22] VITALS (29 sets, daily range): BP systolic 107–123; BP diastolic 63–81; PULSE 79–84; RESP 11–23; TEMP 36.7; O2SAT 89–97; BMI 29.2
--- NOTE | 2021-07-22 01:55 | XRR_ITS ---
PROCEDURE INFORMATION: Exam: XR Chest Exam date and time: 07/22/2021 1:55 AM Age: 51 years old Clinical indication: Sternal or substernal pain; Prior surgery; Surgery date: 6+ months; Additional info: Chest pain TECHNIQUE: Imaging protocol: XR of the chest. Views: 1 view. Total images: 1 COMPARISON: CR (CHEST, ) 06/20/2021 2:17 AM FINDINGS: Lungs: Unremarkable. No consolidation. Pleural spaces: Unremarkable. No pleural effusion. No pneumothorax. Heart/Mediastinum: Unremarkable. No cardiomegaly. Bones/joints: Partially visualized spinal fusion hardware noted. Osseous structures are unchanged from the prior exam. XR/XR chest 1V portable [id number] IMPRESSION: No acute cardiopulmonary process. Radiation Dose CTDIVOL = (mGy): DLP = (mGy-cm)
--- NOTE | 2021-07-22 01:55 | ECG_ITS ---
[facility] Test Date: 2021-07-22 Pat Name: Tabby Gan Department: Room: Gender: Female Molecular Geneticist: : 1970 Requested By: Yoshi Steward Order Number: [id number] Mamadou MD: Gordo Burch M.D. Measurements Intervals [place] Rate: 81 P: 43 LA: 141 QRS: 2 QRSD: 93 T: 14 QT: 405 QTc: 471 Interpretive Statements SINUS RHYTHM Compared to ECG 07/09/2021 23:02:21 No significant changes Electronically Signed On 07-22-2021 16:58:55 OFFICE SERVICE COORDINATOR by Gordo Burch M.D. [id number]
--- NOTE | 2021-07-22 01:57 | ED_ITS ---
Documented by User: KADEN Morejon 07/22/21 02:31 HPI - Chest Pain General: Chief Complaint: Chest Pain Stated Complaint: Chest Pain Time Seen by Provider: 07/22/21 01:57 History of Present Illness: HPI narrative: 51-year-old female comes in today with complaints of chest discomfort radiating to her left arm with tingling going into the fingertips. Patient reports that it started this afternoon but then worsened tonight at about 8:00. Patient reports similar episode about a year ago and was diagnosed with an esophageal spasm. Patient does have a history of diabetes mellitus type 2, neuropathy, intervertebral disc disease, anxiety, chronic pain, chronic opioid use, chronic kidney disease, 1 active kidney, [employer] WORK[employer] shunt, pseudotumor cerebri, degenerative disc disease of the spine. Patient took 3 nitro tablets at home without any relief of pain prior to coming to ER. Review of Systems General: Reports: 10 or more systems reviewed and unremarkable except in HPI and below Card: Reports: chest pain [facility] ED PFSH: Medical History Abdominal pain chronic Anxiety Chronic kidney disease DDD (degenerative disc disease), cervical DDD (degenerative disc disease), lumbar Depression Diabetes mellitus, type II Diabetic peripheral neuropathy associated with type 2 diabetes mellitus Facet syndrome, lumbar Fibromyalgia GERD (gastroesophageal reflux disease) History of pulmonary function tests (01/2020) normal Hyperlipidemia Long-term current use of opiate analgesic Lumbosacral spondylosis with radiculopathy Panic attacks Seizures Therapeutic opioid induced constipation Surgical History History of ankle surgery (~2018) ORIF right ankle, Dr Matos History of arthrodesis (09/2019) left 1st, 2nd, and 3rd tarsometatarsal joints by Dr Matos, due to Lisfranc dislocation History of esophagogastroduodenoscopy (EGD) (04/2020) Dr Ruelas History of excision of mass (05/2020) right hip fibroma/granuloma by Dr Gonzales History of nephrectomy (~2013) History of ventriculoperitoneal shunting (~01/04/09) Dr. Cordelia Roche 01/04/2009 Ventriculoperitoneal shunt placement. William Aaron Programmable Valve, Siphonguard device. Valve at 15cm H2O. 2010 reprogrammed to 14 cm H2O Hx of appendectomy (~2002) Hx of cholecystectomy (~2003) Hx of hysterectomy Hx of laminectomy S/P hardware removal (10/26/20) deep hardware left foot by Dr Matos Status post hardware removal (04/19/21) deep hardware left foot by Dr Matos Family History Mother Diabetes DM2 Family/Other Cancer MATERNAL AUNT- BREAST CANCER Social History Second hand smoke exposure: No Alcohol intake: never Caregiver/support person: Yes Lives independently: Yes Household members: spouse Marital status: Current occupational status: disabled Physical Exam Const: COMMON NORMALS: no acute distress and patient oriented x3 GENERAL APPEARANCE: cooperative HENMT: COMMON NORMALS: normocephalic and Normal external nose present HEAD & SCALP: normal to inspection and normocephalic NOSE: Normal external nose present MOUTH: Normal oral and palatal mucosa present Eye: GENERAL EYE: appearance normal, both eyes and all related structures Neck/C-Spine: COMMON NORMALS: full ROM Lymph: LYMPHATIC: no lymphadenopathy noted Chest: COMMONS NORMALS: normal inspection of the chest Resp: COMMON NORMALS: normal respiratory effort EFFORT & INSPECTION: Yes able to speak in complete sentences Cardio: COMMON NORMALS: regular rate and regular rhythm RATE: regular rate RHYTHM: regular rhythm GI: COMMON NORMALS: Soft to palpation and non-tender AUSCULTATION: Yes normoactive bowel sounds PALPATION: Yes Soft to palpation, No Guarding due to palpation present (GI) and No Rebound tenderness present : COMMON NORMALS: Yes no CVA tenderness BLADDER/KIDNEY EXAM: Yes no CVA tenderness Back/Pelvis: COMMON NORMALS: no CVA tenderness and thoracic and lumbar spine normal to inspection Extremity: NARRATIVE EXTREMITY EXAM: Some pain and discomfort was elicited with movement of the left shoulder. Neuro: COMMON NORMALS: patient oriented x3 and moves all extremities Psych: COMMON NORMALS: mental status grossly normal and cooperative Skin: COMMON NORMALS: no rashes or lesions noted GENERAL SKIN EXAM: no rashes or lesions noted Course ED course: 10 06, discussed with Dr. Jarrett patient's chest pain. I believe the pain might be more due to musculoskeletal issue versus cardiac. I requested IV ketamine for pain at [address] Jarrett agreed to plan an order was placed. Vital Signs: Vital signs: Vital Signs Temperature 98.1 F 07/22/21 02:00 Pulse Rate 84 07/22/21 02:00 Respiratory Rate 18 07/22/21 03:22 Blood Pressure 114/73 07/22/21 02:00 Pulse Oximetry 96 07/22/21 02:00 MDM - Chest Pain Lab Data: Labs: Lab Results 07/22/21 07/22/21 07/22/21 02:03 02:03 02:03 WBC 6.6 10^3/uL 10^3/ uL (4.0-10.0) RBC 4.35 10^6/uL 10^6 /uL (4.1-5.3) Hgb 11.8 g/dL g/dL (11.5-15.3) Hct 37.4 % % (37.0-47.0) MCV 86.0 fl fl (81-99) MCH 27.1 pg L pg (28.0-34.0) MCHC 31.6 g/dL g/dL (30.0-36.0) RDW 12.2 % % (12.1-15.1) Plt Count 155 10^3/cmm 10^3 /cmm (130-400) MPV 9.6 fL fL (7.4-10.4) Neut % (Auto) 52.7 % % Lymph % (Auto) 32.6 % % [place] % (Auto) 9.4 % % Eos % (Auto) 4.1 % % Baso % (Auto) 0.6 % % Neut # (Auto) 3.47 10^3/uL 10^3 /uL (1.8-7.7) Lymph # (Auto) 2.2 10^3/uL 10^3/ uL (0.8-4.8) [place] # (Auto) 0.6 10^3/uL 10^3/ uL (0.2-0.9) Eos # (Auto) 0.3 10^3/uL 10^3/ uL (0.0-0.8) Baso # (Auto) 0.0 10^3/uL 10^3/ uL (0.0-0.1) Nucleated RBC % (a uto) 0 % % Nucleated RBCs # 0.0 /100WBC /100W BC D-Dimer Sodium 138 mmol/L mmol/L (136-145) Potassium 4.3 mmol/L mmol/L (3.5-5.1) Chloride 104 mmol/L mmol/L (98-107) Carbon Dioxide 22 mmol/L mmol/L (22-29) Anion Gap 16.3 (5-19) BUN 19 mg/dL mg/dL (6-20) Creatinine 1.2 mg/dL H mg/dL (0.5-0.9) GFR Calculation 47.6 mL/min L mL/ min (90-130) Glucose 195 mg/dL H mg/dL (65-115) Calculated Osmolal ity 294 mOsm/kg mOsm/ kg (285-295) Calcium 8.0 mg/dL L mg/dL (8.5-10.5) Total Bilirubin 0.2 mg/dL mg/dL (0.15-1.2) AST 13 U/L U/L (0-32) ALT 16 U/L U/L (0-33) Alkaline Phosphata se 97 IU/L IU/L (35-105) Troponin T Baselin e 6 ng/L ng/L (0-10) NT-Pro-B Natriuret Pep 136 pg/mL H pg/mL (0-125) Total Protein 5.9 g/dL L g/dL (6.6-8.7) Albumin 3.6 g/dL g/dL (3.5-5.2) Globulin 2.3 g/dL g/dL (1.3-4.6) 07/22/21 02:03 WBC RBC Hgb Hct MCV MCH MCHC RDW Plt Count MPV Neut % (Auto) Lymph % (Auto) Mckin[place] % (Auto) Eos % (Auto) Baso % (Auto) Neut # (Auto) Lymph # (Auto) Mck[place] # (Auto) Eos # (Auto) Baso # (Auto) Nucleated RBC % (a uto) Nucleated RBCs # D-Dimer 0.39 ug/mIFEU ug/ mIFEU (0-0.59) Sodium Potassium Chloride Carbon Dioxide Anion Gap BUN Creatinine GFR Calculation Glucose Calculated Osmolal ity Calcium Total Bilirubin AST ALT Alkaline Phosphata se Troponin T Baselin e NT-Pro-B Natriuret Pep Total Protein Albumin Globulin Discharge Plan Discharge Patient Disposition: Home Clinical Impression: Chest pain Qualifiers: Chest pain type: unspecified Qualified Code(s): R07.9 - Chest pain, unspecified Condition: Stable Prescriptions: No Action bupropion HCl 75 mg tablet 75 mg PO BID@0700,2099 RF: 0 Trulicity 1.5 mg/0.5 mL pen injector 1.5 mg SUBCUT Q7D RF: 0 epinephrine 0.3 mg/0.3 mL auto-injector 0.3 mg IM ONCE PRN (Reason: Allergic Reaction) RF: 0 metoprolol tartrate 25 mg tablet 25 mg PO BID@0700,2099 RF: 0 (DME) Sole Supports See Rx Instructions .ROUTE .MEDSUPPLY Qty: 1 RF: 0 fentanyl 50 mcg/hr patch 72 hour 1 patch transdermal Q72H 30 Days Qty: 10 RF: 0 oxycodone-acetaminophen 10-325 mg tablet 1 tab PO TID PRN (Reason: pain) 30 Days Qty: 90 RF: 0 biotin 10,000 mcg capsule 10,000 mcg PO DAILY@0700 RF: 0 estradiol 0.5 mg tablet 1 mg PO DAILY RF: 0 diazepam [Valium] 2 mg tablet 2.5 mg PO BID PRN (Reason: Anxiety) RF: 0 (DME) Diabetic Shoes See Rx Instructions .ROUTE .MEDSUPPLY Qty: 1 RF: 0 sulfamethoxazole-trimethoprim [Bactrim DS] 800-160 mg tablet 1 tab PO Q12H 7 Days Qty: 14 RF: 0 gabapentin 400 mg capsule 400 mg PO TID@06,12,18 RF: 0 melatonin 1 mg Tablet 1 mg PO BEDTIME@2099 RF: 0 diphenhydramine HCl [Benadryl Allergy] 25 mg Tablet 25 mg PO TID PRN (Reason: Allergic Symptoms) RF: 0 fish,bora,flax oils-om3,6,9no1 [Triple [place] 3-6-9] 400-400-400 mg Capsule 3 cap PO DAILY@2099 RF: 0 multivitamin Tablet 1 tab PO DAILY Qty: 0 RF: 0 pantoprazole 40 mg tablet,delayed release (DR/EC) 40 mg PO BID@0700,2100 RF: 0 Premarin 0.625 mg/gram cream See Rx Instructions .ROUTE .COMPLEX RF: 0 aspirin 81 mg Tablet,Chewable 81 mg PO DAILY PRN (Reason: with metoclopramide) Qty: 0 RF: 0 metoclopramide HCl 10 mg tablet 10 mg PO PRN RF: 0 phenazopyridine 200 mg Tablet 200 mg PO TID RF: 0 methocarbamol 500 mg tablet 1,000 mg PO TID PRN (Reason: Muscle Pain) RF: 0 atorvastatin 20 mg tablet 20 mg PO DAILY RF: 0 hydroxyzine pamoate 50 mg capsule 50 mg PO TID@07,, RF: 0 lactulose 10 gram/15 mL solution 15 ml PO BID PRN (Reason: Constipation) RF: 0 Vitamin B-2 25 mg Tablet 25 mg PO DAILY RF: 0 lamotrigine [Lamictal] 200 mg Tablet 200 mg PO BID RF: 0 valacyclovir 1 gram Tablet 1,000 mg PO BID RF: 0 docusate sodium [Stool Softener] 100 mg Capsule 200 mg PO BID RF: 0 magnesium 250 mg Tablet 250 mg PO DAILY RF: 0 prazosin 2 mg Capsule 4 mg PO BEDTIME RF: 0 Dialyvite 100-1 mg Tablet 1 tab PO DAILY RF: 0 Myrbetriq 25 mg tablet extended release 24 hr 25 mg PO DAILY MDD see pharmacy comment RF: 0 kvcojqmf-tjfmphteyt-fyko-hops 490 mg Capsule 1 cap PO DAILY RF: 0 clonazepam 0.5 mg Tablet 0.5 mg PO BID RF: 0 nitroglycerin 0.4 mg Tablet, Sublingual 0.4 mg SUBLINGUAL Q5M PRN (Reason: Chest Pain) RF: 0 tizanidine 4 mg Capsule 4 mg PO TID RF: 0 Discharge Orders: Discharge ED (Routine); Ordered 07/22/21 Ordered By: Jorge Jarrett Referrals: Linda Erickson MD [Primary Care Provider] - 4-7 days Activity Restrictions/Additional Instructions: Return to the emergency room for worsening chest pain, shortness of breath, fever greater than 100, other concerning symptoms. Coding Level of Care Code ED Member Services Coordinator for Chg Fwd Exam Comprehensive Documented by User: Jorge Jarrett DO 07/22/21 03:48 HPI - Chest Pain General: Chief Complaint: Chest Pain Stated Complaint: Chest Pain Time Seen by Provider: 07/22/21 01:57 PFSH ED PFSH: Medical History Abdominal pain chronic Anxiety Chronic kidney disease DDD (degenerative disc disease), cervical DDD (degenerative disc disease), lumbar Depression Diabetes mellitus, type II Diabetic peripheral neuropathy associated with type 2 diabetes mellitus Facet syndrome, lumbar Fibromyalgia GERD (gastroesophageal reflux disease) History of pulmonary function tests (01/2020) normal Hyperlipidemia Long-term current use of opiate analgesic Lumbosacral spondylosis with radiculopathy Panic attacks Seizures Therapeutic opioid induced constipation Surgical History History of ankle surgery (~2018) ORIF right ankle, Dr Matos History of arthrodesis (09/2019) left 1st, 2nd, and 3rd tarsometatarsal joints by Dr Matos, due to Lisfranc dislocation History of esophagogastroduodenoscopy (EGD) (04/2020) Dr Ruelas History of excision of mass (05/2020) right hip fibroma/granuloma by Dr Gonzales History of nephrectomy (~2013) History of ventriculoperitoneal shunting (~01/04/09) Dr. Cordelia Roche 01/04/2009 Ventriculoperitoneal shunt placement. William Aaron Programmable Valve, Siphonguard device. Valve at 15cm H2O. 2010 reprogrammed to 14 cm H2O Hx of appendectomy (~2002) Hx of cholecystectomy (~2003) Hx of hysterectomy Hx of laminectomy S/P hardware removal (10/26/20) deep hardware left foot by Dr Matos Status post hardware removal (04/19/21) deep hardware left foot by Dr Matos Family History Mother Diabetes DM2 Family/Other Cancer MATERNAL AUNT- BREAST CANCER Social History Second hand smoke exposure: No Alcohol intake: never Caregiver/support person: Yes Lives independently: Yes Household members: spouse Marital status: Current occupational status: disabled Course Vital Signs: Vital signs: Vital Signs Temperature 98.1 F 07/22/21 02:00 Pulse Rate 84 07/22/21 02:00 Respiratory Rate 18 07/22/21 03:22 Blood Pressure 114/73 07/22/21 02:00 Pulse Oximetry 96 07/22/21 02:00 MDM - Chest Pain MDM Narrative: Medical decision making narrative: This patient was originally seen by KADEN Yoder. I agree with his history, evaluation, and treatment. This is a 51-year-old female with chest pain, and paresthesia to her left upper extremity. She has had a history of cervical fusion in the past. Ketamine helped some with pain, morphine and GI cocktail of helped as well. Her EKG shows a normal sinus rhythm with a normal axis normal intervals rate of 80 and n o acute ST changes whatsoever. Her troponin is 6. Her CBC is normal. Her BMP shows a creatinine of 1.2. Her D-dimer is 0.39. This patient is is on multiple medications for pain. Her chest x-ray is negative. She will be allowed home. Lab Data: Labs: Lab Results 07/22/21 07/22/21 07/22/21 02:03 02:03 02:03 WBC 6.6 10^3/uL 10^3/ uL (4.0-10.0) RBC 4.35 10^6/uL 10^6 /uL (4.1-5.3) Hgb 11.8 g/dL g/dL (11.5-15.3) Hct 37.4 % % (37.0-47.0) MCV 86.0 fl fl (81-99) MCH 27.1 pg L pg (28.0-34.0) MCHC 31.6 g/dL g/dL (30.0-36.0) RDW 12.2 % % (12.1-15.1) Plt Count 155 10^3/cmm 10^3 /cmm (130-400) MPV 9.6 fL fL (7.4-10.4) Neut % (Auto) 52.7 % % Lymph % (Auto) 32.6 % % Mck[place] % (Auto) 9.4 % % Eos % (Auto) 4.1 % % Baso % (Auto) 0.6 % % Neut # (Auto) 3.47 10^3/uL 10^3 /uL (1.8-7.7) Lymph # (Auto) 2.2 10^3/uL 10^3/ uL (0.8-4.8) M[place] # (Auto) 0.6 10^3/uL 10^3/ uL (0.2-0.9) Eos # (Auto) 0.3 10^3/uL 10^3/ uL (0.0-0.8) Baso # (Auto) 0.0 10^3/uL 10^3/ uL (0.0-0.1) Nucleated RBC % (a uto) 0 % % Nucleated RBCs # 0.0 /100WBC /100W BC D-Dimer Sodium 138 mmol/L mmol/L (136-145) Potassium 4.3 mmol/L mmol/L (3.5-5.1) Chloride 104 mmol/L mmol/L (98-107) Carbon Dioxide 22 mmol/L mmol/L (22-29) Anion Gap 16.3 (5-19) BUN 19 mg/dL mg/dL (6-20) Creatinine 1.2 mg/dL H mg/dL (0.5-0.9) GFR Calculation 47.6 mL/min L mL/ min (90-130) Glucose 195 mg/dL H mg/dL (65-115) Calculated Osmolal ity 294 mOsm/kg mOsm/ kg (285-295) Calcium 8.0 mg/dL L mg/dL (8.5-10.5) Total Bilirubin 0.2 mg/dL mg/dL (0.15-1.2) AST 13 U/L U/L (0-32) ALT 16 U/L U/L (0-33) Alkaline Phosphata se 97 IU/L IU/L (35-105) Troponin T Baselin e 6 ng/L ng/L (0-10) NT-Pro-B Natriuret Pep 136 pg/mL H pg/mL (0-125) Total Protein 5.9 g/dL L g/dL (6.6-8.7) Albumin 3.6 g/dL g/dL (3.5-5.2) Globulin 2.3 g/dL g/dL (1.3-4.6) 07/22/21 02:03 WBC RBC Hgb Hct MCV MCH MCHC RDW Plt Count MPV Neut % (Auto) Lymph % (Auto) [place] % (Auto) Eos % (Auto) Baso % (Auto) Neut # (Auto) Lymph # (Auto) [place] # (Auto) Eos # (Auto) Baso # (Auto) Nucleated RBC % (a uto) Nucleated RBCs # D-Dimer 0.39 ug/mIFEU ug/ mIFEU (0-0.59) Sodium Potassium Chloride Carbon Dioxide Anion Gap BUN Creatinine GFR Calculation Glucose Calculated Osmolal ity Calcium Total Bilirubin AST ALT Alkaline Phosphata se Troponin T Baselin e NT-Pro-B Natriuret Pep Total Protein Albumin Globulin Discharge Plan Discharge Patient Disposition: Home Clinical Impression: Chest pain Qualifiers: Chest pain type: unspecified Qualified Code(s): R07.9 - Chest pain, unspecified Condition: Stable Prescriptions: No Action bupropion HCl 75 mg tablet 75 mg PO BID@0700,2100 RF: 0 Trulicity 1.5 mg/0.5 mL pen injector 1.5 mg SUBCUT Q7D RF: 0 epinephrine 0.3 mg/0.3 mL auto-injector 0.3 mg IM ONCE PRN (Reason: Allergic Reaction) RF: 0 metoprolol tartrate 25 mg tablet 25 mg PO BID@0700,2100 RF: 0 (DME) Sole Supports See Rx Instructions .ROUTE .MEDSUPPLY Qty: 1 RF: 0 fentanyl 50 mcg/hr patch 72 hour 1 patch transdermal Q72H 30 Days Qty: 10 RF: 0 oxycodone-acetaminophen 10-325 mg tablet 1 tab PO TID PRN (Reason: pain) 30 Days Qty: 90 RF: 0 biotin 10,000 mcg capsule 10,000 mcg PO DAILY@0700 RF: 0 estradiol 0.5 mg tablet 1 mg PO DAILY RF: 0 diazepam [Valium] 2 mg tablet 2.5 mg PO BID PRN (Reason: Anxiety) RF: 0 (DME) Diabetic Shoes See Rx Instructions .ROUTE .MEDSUPPLY Qty: 1 RF: 0 sulfamethoxazole-trimethoprim [Bactrim DS] 800-160 mg tablet 1 tab PO Q12H 7 Days Qty: 14 RF: 0 gabapentin 400 mg capsule 400 mg PO TID@06,12,18 RF: 0 melatonin 1 mg Tablet 1 mg PO BEDTIME@2100 RF: 0 diphenhydramine HCl [Benadryl Allergy] 25 mg Tablet 25 mg PO TID PRN (Reason: Allergic Symptoms) RF: 0 fish,bora,flax oils-om3,6,9no1 [Triple [place] 3-6-9] 400-400-400 mg Capsule 3 cap PO DAILY@2100 RF: 0 multivitamin Tablet 1 tab PO DAILY Qty: 0 RF: 0 pantoprazole 40 mg tablet,delayed release (DR/EC) 40 mg PO BID@0700,2100 RF: 0 Premarin 0.625 mg/gram cream See Rx Instructions .ROUTE .COMPLEX RF: 0 aspirin 81 mg Tablet,Chewable 81 mg PO DAILY PRN (Reason: with metoclopramide) Qty: 0 RF: 0 metoclopramide HCl 10 mg tablet 10 mg PO PRN RF: 0 phenazopyridine 200 mg Tablet 200 mg PO TID RF: 0 methocarbamol 500 mg tablet 1,000 mg PO TID PRN (Reason: Muscle Pain) RF: 0 atorvastatin 20 mg tablet 20 mg PO DAILY RF: 0 hydroxyzine pamoate 50 mg capsule 50 mg PO TID@ RF: 0 lactulose 10 gram/15 mL solution 15 ml PO BID PRN (Reason: Constipation) RF: 0 Vitamin B-2 25 mg Tablet 25 mg PO DAILY RF: 0 lamotrigine [Lamictal] 200 mg Tablet 200 mg PO BID RF: 0 valacyclovir 1 gram Tablet 1,000 mg PO BID RF: 0 docusate sodium [Stool Softener] 100 mg Capsule 200 mg PO BID RF: 0 magnesium 250 mg Tablet 250 mg PO DAILY RF: 0 prazosin 2 mg Capsule 4 mg PO BEDTIME RF: 0 Dialyvite 100-1 mg Tablet 1 tab PO DAILY RF: 0 Myrbetriq 25 mg tablet extended release 24 hr 25 mg PO DAILY MDD see pharmacy comment RF: 0 vknbgeem-jazvziwfst-jiaz-hops 490 mg Capsule 1 cap PO DAILY RF: 0 clonazepam 0.5 mg Tablet 0.5 mg PO BID RF: 0 nitroglycerin 0.4 mg Tablet, Sublingual 0.4 mg SUBLINGUAL Q5M PRN (Reason: Chest Pain) RF: 0 tizanidine 4 mg Capsule 4 mg PO TID RF: 0 Discharge Orders: Discharge ED (Routine); Ordered 07/22/21 Ordered By: Jorge Jarrett Referrals: Linda Erickson MD [Primary Care Provider] - 4-7 days Activity Restrictions/Additional Instructions: Return to the emergency room for worsening chest pain, shortness of breath, fever greater than 100, other concerning symptoms. Coding Level of Care Code ED Member Services Coordinator for Chg Fwd Exam Comprehensive
[2021-07-22 02:10] LABS: Basophils % 0.6 %; Eosinophils # 0.3 10^3/uL (0.0-0.8); Eosinophils % 4.1 %; Hematocrit 37.4 % (37.0-47.0); Hemoglobin 11.8 g/dL (11.5-15.3); Lymphocytes # 2.2 10^3/uL (0.8-4.8); Lymphocytes % 32.6 %; Mean Corpuscular HGB Conc 31.6 g/dL (30.0-36.0); Mean Corpuscular Hemoglobin 27.1 pg (28.0-34.0); Mean Platelet Volume 9.6 fL (7.4-10.4); Monocytes # 0.6 10^3/uL (0.2-0.9); Monocytes % 9.4 %; Neutrophils # 3.47 10^3/uL (1.8-7.7); Neutrophils % 52.7 %; Nucleated Red Blood Cells % 0 %; Platelet Count 155 10^3/cmm (130-400); Red Blood Count 4.35 10^6/uL (4.1-5.3); Red Cell Distribution Width 12.2 % (12.1-15.1); White Blood Count 6.6 10^3/uL (4.0-10.0)
[2021-07-22 02:35] LABS: Troponin(5th) Baseline 6 ng/L (0-10)
[2021-07-22 02:36] LABS: D Dimer 0.39 ug/mIFEU (0-0.59)
[2021-07-22 02:40] LABS: Alanine Aminotransferase 16 U/L (0-33); Albumin Level 3.6 g/dL (3.5-5.2); Alkaline Phosphatase 97 IU/L (35-105); Anion Gap 16.3 (5-19); Aspartate Amino Transferase 13 U/L (0-32); Blood Urea Nitrogen 19 mg/dL (6-20); Carbon Dioxide 22 mmol/L (22-29); Chloride 104 mmol/L (98-107); Globulin 2.3 g/dL (1.3-4.6); Glomerular Filtration Rate 47.6 mL/min (90-130); Glucose 195 mg/dL (65-115); NT Pro B Type Natriuretic Pept 136 pg/mL (0-125); Osmolality Calculated 294 mOsm/kg (285-295); Potassium 4.3 mmol/L (3.5-5.1); Sodium 138 mmol/L (136-145); Total Bilirubin 0.2 mg/dL (0.15-1.2); Total Protein 5.9 g/dL (6.6-8.7)
[2021-07-22 02:55] LABS: Creatinine Clr Calc Pharmacy 71.3483
[2021-07-22] MEDS: ondansetron 2 mg/ML SDV 2 mL 4 MG IVP (03:21)
[2021-07-22] MEDS: morphine 4 mg/mL SDV 1 mL 8 MG IVP (03:22)
== END 2021-07-22 04:18 | disposition home or self-care (01) ==
PROVIDERS: Nurse Practitioner Family; Emergency Provider Emergency Medicine; PCP Family Medicine
DX: R07.9 Chest pain, unspecified (principal); Z79.82 Long term (current) use of aspirin; E11.42 Type 2 diabetes mellitus with diabetic polyneuropathy; E78.5 Hyperlipidemia, unspecified
CPT/HCPCS: 71045; 80053; 83880; 84484; 85025; 85378; 93005; 96374; 96375; 99284; J2270; J2405; J3490

== ENCOUNTER → 2021-07-25 15:45 | Outpatient (BNVA) | payer BC, SELFPAY | PROVIDERS: PCP Family Medicine; Visit Provider Registered Nurse Neonatal Intensive Care | DX: N39.0 Urinary tract infection, site not specified (principal) | CPT/HCPCS: 81000 ==

== ENCOUNTER → 2021-09-03 13:13 | Outpatient (BNVA) | payer BC, SELFPAY | PROVIDERS: PCP Family Medicine; Visit Provider Family Medicine Adult Medicine | DX: N39.0 Urinary tract infection, site not specified (principal); N20.0 Calculus of kidney; N18.30 Chronic kidney disease, stage 3 unspecified | CPT/HCPCS: 81000 ==

== ENCOUNTER → 2021-09-05 08:08 | Outpatient (BNVA) | payer BC, SELFPAY | PROVIDERS: PCP Family Medicine; Visit Provider Podiatrist Foot & Ankle Surgery | DX: M25.572 Pain in left ankle and joints of left foot (principal); M19.072 Primary osteoarthritis, left ankle and foot | CPT/HCPCS: 73610; 73630 ==

== ENCOUNTER 2021-09-05 09:42 | Outpatient (CLI) | payer BC, SELFPAY | END 2021-09-05 09:43 | disposition home or self-care (01) | LOC: SPT 09:44 | PROVIDERS: PCP Family Medicine; Visit Provider Podiatrist Foot & Ankle Surgery | DX: Z46.89 Encounter for fitting and adjustment of other specified devices (principal); M19.172 Post-traumatic osteoarthritis, left ankle and foot; M25.372 Other instability, left ankle; M79.672 Pain in left foot | CPT/HCPCS: 97760; L1902 ==

== ENCOUNTER 2021-09-19 01:06 | Observation (INO) | payer BC, SELFPAY ==
[2021-09-19] VITALS (19 sets, daily range): BP systolic 142–195; BP diastolic 87–147; PULSE 86–130; RESP 13–32; TEMP 36.5–37.1; O2SAT 93–99; BMI 29.9
--- NOTE | 2021-09-19 | USCV_ITS ---
Transthoracic Echo Tabby Gan Age: 51 Gender: F : 1970 Exam Date: 09/19/2021 10:53 Ordering Phys: Vielka Gamez MD Technologist: VEL Exam Location: [facility] Indication: HTN Emergency BP: 196 / 97 HR: 90 Rhythm: Sinus Technical Quality: Technically difficult study, Very technically difficult study MEASUREMENTS (Male / Female) Normal Values 2D ECHO LV Diastolic Diameter PLAX 2.2 cm 4.2 - 5.9 / 3.9 - 5.3 cm LV Systolic Diameter PLAX 1.6 cm IVS Diastolic Thickness 1.1 cm 0.6 - 1.0 / 0.6 - 0.9 cm IVS Systolic Thickness 1.2 cm LVPW Diastolic Thickness 0.8 cm 0.6 - 1.0 / 0.6 - 0.9 cm LVPW Systolic Thickness 1.1 cm LVOT Diameter 2.0 cm LV Ejection Fraction 2D Teich 61.2 % LA Diameter 3.1 cm LA Width 2.6 cm LA Height 4.0 cm Aorta at Sinotubular Diameter 1.8 cm M-MODE Aortic Annulus Diameter 2.5 cm LA Ao Ratio MM 1.7 MV E Point Septal Separation 1.8 cm DOPPLER AV Peak Velocity 71.0 cm/s LVOT Peak Velocity 48.0 cm/s AV Area Cont Eq vti 2.0 cm squared AV Area Cont Eq pk 2.1 cm squared MV Peak Velocity 77.0 cm/s MV Area PHT 3.9 cm squared Mitral E to A Ratio 0.6 MV E' Velocity 43.0 cm/s TR Peak Velocity 97.0 cm/s TR Peak Gradient 3.8 mmHg TR Mean Velocity 63.0 cm/s TR Mean Gradient 1.7 mmHg TR Velocity Time Integral 15.5 cm Right Atrial Pressure 3.0 mmHg Pulmonary Artery Systolic Pressu 6.8 mmHg PV Peak Velocity 108.0 cm/s RV Acceleration Time 0.1 s RV Ejection Time 0.3 s RV AcT/ET 0.4 FINDINGS Left Ventricle Technically limited quality echocardiogram because of poor ultrasonic windows. LV systolic function is normal with EF 55 to 60%. Grade 1 diastolic dysfunction. Right Ventricle Grossly normal in size and function. Right Atrium Not well-visualized Left Atrium Not well-visualized Mitral Valve Grossly normal Aortic Valve Not well-visualized. No significant aortic stenosis. Tricuspid Valve Not well visualized Pulmonic Valve Not visualized Pericardium Grossly normal Aorta Grossly normal CONCLUSIONS Limitied quality echocardiogram because of poor ultrasonic windows LV systolic function is normal with EF of 55-60% Grade 1 diastolic dysfunction Valvular structures are not well visualized No prior comparison studies are available Gordo Burch MD (Electronically Signed) Final Date: 20 September 2021 10:47 S
--- NOTE | 2021-09-19 01:18 | ECG_ITS ---
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 [id number]
--- NOTE | 2021-09-19 01:18 | XRR_ITS ---
PROCEDURE INFORMATION: Exam: XR Chest Exam date and time: 09/19/2021 1:18 AM Age: 51 years old Clinical indication: Chest pressure; Patient HX: C/O chest pain with hypertension. ; Additional info: P TECHNIQUE: Imaging protocol: XR of the chest. Views: 1 view. COMPARISON: CR XR chest 1V portable [id number] 07/22/2021 2:19 AM FINDINGS: Lungs: Unremarkable. No consolidation. Pleural spaces: Unremarkable. No pleural effusion. No pneumothorax. Heart/Mediastinum: Unremarkable. No cardiomegaly. Bones/joints: Unremarkable. XR/XR chest 1V portable [id number] IMPRESSION: No acute findings.
--- NOTE | 2021-09-19 01:20 | ED_ITS ---
HPI - Chest Pain General: Chief Complaint: ER Hold Stated Complaint: Chest pain High Blood Pressure Time Seen by Provider: 09/19/21 01:25 Source: patient Mode of arrival: ambulatory Limitations: no limitations History of Present Illness: 57-year-old female states that she was sitting around watching TV roughly 3 hours ago and started having chest pain in the center of her chest that is also going down her left arm. She states she started having palpitations having little anxiety as well patient is tachycardic here and hypertensive. States she had a little shortness of breath states she took nitro spray with no relief of her pain she still has the pain has been constant she rates a 4 out of 10. Associated symptoms: Reports dyspnea and palpitations; Deny abdominal pain, fever(s), nausea or vomiting Review of Systems Const: Denies: fever(s), chills, body aches or change in appetite Eyes: Denies: blurry vision or eye discomfort ENMT: Denies: throat pain or dental pain Card: Reports: chest pain and palpitations Resp: Reports: dyspnea GI: Denies: abdominal pain, nausea, vomiting or diarrhea : Denies: dysuria Musc: Denies: neck pain or back pain Skin/Breast: Denies: rash Neuro: Denies: headache(s) Psych: Denies: depression Fletcher/Lymph: Denies: easy bruising All/Imm: Denies: urticaria PFSH ED PFSH: Medical History Abdominal pain chronic Anxiety CKD (chronic kidney disease) stage 3, GFR 30-59 ml/min DDD (degenerative disc disease), cervical DDD (degenerative disc disease), lumbar Depression Diabetes mellitus, type II Diabetic peripheral neuropathy associated with type 2 diabetes mellitus Facet syndrome, lumbar Fibromyalgia GERD (gastroesophageal reflux disease) History of pulmonary function tests (01/2020) normal Hyperlipidemia Kidney stone Long-term current use of opiate analgesic Lumbosacral spondylosis with radiculopathy Panic attacks Seizures Therapeutic opioid induced constipation Surgical History History of ankle surgery (~2018) ORIF right ankle, Dr Matos History of arthrodesis (09/2019) left 1st, 2nd, and 3rd tarsometatarsal joints by Dr Matos, due to Lisfranc dislocation History of esophagogastroduodenoscopy (EGD) (04/2020) Dr Ruelas History of excision of mass (05/2020) right hip fibroma/granuloma by Dr Gonzales History of nephrectomy (~2013) History of ventriculoperitoneal shunting (~01/04/09) Dr. Cordelia Roche 01/04/2009 Ventriculoperitoneal shunt placement. William Hakim Programmable Valve, Siphonguard device. Valve at 15cm H2O. 2010 reprogrammed to 14 cm H2O Hx of appendectomy (~2002) Hx of cholecystectomy (~2003) Hx of hysterectomy Hx of laminectomy S/P hardware removal (10/26/20) deep hardware left foot by Dr Matos Status post hardware removal (04/19/21) deep hardware left foot by Dr Matos Family History Mother Diabetes DM2 Family/Other Cancer MATERNAL AUNT- BREAST CANCER Social History Second hand smoke exposure: No Alcohol intake: never Caregiver/support person: Yes Lives independently: Yes Household members: spouse Marital status: Current occupational status: disabled Physical Exam Const: COMMON NORMALS: patient oriented x3 GENERAL APPEARANCE: in distress and anxious HENMT: COMMON NORMALS: normocephalic and atraumatic HEAD & SCALP: normocephalic and atraumatic Eye: COMMON NORMALS: Equal, round and reactive pupils present and EOMs intact bilaterally PUPIL: Yes Equal, round and reactive pupils present Neck/C-Spine: COMMON NORMALS: full ROM and supple Chest: COMMONS NORMALS: normal inspection of the chest and normal palpation of entire chest wall Resp: COMMON NORMALS: normal respiratory effort, No retractions, No use of accessory muscles and clear to auscultation bilaterally AUSCULTATION: clear to auscultation bilaterally Cardio: COMMON NORMALS: regular rhythm and No murmurs present (Cardio) RATE: tachycardic RHYTHM: regular rhythm GI: COMMON NORMALS: Normal to inspection, nondistended, normoactive bowel sounds present, Soft to palpation, non-tender and no masses PALPATION: Yes Soft to palpation Extremity: COMMON NORMALS: normal to inspection and full ROM Neuro: COMMON NORMALS: patient oriented x3, moves all extremities and no focal motor deficits Psych: COMMON NORMALS: mental status grossly normal, Normal thought process present and cooperative THOUGHT PROCESS: Normal thought process present Skin: COMMON NORMALS: no rashes or lesions noted and no wounds GENERAL SKIN EXAM: no rashes or lesions noted Course Vital Signs: Vital signs: Vital Signs Temperature 97.7 F 09/19/21 01:13 Pulse Rate 104 H 09/19/21 03:37 Respiratory Rate 24 H 09/19/21 03:37 Blood Pressure 186/104 09/19/21 03:37 Pulse Oximetry 96 09/19/21 03:37 MDM - Chest Pain Medical Decision Making Patient presents here with chest pain along with hypertension. With some the pain is likely due to anxiety I did give her Ativan given her total 40 mg of labetalol and she still is hypertensive at 184/112. Blood work CT scan of her chest are all normal. I spoke to hospitalist who will admit for her hypertension. Lab Data : 09/19/21 01:42 09/19/21 01:42 Radiology Impressions Chest X-Ray 09/19/21 01:18 IMPRESSION: No acute findings. Chest CTA 09/19/21 02:22 IMPRESSION: No acute findings. Laboratory Results WBC 9.4 10^3/uL (4.0-10.0) 09/19/21 01:42 RBC 5.45 10^6/uL (4.1-5.3) H 09/19/21 01:42 Hgb 14.3 g/dL (11.5-15.3) 09/19/21 01:42 Hct 44.1 % (37.0-47.0) 09/19/21 01:42 MCV 80.9 fl (81-99) L 09/19/21 01:42 MCH 26.2 pg (28.0-34.0) L 09/19/21 01:42 MCHC 32.4 g/dL (30.0-36.0) 09/19/21 01:42 RDW 11.6 % (12.1-15.1) L 09/19/21 01:42 Plt Count 167 10^3/cmm (130-400) 09/19/21 01:42 MPV 9.6 fL (7.4-10.4) 09/19/21 01:42 Neut % (Auto) 66.3 % 09/19/21 01:42 Lymph % (Auto) 22.1 % 09/19/21 01:42 Mckean % (Auto) 7.1 % 09/19/21 01:42 Eos % (Auto) 3.0 % 09/19/21 01:42 Baso % (Auto) 0.6 % 09/19/21 01:42 Neut # (Auto) 6.22 10^3/uL (1.8-7.7) 09/19/21 01:42 Lymph # (Auto) 2.1 10^3/uL (0.8-4.8) 09/19/21 01:42 Mckean # (Auto) 0.7 10^3/uL (0.2-0.9) 09/19/21 01:42 Eos # (Auto) 0.3 10^3/uL (0.0-0.8) 09/19/21 01:42 Baso # (Auto) 0.1 10^3/uL (0.0-0.1) 09/19/21 01:42 Nucleated RBC % (auto) 0 % 09/19/21 01:42 Nucleated RBCs # 0.0 /100WBC 09/19/21 01:42 D-Dimer 0.49 ug/mIFEU (0-0.59) 09/19/21 01:42 Sodium 136 mmol/L (136-145) 09/19/21 01:42 Potassium 4.4 mmol/L (3.5-5.1) 09/19/21 01:42 Chloride 101 mmol/L (98-107) 09/19/21 01:42 Carbon Dioxide 21 mmol/L (22-29) L 09/19/21 01:42 Anion Gap 18.4 (5-19) 09/19/21 01:42 BUN 27 mg/dL (6-20) H 09/19/21 01:42 Creatinine 1.2 mg/dL (0.5-0.9) H 09/19/21 01:42 GFR Calculation 47.6 mL/min (90-130) L 09/19/21 01:42 Glucose 196 mg/dL (65-115) H 09/19/21 01:42 Calculated Osmolality 293 mOsm/kg (285-295) 09/19/21 01:42 Calcium 9.4 mg/dL (8.5-10.5) 09/19/21 01:42 Total Bilirubin 0.2 mg/dL (0.15-1.2) 09/19/21 01:42 AST 21 U/L (0-32) 09/19/21 01:42 ALT 26 U/L (0-33) 09/19/21 01:42 Alkaline Phosphatase 147 IU/L (35-105) H 09/19/21 01:42 Troponin T Baseline 6 ng/L (0-10) 09/19/21 01:42 Troponin T 120 Minute 6.00 ng/L (0-10) 09/19/21 03:20 Delta Troponin T 0 ABS# (0-10) 09/19/21 03:20 NT-Pro-B Natriuret Pep 69 pg/mL (0-125) 09/19/21 01:42 Total Protein 7.1 g/dL (6.6-8.7) 09/19/21 01:42 Albumin 4.3 g/dL (3.5-5.2) 09/19/21 01:42 Globulin 2.8 g/dL (1.3-4.6) 09/19/21 01:42 EKG Data EKG 1: I personally reviewed and interpreted this EKG as follows: EKG interpretation date: 09/19/21 EKG interpretation time: 01:14 Interpretation: sinus tach hr [address] or t wave abnormalities qrs 82 qtc 389 EKG 2: I personally reviewed and interpreted this EKG as follows: EKG interpretation date: 09/19/21 EKG interpretation time: 03:16 Interpretation: nsr hr [address] or t wave anbnormalities qrs 84 qtc 414 Discharge Plan Discharge Patient Disposition: Admitted As Inpatient Clinical Impression: Chest pain, Hypertension Condition: Stable Discharge Diet: Advance as tolerated Discharge Activity: Resume usual activity Coding Level of Care Code ED Hospital Scientist for Chg Fwd Exam Comprehensive
[2021-09-19 01:52] LABS: Basophils # 0.1 10^3/uL (0.0-0.1); Basophils % 0.6 %; Eosinophils # 0.3 10^3/uL (0.0-0.8); Hematocrit 44.1 % (37.0-47.0); Hemoglobin 14.3 g/dL (11.5-15.3); Lymphocytes # 2.1 10^3/uL (0.8-4.8); Lymphocytes % 22.1 %; Mean Corpuscular HGB Conc 32.4 g/dL (30.0-36.0); Mean Corpuscular Hemoglobin 26.2 pg (28.0-34.0); Mean Corpuscular Volume 80.9 fl (81-99); Mean Platelet Volume 9.6 fL (7.4-10.4); Monocytes # 0.7 10^3/uL (0.2-0.9); Monocytes % 7.1 %; Neutrophils # 6.22 10^3/uL (1.8-7.7); Neutrophils % 66.3 %; Nucleated Red Blood Cells % 0 %; Platelet Count 167 10^3/cmm (130-400); Red Blood Count 5.45 10^6/uL (4.1-5.3); Red Cell Distribution Width 11.6 % (12.1-15.1); White Blood Count 9.4 10^3/uL (4.0-10.0)
[2021-09-19] MEDS: ondansetron 2 mg/ML SDV 2 mL 4 MG IVP (01:52)
[2021-09-19] MEDS: morphine 4 mg/mL SDV 1 mL IVP (01:52)
[2021-09-19] MEDS: labetalol 5 mg/mL SDV 20mL 10 MG IVP ×2 (01:53→03:35)
[2021-09-19] MEDS: HYDROmorphone 1 mg/mL INJ 1 mL IVP (02:06)
[2021-09-19] MEDS: LORazepam 2 mg/mL INJ 1 mL IVP (02:14)
[2021-09-19 02:15] LABS: Troponin(5th) Baseline 6 ng/L (0-10)
[2021-09-19 02:16] LABS: D Dimer 0.49 ug/mIFEU (0-0.59)
--- NOTE | 2021-09-19 02:22 | CTR_ITS ---
PROCEDURE INFORMATION: Exam: CTA Chest With Contrast Exam date and time: 09/19/2021 2:22 AM Age: 51 years old Clinical indication: Chest pressure; Prior surgery; Surgery type: Cervical fusion. ; Patient HX: C/O anterior left sided chest pain with radiation into left arm. Hypertensive. Having episodes of involuntary tremors. ; Additional info: Cp TECHNIQUE: Imaging protocol: Computed tomographic angiography of the chest with contrast. 3D rendering (Not supervised by radiologist): MIP and/or 3D reconstructed images were created by the technologist. Radiation optimization: All CT scans at this facility use at least one of these dose optimization techniques: automated exposure control; mA and/or kV adjustment per patient size (includes targeted exams where dose is matched to clinical indication); or iterative reconstruction. Contrast material: VISI 320; Contrast volume: 75 ml; Contrast route: INTRAVENOUS (IV); COMPARISON: CT chest abd pel w con* 07/27/2020 11:05 PM RADIATION DOSE METRICS: Total DLP (mGy-cm): 1668.56 FINDINGS: Pulmonary arteries: Normal. No pulmonary emboli. Aorta: Unremarkable. No aortic aneurysm. No aortic dissection. Lungs: Unremarkable. No consolidation. No masses. Pleural spaces: Unremarkable. No pneumothorax. No pleural effusion. Heart: Unremarkable. No cardiomegaly. No pericardial effusion. Lymph nodes: Unremarkable. No enlarged lymph nodes. Bones/joints: Unremarkable. No acute fracture. Soft tissues: Unremarkable. CT/CT angio chest [id number] IMPRESSION: No acute findings.
[2021-09-19 02:25] LABS: Alanine Aminotransferase 26 U/L (0-33); Albumin Level 4.3 g/dL (3.5-5.2); Alkaline Phosphatase 147 IU/L (35-105); Anion Gap 18.4 (5-19); Aspartate Amino Transferase 21 U/L (0-32); Blood Urea Nitrogen 27 mg/dL (6-20); Calcium 9.4 mg/dL (8.5-10.5); Carbon Dioxide 21 mmol/L (22-29); Chloride 101 mmol/L (98-107); Globulin 2.8 g/dL (1.3-4.6); Glomerular Filtration Rate 47.6 mL/min (90-130); Glucose 196 mg/dL (65-115); NT Pro B Type Natriuretic Pept 69 pg/mL (0-125); Osmolality Calculated 293 mOsm/kg (285-295); Potassium 4.4 mmol/L (3.5-5.1); Sodium 136 mmol/L (136-145); Total Bilirubin 0.2 mg/dL (0.15-1.2); Total Protein 7.1 g/dL (6.6-8.7)
[2021-09-19] MEDS: LORazepam 2 mg/mL INJ 1 mL 1 MG IVP (02:46)
[2021-09-19] MEDS: iodixanol 320 mg/mL 100mL Btl IV (02:55)
--- NOTE | 2021-09-19 03:18 | ECG_ITS ---
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 Measurements Intervals [place] Rate: 96 P: 26 AL: 158 QRS: -3 QRSD: 84 T: -4 QT: 360 QTc: 457 Interpretive Statements SINUS RHYTHM Compared to ECG 07/22/2021 01:56:47 No significant changes Electronically Signed On 09-19-2021 9:21:56 ROAD CONTRACTOR by Reena Hoyt M.D. [id number]
[2021-09-19 04:00] LABS: Troponin 5 2HR Delta 0 ABS# (0-10)
[2021-09-19] MEDS: labetalol 5 mg/mL SDV 20mL 20 MG IVP ×2 (04:15→11:44)
--- NOTE | 2021-09-19 04:59 | P.HP_ITS ---
Providers/Chief Complaint Primary Care Provider: Linda Erickson MD Chief Complaint: Chest pain High Blood Pressure History of Present Illness Tabby Gan is a 51 year old female with past medical history of diabetes, anxiety disorder, depression fibromyalgia , GERD , SVT, came in with chief complaint of acute onset of palpitation accompanied with chest pain as well as diaphoresis, according to the patient she is usually able to terminate the palpitation episodes With vagal maneuvers, but this time the palpitation did not responded to vagal maneuvers. Chest pain was substernal tearing in nature, sharp, with no significant radiation, relieved with nitro sprays. Upon arrival in the ER she was worked up for above-mentioned complaint. When She came to the ER she had elevated blood pressure: Maximum noted blood pressure was:186/104 Pertinent imaging studies: CTA chest: Failed to show any PE or aortic dissection. No acute findings EKG has failed to show any acute ST-T wave changes. Troponin trend is normal. Given labetalol IV in the ER, along with morphine, as well as Ativan. Review of Systems General: Reports: 10 or more systems reviewed and unremarkable except in HPI and below Const: Denies: fever(s), chills, body aches, change in appetite or diaphoresis Card: Denies: edema, swelling of feet/ankles, orthopnea or leg pain with exertion Resp: Denies: dyspnea, productive cough, wheezing or pain on inspiration GI: Denies: abdominal pain, nausea, vomiting, diarrhea or constipation : Denies: flank pain Musc: Denies: back pain, extremity pain or extremity swelling Neuro: Denies: headache(s), difficulty walking or confusion Medications/Allergies Home Medications Medication Instructions Recorded Confirmed Last Taken Type dulaglutide 1.5 mg/0.5 mL 1.5 mg SUBCUT Q7D ml 09/16/19 09/05/21 02/09/21 History subcutaneous pen injector (Trulicity) epinephrine 0.3 mg/0.3 mL 0.3 mg IM ONCE PRN 09/16/19 09/05/21 Unknown History injection, auto-injector bupropion HCl 75 mg tablet 75 mg PO BID@0700,2100 tab 09/20/19 09/05/21 06/14/21 History metoprolol tartrate 25 mg tablet 25 mg PO BID@0700,2100 tab 09/20/19 09/05/21 06/15/21 History gabapentin 400 mg capsule 400 mg PO TID@10/07/19 09/05/21 1 Day Ago History ~04/18/21 Diabetic Shoes #1 each 01/25/20 09/05/21 Unknown Rx biotin 10,000 mcg capsule 10,000 mcg PO DAILY@0700 cap 02/02/20 09/05/21 06/14/21 History Sole Supports #1 each 02/06/20 09/05/21 Unknown Rx diphenhydramine HCl 25 mg tablet 25 mg PO TID PRN 10/25/20 09/05/21 1 Day Ago History (Benadryl Allergy) ~04/18/21 fish, borage, flaxseed oils-omega 3 cap PO DAILY@209910/25/20 09/05/21 3 Days Ago History 3,6,9 cb #1 400 mg-400 mg-400 mg ~04/16/21 cap (Triple Donald 3-6-9) melatonin 1 mg tablet 1 mg PO BEDTIME@209910/25/20 09/05/21 1 Day Ago History ~04/18/21 atorvastatin 20 mg tablet 20 mg PO DAILY 11/25/20 09/05/21 06/14/21 History hydroxyzine pamoate 50 mg capsule 50 mg PO TID@11/25/20 09/05/21 1 Day Ago History ~04/18/21 aspirin 81 mg chewable tablet 81 mg PO DAILY PRN #0 02/16/21 09/05/21 2 Days Ago History ~04/17/21 conjugated estrogens 0.625 mg/gram See Rx Instructions .ROUTE .COMPLEX 02/16/21 09/05/21 Unknown History vaginal cream (Premarin) metoclopramide HCl 10 mg tablet 10 mg PO PRN 02/16/21 09/05/21 Unknown History multivitamin 1 tab PO DAILY #0 02/16/21 09/05/21 06/14/21 History pantoprazole 40 mg tablet,delayed 40 mg PO BID@0700,2100 02/16/21 09/05/21 06/15/21 History release lactulose 10 gram/15 mL oral 15 ml PO BID PRN 04/18/21 09/05/21 1 Day Ago History solution ~04/18/21 diazepam 2 mg tablet (Valium) 2.5 mg PO BID PRN tab 06/04/21 09/05/21 Unknown History estradiol 0.5 mg tablet 1 mg PO DAILY tab 06/04/21 09/05/21 Unknown History fentanyl 50 mcg/hr transdermal 1 patch TRANSDERMAL Q72H 30 Days 06/04/21 09/05/21 06/15/21 Rx patch #10 ea oxycodone-acetaminophen 10 mg-325 1 tab PO TID PRN 30 Days #90 tab 06/04/21 09/05/21 06/15/21 Rx mg tablet collagen-hyaluronic 1 cap PO DAILY 06/15/21 09/05/21 06/14/21 History sjqn-ymrvysyfhp-ppcz extract 490 mg capsule docusate sodium 100 mg capsule 200 mg PO BID 06/15/21 09/05/21 06/14/21 History (Stool Softener) lamotrigine 200 mg tablet 200 mg PO BID 06/15/21 09/05/21 Unknown History (Lamictal) magnesium 250 mg tablet 250 mg PO DAILY 06/15/21 09/05/21 06/14/21 History mirabegron 25 mg tablet,extended 25 mg PO DAILY MDD see pharmacy 06/15/21 09/05/21 Unknown History release 24 hr (Myrbetriq) comment prazosin 2 mg capsule 4 mg PO BEDTIME 06/15/21 09/05/21 06/14/21 History riboflavin (vitamin B2) 25 mg 25 mg PO DAILY 06/15/21 09/05/21 06/14/21 History tablet (Vitamin B-2) valacyclovir 1 gram tablet 1,000 mg PO BID 06/15/21 09/05/21 06/14/21 History vitamin B complex-vitamin C 100 1 tab PO DAILY 06/15/21 09/05/21 06/14/21 History mg-folic acid 1 mg tablet (Dialyvite) phenazopyridine 200 mg tablet 200 mg PO TID 07/10/21 09/05/21 Unknown History clonazepam 0.5 mg tablet 0.5 mg PO BID 07/22/21 09/05/21 Unknown History nitroglycerin 0.4 mg sublingual 0.4 mg SUBLINGUAL Q5M PRN 07/22/21 09/05/21 Unknown History tablet tizanidine 4 mg capsule 4 mg PO TID 07/22/21 09/05/21 Unknown History nitrofurantoin 100 mg PO BID 5 Days #10 cap 07/25/21 09/05/21 Unknown Rx monohydrate/macrocrystals 100 mg capsule (Macrobid) doxycycline hyclate 100 mg capsule 100 mg PO BID #30 cap 09/03/21 09/05/21 Unknown Rx fluconazole 150 mg tablet 150 mg PO ONCE #2 tab 09/03/21 09/05/21 Unknown Rx (Diflucan) ASO to the left #1 ea 09/05/21 09/05/21 Unknown Rx Custom Molded Accommodative #1 ea 09/05/21 09/05/21 Unknown Rx Orthotics metoprolol tartrate 50 mg tablet 50 mg PO BID #60 tab 09/19/21 Unknown Rx Allergies Allergy/AdvReac Type Severity Reaction Status Date / Time spider venom Allergy ALGY-Anaphy Verified 09/05/21 08:20 laxis vilazodone [From Viibryd] Allergy ADR-Halluci Verified 09/05/21 08:20 nating NSAIDS (Non-Steroidal AdvReac Unknown CKD4 Verified 09/05/21 08:20 Anti-Inflamma Iodinated Contrast Media AdvReac CKD4 - Verified 09/05/21 08:20 PFSH Acute PFSH: Medical History Abdominal pain chronic Anxiety CKD (chronic kidney disease) stage 3, GFR 30-59 ml/min DDD (degenerative disc disease), cervical DDD (degenerative disc disease), lumbar Depression Diabetes mellitus, type II Diabetic peripheral neuropathy associated with type 2 diabetes mellitus Facet syndrome, lumbar Fibromyalgia GERD (gastroesophageal reflux disease) History of pulmonary function tests (01/2020) normal Hyperlipidemia Kidney stone Long-term current use of opiate analgesic Lumbosacral spondylosis with radiculopathy Panic attacks Seizures Therapeutic opioid induced constipation Surgical History History of ankle surgery (~2018) ORIF right ankle, Dr Matos History of arthrodesis (09/2019) left 1st, 2nd, and 3rd tarsometatarsal joints by Dr Matos, due to Lisfranc dislocation History of esophagogastroduodenoscopy (EGD) (04/2020) Dr Ruelas History of excision of mass (05/2020) right hip fibroma/granuloma by Dr Gonzales History of nephrectomy (~2013) History of ventriculoperitoneal shunting (~01/04/09) Dr. Cordelia Roche 01/04/2009 Ventriculoperitoneal shunt placement. Kaileeglen De León[place]ham Programmable Valve, Siphonguard device. Valve at 15cm H2O. 2010 reprogrammed to 14 cm H2O Hx of appendectomy (~2002) Hx of cholecystectomy (~2003) Hx of hysterectomy Hx of laminectomy S/P hardware removal (10/26/20) deep hardware left foot by Dr Matos Status post hardware removal (04/19/21) deep hardware left foot by Dr Matos Family History Mother Diabetes DM2 Family/Other Cancer MATERNAL AUNT- BREAST CANCER Social History Second hand smoke exposure: No Alcohol intake: never Caregiver/support person: Yes Lives independently: Yes Household members: spouse Marital status: Current occupational status: disabled Vitals/I&O/Wt Last Vital Signs Temp 97.7 F 09/19/21 01:13 Pulse 104 H 09/19/21 03:37 Resp 24 H 09/19/21 03:37 BP 186/104 09/19/21 03:37 Pulse Ox 96 09/19/21 03:37 Weight last 48 hrs Weight 97.522 kg Physical Exam Const: COMMON NORMALS: patient oriented x3 HENMT: COMMON NORMALS: normocephalic, atraumatic, hearing grossly normal bilaterally and external ears normal HEAD & SCALP: normocephalic and atraumatic EXTERNAL EAR: Yes external ears normal Eye: COMMON NORMALS: no scleral icterus GENERAL EYE: appearance normal, both eyes and all related structures Chest: CHEST: Yes Symmetrical chest wall rise Resp: COMMON NORMALS: normal respiratory effort, No retractions, No use of accessory muscles and clear to auscultation bilaterally EFFORT & INSPECTION: Yes symmetric chest movement AUSCULTATION: clear to auscultation bilaterally Cardio: COMMON NORMALS: regular rate, regular rhythm, S1 normal heart sound present, S2 normal heart sound present, No gallops present (Cardio), No murmurs present (Cardio), No rub (Cardio) and Peripheral pulses 2+ throughout RATE: regular rate RHYTHM: regular rhythm HEART SOUNDS: S1 normal heart sound present and S2 normal heart sound present PERIPHERAL PULSES: Peripheral pulses 2+ throughout GI: COMMON NORMALS: Normal to inspection, nondistended, normoactive bowel sounds present, Soft to palpation, non-tender, No hepatosplenomegaly present and no masses AUSCULTATION: Yes normoactive bowel sounds PALPATION: Yes Soft to palpation and Yes No hepatosplenomegaly present RECTAL EXAM: deferred Extremity: COMMON NORMALS: no clubbing, cyanosis or edema and no pedal edema Neuro: COMMON NORMALS: patient oriented x3 Data : 09/19/21 01:42 09/19/21 01:42 A&P Assessment and plan (1) Chest pain: Status: Acute (2) Hypertensive urgency: Status: Acute (3) Diabetes mellitus, type II: Status: Chronic Qualifiers: Diabetes mellitus complication detail: with polyneuropathy Diabetes mellitus complication status: with neurologic complications Diabetes mellitus superintendent marine oil terminal insulin use: without superintendent marine oil terminal use Qualified Code(s): E11.42 - Type 2 diabetes mellitus with diabetic polyneuropathy Plan Assessment #Hypertensive urgency #Noncardiac chest pain #Diabetes #Depression #Anxiety disorder #History of SVT Plan Patient has no prior history of hypertension. We will start her on amlodipine 10 mg p.o. daily. Continue to monitor blood pressure, titrate antihypertensive medication accordingly. Continue telemetry monitoring Continue other home medications Lovenox for DVT prophylaxis Attestations Medical Necessity Statement*: In hospital for management of hypertensive urgency. Coding Level of Care Code Acute Pressure Dispatcher for [facility] Fwd Exam Comprehensive Diagnoses Chest pain R07.9 Hypertensive urgency I16.0 Diabetes mellitus, type II E11.42 Diabetes mellitus complication detail: with polyneuropathy Diabetes mellitus complication status: with neurologic complications Diabetes mellitus detention insulin use: without detention use
[2021-09-19] MEDS: enoxaparin 40 mg/0.4 mL Syringe SUBCUT (05:38)
[2021-09-19] MEDS: amlodipine 10 mg Tablet PO (05:39)
--- NOTE | 2021-09-19 07:12 | PC.NURSE ---
PATIENT ON CONTINUOUS BEDSIDE CARDIAC, BP AND O2 MONITOR.
--- NOTE | 2021-09-19 07:18 | ECG_ITS ---
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 Measurements Intervals [place] Rate: 93 P: 28 IL: 160 QRS: 0 QRSD: 86 T: 8 QT: 365 QTc: 454 Interpretive Statements SINUS RHYTHM POSSIBLE LEFT ATRIAL ENLARGEMENT [-0.1mV P-WAVE IN V1/V2] Compared to ECG 09/19/2021 03:16:48 No significant changes Electronically Signed On 09-19-2021 9:19:43 ORACLE TECHNICAL ARCHITECT by Reena Hoyt M.D. [id number]
[2021-09-19 07:25] LABS: Glucose Point of Care 154 mg/dL (70-110)
[2021-09-19] MEDS: insulin lispro 100 unit/1 mL SUBCUT ×4 (07:57→22:41)
[2021-09-19] MEDS: hydroCHLOROthiazide 25 mg Tablet 12.5 MG PO (07:58)
[2021-09-19] MEDS: metoprolol tartrate 25 mg Tablet 12.5 MG PO (08:00)
[2021-09-19] MEDS: ALPRAZolam 0.5 mg Tablet PO (09:05)
--- NOTE | 2021-09-19 09:39 | PC.NURSE ---
PATIENT HAVING INTERMITTENT TREMORS, PATIENT UNSURE WHY. PATIENT VITAL SIGNS ARE STABLE. DR. ST MADE AWARE, DR. ST ORDERED XANAX 0.5 PO, MED GIVEN. PATIENT GIVEN DIRECTIONS TO TRY TO BREATH THROUGH THE TREMORS WHEN THEY OCCUR.
[2021-09-19 10:08] LABS: Troponin 5 6HR Delta 0 ng/L (0-12)
[2021-09-19] MEDS: oxyCODONE-APAP 10-325 mg Tablet 1 TAB PO ×2 (10:25→17:47)
--- NOTE | 2021-09-19 10:29 | PC.NURSE ---
PATIENT STATES THAT SHE NEEDS ALL OF HER HOME MEDICATIONS, DR. ST MADE AWARE. PATIENT MEDS ARE TO BE ORDERED.
[2021-09-19] MEDS: gabapentin 400 mg Capsule PO ×3 (10:39→21:24)
[2021-09-19] MEDS: buPROPion XL (24 HR) 150 mg Tablet PO (11:45)
[2021-09-19] MEDS: nitroglycerin 1 gm/inch oint Pkt 1 INCH TOPICAL ×2 (11:51→22:43)
[2021-09-19 13:11] LABS: Glucose Point of Care 214 mg/dL (70-110)
[2021-09-19] MEDS: hyDRALAzine 10 mg Tablet PO ×2 (14:27→21:24)
--- NOTE | 2021-09-19 14:36 | PC.NURSE ---
PATIENT GIVEN HOSPITAL BED FOR HER ROOM.
[2021-09-19] MEDS: acetaminophen 325 mg Tablet 650 MG PO (16:12)
[2021-09-19] MEDS: nitroglycerin drip 50 MG/250 ML PREMIX IV (16:13)
--- NOTE | 2021-09-19 16:56 | PC.NURSE ---
pt has a Fentanyl patch 37.5 mcg on right upper arm. She stated she is not positive what day she last applied it. she stated she usually change the patch every 3 days. she stated she will wait until tomorrow to change the patch. Pt also has a JOVANA hormonal patch on left upper arm. pt stated she usually change it very 3 days. informed pt that our pharmacy does not have this kind of patch. she verbalizes understanding.
[2021-09-19 17:22] LABS: Glucose Point of Care 208 mg/dL (70-110)
[2021-09-19] MEDS: amoxicillin-clav 875-125 mg Tablet 1 TAB PO (20:00)
[2021-09-19] MEDS: prazosin 1 mg Capsule 2 MG PO (21:24)
--- NOTE | 2021-09-19 22:03 | PC.NURSE ---
Dr. Robles notified of patient asking for Clonezepam. Patient has prescription for it at home. Ordered to give home dose.
[2021-09-19 22:36] LABS: Glucose Point of Care 219 mg/dL (70-110)
--- NOTE | 2021-09-19 22:39 | ECG_ITS ---
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 Measurements Intervals [place] Rate: 134 P: 157 MS: 194 QRS: 32 QRSD: 82 T: 60 QT: 315 QTc: 471 Interpretive Statements SINUS TACHYCARDIA ABNORMAL RHYTHM ECG Compared to ECG 09/19/2021 07:20:10 Sinus rhythm no longer present Electronically Signed On 09-20-2021 17:42:33 REAGENT TENDER by Gordo Burch M.D. [id number]
[2021-09-19] MEDS: CLONazepam 0.5 mg Tablet PO (22:42)
--- NOTE | 2021-09-19 23:10 | PC.NURSE ---
Patient's heart rate low 100s at beginning of shift. Patient's heart rate 130s-140s maintaining currently. Patient is anxious and shaky. Patient states that her chest hurts. Patient states that she has a history of SVT. EKG taken and showed sinus tachycardia. Dr. Robles notified of heart rate and EKG results. Patient has nitro drip running and was given PRN Clonzepam that she takes at home. Ordered to notify physician if heart rate does not improve in two hours.
[2021-09-20] VITALS (10 sets, daily range): BP systolic 123–162; BP diastolic 65–92; PULSE 110–144; RESP 16–20; TEMP 36.8; O2SAT 90–97
[2021-09-20] MEDS: morphine 4 mg/mL SDV 1 mL 2 MG IVP (00:09)
[2021-09-20] MEDS: oxyCODONE-APAP 10-325 mg Tablet 1 TAB PO (02:30)
--- NOTE | 2021-09-20 02:39 | PC.NURSE ---
Patient on nitro gtt for both bp control and pain control. Gtt currently at 50. Patient complaints that she is still having chest pain. Called to the nurses station and stated this nitro gtt is making my pain worse . Educated patient that it was not the nitro gtt causing pain. Patient upset that she cannot get her xanaflex and klonopin. Shaking right arm and saying its uncontrollable. BP is now 123/65 however heartrate is in the 130's. Patient was given klonopin at 2242 and still on the callight asking for pain medications. Dr Robles wanted to be notified one to two hours after patient received klonopin if the heartrate improved. Notified Dr. Robles of no improvement to heartrate however her bp is staying within normal limits. One dose of Morphine ordered for patient and given. Patient stated minor relief. Patient then asked for her dose of oxycodone q 8 hours. Patient heartrate still in the 130s. Notified MD. Patient to go for stress test in am. NPO after midnight. Will continue to monitor patient.
[2021-09-20 03:37] LABS: Basophils # 0.1 10^3/uL (0.0-0.1); Basophils % 0.4 %; Eosinophils % 0.3 %; Hematocrit 42.1 % (37.0-47.0); Hemoglobin 13.4 g/dL (11.5-15.3); Lymphocytes # 1.1 10^3/uL (0.8-4.8); Lymphocytes % 8.8 %; Mean Corpuscular HGB Conc 31.8 g/dL (30.0-36.0); Mean Corpuscular Hemoglobin 25.8 pg (28.0-34.0); Mean Corpuscular Volume 81.1 fl (81-99); Mean Platelet Volume 9.5 fL (7.4-10.4); Monocytes # 0.9 10^3/uL (0.2-0.9); Monocytes % 7.5 %; Neutrophils # 10.21 10^3/uL (1.8-7.7); Nucleated Red Blood Cells % 0 %; Platelet Count 179 10^3/cmm (130-400); Red Blood Count 5.19 10^6/uL (4.1-5.3); Red Cell Distribution Width 11.9 % (12.1-15.1); White Blood Count 12.5 10^3/uL (4.0-10.0)
[2021-09-20 04:04] LABS: Anion Gap 18.6 (5-19); Blood Urea Nitrogen 22 mg/dL (6-20); Carbon Dioxide 22 mmol/L (22-29); Chloride 99 mmol/L (98-107); Glomerular Filtration Rate 43.4 mL/min (90-130); Glucose 300 mg/dL (65-115); Osmolality Calculated 295 mOsm/kg (285-295); Potassium 4.6 mmol/L (3.5-5.1); Sodium 135 mmol/L (136-145)
[2021-09-20] MEDS: ondansetron 2 mg/ML SDV 2 mL 4 MG IVP ×3 (04:53→09:35)
--- NOTE | 2021-09-20 05:02 | PC.NURSE ---
Patient nitropaste not given as patient is on a nitro gtt
[2021-09-20] MEDS: enoxaparin 40 mg/0.4 mL Syringe SUBCUT (05:08)
--- NOTE | 2021-09-20 06:20 | PC.NURSE ---
Patient vomited earlier this AM on side of bed. Vomiting was witnessed by two RNs. Vomiting was not projectile as witnessed by two RNs. Patient was cleaned and complete linen change by two RNs. Patient states to me at this time, I think my SAWMILL MANAGER shunt needs to be checked because that was projectile vomiting.
[2021-09-20 06:21] LABS: Glucose Point of Care 313 mg/dL (70-110)
--- NOTE | 2021-09-20 07:07 | ECG_ITS ---
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 Interpretive Statements NAME OF STUDY: LEXISCAN SESTAMIBI STRESS TEST INDICATION: [Angina, ] Procedure: At the baseline, the blood pressure was 173/87 mmHg with a heart rate of 117 bpm. The electrocardiogram showed normal sinus rhythm, normal axis with normal ST and T's. The Lexiscan was infused over a period of 20 seconds. A total of 0.4 mg of Lexiscan was infused. The stress phase was continued for a total of 5 minutes. Heart rate was at the end of stress phase was 159 bpm and a blood pressure of 133/91 mmHg. The EKG at the peak infusion revealed since normal sinus rhythm with no significant ST-T wave changes. Sestamibi was injected 20 seconds after the Lexiscan infusion. Blood pressure at the end of recovery phase was 153/69 mmHg with a heart rate of 146 bpm. Conclusion: 1. Normal EKG response to Lexiscan infusion 2. No Lexiscan induced chest pain or cardiac arrhythmia. 3. Normal blood pressure and heart rate response. 4. Sestamibi/sestamibi perfusion scan pending; see separate report. Electronically Signed On 10-09-2021 17:30:07 DISTRICT SALES MANAGER by Gordo Burch M.D. [id number]
--- NOTE | 2021-09-20 07:21 | PC.NURSE ---
Nuc med here to give injection for stress test. Patient stated after she received injection that it was leaking all over. This nurse witnessed only drop of water that appeared to be from flush. Patient instructed to drink water. Charge nurse checked and flushed and IV fine.
[2021-09-20] MEDS: regadenoson 0.4 Mg/5 ml Syringe IVP (07:57)
--- NOTE | 2021-09-20 08:00 | NMCV_ITS ---
NM kristina perf SPECT r/s* [id number] Tabby Gan Age: 51 Gender: F : 1970 Exam Date: 09/20/2021 07:05 Ordering Phys: Vielka Gamez MD Technologist: ROHAN Cohen Exam Location: [facility] Indications: CHEST PAIN STRESS TEST Please see separate stress test report in [facility] for full findings IMAGE PROTOCOL Rest/Stress 1 Lexiscan Day Radiopharmaceutical Dose (mCi) Administration Site Administered by Rest: Tc-99m 11.0 IV ROHAN Marie Sestamijerilyn Stress:Tc-99m 33.0 IV ROHAN Maire Sestamibi Rest: 20-Sep-2021 60 Discovery 630 Stress: 20-Sep-2021 30 Discovery 630 0.4mg Lexiscan. Supine position only as patient was unable to lay prone. SPECT RESULTS Technical Quality: Excellent Raw Data Analysis: Normal Image Corrections: No attenuation or motion correction applied Summed Stress Score: 0 Summed Rest Score: 0 Summed Difference Score: 0 PERFUSION FINDINGS SPECT images demonstrate homogeneous tracer distribution throughout the myocardium. FUNCTIONAL RESULTS (calculated via Gated SPECT) Stress Image LV EF (%): 70 Stress EDV (mL):44 TID: 0.71 Stress ESV (mL):13 FUNCTIONAL FINDINGS: There is normal left ventricular systolic function. IMPRESSIONS 1. Normal myocardial perfusion imaging with no evidence of ischemia 2. LV systolic function is normal Gordo Burch MD (Electronically Signed) Final Date: 20 September 2021 09:47 S
[2021-09-20] MEDS: insulin lispro 100 unit/1 mL SUBCUT ×2 (09:17→11:50)
[2021-09-20] MEDS: CLONazepam 0.5 mg Tablet PO (09:22)
[2021-09-20] MEDS: hydroCHLOROthiazide 25 mg Tablet 12.5 MG PO (09:22)
[2021-09-20] MEDS: amlodipine 10 mg Tablet PO (09:23)
[2021-09-20] MEDS: hyDRALAzine 10 mg Tablet PO (09:24)
[2021-09-20] MEDS: buPROPion XL (24 HR) 150 mg Tablet PO (09:24)
[2021-09-20] MEDS: gabapentin 400 mg Capsule PO (09:26)
[2021-09-20] MEDS: amoxicillin-clav 875-125 mg Tablet 1 TAB PO (09:26)
[2021-09-20] MEDS: metoprolol tartrate 25 mg Tablet 12.5 MG PO (09:26)
--- NOTE | 2021-09-20 10:43 | P.DS_ITS ---
Discharge Providers Date of Admission: 09/19/21 05:08 Date of Discharge: September 20, 2021 Attending Provider at Admission: Yossi Robles MD Attending Provider at Discharge: Vielka Gamez MD Primary Care Provider: Linda Erickson MD Diagnoses at Discharge Discharge Diagnosis (1) Chest pain: Status: Acute (2) Hypertensive urgency: Status: Acute (3) Diabetes mellitus, type II: Status: Chronic Qualifiers: Diabetes mellitus complication detail: with polyneuropathy Diabetes mellitus complication status: with neurologic complications Diabetes mellitus rodent exterminator insulin use: without group home use Qualified Code(s): E11.42 - Type 2 diabetes mellitus with diabetic polyneuropathy Reason for Visit Reason for Visit: Chest pain High Blood Pressure Hospital Course Hospital Course Patient was admitted for management evaluation of chest pain which was radiating towards her left arm and palpitation. CTA did not show any aortic dissection, nuclear stress test unremarkable. For her hypertensive urgency she was put on nitroglycerin drip which improved her symptoms and blood pressure. She does have a seeking behavior she was requesting a lot of medication during her hospitalization including antibiotics and opioids. For her hypertension she will get amlodipine, metoprolol and hydrochlorothiazide. Patient started complaining of tremors however she does not have any seizure-like activities, I am reluctant to add any anxiolytics as she is already taking gabapentin 400 mg 3 times a day, she already has a fentanyl patch on her right arm, she is on oxycodone 10 mg as well along bupropion, prazosin tizanidine, lamotrigine. I would like to refer her to neurologist Dr. Kilgore for further evaluation. She does have hyperglycemia however does not meet criteria to be on insulin, at home she is taking antihyperglycemics, not a good candidate to be on Metformin because of a chronic kidney disease. Referral given for hazardous substances scientist Dr. Edmondson. Hemoglobin A1c 8. I will add SGLT2 inhibitor Farxiga Physical Exam Narrative: EXAM NARRATIVE: Patient is awake and alert Nonfocal neuro exam Appears very anxious No seizure-like activity Nonfocal neuro exam S1, S2 No radial radial delay No signal difference of blood pressure in both arms Abdomen soft Saturating well on room air at the bedside Discharge Data Studies Completed and Pending Completed Studies During Hospitalization Category Date Time Status CT angio chest 12816 Urgent Cat Scan 09/19/21 02:22 Completed Sestamibi Stress Test Request Routine Exams 09/20/21 07:07 Draft XR chest 1V portable [id number] Stat Exams 09/19/21 01:18 Completed NM kristina perf SPECT r/s* [id number] Routine Nuc Med 09/20/21 08:00 Completed Pending at discharge Category Date Time Status Sestamibi Stress Test Request Routine Exams 09/19/21 12:31 Stop Req Basic Metabolic Panel AM LABS Lab 09/21/21 04:00 Ordered Basic Metabolic Panel AM LABS Lab 09/22/21 04:00 Ordered Complete Blood Count w/Auto AM LABS Lab 09/21/21 04:00 Ordered Complete Blood Count w/Auto AM LABS Lab 09/22/21 04:00 Ordered Hemoglobin A1C Routine Lab 09/20/21 10:42 Ordered CV. echo complete* [id number] Routine Ultrasound 09/19/21 10:36 Taken Radiology Impressions Chest X-Ray 09/19/21 01:18 IMPRESSION: No acute findings. Chest CTA 09/19/21 02:22 IMPRESSION: No acute findings. Laboratory Results WBC 12.5 10^3/uL (4.0-10.0) H 09/20/21 03:03 RBC 5.19 10^6/uL (4.1-5.3) 09/20/21 03:03 Hgb 13.4 g/dL (11.5-15.3) 09/20/21 03:03 Hct 42.1 % (37.0-47.0) 09/20/21 03:03 MCV 81.1 fl (81-99) 09/20/21 03:03 MCH 25.8 pg (28.0-34.0) L 09/20/21 03:03 MCHC 31.8 g/dL (30.0-36.0) 09/20/21 03:03 RDW 11.9 % (12.1-15.1) L 09/20/21 03:03 Plt Count 179 10^3/cmm (130-400) 09/20/21 03:03 MPV 9.5 fL (7.4-10.4) 09/20/21 03:03 Neut % (Auto) 82.0 % 09/20/21 03:03 Lymph % (Auto) 8.8 % 09/20/21 03:03 Webb % (Auto) 7.5 % 09/20/21 03:03 Eos % (Auto) 0.3 % 09/20/21 03:03 Baso % (Auto) 0.4 % 09/20/21 03:03 Neut # (Auto) 10.21 10^3/uL (1.8-7.7) H 09/20/21 03:03 Lymph # (Auto) 1.1 10^3/uL (0.8-4.8) 09/20/21 03:03 Webb # (Auto) 0.9 10^3/uL (0.2-0.9) 09/20/21 03:03 Eos # (Auto) 0.0 10^3/uL (0.0-0.8) 09/20/21 03:03 Baso # (Auto) 0.1 10^3/uL (0.0-0.1) 09/20/21 03:03 Nucleated RBC % (auto) 0 % 09/20/21 03:03 Nucleated RBCs # 0.0 /100WBC 09/20/21 03:03 D-Dimer 0.49 ug/mIFEU (0-0.59) 09/19/21 01:42 Sodium 135 mmol/L (136-145) L 09/20/21 03:03 Potassium 4.6 mmol/L (3.5-5.1) 09/20/21 03:03 Chloride 99 mmol/L (98-107) 09/20/21 03:03 Carbon Dioxide 22 mmol/L (22-29) 09/20/21 03:03 Anion Gap 18.6 (5-19) 09/20/21 03:03 BUN 22 mg/dL (6-20) H 09/20/21 03:03 Creatinine 1.3 mg/dL (0.5-0.9) H 09/20/21 03:03 GFR Calculation 43.4 mL/min (90-130) L 09/20/21 03:03 Glucose 300 mg/dL (65-115) H 09/20/21 03:03 POC Glucose 313 mg/dL (70-110) H 09/20/21 06:14 Calculated Osmolality 295 mOsm/kg (285-295) 09/20/21 03:03 Calcium 9.0 mg/dL (8.5-10.5) 09/20/21 03:03 Total Bilirubin 0.2 mg/dL (0.15-1.2) 09/19/21 01:42 AST 21 U/L (0-32) 09/19/21 01:42 ALT 26 U/L (0-33) 09/19/21 01:42 Alkaline Phosphatase 147 IU/L (35-105) H 09/19/21 01:42 Troponin T Baseline 6 ng/L (0-10) 09/19/21 01:42 Troponin T 120 Minute 6.00 ng/L (0-10) 09/19/21 03:20 Delta Troponin T 0 ABS# (0-10) 09/19/21 03:20 Troponin T Hi Sens 6Hr 6.00 ng/L (0-10) 09/19/21 09:08 Troponin T Hi Sens 6Hr Delta 0 ng/L (0-12) 09/19/21 09:08 NT-Pro-B Natriuret Pep 69 pg/mL (0-125) 09/19/21 01:42 Total Protein 7.1 g/dL (6.6-8.7) 09/19/21 01:42 Albumin 4.3 g/dL (3.5-5.2) 09/19/21 01:42 Globulin 2.8 g/dL (1.3-4.6) 09/19/21 01:42 Vitals Last Vital Signs Temp 98.2 F 09/20/21 04:00 Pulse 144 H 09/20/21 08:05 Resp 18 09/20/21 04:00 BP 153/69 09/20/21 08:05 Pulse Ox 94 09/20/21 04:00 Discharge Plan Discharge Patient Disposition: Home Condition: Stable Prescriptions: New metoprolol tartrate 50 mg tablet 50 mg PO BID Qty: 60 0RF amlodipine 10 mg Tablet 10 mg PO DAILY Qty: 30 3RF hydrochlorothiazide 25 mg Tablet 12.5 mg PO DAILY Qty: 30 3RF Farxiga 5 mg tablet 5 mg PO DAILY Qty: 30 2RF Continued bupropion HCl 75 mg tablet 75 mg PO BID@0700,2100 0RF Trulicity 1.5 mg/0.5 mL pen injector 1.5 mg SUBCUT Q7D 0RF Rx Instructions: TAKE ON SATURDAYS epinephrine 0.3 mg/0.3 mL auto-injector 0.3 mg IM ONCE PRN (Reason: Allergic Reaction) 0RF (DME) Sole Supports See Rx Instructions .ROUTE .MEDSUPPLY Qty: 1 0RF Rx Instructions: As directed fentanyl 50 mcg/hr patch 72 hour 1 patch transdermal Q72H 30 Days Qty: 10 0RF Rx Instructions: fill on or after 06/05/21 oxycodone-acetaminophen 10-325 mg tablet 1 tab PO TID PRN (Reason: pain) 30 Days Qty: 90 0RF Rx Instructions: fill on or after 06/24/21 nitrofurantoin monohyd/m-cryst [Macrobid] 100 mg capsule 100 mg PO BID 5 Days Qty: 10 0RF Rx Instructions: must administer with a meal/food doxycycline hyclate 100 mg capsule 100 mg PO BID Qty: 30 0RF fluconazole [Diflucan] 150 mg tablet 150 mg PO ONCE Qty: 2 0RF Rx Instructions: take one now and one in a week (DME) ASO to the left See Rx Instructions .Route .MEDSUPPLY Qty: 1 0RF Rx Instructions: As directed (DME) Custom Molded Accommodative Orthotics See Rx Instructions .Route .MEDSUPPLY Qty: 1 0RF Rx Instructions: As directed by Alpha and White Swan biotin 10,000 mcg capsule 10,000 mcg PO DAILY@0700 0RF estradiol 0.5 mg tablet 1 mg PO DAILY 0RF Rx Instructions: off 5 days; repeat cycle diazepam [Valium] 2 mg tablet 2.5 mg PO BID PRN (Reason: Anxiety) 0RF (DME) Diabetic Shoes See Rx Instructions .ROUTE .MEDSUPPLY Qty: 1 0RF Rx Instructions: As directed gabapentin 400 mg capsule 400 mg PO TID@06,12,18 0RF melatonin 1 mg Tablet 1 mg PO BEDTIME@2100 0RF diphenhydramine HCl [Benadryl Allergy] 25 mg Tablet 25 mg PO TID PRN (Reason: Allergic Symptoms) 0RF fish,bora,flax oils-om3,6,9no1 [Triple [place] Swan 3-6-9] 400-400-400 mg Capsule 3 cap PO DAILY@2100 0RF multivitamin Tablet 1 tab PO DAILY Qty: 0 0RF pantoprazole 40 mg tablet,delayed release (DR/EC) 40 mg PO BID@0700,2100 0RF Premarin 0.625 mg/gram cream See Rx Instructions .ROUTE .COMPLEX 0RF Rx Instructions: on Thursday and aspirin 81 mg Tablet,Chewable 81 mg PO DAILY PRN (Reason: with metoclopramide) Qty: 0 0RF Rx Instructions: use with 10 mg of metoclopramide for migraines metoclopramide HCl 10 mg tablet 10 mg PO PRN 0RF Rx Instructions: use with 81 mg aspirin when having migraines phenazopyridine 200 mg Tablet 200 mg PO TID 0RF atorvastatin 20 mg tablet 20 mg PO DAILY 0RF hydroxyzine pamoate 50 mg capsule 50 mg PO TID@07,12,21 0RF lactulose 10 gram/15 mL solution 15 ml PO BID PRN (Reason: Constipation) 0RF Vitamin B-2 25 mg Tablet 25 mg PO DAILY 0RF lamotrigine [Lamictal] 200 mg Tablet 200 mg PO BID 0RF valacyclovir 1 gram Tablet 1,000 mg PO BID 0RF docusate sodium [Stool Softener] 100 mg Capsule 200 mg PO BID 0RF magnesium 250 mg Tablet 250 mg PO DAILY 0RF prazosin 2 mg Capsule 4 mg PO BEDTIME 0RF Dialyvite 100-1 mg Tablet 1 tab PO DAILY 0RF Myrbetriq 25 mg tablet extended release 24 hr 25 mg PO DAILY MDD see pharmacy comment 0RF rbeqhtjv-rwiumodgnl-qbdb-hops 490 mg Capsule 1 cap PO DAILY 0RF clonazepam 0.5 mg Tablet 0.5 mg PO BID 0RF nitroglycerin 0.4 mg Tablet, Sublingual 0.4 mg SUBLINGUAL Q5M PRN (Reason: Chest Pain) 0RF tizanidine 4 mg Capsule 4 mg PO TID 0RF Discontinued metoprolol tartrate 25 mg tablet 25 mg PO BID@0700,2100 0RF Discharge Orders: Discharge Order (Routine); Ordered 09/20/21 Ordered By: Vielka Gamez Other Ambulatory Orders: Basic Metabolic Panel (Routine) Timeframe: 3 Days Facility: [facility] - Location: Lab - Main Lab Ordered By: Vielka Gamez Referrals: Nuria Kilgore MD [Physician] - 2 weeks (Nuria Kilgore's office will be calling to schedule an appointment to be seen in about 2 weeks. If you don't hear from them by Thursday, please give them a call. Thank you ) Linda Erickson MD [Primary Care Provider] - 09/23/21 1:45 pm Adelia Edmondson MD [Physician] - 1-3 days Discharge Diet: Advance as tolerated Discharge Activity: Resume usual activity Patient Instructions: Metoprolol (By mouth) (Lopressor, Toprol XL), Hydrochlorothiazide (By mouth) (Hydrocot, Microzide), Amlodipine (By mouth) (Hypertenipine-2.5, Norvasc), Chest Pain (ED), Hypertension (ED), Opioid Safety Discharge Attestations Time Spent in Discharge Care*: less than 30 min Quality Metrics Clinical Quality Measures [ No reported AMI, CVA or VTE this stay] Coding Level of Care Code Acute Chg FW DC note Diagnoses Chest pain R07.9 Hypertensive urgency I16.0 Diabetes mellitus, type II E11.42 Diabetes mellitus complication detail: with polyneuropathy Diabetes mellitus complication status: with neurologic complications Diabetes mellitus rodent exterminator insulin use: without group home use
[2021-09-20 11:27] LABS: Estmated Average Glucose 183
[2021-09-20 11:50] LABS: Glucose Point of Care 247 mg/dL (70-110)
[2021-09-20] MEDS: morphine 4 mg/mL SDV 1 mL IVP (12:10)
--- NOTE | 2021-09-20 15:16 | PC.NURSE ---
at 1200,pt c/o severe right sided pain..stating it's near where i had my nephrectomy..and it goes down my leg .pt states she has had this pain in the past several times.dr shrestha notified and ordered 4 mg morphine iv push.this was scanned and given at approx 12:10.this did relieve pain when re-evaluated.i noted that mso4 did not come up as scanned in the computer...but it was.
--- NOTE | 2021-09-20 15:25 | PC.NURSE ---
discharge instructions given and explained.pt verb understanding of instructions.discharged via w/c at 1415 to exit[address]spouse to drive pt home
[2021-09-20 19:47] LABS: Glucose Point of Care 309 mg/dL (70-110)
== END 2021-09-20 14:15 | disposition home or self-care (01) ==
LOC: ER 04:56 → ER IP 05:09 → CSU 14:45
PROVIDERS: Admitting Provider Internal Medicine; Emergency Provider Emergency Medicine; PCP Family Medicine; Visit Provider Internal Medicine
DX: R07.9 Chest pain, unspecified (principal); I16.0 Hypertensive urgency; E11.42 Type 2 diabetes mellitus with diabetic polyneuropathy; N18.30 Chronic kidney disease, stage 3 unspecified; F41.9 Anxiety disorder, unspecified; F32.9 Major depressive disorder, single episode, unspecified; M79.7 Fibromyalgia; K21.9 Gastro-esophageal reflux disease without esophagitis; Z79.82 Long term (current) use of aspirin; Z79.891 Long term (current) use of opiate analgesic; E11.22 Type 2 diabetes mellitus with diabetic chronic kidney disease; I12.9 Hypertensive chronic kidney disease with stage 1 through stage 4 chronic kidney disease, or unspecified chronic kidney disease; E78.5 Hyperlipidemia, unspecified; Z83.3 Family history of diabetes mellitus; Z82.49 Family history of ischemic heart disease and other diseases of the circulatory system
CPT/HCPCS: 36415; 36416; 71045; 71275; 78452; 80048; 80053; 82962; 83036; 83880; 84484; 85025; 85378; 93005; 93017; 93306; 96372; 96374; 96375; 96376; 99285; A9500; G0378; J1170; J1650; J1815; J2060; J2270; J2405; J2785; J3490; Q9967

== ENCOUNTER 2021-10-01 06:00 | Outpatient (RCR) | payer BC, SELFPAY | END 2021-10-14 23:59 | disposition home or self-care (01) | LOC: SPT 06:00 | PROVIDERS: PCP Family Medicine; Referring Provider Podiatrist Foot & Ankle Surgery; Visit Provider Podiatrist Foot & Ankle Surgery | DX: M25.372 Other instability, left ankle (principal) | CPT/HCPCS: 97161 ==

== ENCOUNTER 2021-10-02 06:00 | Outpatient (RCR) | payer BC, SELFPAY | END 2021-10-14 23:59 | disposition home or self-care (01) | LOC: SPT 06:00 | PROVIDERS: PCP Family Medicine; Referring Provider Family Medicine; Visit Provider Family Medicine | DX: M25.811 Other specified joint disorders, right shoulder (principal) | CPT/HCPCS: 97161 ==

== ENCOUNTER 2021-10-15 06:00 | Outpatient (RCR) | payer BC, SELFPAY | END 2021-11-14 23:59 | disposition home or self-care (01) | LOC: SPT 06:00 | PROVIDERS: PCP Family Medicine; Referring Provider Podiatrist Foot & Ankle Surgery; Visit Provider Podiatrist Foot & Ankle Surgery | DX: M25.372 Other instability, left ankle (principal) | CPT/HCPCS: 97110 ==

== ENCOUNTER 2021-10-29 12:15 | Outpatient (CLI) | payer BC, SELFPAY ==
[2021-10-29 14:44] LABS: Blood Urea Nitrogen 25 mg/dL (6-20); Calcium 9.1 mg/dL (8.5-10.5); Carbon Dioxide 18 mmol/L (22-29); Chloride 102 mmol/L (98-107); Glomerular Filtration Rate 58.7 mL/min (90-130); Glucose 184 mg/dL (65-115); Phosphorus 1.9 mg/dL (2.5-4.5); Sodium 134 mmol/L (136-145)
== END 2021-10-29 12:16 | disposition home or self-care (01) ==
PROVIDERS: PCP Family Medicine; Visit Provider Internal Medicine Nephrology
DX: N18.32 Chronic kidney disease, stage 3b (principal)
CPT/HCPCS: 80069

== ENCOUNTER 2021-11-15 06:00 | Outpatient (RCR) | payer BC, SELFPAY | END 2021-12-14 23:59 | disposition home or self-care (01) | LOC: SPT 06:00 | PROVIDERS: PCP Family Medicine; Referring Provider Podiatrist Foot & Ankle Surgery; Visit Provider Podiatrist Foot & Ankle Surgery | DX: M23.52 Chronic instability of knee, left knee (principal) | CPT/HCPCS: 97110 ==

== ENCOUNTER 2021-12-15 06:00 | Outpatient (RCR) | payer BC, SELFPAY | END 2021-12-25 23:59 | disposition home or self-care (01) | LOC: SPT 06:00 | PROVIDERS: PCP Family Medicine; Referring Provider Podiatrist Foot & Ankle Surgery; Visit Provider Podiatrist Foot & Ankle Surgery | DX: M25.372 Other instability, left ankle (principal) | CPT/HCPCS: 97110 ==

== ENCOUNTER 2021-12-20 04:24 | Emergency (ER) | payer BC, SELFPAY ==
[2021-12-20 04:30] VITALS: BP 113/88; PULSE 84; RESP 17; TEMP 36.8; O2SAT 95; BMI 29.9
--- NOTE | 2021-12-20 04:38 | CTR_ITS ---
PROCEDURE INFORMATION: Exam: CT Head Without Contrast Exam date and time: 12/20/2021 5:54 AM Age: 51 years old Clinical indication: Injury or trauma; Blunt trauma (contusions or hematomas); Prior surgery; Surgery type: Shunt; Patient HX: Patient states she has fallen twice in the last 24 hours. C/O dizziness and nausea. TECHNIQUE: Imaging protocol: Computed tomography of the head without contrast. Radiation optimization: All CT scans at this facility use at least one of these dose optimization techniques: automated exposure control; mA and/or kV adjustment per patient size (includes targeted exams where dose is matched to clinical indication); or iterative reconstruction. COMPARISON: CT head wo con* [id number] 06/15/2021 3:27 PM RADIATION DOSE METRICS: Total DLP (mGy-cm): 810.66 FINDINGS: Brain: Miller-white matter differentiation is preserved. No edema, mass effect or midline shift. No acute intracranial hemorrhage. Cerebral ventricles: Left frontal approach shunt catheter tip terminates in the frontal horn of the right lateral ventricle, no change.No ventriculomegaly. Ventricular size and configuration is similar to prior exam. Paranasal sinuses: Visualized sinuses are unremarkable. No fluid levels. Mastoid air cells: No mastoid effusion. Bones/joints: No acute fracture. Soft tissues: Unremarkable. CT/CT head wo con* [id number] IMPRESSION: No acute intracranial abnormality.
--- NOTE | 2021-12-20 04:38 | XRR_ITS ---
PROCEDURE INFORMATION: Exam: XR Chest Exam date and time: 12/20/2021 5:37 AM Age: 51 years old Clinical indication: Patient HX: Generalized weakness. TECHNIQUE: Imaging protocol: XR of the chest. Views: 1 view. 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 Lungs: No consolidation. Pleural spaces: Unremarkable. No pleural effusion. No pneumothorax. Heart/Mediastinum: No cardiomegaly. Bones/joints: No acute fracture. . XR/XR chest 1V portable [id number] IMPRESSION: No acute findings.
--- NOTE | 2021-12-20 04:39 | ECG_ITS ---
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 Measurements Intervals [place] Rate: 82 P: 29 AL: 140 QRS: 0 QRSD: 88 T: -1 QT: 387 QTc: 454 Interpretive Statements SINUS RHYTHM Compared to ECG 09/19/2021 22:51:21 Sinus tachycardia no longer present Electronically Signed On 12-20-2021 20:18:20 CDT by Griselda Bolaños M.D. [id number]
--- NOTE | 2021-12-20 04:40 | W.ED.GENADLT ---
Documented by User: Claudette Green MD 12/20/21 04:55 HPI - General Adult General: Chief complaint: General Medical Stated complaint: Dizzy\Urine Cloudy and stuff in\N\V Fallen Time Seen by Provider: 12/20/21 04:28 Source: patient Mode of arrival: ambulatory Limitations: no limitations History of Present Illness: 51-year-old female who is here with multiple complaints. She states that throughout the day she has been having lightheadedness and dizziness states that she had fell twice and hit her head and her blood pressures been running in the 60s she states she feels better currently her blood pressure is improved no longer has any dizziness. She denies any chest pain or fever she states she is also had some discoloration of her urine. Associated symptoms: Deny chest pain, dyspnea, nausea, rash or vomiting Review of Systems Const: Reports: fatigue Eyes: Denies: blurry vision or eye discomfort ENMT: Denies: throat pain or dental pain Card: Denies: chest pain Resp: Denies: dyspnea GI: Denies: abdominal pain, nausea, vomiting or diarrhea : Denies: dysuria Musc: Denies: neck pain or back pain Skin/Breast: Denies: rash Neuro: Reports: dizziness Psych: Denies: depression Fletcher/Lymph: Denies: easy bruising All/Imm: Denies: urticaria PFSH ED PFSH: Medical History Abdominal pain chronic Anxiety CKD (chronic kidney disease) stage 3, GFR 30-59 ml/min DDD (degenerative disc disease), cervical DDD (degenerative disc disease), lumbar Depression Diabetes mellitus, type II Diabetic peripheral neuropathy associated with type 2 diabetes mellitus Facet syndrome, lumbar Fibromyalgia GERD (gastroesophageal reflux disease) History of pulmonary function tests (01/2020) normal Hyperlipidemia Kidney stone Long-term current use of opiate analgesic Lumbosacral spondylosis with radiculopathy Panic attacks Seizures Therapeutic opioid induced constipation Surgical History History of ankle surgery (~2018) ORIF right ankle, Dr Matos History of arthrodesis (09/2019) left 1st, 2nd, and 3rd tarsometatarsal joints by Dr Matos, due to Lisfranc dislocation History of esophagogastroduodenoscopy (EGD) (04/2020) Dr Ruelas History of excision of mass (05/2020) right hip fibroma/granuloma by Dr Gonzales History of nephrectomy (~2013) History of ventriculoperitoneal shunting (~01/04/09) Dr. Cordelia Roche 01/04/2009 Ventriculoperitoneal shunt placement. William Hakim Programmable Valve, Siphonguard device. Valve at 15cm H2O. 2010 reprogrammed to 14 cm H2O Hx of appendectomy (~2002) Hx of cholecystectomy (~2003) Hx of hysterectomy Hx of laminectomy S/P hardware removal (10/26/20) deep hardware left foot by Dr Matos Status post hardware removal (04/19/21) deep hardware left foot by Dr Matos Family History Mother Diabetes DM2 Family/Other Cancer MATERNAL AUNT- BREAST CANCER Social History Second hand smoke exposure: No Alcohol intake: never Caregiver/support person: Yes Lives independently: Yes Household members: spouse Marital status: Current occupational status: disabled Physical Exam Const: COMMON NORMALS: no acute distress, patient oriented x3 and healthy appearing HENMT: COMMON NORMALS: normocephalic and atraumatic HEAD & SCALP: normocephalic and atraumatic Eye: COMMON NORMALS: Equal, round and reactive pupils present and EOMs intact bilaterally PUPIL: Yes Equal, round and reactive pupils present Neck/C-Spine: COMMON NORMALS: full ROM and supple Chest: COMMONS NORMALS: normal inspection of the chest and normal palpation of entire chest wall Resp: COMMON NORMALS: normal respiratory effort, No retractions, No use of accessory muscles and clear to auscultation bilaterally AUSCULTATION: clear to auscultation bilaterally Cardio: COMMON NORMALS: regular rate, regular rhythm and No murmurs present (Cardio) RATE: regular rate RHYTHM: regular rhythm GI: COMMON NORMALS: Normal to inspection, nondistended, normoactive bowel sounds present, Soft to palpation, non-tender and no masses PALPATION: Yes Soft to palpation Extremity: COMMON NORMALS: normal to inspection and full ROM Neuro: COMMON NORMALS: patient oriented x3, moves all extremities and no focal motor deficits Psych: COMMON NORMALS: mental status grossly normal, Normal thought process present and cooperative THOUGHT PROCESS: Normal thought process present Skin: COMMON NORMALS: no rashes or lesions noted and no wounds GENERAL SKIN EXAM: no rashes or lesions noted Course Vital Signs: Vital signs: Vital Signs Temperature 98.2 F 12/20/21 04:30 Pulse Rate 74 12/20/21 07:44 Respiratory Rate 14 12/20/21 07:44 Blood Pressure 129/91 12/20/21 07:44 Pulse Oximetry 98 12/20/21 07:44 [facility] - General Adult Lab Data : 12/20/21 05:35 12/20/21 05:35 Radiology Impressions Chest X-Ray 12/20/21 04:38 IMPRESSION: No acute findings. Head CT 12/20/21 04:38 IMPRESSION: No acute intracranial abnormality. Laboratory Results WBC 6.1 10^3/uL (4.0-10.0) 12/20/21 05:35 RBC 4.67 10^6/uL (4.1-5.3) 12/20/21 05:35 Hgb 12.5 g/dL (11.5-15.3) 12/20/21 05:35 Hct 38.7 % (37.0-47.0) 12/20/21 05:35 MCV 82.9 fl (81-99) 12/20/21 05:35 MCH 26.8 pg (28.0-34.0) L 12/20/21 05:35 MCHC 32.3 g/dL (30.0-36.0) 12/20/21 05:35 RDW 14.0 % (12.1-15.1) 12/20/21 05:35 Plt Count 169 10^3/cmm (130-400) 12/20/21 05:35 MPV 9.9 fL (7.4-10.4) 12/20/21 05:35 Neut % (Auto) 54.7 % 12/20/21 05:35 Lymph % (Auto) 30.8 % 12/20/21 05:35 [place] % (Auto) 8.7 % 12/20/21 05:35 Eos % (Auto) 4.4 % 12/20/21 05:35 Baso % (Auto) 0.7 % 12/20/21 05:35 Neut # (Auto) 3.32 10^3/uL (1.8-7.7) 12/20/21 05:35 Lymph # (Auto) 1.9 10^3/uL (0.8-4.8) 12/20/21 05:35 [place] # (Auto) 0.5 10^3/uL (0.2-0.9) 12/20/21 05:35 Eos # (Auto) 0.3 10^3/uL (0.0-0.8) 12/20/21 05:35 Baso # (Auto) 0.0 10^3/uL (0.0-0.1) 12/20/21 05:35 Nucleated RBC % (auto) 0 % 12/20/21 05:35 Nucleated RBCs # 0.0 /100WBC 12/20/21 05:35 Sodium 135 mmol/L (136-145) L 12/20/21 05:35 Potassium 4.8 mmol/L (3.5-5.1) 12/20/21 05:35 Chloride 102 mmol/L (98-107) 12/20/21 05:35 Carbon Dioxide 25 mmol/L (22-29) 12/20/21 05:35 Anion Gap 12.8 (5-19) 12/20/21 05:35 BUN 28 mg/dL (6-20) H 12/20/21 05:35 Creatinine 1.4 mg/dL (0.5-0.9) H 12/20/21 05:35 GFR Calculation 39.8 mL/min (90-130) L 12/20/21 05:35 Glucose 298 mg/dL (65-115) H 12/20/21 05:35 Calculated Osmolality 297 mOsm/kg (285-295) H 12/20/21 05:35 Calcium 8.9 mg/dL (8.5-10.5) 12/20/21 05:35 Total Bilirubin 0.2 mg/dL (0.15-1.2) 12/20/21 05:35 AST 11 U/L (0-32) 12/20/21 05:35 ALT 20 U/L (0-33) 12/20/21 05:35 Alkaline Phosphatase 167 IU/L (35-105) H 12/20/21 05:35 Total Protein 6.2 g/dL (6.6-8.7) L 12/20/21 05:35 Albumin 3.8 g/dL (3.5-5.2) 12/20/21 05:35 Globulin 2.4 g/dL (1.3-4.6) 12/20/21 05:35 Urine Color Yellow (Yellow) 12/20/21 05:49 Urine Appearance Hazy (CLEAR) A 12/20/21 05:49 Urine pH 5 (5-7) 12/20/21 05:49 Ur Specific [place] 1.020 (1.005-1.030) 12/20/21 05:49 Urine Protein Trace (Negative) 12/20/21 05:49 Urine Glucose (UA) 4+ (Normal) H 12/20/21 05:49 Urine Ketones 1+ (Negative) H 12/20/21 05:49 Urine Blood Neg (Negative) 12/20/21 05:49 Urine Nitrate Positive (Negative) H 12/20/21 05:49 Urine Bilirubin 1+ (Negative) H 12/20/21 05:49 Urine Urobilinogen Norm mg/dL (Negative) 12/20/21 05:49 Ur Leukocyte Esterase 1+ (Negative) H 12/20/21 05:49 Urine RBC 0-4 /hpf (0-2) H 12/20/21 05:49 Urine WBC 5-10 /hpf (0-5) H 12/20/21 05:49 Ur Squamous Epith Cells 5-10 /hpf (0-5) H 12/20/21 05:49 Amorphous Sediment Not Reportable 12/20/21 05:49 Urine Bacteria 3+ /hpf (NONE) H 12/20/21 05:49 Urine Mucus Trace /hpf 12/20/21 05:49 EKG Data EKG 1: I personally reviewed and interpreted this EKG as follows: EKG interpretation date: 12/20/21 EKG interpretation time: 04:37 Interpretation: nsr hr [address] or t wave abnormalities qrs 88 qtc 426 Computer generated interpretation: Chest X-Ray 12/20/21 04:38 IMPRESSION: No acute findings. Head CT 12/20/21 04:38 IMPRESSION: No acute intracranial abnormality. Discharge Plan Discharge Patient Disposition: Home Clinical Impression: Cystitis, Transient hypotension Condition: Stable Prescriptions: New Macrobid 100 mg capsule 100 mg PO BID 7 Days Qty: 14 0RF Rx Instructions: must administer with a meal/food Discontinued doxycycline hyclate 100 mg capsule 100 mg PO BID Qty: 30 0RF hydrochlorothiazide 25 mg Tablet 12.5 mg PO DAILY Qty: 30 3RF No Action bupropion HCl 75 mg tablet 75 mg PO BID@0700,2100 0RF Trulicity 1.5 mg/0.5 mL pen injector 1.5 mg SUBCUT Q7D 0RF Rx Instructions: TAKE ON SATURDAYS epinephrine 0.3 mg/0.3 mL auto-injector 0.3 mg IM ONCE PRN (Reason: Allergic Reaction) 0RF ([facility] [place]) Sole Supports See Rx Instructions .ROUTE .MEDSUPPLY Qty: 1 0RF Rx Instructions: As directed fentanyl 50 mcg/hr patch 72 hour 1 patch transdermal Q72H 30 Days Qty: 10 0RF Rx Instructions: fill on or after 06/05/21 oxycodone-acetaminophen 10-325 mg tablet 1 tab PO TID PRN (Reason: pain) 30 Days Qty: 90 0RF Rx Instructions: fill on or after 06/24/21 nitrofurantoin monohyd/m-cryst [Macrobid] 100 mg capsule 100 mg PO BID 5 Days Qty: 10 0RF Rx Instructions: must administer with a meal/food fluconazole [Diflucan] 150 mg tablet 150 mg PO ONCE Qty: 2 0RF Rx Instructions: take one now and one in a week (DME) ASO to the left See Rx Instructions .Route .MEDSUPPLY Qty: 1 0RF Rx Instructions: As directed ([facility] [place]) Custom Molded Accommodative Orthotics See Rx Instructions .Route .MEDSUPPLY Qty: 1 0RF Rx Instructions: As directed by Ilan and Monster biotin 10,000 mcg capsule 10,000 mcg PO DAILY@0700 0RF estradiol 0.5 mg tablet 1 mg PO DAILY 0RF Rx Instructions: off 5 days; repeat cycle diazepam [Valium] 2 mg tablet 2.5 mg PO BID PRN (Reason: Anxiety) 0RF ([facility] [place]) Diabetic Shoes See Rx Instructions .ROUTE .MEDSUPPLY Qty: 1 0RF Rx Instructions: As directed gabapentin 400 mg capsule 400 mg PO TID@06,12,18 0RF melatonin 1 mg Tablet 1 mg PO BEDTIME@2100 0RF diphenhydramine HCl [Benadryl Allergy] 25 mg Tablet 25 mg PO TID PRN (Reason: Allergic Symptoms) 0RF fish,bora,flax oils-om3,6,9no1 [Triple Roll[place] 3-6-9] 400-400-400 mg Capsule 3 cap PO DAILY@2100 0RF multivitamin Tablet 1 tab PO DAILY Qty: 0 0RF pantoprazole 40 mg tablet,delayed release (DR/EC) 40 mg PO BID@0700,2100 0RF Premarin 0.625 mg/gram cream See Rx Instructions .ROUTE .COMPLEX 0RF Rx Instructions: on Thursday and aspirin 81 mg Tablet,Chewable 81 mg PO DAILY PRN (Reason: with metoclopramide) Qty: 0 0RF Rx Instructions: use with 10 mg of metoclopramide for migraines metoclopramide HCl 10 mg tablet 10 mg PO PRN 0RF Rx Instructions: use with 81 mg aspirin when having migraines phenazopyridine 200 mg Tablet 200 mg PO TID 0RF atorvastatin 20 mg tablet 20 mg PO DAILY 0RF hydroxyzine pamoate 50 mg capsule 50 mg PO TID@,, 0RF lactulose 10 gram/15 mL solution 15 ml PO BID PRN (Reason: Constipation) 0RF Vitamin B-2 25 mg Tablet 25 mg PO DAILY 0RF lamotrigine [Lamictal] 200 mg Tablet 200 mg PO BID 0RF valacyclovir 1 gram Tablet 1,000 mg PO BID 0RF docusate sodium [Stool Softener] 100 mg Capsule 200 mg PO BID 0RF magnesium 250 mg Tablet 250 mg PO DAILY 0RF prazosin 2 mg Capsule 4 mg PO BEDTIME 0RF Dialyvite 100-1 mg Tablet 1 tab PO DAILY 0RF Myrbetriq 25 mg tablet extended release 24 hr 25 mg PO DAILY MDD see pharmacy comment 0RF vxvnazxx-vwsohoytht-gglt-hops 490 mg Capsule 1 cap PO DAILY 0RF clonazepam 0.5 mg Tablet 0.5 mg PO BID 0RF nitroglycerin 0.4 mg Tablet, Sublingual 0.4 mg SUBLINGUAL Q5M PRN (Reason: Chest Pain) 0RF tizanidine 4 mg Capsule 4 mg PO TID 0RF metoprolol tartrate 50 mg tablet 50 mg PO BID Qty: 60 0RF amlodipine 10 mg Tablet 10 mg PO DAILY Qty: 30 3RF Farxiga 5 mg tablet 5 mg PO DAILY Qty: 30 2RF Discharge Orders: Discharge ED (Routine); Ordered 12/20/21 Ordered By: Roe Gautam Referrals: Linda Erickson MD [Primary Care Provider] - Discharge Diet: Usual diet Discharge Activity: Resume usual activity Patient Instructions: Opioid Safety Activity Restrictions/Additional Instructions: Follow-up with your primary care doctor to reevaluate blood pressure within the week. If you have any further problems or symptoms she can return to the emergency room or follow-up with your primary care doctor. Sign Out Sign Out Data: Patient Sign Out occurred on 12/20/21 at 06:07. Patient's care was discussed, and care was transferred from to Roe Gautam DO. Coding Level of Care Code ED Signs And Displays Salesperson for Chg Fwd Exam Comprehensive Documented by User: Roe Gautam DO 12/20/21 08:25 HPI - General Adult General: Chief complaint: General Medical Stated complaint: Dizzy\Urine Cloudy and stuff in\N\V Fallen Time Seen by Provider: 12/20/21 04:28 [facility] ED PFSH: Medical History Abdominal pain chronic Anxiety CKD (chronic kidney disease) stage 3, GFR 30-59 ml/min DDD (degenerative disc disease), cervical DDD (degenerative disc disease), lumbar Depression Diabetes mellitus, type II Diabetic peripheral neuropathy associated with type 2 diabetes mellitus Facet syndrome, lumbar Fibromyalgia GERD (gastroesophageal reflux disease) History of pulmonary function tests (01/2020) normal Hyperlipidemia Kidney stone Long-term current use of opiate analgesic Lumbosacral spondylosis with radiculopathy Panic attacks Seizures Therapeutic opioid induced constipation Surgical History History of ankle surgery (~2018) ORIF right ankle, Dr Matos History of arthrodesis (09/2019) left 1st, 2nd, and 3rd tarsometatarsal joints by Dr Matos, due to Lisfranc dislocation History of esophagogastroduodenoscopy (EGD) (04/2020) Dr Ruelas History of excision of mass (05/2020) right hip fibroma/granuloma by Dr Gonzales History of nephrectomy (~2013) History of ventriculoperitoneal shunting (~01/04/09) Dr. Cordelia Roche 01/04/2009 Ventriculoperitoneal shunt placement. William De Leóniesham Programmable Valve, Siphonguard device. Valve at 15cm H2O. 2010 reprogrammed to 14 cm H2O Hx of appendectomy (~2002) Hx of cholecystectomy (~2003) Hx of hysterectomy Hx of laminectomy S/P hardware removal (10/26/20) deep hardware left foot by Dr Matos Status post hardware removal (04/19/21) deep hardware left foot by Dr Matos Family History Mother Diabetes DM2 Family/Other Cancer MATERNAL AUNT- BREAST CANCER Social History Second hand smoke exposure: No Alcohol intake: never Caregiver/support person: Yes Lives independently: Yes Household members: spouse Marital status: Current occupational status: disabled Course Vital Signs: Vital signs: Vital Signs Temperature 98.2 F 12/20/21 04:30 Pulse Rate 74 12/20/21 07:44 Respiratory Rate 14 12/20/21 07:44 Blood Pressure 129/91 12/20/21 07:44 Pulse Oximetry 98 12/20/21 07:44 [facility] - General Adult Medical Decision Making Labs and imaging reviewed. Patient does have a mild cystitis. Blood pressure is already improved. For now would recommend that she hold the hydrochlorothiazide. Started on Macrobid twice daily for 7 days for the cystitis Patient requested Diflucan. She is not having any symptoms now she is requesting in anticipation of symptoms recommend that on the onset of any symptoms she immediately use an aaor-bit-rouxmst medication contact her primary care if that does not improve symptoms. Medical Records I reviewed the patient's medical records. Lab Data I reviewed the patient's lab results. : 12/20/21 05:35 12/20/21 05:35 Radiology Impressions Chest X-Ray 12/20/21 04:38 IMPRESSION: No acute findings. Head CT 12/20/21 04:38 IMPRESSION: No acute intracranial abnormality. Laboratory Results WBC 6.1 10^3/uL (4.0-10.0) 12/20/21 05:35 RBC 4.67 10^6/uL (4.1-5.3) 12/20/21 05:35 Hgb 12.5 g/dL (11.5-15.3) 12/20/21 05:35 Hct 38.7 % (37.0-47.0) 12/20/21 05:35 MCV 82.9 fl (81-99) 12/20/21 05:35 MCH 26.8 pg (28.0-34.0) L 12/20/21 05:35 MCHC 32.3 g/dL (30.0-36.0) 12/20/21 05:35 RDW 14.0 % (12.1-15.1) 12/20/21 05:35 Plt Count 169 10^3/cmm (130-400) 12/20/21 05:35 MPV 9.9 fL (7.4-10.4) 12/20/21 05:35 Neut % (Auto) 54.7 % 12/20/21 05:35 Lymph % (Auto) 30.8 % 12/20/21 05:35 [place] % (Auto) 8.7 % 12/20/21 05:35 Eos % (Auto) 4.4 % 12/20/21 05:35 Baso % (Auto) 0.7 % 12/20/21 05:35 Neut # (Auto) 3.32 10^3/uL (1.8-7.7) 12/20/21 05:35 Lymph # (Auto) 1.9 10^3/uL (0.8-4.8) 12/20/21 05:35 [place] # (Auto) 0.5 10^3/uL (0.2-0.9) 12/20/21 05:35 Eos # (Auto) 0.3 10^3/uL (0.0-0.8) 12/20/21 05:35 Baso # (Auto) 0.0 10^3/uL (0.0-0.1) 12/20/21 05:35 Nucleated RBC % (auto) 0 % 12/20/21 05:35 Nucleated RBCs # 0.0 /100WBC 12/20/21 05:35 Sodium 135 mmol/L (136-145) L 12/20/21 05:35 Potassium 4.8 mmol/L (3.5-5.1) 12/20/21 05:35 Chloride 102 mmol/L (98-107) 12/20/21 05:35 Carbon Dioxide 25 mmol/L (22-29) 12/20/21 05:35 Anion Gap 12.8 (5-19) 12/20/21 05:35 BUN 28 mg/dL (6-20) H 12/20/21 05:35 Creatinine 1.4 mg/dL (0.5-0.9) H 12/20/21 05:35 GFR Calculation 39.8 mL/min (90-130) L 12/20/21 05:35 Glucose 298 mg/dL (65-115) H 12/20/21 05:35 Calculated Osmolality 297 mOsm/kg (285-295) H 12/20/21 05:35 Calcium 8.9 mg/dL (8.5-10.5) 12/20/21 05:35 Total Bilirubin 0.2 mg/dL (0.15-1.2) 12/20/21 05:35 AST 11 U/L (0-32) 12/20/21 05:35 ALT 20 U/L (0-33) 12/20/21 05:35 Alkaline Phosphatase 167 IU/L (35-105) H 12/20/21 05:35 Total Protein 6.2 g/dL (6.6-8.7) L 12/20/21 05:35 Albumin 3.8 g/dL (3.5-5.2) 12/20/21 05:35 Globulin 2.4 g/dL (1.3-4.6) 12/20/21 05:35 Urine Color Yellow (Yellow) 12/20/21 05:49 Urine Appearance Hazy (CLEAR) A 12/20/21 05:49 Urine pH 5 (5-7) 12/20/21 05:49 Ur Specific [place] 1.020 (1.005-1.030) 12/20/21 05:49 Urine Protein Trace (Negative) 12/20/21 05:49 Urine Glucose (UA) 4+ (Normal) H 12/20/21 05:49 Urine Ketones 1+ (Negative) H 12/20/21 05:49 Urine Blood Neg (Negative) 12/20/21 05:49 Urine Nitrate Positive (Negative) H 12/20/21 05:49 Urine Bilirubin 1+ (Negative) H 12/20/21 05:49 Urine Urobilinogen Norm mg/dL (Negative) 12/20/21 05:49 Ur Leukocyte Esterase 1+ (Negative) H 12/20/21 05:49 Urine RBC 0-4 /hpf (0-2) H 12/20/21 05:49 Urine WBC 5-10 /hpf (0-5) H 12/20/21 05:49 Ur Squamous Epith Cells 5-10 /hpf (0-5) H 12/20/21 05:49 Amorphous Sediment Not Reportable 12/20/21 05:49 Urine Bacteria 3+ /hpf (NONE) H 12/20/21 05:49 Urine Mucus Trace /hpf 12/20/21 05:49 EKG Data EKG 1: Computer generated interpretation: Chest X-Ray 12/20/21 04:38 IMPRESSION: No acute findings. Head CT 12/20/21 04:38 IMPRESSION: No acute intracranial abnormality. Discharge Plan Discharge Patient Disposition: Home Clinical Impression: Cystitis, Transient hypotension Condition: Stable Prescriptions: New Macrobid 100 mg capsule 100 mg PO BID 7 Days Qty: 14 0RF Rx Instructions: must administer with a meal/food Discontinued doxycycline hyclate 100 mg capsule 100 mg PO BID Qty: 30 0RF hydrochlorothiazide 25 mg Tablet 12.5 mg PO DAILY Qty: 30 3RF No Action bupropion HCl 75 mg tablet 75 mg PO BID@0700,2100 0RF Trulicity 1.5 mg/0.5 mL pen injector 1.5 mg SUBCUT Q7D 0RF Rx Instructions: TAKE ON SATURDAYS epinephrine 0.3 mg/0.3 mL auto-injector 0.3 mg IM ONCE PRN (Reason: Allergic Reaction) 0RF (DME) Sole Supports See Rx Instructions .ROUTE .MEDSUPPLY Qty: 1 0RF Rx Instructions: As directed fentanyl 50 mcg/hr patch 72 hour 1 patch transdermal Q72H 30 Days Qty: 10 0RF Rx Instructions: fill on or after 06/05/21 oxycodone-acetaminophen 10-325 mg tablet 1 tab PO TID PRN (Reason: pain) 30 Days Qty: 90 0RF Rx Instructions: fill on or after 06/24/21 nitrofurantoin monohyd/m-cryst [Macrobid] 100 mg capsule 100 mg PO BID 5 Days Qty: 10 0RF Rx Instructions: must administer with a meal/food fluconazole [Diflucan] 150 mg tablet 150 mg PO ONCE Qty: 2 0RF Rx Instructions: take one now and one in a week (DME) ASO to the left See Rx Instructions .Route .MEDSUPPLY Qty: 1 0RF Rx Instructions: As directed (DME) Custom Molded Accommodative Orthotics See Rx Instructions .Route .MEDSUPPLY Qty: 1 0RF Rx Instructions: As directed by Alpha and [place] biotin 10,000 mcg capsule 10,000 mcg PO DAILY@0700 0RF estradiol 0.5 mg tablet 1 mg PO DAILY 0RF Rx Instructions: off 5 days; repeat cycle diazepam [Valium] 2 mg tablet 2.5 mg PO BID PRN (Reason: Anxiety) 0RF (DME) Diabetic Shoes See Rx Instructions .ROUTE .MEDSUPPLY Qty: 1 0RF Rx Instructions: As directed gabapentin 400 mg capsule 400 mg PO TID@06,12,18 0RF melatonin 1 mg Tablet 1 mg PO BEDTIME@2100 0RF diphenhydramine HCl [Benadryl Allergy] 25 mg Tablet 25 mg PO TID PRN (Reason: Allergic Symptoms) 0RF fish,bora,flax oils-om3,6,9no1 [Triple [place] 3-6-9] 400-400-400 mg Capsule 3 cap PO DAILY@2100 0RF multivitamin Tablet 1 tab PO DAILY Qty: 0 0RF pantoprazole 40 mg tablet,delayed release (DR/EC) 40 mg PO BID@0700,2100 0RF Premarin 0.625 mg/gram cream See Rx Instructions .ROUTE .COMPLEX 0RF Rx Instructions: on Thursday and aspirin 81 mg Tablet,Chewable 81 mg PO DAILY PRN (Reason: with metoclopramide) Qty: 0 0RF Rx Instructions: use with 10 mg of metoclopramide for migraines metoclopramide HCl 10 mg tablet 10 mg PO PRN 0RF Rx Instructions: use with 81 mg aspirin when having migraines phenazopyridine 200 mg Tablet 200 mg PO TID 0RF atorvastatin 20 mg tablet 20 mg PO DAILY 0RF hydroxyzine pamoate 50 mg capsule 50 mg PO TID@07,12,21 0RF lactulose 10 gram/15 mL solution 15 ml PO BID PRN (Reason: Constipation) 0RF Vitamin B-2 25 mg Tablet 25 mg PO DAILY 0RF lamotrigine [Lamictal] 200 mg Tablet 200 mg PO BID 0RF valacyclovir 1 gram Tablet 1,000 mg PO BID 0RF docusate sodium [Stool Softener] 100 mg Capsule 200 mg PO BID 0RF magnesium 250 mg Tablet 250 mg PO DAILY 0RF prazosin 2 mg Capsule 4 mg PO BEDTIME 0RF Dialyvite 100-1 mg Tablet 1 tab PO DAILY 0RF Myrbetriq 25 mg tablet extended release 24 hr 25 mg PO DAILY MDD see pharmacy comment 0RF hvdhckac-dagvfmpxeq-fsnu-hops 490 mg Capsule 1 cap PO DAILY 0RF clonazepam 0.5 mg Tablet 0.5 mg PO BID 0RF nitroglycerin 0.4 mg Tablet, Sublingual 0.4 mg SUBLINGUAL Q5M PRN (Reason: Chest Pain) 0RF tizanidine 4 mg Capsule 4 mg PO TID 0RF metoprolol tartrate 50 mg tablet 50 mg PO BID Qty: 60 0RF amlodipine 10 mg Tablet 10 mg PO DAILY Qty: 30 3RF Farxiga 5 mg tablet 5 mg PO DAILY Qty: 30 2RF Discharge Orders: Discharge ED (Routine); Ordered 12/20/21 Ordered By: Roe Gautam Referrals: Linda Erickson MD [Primary Care Provider] - Discharge Diet: Usual diet Discharge Activity: Resume usual activity Patient Instructions: Opioid Safety Activity Restrictions/Additional Instructions: Follow-up with your primary care doctor to reevaluate blood pressure within the week. If you have any further problems or symptoms she can return to the emergency room or follow-up with your primary care doctor. Sign Out Sign Out Data: Patient Sign Out occurred on 12/20/21 at 06:07. Patient's care was discussed, and care was transferred from to Roe Gautam DO. Coding Level of Care Code ED Signs And Displays Salesperson for g Fwd Exam Comprehensive
[2021-12-20] MEDS: sodium chloride 0.9% 1,000 ML 999 ML IV (05:39)
[2021-12-20 05:47] LABS: Basophils % 0.7 %; Eosinophils # 0.3 10^3/uL (0.0-0.8); Eosinophils % 4.4 %; Hematocrit 38.7 % (37.0-47.0); Hemoglobin 12.5 g/dL (11.5-15.3); Lymphocytes # 1.9 10^3/uL (0.8-4.8); Lymphocytes % 30.8 %; Mean Corpuscular HGB Conc 32.3 g/dL (30.0-36.0); Mean Corpuscular Hemoglobin 26.8 pg (28.0-34.0); Mean Corpuscular Volume 82.9 fl (81-99); Mean Platelet Volume 9.9 fL (7.4-10.4); Monocytes # 0.5 10^3/uL (0.2-0.9); Monocytes % 8.7 %; Neutrophils # 3.32 10^3/uL (1.8-7.7); Neutrophils % 54.7 %; Nucleated Red Blood Cells % 0 %; Platelet Count 169 10^3/cmm (130-400); Red Blood Count 4.67 10^6/uL (4.1-5.3); White Blood Count 6.1 10^3/uL (4.0-10.0)
[2021-12-20 06:04] LABS: Protein Urine Trace (Negative); Urine Appearance Hazy (CLEAR); Urine Color Yellow (Yellow); pH Urine 5 (5-7)
[2021-12-20 06:05] LABS: Add Urine Microscopic? YES; Bilirubin Urine 1+ (Negative); Blood Urine Neg (Negative); Glucose Urine UA 4+ (Normal); Ketones Urine 1+ (Negative); Leukocyte Esterase Urine 1+ (Negative); Nitrate Urine Positive (Negative); Urobilinogen Urine Norm (Negative)
[2021-12-20 06:06] VITALS: BP 109/84; PULSE 77; RESP 16; O2SAT 96
[2021-12-20 06:07] LABS: Alanine Aminotransferase 20 U/L (0-33); Albumin Level 3.8 g/dL (3.5-5.2); Alkaline Phosphatase 167 IU/L (35-105); Anion Gap 12.8 (5-19); Aspartate Amino Transferase 11 U/L (0-32); Blood Urea Nitrogen 28 mg/dL (6-20); Calcium 8.9 mg/dL (8.5-10.5); Carbon Dioxide 25 mmol/L (22-29); Chloride 102 mmol/L (98-107); Globulin 2.4 g/dL (1.3-4.6); Glomerular Filtration Rate 39.8 mL/min (90-130); Glucose 298 mg/dL (65-115); Osmolality Calculated 297 mOsm/kg (285-295); Potassium 4.8 mmol/L (3.5-5.1); Sodium 135 mmol/L (136-145); Total Bilirubin 0.2 mg/dL (0.15-1.2); Total Protein 6.2 g/dL (6.6-8.7)
[2021-12-20 06:10] LABS: Bacteria Urine 3+ /hpf; RBC Urine 0-4 /hpf (0-2)
[2021-12-20 06:11] LABS: Add Urine Culture? Yes; Mucus Urine TRACE /hpf
--- NOTE | 2021-12-20 07:42 | PC.NURSE ---
Report received from GIULIA Woodall and care assumed. Pt resting in bed
[2021-12-20 07:44] VITALS: BP 129/91; PULSE 74; RESP 14; O2SAT 98
[2021-12-20 08:29] VITALS: BP 143/92; PULSE 74; RESP 14; O2SAT 98
== END 2021-12-20 08:26 | disposition home or self-care (01) ==
PROVIDERS: Emergency Medicine; Emergency Provider Family Medicine; PCP Family Medicine
DX: N30.90 Cystitis, unspecified without hematuria (principal); I95.89 Other hypotension
CPT/HCPCS: 70450; 71045; 80053; 81001; 85025; 87077; 87086; 87186; 93005; 96360; 96361; 99284; J7030

== ENCOUNTER 2022-01-14 12:07 | Outpatient (CLI) | payer BC, SELFPAY ==
[2022-01-14 12:54] LABS: Alanine Aminotransferase 22 U/L (0-33); Albumin Level 4.1 g/dL (3.5-5.2); Alkaline Phosphatase 165 IU/L (35-105); Anion Gap 15.8 (5-19); Aspartate Amino Transferase 14 U/L (0-32); Blood Urea Nitrogen 20 mg/dL (6-20); Calcium 8.9 mg/dL (8.5-10.5); Carbon Dioxide 22 mmol/L (22-29); Chloride 99 mmol/L (98-107); Chol HDL Ratio 4.03 mg/dL (0.0-4.40); Cholesterol 149 mg/dL (0-200); Globulin 2.9 g/dL (1.3-4.6); Glomerular Filtration Rate 39.8 mL/min (90-130); Glucose 247 mg/dL (65-115); HDL Cholesterol 37 mg/dL (60-100); LDL Cholesterol Calculated 76 mg/dL (50-129); LDL HDL Ratio 2.05 RATIO (0.00-3.22); Osmolality Calculated 287 mOsm/kg (285-295); Potassium 3.8 mmol/L (3.5-5.1); Sodium 133 mmol/L (136-145); Total Bilirubin 0.2 mg/dL (0.15-1.2); Triglycerides 178 mg/dL (0-150)
[2022-01-14 14:02] LABS: Estmated Average Glucose 169; Hemoglobin A1C 7.5 % (4.0-6.0)
== END 2022-01-14 12:08 | disposition home or self-care (01) ==
LOC: LAB 12:09
PROVIDERS: PCP Family Medicine; Visit Provider Internal Medicine
DX: E78.2 Mixed hyperlipidemia (principal); N18.30 Chronic kidney disease, stage 3 unspecified; E11.9 Type 2 diabetes mellitus without complications
CPT/HCPCS: 80053; 80061; 83036

== ENCOUNTER → 2022-01-20 14:26 | Outpatient (BNVA) | payer BC, SELFPAY | PROVIDERS: PCP Family Medicine; Visit Provider Podiatrist Foot & Ankle Surgery | DX: M19.172 Post-traumatic osteoarthritis, left ankle and foot (principal) | CPT/HCPCS: 73630 ==

== ENCOUNTER → 2022-02-13 14:21 | Outpatient (BNVA) | payer BC, SELFPAY | PROVIDERS: PCP Family Medicine; Visit Provider Podiatrist Foot & Ankle Surgery | DX: M19.172 Post-traumatic osteoarthritis, left ankle and foot (principal); M79.672 Pain in left foot | CPT/HCPCS: 73630 ==

== ENCOUNTER 2022-02-23 18:29 | Emergency (ER) | payer BC, SELFPAY ==
[2022-02-23 18:34] VITALS: BP 101/69; PULSE 80; RESP 18; TEMP 36.4; O2SAT 98
[2022-02-23 18:43] LABS: Glucose Point of Care 480 mg/dL (70-110)
--- NOTE | 2022-02-23 20:00 | CTR_ITS ---
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 Radiation optimization: All CT scans at this facility use at least one of these dose optimization techniques: automated exposure control; mA and/or kV adjustment per patient size (includes targeted exams where dose is matched to clinical indication); or iterative reconstruction. COMPARISON: CT head wo con* [id number] 12/20/2021 5:54 AM RADIATION DOSE METRICS: Total DLP (mGy-cm): 1058.18 FINDINGS: Brain: Left frontal COMPUTER ENGINEERING PROFESSOR shunt terminates in the frontal horn of the right lateral ventricle. No hemorrhage. No edema. No significant white matter disease. No mass effect. Cerebral ventricles: No ventriculomegaly. Paranasal sinuses: Visualized sinuses are unremarkable. No fluid levels. Mastoid air cells: Visualized mastoid air cells are well aerated. Bones/joints: Unremarkable. No acute fracture. Soft tissues: Unremarkable. CT/CT head wo con* [id number] IMPRESSION: No acute intracranial abnormality.
--- NOTE | 2022-02-23 20:00 | XRR_ITS ---
PROCEDURE INFORMATION: Exam: XR Chest Exam date and time: 02/23/2022 8:54 PM Age: 51 years old Clinical indication: Other: Dizzy TECHNIQUE: Imaging protocol: Radiologic exam of the chest. Views: 1 view. COMPARISON: CR XR chest 1V portable [id number] 12/20/2021 5:37 AM FINDINGS: Tubes, catheters and devices: Intact BELT PICKER shunt seen traversing the left chest wall. Lungs: Unremarkable. No consolidation. Pleural spaces: Unremarkable. No pleural effusion. No pneumothorax. Heart/Mediastinum: Unremarkable. No cardiomegaly. Bones/joints: Partially visualized posterior spinal fusion device in the cervical spine. Old distal right clavicular fracture noted. No acute findings. XR/XR chest 1V portable [id number] IMPRESSION: No acute findings.
[2022-02-23 20:08] LABS: Basophils # 0.1 10^3/uL (0.0-0.1); Basophils % 0.8 %; Eosinophils # 0.3 10^3/uL (0.0-0.8); Hemoglobin 13.6 g/dL (11.5-15.3); Lymphocytes # 1.9 10^3/uL (0.8-4.8); Lymphocytes % 28.8 %; Mean Corpuscular HGB Conc 32.4 g/dL (30.0-36.0); Mean Corpuscular Hemoglobin 26.5 pg (28.0-34.0); Mean Corpuscular Volume 81.7 fl (81-99); Monocytes # 0.4 10^3/uL (0.2-0.9); Monocytes % 6.3 %; Neutrophils # 3.88 10^3/uL (1.8-7.7); Neutrophils % 59.6 %; Nucleated Red Blood Cells % 0 %; Platelet Count 177 10^3/cmm (130-400); Red Blood Count 5.14 10^6/uL (4.1-5.3); Red Cell Distribution Width 12.5 % (12.1-15.1); White Blood Count 6.5 10^3/uL (4.0-10.0)
[2022-02-23 20:26] LABS: Alanine Aminotransferase 33 U/L (0-33); Albumin Level 4.2 g/dL (3.5-5.2); Alkaline Phosphatase 163 IU/L (35-105); Aspartate Amino Transferase 22 U/L (0-32); Blood Urea Nitrogen 24 mg/dL (6-20); Calcium 9.1 mg/dL (8.5-10.5); Carbon Dioxide 21 mmol/L (22-29); Chloride 94 mmol/L (98-107); Glomerular Filtration Rate 43.4 mL/min (90-130); Glucose 483 mg/dL (65-115); Magnesium 1.9 mg/dL (1.7-2.3); Osmolality Calculated 291 mOsm/kg (285-295); Sodium 128 mmol/L (136-145); Total Bilirubin 0.2 mg/dL (0.15-1.2); Total Protein 7.2 g/dL (6.6-8.7)
--- NOTE | 2022-02-23 20:26 | W.ED.DIZZY ---
HPI - Dizziness General: Chief Complaint: Dizziness Stated Complaint: High Blood Sugar\Dizzy\Lethargic Time Seen by Provider: 02/23/22 19:48 Source: patient History of Present Illness: HPI Narrative: 51-year-old female with a history of diabetes. She presents with dizziness and nausea. She notes her blood sugars been in the 300 for a week or so. Today, she became quite dizzy and generally weak. She has been somewhat nauseated as well. She checked her blood sugar and it read high. It is 480 here. No vomiting. No radiation illness including no fever, no cough, no diarrhea. She notes that her medication despite increasing the dose, does not seem to be controlling her blood sugar MD elicited complaint: dizziness, lightheadedness and near syncope Pertinent past history: other Onset (ago): hour(s) Timing: gradual onset Severity: moderate Description: lightheadedness, difficulty walking and near-syncope Context: change in medication History of similar symptoms: No Exacerbating factors: movement/ambulation Relieving factors: nothing Associated symptoms: Reports nausea and weakness (Generalized); Denies chest pain, cough, fevers/chills, headache(s), nasal congestion, palpitations, short of breath or vomiting Associated neuro symptoms: Reports confusion, difficulty speaking and visual changes (Generally blurry); Deny dysphagia, extremity weakness, facial weakness or numbness in extremities Review of Systems Const: Denies: fever(s) Eyes: Reports: change in vision ENMT: Denies: throat pain or nasal congestion Card: Denies: chest pain or palpitations GI: Reports: nausea; Denies: abdominal pain, vomiting or dysphagia : Denies: flank pain Skin/Breast: Denies: rash Neuro: Reports: confusion; Denies: headache(s) or numbness in extremities [facility] PFSH: Medical History Abdominal pain chronic Anxiety CKD (chronic kidney disease) stage 3, GFR 30-59 ml/min DDD (degenerative disc disease), cervical DDD (degenerative disc disease), lumbar Depression Diabetes mellitus, type II Diabetic peripheral neuropathy associated with type 2 diabetes mellitus Facet syndrome, lumbar Fibromyalgia GERD (gastroesophageal reflux disease) History of pulmonary function tests (01/2020) normal Hyperlipidemia Kidney stone Long-term current use of opiate analgesic Lumbosacral spondylosis with radiculopathy Panic attacks Seizures Therapeutic opioid induced constipation Surgical History History of ankle surgery (~2018) ORIF right ankle, Dr Matos History of arthrodesis (09/2019) left 1st, 2nd, and 3rd tarsometatarsal joints by Dr Matos, due to Lisfranc dislocation History of esophagogastroduodenoscopy (EGD) (04/2020) Dr Ruelas History of excision of mass (05/2020) right hip fibroma/granuloma by Dr Gonzales History of nephrectomy (~2013) History of ventriculoperitoneal shunting (~01/04/09) Dr. Cordelia Roche 01/04/2009 Ventriculoperitoneal shunt placement. William Aaron Programmable Valve, Siphonguard device. Valve at 15cm H2O. 2010 reprogrammed to 14 cm H2O Hx of appendectomy (~2002) Hx of cholecystectomy (~2003) Hx of hysterectomy Hx of laminectomy S/P hardware removal (10/26/20) deep hardware left foot by Dr Matos Status post hardware removal (04/19/21) deep hardware left foot by Dr Matos Family History Mother Diabetes DM2 Family/Other Cancer MATERNAL AUNT- BREAST CANCER Social History Smoking and tobacco status: never smoked Second hand smoke exposure: No Alcohol intake: never Caregiver/support person: Yes Lives independently: Yes Household members: spouse Marital status: Current occupational status: disabled Physical Exam Const: GENERAL APPEARANCE: cooperative, lethargic (Mildly) and ill appearing ORIENTATION/CONSCIOUSNESS: Yes lethargic (Mildly) HENMT: COMMON NORMALS: normocephalic and atraumatic HEAD & SCALP: normocephalic and atraumatic FACE & SINUS: normal facial exam and face symmetric Eye: COMMON NORMALS: Equal, round and reactive pupils present and EOMs intact bilaterally PUPIL: Yes Equal, round and reactive pupils present Neck/C-Spine: GENERAL: Yes trachea midline Chest: CHEST: Yes Symmetrical chest wall rise Resp: COMMON NORMALS: normal respiratory effort, No use of accessory muscles and clear to auscultation bilaterally AUSCULTATION: clear to auscultation bilaterally Cardio: COMMON NORMALS: regular rate and regular rhythm RATE: regular rate RHYTHM: regular rhythm GI: COMMON NORMALS: Normal to inspection, nondistended, normoactive bowel sounds present, Soft to palpation and non-tender PALPATION: Yes Soft to palpation Extremity: COMMON NORMALS: no pedal edema Neuro: TOMAS COMA SCALE: document GCS findings [place] coma scale eye opening: Spontaneous Tomas coma scale verbal response: Orientated Tomas coma scale motor response: Obey commands Tomas coma scale total score: 15 SENSORIUM/ORIENTATION: Yes lethargic (Mildly) SPEECH: speech normal Course Vital Signs: Vital signs: Vital Signs Temperature 97.5 F L 02/23/22 18:34 Pulse Rate 77 02/23/22 21:05 Respiratory Rate 16 02/23/22 21:05 Blood Pressure 109/71 02/23/22 21:05 Pulse Oximetry 98 02/24/22 00:18 [facility] - Dizziness Medical Decision Making Patient with hyperglycemia. She is not feeling well. She is not vomiting. She is given a 2 L bolus, IV insulin bolus, and IV insulin drip. Her blood sugar has slowly come from 43-2 50. She is feeling improved after fluid bolus. She is not acidotic, and has no anion gap. Her CBC is normal. Her creatinine is 1.3. She has pseudohyponatremia at 128. With improvement in her symptoms, and glucose, she will be allowed home. She will go home on a sliding scale of insulin. Scripts were provided for insulin and syringes. She has a continuous glucometer. She understands the use of insulin, and the sliding scale. She will contact her doctor tomorrow for further instructions as well. Lab Data : 02/23/22 19:59 02/23/22 19:59 Radiology Impressions Chest X-Ray 02/23/22 20:00 IMPRESSION: No acute findings. Head CT 02/23/22 20:00 IMPRESSION: No acute intracranial abnormality. Laboratory Results WBC 6.5 10^3/uL (4.0-10.0) 02/23/22 19:59 RBC 5.14 10^6/uL (4.1-5.3) 02/23/22 19:59 Hgb 13.6 g/dL (11.5-15.3) 02/23/22 19:59 Hct 42.0 % (37.0-47.0) 02/23/22 19: MCV 81.7 fl (81-99) 02/23/22 19:59 MCH 26.5 pg (28.0-34.0) L 02/23/22: MCHC 32.4 g/dL (30.0-36.0) 02/23/22: RDW 12.5 % (12.1-15.1) 02/23/22:59 Plt Count 177 10^3/cmm (130-400) 02/23/22: MPV 10.0 fL (7.4-10.4) 02/23/22:59 Neut % (Auto) 59.6 % 02/23/22: Lymph % (Auto) 28.8 % 02/23/22: Forest % (Auto) 6.3 % 02/23/22: Eos % (Auto) 4.0 % 02/23/22: Baso % (Auto) 0.8 % 02/23/22: Neut # (Auto) 3.88 10^3/uL (1.8-7.7) 02/23/22:59 Lymph # (Auto) 1.9 10^3/uL (0.8-4.8) 02/23/22:59 [place] # (Auto) 0.4 10^3/uL (0.2-0.9) 02/23/22: Eos # (Auto) 0.3 10^3/uL (0.0-0.8) 02/23/22: Baso # (Auto) 0.1 10^3/uL (0.0-0.1) 02/23/22: Nucleated RBC % (auto) 0 % 02/23/22: Nucleated RBCs # 0.0 /100WBC 02/23/22:59 Specimen Type Arterial 02/23/22 21:02 Sample Site Radial, right 02/23/22 21:02 ABG pH 7.36 (7.35-7.45) 02/23/22 21:02 ABG pCO2 41.8 mmHg (35-45) 02/23/22 21:02 ABG pO2 60.3 mmHg (80.0-100.0) L 02/23/22 21:02 ABG HCO3 23.6 mmol/L (22-26) 02/23/22 21:02 ABG Base Excess -1.8 mmol/L (-2.0-2.0) 02/23/22 21:02 Abdon Test Pos 02/23/22 21:02 Hematocrit 39.0 % (37-47) 02/23/22 21:02 O2 Delivery Device None 02/23/22 21:02 Automatic Thread Winder ID Hensa 02/23/22 21:02 Sodium 128 mmol/L (136-145) L 02/23/22 19:59 Potassium 4.5 mmol/L (3.5-5.1) 02/23/22 19:59 Chloride 94 mmol/L (98-107) L 02/23/22 19:59 Carbon Dioxide 21 mmol/L (22-29) L 02/23/22 19:59 Anion Gap 17.5 (5-19) 02/23/22 19:59 BUN 24 mg/dL (6-20) H 02/23/22 19:59 Creatinine 1.3 mg/dL (0.5-0.9) H 02/23/22 19:59 GFR Calculation 43.4 mL/min (90-130) L 02/23/22 19:59 Glucose 483 mg/dL (65-115) H 02/23/22 19:59 POC Glucose 256 mg/dL (70-110) H 02/23/22 23:37 Calculated Osmolality 291 mOsm/kg (285-295) 02/23/22 19:59 Calcium 9.1 mg/dL (8.5-10.5) 02/23/22 19:59 Phosphorus 3.0 mg/dL (2.5-4.5) 02/23/22 19:59 Magnesium 1.9 mg/dL (1.7-2.3) 02/23/22 19:59 Total Bilirubin 0.2 mg/dL (0.15-1.2) 02/23/22 19:59 AST 22 U/L (0-32) 02/23/22 19:59 ALT 33 U/L (0-33) 02/23/22 19:59 Alkaline Phosphatase 163 IU/L (35-105) H 02/23/22 19:59 Total Protein 7.2 g/dL (6.6-8.7) 02/23/22 19:59 Albumin 4.2 g/dL (3.5-5.2) 02/23/22 19:59 Globulin 3.0 g/dL (1.3-4.6) 02/23/22 19:59 Urine Color Yellow (Yellow) 02/23/22 20:19 Urine Appearance Clear (CLEAR) 02/23/22 20:19 Urine pH 5 (5-7) 02/23/22 20:19 Ur Specific [place] 1.020 (1.005-1.030) 02/23/22 20:19 Urine Protein Neg (Negative) 02/23/22 20:19 Urine Glucose (UA) 4+ (Normal) H 02/23/22 20:19 Urine Ketones Negative (Negative) 02/23/22 20:19 Urine Blood Neg (Negative) 02/23/22 20:19 Urine Nitrate Negative (Negative) 02/23/22 20:19 Urine Bilirubin Neg (Negative) 02/23/22 20:19 Urine Urobilinogen Norm mg/dL (Negative) 02/23/22 20:19 Ur Leukocyte Esterase 2+ (Negative) H 02/23/22 20:19 Urine RBC 0-4 /hpf (0-2) H 02/23/22 20:19 Urine WBC 15-25 /hpf (0-5) H 02/23/22 20:19 Ur Squamous Epith Cells 15-25 /hpf (0-5) H 02/23/22 20:19 Amorphous Sediment Not Reportable 02/23/22 20:19 Urine Bacteria 2+ /hpf (NONE) H 02/23/22 20:19 Urine Mucus Trace /hpf 02/23/22 20:19 Serum Ketones Negative (Negative) 02/23/22 20:30 Discharge Plan Discharge Patient Disposition: Home Clinical Impression: Acute hyperglycemia Condition: Stable Prescriptions: New insulin regular human 100 unit/mL solution See Rx Instructions .ROUTE .COMPLEX PRN (Reason: hyperglycemia) Qty: 10 0RF Rx Instructions: administer according to sliding scale (DME) Insulin Syringe 1 mL 29 gauge x 1/2 syringe See Rx Instructions .ROUTE Qty: 100 0RF Rx Instructions: As directed No Action bupropion HCl 75 mg tablet 75 mg PO DAILY 0RF epinephrine 0.3 mg/0.3 mL auto-injector 0.3 mg IM ONCE PRN (Reason: Allergic Reaction) 0RF ([facility] Sole Supports See Rx Instructions .ROUTE .MEDSUPPLY Qty: 1 0RF Rx Instructions: As directed oxycodone-acetaminophen 10-325 mg tablet 1 tab PO TID PRN (Reason: pain) 30 Days Qty: 90 0RF Rx Instructions: fill on or after 06/24/21 fluconazole [Diflucan] 150 mg tablet 150 mg PO ONCE Qty: 2 0RF Rx Instructions: take one now and one in a week ([facility]) ASO to the left See Rx Instructions .Route .MEDSUPPLY Qty: 1 0RF Rx Instructions: As directed ([facility]) Custom Molded Accommodative Orthotics See Rx Instructions .Route .MEDSUPPLY Qty: 1 0RF Rx Instructions: As directed by Federica biotin 10,000 mcg capsule 10,000 mcg PO DAILY@0700 0RF estradiol 0.05 mg/24 hr patch semiweekly transdermal .2 times a week 0RF gabapentin 600 mg tablet 600 mg PO TID 0RF Dialyvite 800 0.8 mg tablet 1 tab PO DAILY 0RF potassium chloride 20 mEq tablet extended release 20 meq PO DAILY PRN0RF trazodone 100 mg tablet 100 mg PO DAILY 0RF topiramate [Topamax] 100 mg tablet 100 mg PO DAILY 0RF rizatriptan [Maxalt] 10 mg tablet 10 mg PO Q2H PRN0RF Rx Instructions: do not exceed 3 doses per 24 hrs hydrochlorothiazide 12.5 mg tablet 12.5 mg PO DAILY PRN0RF Ca-D3-mag lj-kepe-gto-atul-bor [Calcium 600-D3 Plus (mag-zinc)] 600 mg calcium- 20 mcg-50 mg tablet PO 0RF acarbose 25 mg tablet 25 mg PO TID Qty: 280 3RF Rx Instructions: Take one tablet 3 times a day with meals. ([facility]) Dexcom G6 Supervisor Rose Grading Misc See Rx Instructions .Route Qty: 1 0RF Rx Instructions: Check BS 4-6 times a day. ([facility]) Dexcom G6 Sensor Device See Rx Instructions .Route Qty: 9 3RF Rx Instructions: Change every 10 days. ([facility]) Dexcom G6 Transmitter Device See Rx Instructions .Route Qty: 3 3RF Rx Instructions: Change every 90 days. Ozempic 2 mg/dose (8 mg/3 mL) pen injector 2 mg SUBCUT .weekly Qty: 9 3RF Rx Instructions: Inject 2 mg subcut once a week. (DME) Custom Orthotics See Rx Instructions .Route .MEDSUPPLY Qty: 1 0RF Rx Instructions: As directed (DME) Sanchez Balance Brace- Left Foot See Rx Instructions .Route .MEDSUPPLY Qty: 1 0RF Rx Instructions: As directed (DME) Diabetic Shoes See Rx Instructions .ROUTE .MEDSUPPLY Qty: 1 0RF Rx Instructions: As directed diphenhydramine HCl [Benadryl Allergy] 25 mg Tablet 25 mg PO TID PRN (Reason: Allergic Symptoms) 0RF fish,bora,flax oils-om3,6,9no1 [Triple Vandiver 3-6-9] 400-400-400 mg Capsule 3 cap PO DAILY@2100 0RF melatonin 1 mg tablet 10 mg PO BEDTIME@2099 0RF pantoprazole 40 mg tablet,delayed release (DR/EC) 40 mg PO BID@0700,2100 0RF Premarin 0.625 mg/gram cream See Rx Instructions .ROUTE .COMPLEX 0RF Rx Instructions: on Thursday and aspirin 81 mg Tablet,Chewable 81 mg PO DAILY PRN (Reason: with metoclopramide) Qty: 0 0RF Rx Instructions: use with 10 mg of metoclopramide for migraines metoclopramide HCl 10 mg tablet 10 mg PO PRN 0RF Rx Instructions: use with 81 mg aspirin when having migraines phenazopyridine 200 mg Tablet 200 mg PO TID 0RF atorvastatin 20 mg tablet 20 mg PO DAILY 0RF hydroxyzine pamoate 50 mg capsule 50 mg PO TID@,12, 0RF lactulose 10 gram/15 mL solution 15 ml PO BID PRN (Reason: Constipation) 0RF Vitamin B-2 25 mg Tablet 25 mg PO DAILY 0RF lamotrigine [Lamictal] 200 mg Tablet 200 mg PO BID 0RF valacyclovir 1 gram Tablet 1,000 mg PO BID 0RF prazosin 2 mg Capsule 4 mg PO BEDTIME 0RF Dialyvite 100-1 mg Tablet 1 tab PO DAILY 0RF siikyakz-raduhsyuwe-idbd-hops 490 mg Capsule 1 cap PO DAILY 0RF docusate sodium [Stool Softener] 100 mg capsule 500 mg PO DAILY 0RF magnesium 250 mg tablet 400 mg PO DAILY 0RF clonazepam 0.5 mg Tablet 0.5 mg PO BID 0RF nitroglycerin 0.4 mg Tablet, Sublingual 0.4 mg SUBLINGUAL Q5M PRN (Reason: Chest Pain) 0RF tizanidine 4 mg Capsule 4 mg PO TID 0RF metoprolol tartrate 50 mg tablet 50 mg PO BID Qty: 60 0RF Discharge Orders: Discharge ED (Routine); Ordered 02/24/22 Ordered By: Jorge Jarrett Referrals: Linda Erickson MD [Primary Care Provider] - 1-3 days Patient Instructions: Diabetic Hyperglycemia (ED) Activity Restrictions/Additional Instructions: Check your blood sugar 30 minutes before meals, and before bedtime. Administer insulin according to the sliding scale that was handed out to you in your discharge instructions. Call your doctor on Thursday, they may have further instructions for you and will want to see you this week. Return for inability to control blood sugar despite use of sliding scale, vomiting, fever, pain, any other concerning symptoms Coding Level of Care Code ED Reed Press Feeder for Rama Meehan Exam Comprehensive
[2022-02-23 20:32] LABS: Anion Gap 17.5 (5-19); Potassium 4.5 mmol/L (3.5-5.1)
[2022-02-23 20:47] LABS: Ketone (Acetest) Serum Negative (Negative)
[2022-02-23] MEDS: insulin regular-human 100 units/1 mL 12 UNIT IVP (20:52)
[2022-02-23] MEDS: sodium chloride 0.9% 1,000 ML 999 ML IV ×2 (20:53→22:27)
[2022-02-23] MEDS: ondansetron 2 mg/ML SDV 2 mL 4 MG IVP (20:53)
[2022-02-23 21:05] VITALS: BP 109/71; PULSE 77; RESP 16; O2SAT 94
[2022-02-23 21:08] LABS: Add Urine Microscopic? YES; Bilirubin Urine Neg (Negative); Blood Urine Neg (Negative); Glucose Urine UA 4+ (Normal); Ketones Urine Negative (Negative); Leukocyte Esterase Urine 2+ (Negative); Nitrate Urine Negative (Negative); Protein Urine Neg (Negative); Urine Appearance Clear (CLEAR); Urine Color Yellow (Yellow); Urobilinogen Urine Norm (Negative); pH Urine 5 (5-7)
[2022-02-23 21:09] LABS: Add Urine Culture? No; Bacteria Urine 2+ /hpf; Mucus Urine TRACE /hpf; RBC Urine 0-4 /hpf (0-2); Squamous Epithelial Cell Urine 15-25 /hpf (0-5); WBC Urine 15-25 /hpf (0-5)
[2022-02-23 21:12] LABS: ABG PCO2 41.8 mmHg (35-45); ABG PH Result 7.36 (7.35-7.45); Base Excess ABG -1.8 mmol/L (-2.0-2.0); Blood Gas Allen Test Pos; Blood Gas Sample Site Radial, right; Blood Gas Sample Type Arterial; HCO3 ABG 23.6 mmol/L (22-26); PO2 ABG 60.3 mmHg (80.0-100.0)
[2022-02-23 21:36] LABS: Glucose Point of Care 344 mg/dL (70-110)
[2022-02-23] MEDS: insulin regular-human 250 UNIT in sodium chloride 0.9% 250 ML 8.59 UNIT IV (21:50)
[2022-02-23 22:48] LABS: Glucose Point of Care 307 mg/dL (70-110)
[2022-02-23 23:40] LABS: Glucose Point of Care 256 mg/dL (70-110)
[2022-02-24 00:18] VITALS: O2SAT 98
== END 2022-02-24 00:19 | disposition home or self-care (01) ==
PROVIDERS: Emergency Provider Emergency Medicine; PCP Family Medicine
DX: E11.65 Type 2 diabetes mellitus with hyperglycemia (principal); Z79.82 Long term (current) use of aspirin; Z79.4 Long term (current) use of insulin; E11.22 Type 2 diabetes mellitus with diabetic chronic kidney disease; N18.30 Chronic kidney disease, stage 3 unspecified; E78.5 Hyperlipidemia, unspecified; Z90.5 Acquired absence of kidney
CPT/HCPCS: 36416; 36600; 70450; 71045; 80053; 81001; 82009; 82803; 82962; 83735; 84100; 85025; 96365; 96375; 99285; J1815; J2405; J7030; J7050

== ENCOUNTER 2022-03-03 05:55 | Emergency (ER) | payer BC, SELFPAY ==
[2022-03-03] VITALS (8 sets, daily range): BP systolic 102–126; BP diastolic 55–92; PULSE 67–86; RESP 16; TEMP 37.1; O2SAT 94–98; BMI 29.8
--- NOTE | 2022-03-03 06:22 | CTR_ITS ---
PROCEDURE INFORMATION: Exam: CT Cervical Spine Without Contrast Exam date and time: 03/03/2022 6:47 AM Age: 51 years old Clinical indication: Injury or trauma; Fall; Blunt trauma; Prior surgery; Surgery type: Rabies Inspector shunt, c spine TECHNIQUE: Imaging protocol: Computed tomography of the cervical spine without contrast. Radiation optimization: All CT scans at this facility use at least one of these dose optimization techniques: automated exposure control; mA and/or kV adjustment per patient size (includes targeted exams where dose is matched to clinical indication); or iterative reconstruction. COMPARISON: CT Cervical Spine wo* [id number] 01/12/2017 5:03 AM RADIATION DOSE METRICS: Total DLP (mGy-cm): 372.77 FINDINGS: Vertebrae: There is 1 mm retrolisthesis of C3 on C4. Interval postsurgical changes are seen status post C3 to C6 posterior fusion with transpedicular screws and posterior rods. There is no CT evidence of hardware failure or loosening. C3-C6 post laminectomy changes are seen. There are no fractures seen. The spinous processes are normal. The facet joint, spinolaminar and spinous process alignments are normal. The atlantodental alignment and craniocervical junction region appear unremarkable. Moderate atlantodental degenerative changes are seen. Soft tissues: Prevertebral soft tissues are unremarkable. The paraspinal soft tissues appear unremarkable. Lungs: Lung apices are normal. Discs/Spinal canal/Neural foramina: C2-C3: The disc is unremarkable. Mild bilateral facet arthropathy. No central spinal stenosis. No neuroforaminal narrowing. C3-C4: The disc is unremarkable. Postsurgical changes are seen status post posterior fusion and laminectomy. No central spinal stenosis. No neuroforaminal narrowing. C4-C5: There is mild diffuse disc bulge with small left foraminal disc osteophyte complex. Postsurgical changes are seen status post posterior fusion and laminectomy. No central spinal stenosis. Worsened moderate to severe left foraminal stenosis. C5-C6: There is mild diffuse disc bulge with small central disc osteophyte complex. Postsurgical changes are seen status post posterior fusion and laminectomy. Asymmetric moderate to severe left uncovertebral joint hypertrophy is seen. No central spinal stenosis. Worsened moderate to severe left foraminal stenosis. C6-C7: Moderate diffuse disc bulge with broad-based central, left paracentral and foraminal disc osteophyte complex. Associated moderate left facet arthropathy. Mild central spinal stenosis. Worsened severe left foraminal stenosis. C7-T1: Small central disc osteophyte complex. Moderate bilateral facet arthropathy. No central spinal stenosis. No neuroforaminal narrowing. Notes: MRI or CT myelogram may be performed for further evaluation, if there is clinical concern. CT/CT cervical spin wo con* [id number] IMPRESSION: 1. No fractures of the cervical spine. 2. Postsurgical changes status post C3-C6 posterior fusion with transpedicular screws and posterior rods. Post laminectomy changes from C3-C6. No central spinal stenosis. Moderate to severe left C4-C5 and C5-C6 foraminal stenosis. 3. Moderate diffuse disc bulge at the C6-C7 level with broad-based central, left paracentral and foraminal disc osteophyte complex. Associated moderate left facet arthropathy. Mild central spinal stenosis. Worsened severe left foraminal stenosis.
--- NOTE | 2022-03-03 06:23 | CTR_ITS ---
PROCEDURE INFORMATION: Exam: CT Head Without Contrast Exam date and time: 03/03/2022 6:45 AM Age: 51 years old Clinical indication: Injury or trauma; Fall; Blunt trauma (contusions or hematomas); Without loss of consciousness; Prior surgery; Surgery date: 6+ months; Surgery type: Biomass Boiler Operator shunt TECHNIQUE: Imaging protocol: Computed tomography of the head without contrast. Radiation optimization: All CT scans at this facility use at least one of these dose optimization techniques: automated exposure control; mA and/or kV adjustment per patient size (includes targeted exams where dose is matched to clinical indication); or iterative reconstruction. COMPARISON: CT head wo con* [id number] 02/23/2022 8:34 PM RADIATION DOSE METRICS: Total DLP (mGy-cm): 1063.28 FINDINGS: Tubes, catheters and devices: Unchanged left frontal ventricular shunt catheter is seen with tip in the right lateral ventricle frontal horn region. Brain: The brain parenchyma is normal with normal ballard and white interfaces, sulci and gyri. There are no intracranial masses, mass effect or midline shift. There is no cerebral edema. There is no subarachnoid hemorrhage. There are no intra-or extra-axial fluid collections, intraventricular or intraparenchymal hemorrhage. There are no definite low attenuation demarcating areas on the non-contrast CT to suggest subacute stroke. Cerebral ventricles: The lateral, third and fourth ventricles appear unremarkable. The suprasellar and basilar cisterns appear unremarkable. Paranasal sinuses: Visualized sinuses are unremarkable. Mastoid air cells: Visualized mastoid air cells are unremarkable. Orbital cavities: Visualized orbits appear unremarkable. Bones/joints: No definite acute osseous or skull abnormalities seen. Soft tissues: [id number]-[id number] occipital scalp soft tissue swelling is seen with associated small subgaleal hematoma (series 3 images 19-29). Notes: If there is further clinical concern for intracranial pathology, MRI of the brain may be performed for further assessment. CT/CT head wo con* [id number] IMPRESSION: 1. No CT evidence of acute posttraumatic intracranial abnormality. 2. Unnp-tv-kfizbvnv occipital scalp soft tissue swelling with associated small subgaleal hematoma (series 3 images 19-29). 3. Unchanged left frontal ventricular shunt catheter with tip in the right lateral ventricle frontal horn region.
--- NOTE | 2022-03-03 06:25 | XRR_ITS ---
PROCEDURE INFORMATION: Exam: XR Pelvis Exam date and time: 03/03/2022 6:37 AM Age: 51 years old Clinical indication: Injury or trauma; Fall; Blunt trauma (contusions or hematomas); Sacrum and coccyx; Injury details: PT fell yesterday pain to left buttocks TECHNIQUE: Imaging protocol: Radiologic exam of the pelvis. Views: 1 or 2 view. COMPARISON: CT abdomen pelvis con [id number] 11/25/2020 6:29 PM FINDINGS: Bones/joints: There are no fractures or dislocations of the pelvis. The pelvic and obturator rings are intact. The pubic rami are intact. Moderate symphysis pubis and mild to moderate bilateral sacroiliac joint degenerative changes are seen. Moderate degenerative disc disease and facet disease changes are seen in the lower lumbar region. Mild bilateral hip degenerative changes are seen. Soft tissues: Some phleboliths are seen in the pelvis. The distal aspect of a ventriculoperitoneal shunt catheter is seen in the pelvis. Notes: If there is further concern, recommend follow-up radiographs or MRI for complete assessment. XR/XR pelvis 1-2V* [id number] IMPRESSION: 1. No pelvic fractures. Degenerative changes, as noted above. 2. Distal aspect of a ventriculoperitoneal shunt catheter seen in the pelvis.
[2022-03-03 06:33] LABS: Glucose Point of Care 278 mg/dL (70-110)
--- NOTE | 2022-03-03 06:37 | ED_ITS ---
HPI - Fall General: Chief Complaint: Fall Stated Complaint: fall/ hit head Time Seen by Provider: 03/03/22 06:08 Source: patient Mode of arrival: EMS Limitations: no limitations History of Present Illness: 51-year-old female presents emergency room via EMS. Last night she had a fall landed on her left buttock. She did strike her head but there is no loss of Consciousness, no vomiting but she has been mildly nauseous. She is complaining of headache. She not had any vomiting or diarrhea patient states she falls frequently after getting dizzy and lightheaded with collapse last night. She does have little bit of left-sided hip/buttock pain. She is also complaining of vision changes in her left eye. She is not taking any anticoagulants she does take 2 baby aspirin daily. MD complaint: fall Onset (ago): hour(s) Fall from: standing Fall witnessed: yes, by family Place fall occurred: home Loss of consciousness: None Prolonged down time: no Symptoms prior to fall: lightheadedness and dizziness Context: history of frequent falls Location of injury: head and pelvis Quality: aching Associated symptoms-after fall: Reports lightheadedness and weakness; Denies abdominal pain, chest pain, confusion, difficulty walking, headache(s), hematuria, neck pain, numbness, short of breath or vertigo Review of Systems Const: Denies: fever(s), chills, body aches, change in appetite, fatigue or malaise Eyes: Reports: blurry vision (L eye) ENMT: Denies: throat pain, ear or mastoid pain, nasal discharge or nasal congestion Card: Reports: lightheadedness; Denies: chest pain Resp: Denies: dyspnea, productive cough or non-productive cough GI: Reports: nausea; Denies: abdominal pain or vomiting : Denies: flank pain, difficulty voiding, dysuria, urinary frequency, urinary urgency or hematuria Musc: Denies: neck pain Skin/Breast: Denies: rash or pruritus Neuro: Denies: headache(s), difficulty walking, vertigo or confusion PFS ED PFSH: Medical History Abdominal pain chronic Anxiety CKD (chronic kidney disease) stage 3, GFR 30-59 ml/min DDD (degenerative disc disease), cervical DDD (degenerative disc disease), lumbar Depression Diabetes mellitus, type II Diabetic peripheral neuropathy associated with type 2 diabetes mellitus Facet syndrome, lumbar Fibromyalgia GERD (gastroesophageal reflux disease) History of pulmonary function tests (01/2020) normal Hyperlipidemia Kidney stone Long-term current use of opiate analgesic Lumbosacral spondylosis with radiculopathy Panic attacks Seizures Therapeutic opioid induced constipation Surgical History History of ankle surgery (~2018) ORIF right ankle, Dr Matos History of arthrodesis (09/2019) left 1st, 2nd, and 3rd tarsometatarsal joints by Dr Matos, due to Lisfranc dislocation History of esophagogastroduodenoscopy (EGD) (04/2020) Dr Ruelas History of excision of mass (05/2020) right hip fibroma/granuloma by Dr Gonzales History of nephrectomy (~2013) History of ventriculoperitoneal shunting (~01/04/09) Dr. Cordelia Roche 01/04/2009 Ventriculoperitoneal shunt placement. William Aaron Programmable Valve, Siphonguard device. Valve at 15cm H2O. 2010 reprogrammed to 14 cm H2O Hx of appendectomy (~2002) Hx of cholecystectomy (~2003) Hx of hysterectomy Hx of laminectomy S/P hardware removal (10/26/20) deep hardware left foot by Dr Matos Status post hardware removal (04/19/21) deep hardware left foot by Dr Matos Family History Mother Diabetes DM2 Family/Other Cancer MATERNAL AUNT- BREAST CANCER Social History Smoking and tobacco status: never smoked Second hand smoke exposure: No Alcohol intake: never Caregiver/support person: Yes Lives independently: Yes Household members: spouse Marital status: Current occupational status: disabled Physical Exam Const: COMMON NORMALS: no acute distress GENERAL APPEARANCE: cooperative a nd comfortable ORIENTATION/CONSCIOUSNESS: Yes awake, Yes oriented to person, Yes oriented to place and Yes oriented to time HENMT: COMMON NORMALS: normocephalic and hearing grossly normal bilaterally HEAD & SCALP: normocephalic Eye: COMMON NORMALS: Equal, round and reactive pupils present, EOMs intact bilaterally, conjunctivae normal and no scleral icterus CONJUNCTIVA: Yes conjunctivae normal PUPIL: Yes Equal, round and reactive pupils present Neck/C-Spine: COMMON NORMALS: full ROM Resp: COMMON NORMALS: normal respiratory effort, No retractions, No use of accessory muscles and clear to auscultation bilaterally AUSCULTATION: clear to auscultation bilaterally Cardio: COMMON NORMALS: regular rate, regular rhythm and No murmurs present (Cardio) RATE: regular rate RHYTHM: regular rhythm Extremity: COMMON NORMALS: normal to inspection, capillary refill normal, no clubbing, cyanosis or edema, no calf tenderness and no pedal edema Neuro: SENSORIUM/ORIENTATION: Yes oriented to person, Yes oriented to place and Yes oriented to time OTHER: Cranial nerves grossly intact, no focal neurologic deficits noted Skin: COMMON NORMALS: no rashes or lesions noted GENERAL SKIN EXAM: no rashes or lesions noted Course Vital Signs: Vital signs: Vital Signs Temperature 98.8 F 03/03/22 06:10 Pulse Rate 84 03/03/22 10:58 Respiratory Rate 16 03/03/22 06:10 Blood Pressure 113/82 03/03/22 10:58 Pulse Oximetry 96 03/03/22 10:58 MDM - Fall Medical Decision Making Labs imaging reviewed. No significant changes from from most recent visit other than glucose is improved. Discharge patient home ice to hematoma as needed can use previously prescribed pain medications for pain. Follow-up with primary care as needed. Medical Records I reviewed the patient's medical records. Lab Data I reviewed the patient's lab results. : 03/03/22 07:50 03/03/22 07:50 Radiology Impressions Cervical Spine CT 03/03/22 06:22 IMPRESSION: 1. No fractures of the cervical spine. 2. Postsurgical changes status post C3-C6 posterior fusion with transpedicular screws and posterior rods. Post laminectomy changes from C3-C6. No central spinal stenosis. Moderate to severe left C4-C5 and C5-C6 foraminal stenosis. 3. Moderate diffuse disc bulge at the C6-C7 level with broad-based central, left paracentral and foraminal disc osteophyte complex. Associated moderate left facet arthropathy. Mild central spinal stenosis. Worsened severe left foraminal stenosis. Head CT 03/03/22 06:23 IMPRESSION: 1. No CT evidence of acute posttraumatic intracranial abnormality. 2. Tqed-px-hsskmsvy occipital scalp soft tissue swelling with associated small subgaleal hematoma (series 3 images 19-29). 3. Unchanged left frontal ventricular shunt catheter with tip in the right lateral ventricle frontal horn region. Pelvis X-Ray 03/03/22 06:25 IMPRESSION: 1. No pelvic fractures. Degenerative changes, as noted above. 2. Distal aspect of a ventriculoperitoneal shunt catheter seen in the pelvis. Laboratory Results WBC 8.1 10^3/uL (4.0-10.0) 03/03/22 07:50 RBC 4.82 10^6/uL (4.1-5.3) 03/03/22 07:50 Hgb 13.1 g/dL (11.5-15.3) 03/03/22 07:50 Hct 38.0 % (37.0-47.0) 03/03/22 07:50 MCV 78.8 fl (81-99) L 03/03/22 07:50 MCH 27.2 pg (28.0-34.0) L 03/03/22 07:50 MCHC 34.5 g/dL (30.0-36.0) 03/03/22 07:50 RDW 12.3 % (12.1-15.1) 03/03/22 07:50 Plt Count 179 10^3/cmm (130-400) 03/03/22 07:50 MPV 10.1 fL (7.4-10.4) 03/03/22 07:50 Neut % (Auto) 63.3 % 03/03/22 07:50 Lymph % (Auto) 24.2 % 03/03/22 07:50 Mccone % (Auto) 7.3 % 03/03/22 07:50 Eos % (Auto) 4.0 % 03/03/22 07:50 Baso % (Auto) 0.7 % 03/03/22 07:50 Neut # (Auto) 5.09 10^3/uL (1.8-7.7) 03/03/22 07:50 Lymph # (Auto) 2.0 10^3/uL (0.8-4.8) 03/03/22 07:50 Mccone # (Auto) 0.6 10^3/uL (0.2-0.9) 03/03/22 07:50 Eos # (Auto) 0.3 10^3/uL (0.0-0.8) 03/03/22 07:50 Baso # (Auto) 0.1 10^3/uL (0.0-0.1) 03/03/22 07:50 Nucleated RBC % (auto) 0 % 03/03/22 07:50 Nucleated RBCs # 0.0 /100WBC 03/03/22 07:50 Sodium 132 mmol/L (136-145) L 03/03/22 07:50 Potassium 4.5 mmol/L (3.5-5.1) 03/03/22 07:50 Chloride 99 mmol/L (98-107) 03/03/22 07:50 Carbon Dioxide 22 mmol/L (22-29) 03/03/22 07:50 Anion Gap 15.5 (5-19) 03/03/22 07:50 BUN 26 mg/dL (6-20) H 03/03/22 07:50 Creatinine 1.3 mg/dL (0.5-0.9) H 03/03/22 07:50 GFR Calculation 43.4 mL/min (90-130) L 03/03/22 07:50 Glucose 250 mg/dL (65-115) H 03/03/22 07:50 POC Glucose 278 mg/dL (70-110) H 03/03/22 06:27 Calculated Osmolality 287 mOsm/kg (285-295) 03/03/22 07:50 Calcium 9.2 mg/dL (8.5-10.5) 03/03/22 07:50 Total Bilirubin 0.3 mg/dL (0.15-1.2) 03/03/22 07:50 AST 13 U/L (0-32) 03/03/22 07:50 ALT 23 U/L (0-33) 03/03/22 07:50 Alkaline Phosphatase 149 IU/L (35-105) H 03/03/22 07:50 Total Protein 6.7 g/dL (6.6-8.7) 03/03/22 07:50 Albumin 3.8 g/dL (3.5-5.2) 03/03/22 07:50 Globulin 2.9 g/dL (1.3-4.6) 03/03/22 07:50 Discharge Plan Discharge Patient Disposition: Home Clinical Impression: Fall, Scalp hematoma, Falls frequently, Diabetes type 2, uncontrolled, Diabetic peripheral neuropathy associated with type 2 diabetes mellitus Condition: Stable Prescriptions: No Action bupropion HCl 75 mg tablet 75 mg PO DAILY 0RF epinephrine 0.3 mg/0.3 mL auto-injector 0.3 mg IM ONCE PRN (Reason: Allergic Reaction) 0RF (DME) Sole Supports See Rx Instructions .ROUTE .MEDSUPPLY Qty: 1 0RF Rx Instructions: As directed oxycodone-acetaminophen 10-325 mg tablet 1 tab PO TID PRN (Reason: pain) 30 Days Qty: 90 0RF Rx Instructions: fill on or after 06/24/21 fluconazole [Diflucan] 150 mg tablet 150 mg PO ONCE Qty: 2 0RF Rx Instructions: take one now and one in a week (DME) ASO to the left See Rx Instructions .Route .MEDSUPPLY Qty: 1 0RF Rx Instructions: As directed (DME) Custom Molded Accommodative Orthotics See Rx Instructions .Route .MEDSUPPLY Qty: 1 0RF Rx Instructions: As directed by Federica biotin 10,000 mcg capsule 10,000 mcg PO DAILY@0700 0RF estradiol 0.05 mg/24 hr patch semiweekly transdermal .2 times a week 0RF gabapentin 600 mg tablet 600 mg PO TID 0RF Dialyvite 800 0.8 mg tablet 1 tab PO DAILY 0RF potassium chloride 20 mEq tablet extended release 20 meq PO DAILY PRN0RF trazodone 100 mg tablet 100 mg PO DAILY 0RF topiramate [Topamax] 100 mg tablet 100 mg PO DAILY 0RF rizatriptan [Maxalt] 10 mg tablet 10 mg PO Q2H PRN0RF Rx Instructions: do not exceed 3 doses per 24 hrs hydrochlorothiazide 12.5 mg tablet 12.5 mg PO DAILY PRN0RF Ca-D3-mag ly-cgtu-jlb-atul-bor [Calcium 600-D3 Plus (mag-zinc)] 600 mg calcium- 20 mcg-50 mg tablet PO 0RF acarbose 25 mg tablet 25 mg PO TID Qty: 280 3RF Rx Instructions: Take one tablet 3 times a day with meals. (DME) Dexcom G6 Director [employer] Misc See Rx Instructions .Route Qty: 1 0RF Rx Instructions: Check BS 4-6 times a day. (DME) Dexcom G6 Sensor Device See Rx Instructions .Route Qty: 9 3RF Rx Instructions: Change every 10 days. (DME) Dexcom G6 Transmitter Device See Rx Instructions .Route Qty: 3 3RF Rx Instructions: Change every 90 days. Ozempic 2 mg/dose (8 mg/3 mL) pen injector 2 mg SUBCUT .weekly Qty: 9 3RF Rx Instructions: Inject 2 mg subcut once a week. (DME) Custom Orthotics See Rx Instructions .Route .MEDSUPPLY Qty: 1 0RF Rx Instructions: As directed (DME) Sanchez Balance Brace- Left Foot See Rx Instructions .Route .MEDSUPPLY Qty: 1 0RF Rx Instructions: As directed (DME) Diabetic Shoes See Rx Instructions .ROUTE .MEDSUPPLY Qty: 1 0RF Rx Instructions: As directed diphenhydramine HCl [Benadryl Allergy] 25 mg Tablet 25 mg PO TID PRN (Reason: Allergic Symptoms) 0RF fish,bora,flax oils-om3,6,9no1 [Triple [place] 3-6-9] 400-400-400 mg Capsule 3 cap PO DAILY@2099 0RF melatonin 1 mg tablet 10 mg PO BEDTIME@2099 0RF pantoprazole 40 mg tablet,delayed release (DR/EC) 40 mg PO BID@0700,2100 0RF Premarin 0.625 mg/gram cream See Rx Instructions .ROUTE .COMPLEX 0RF Rx Instructions: on Thursday and aspirin 81 mg Tablet,Chewable 81 mg PO DAILY PRN (Reason: with metoclopramide) Qty: 0 0RF Rx Instructions: use with 10 mg of metoclopramide for migraines metoclopramide HCl 10 mg tablet 10 mg PO PRN 0RF Rx Instructions: use with 81 mg aspirin when having migraines phenazopyridine 200 mg Tablet 200 mg PO TID 0RF atorvastatin 20 mg tablet 20 mg PO DAILY 0RF hydroxyzine pamoate 50 mg capsule 50 mg PO TID@,12, 0RF lactulose 10 gram/15 mL solution 15 ml PO BID PRN (Reason: Constipation) 0RF Vitamin B-2 25 mg Tablet 25 mg PO DAILY 0RF lamotrigine [Lamictal] 200 mg Tablet 200 mg PO BID 0RF valacyclovir 1 gram Tablet 1,000 mg PO BID 0RF prazosin 2 mg Capsule 4 mg PO BEDTIME 0RF Dialyvite 100-1 mg Tablet 1 tab PO DAILY 0RF jrdlraaw-ubzqoschjt-pqsj-hops 490 mg Capsule 1 cap PO DAILY 0RF docusate sodium [Stool Softener] 100 mg capsule 500 mg PO DAILY 0RF magnesium 250 mg tablet 400 mg PO DAILY 0RF clonazepam 0.5 mg Tablet 0.5 mg PO BID 0RF nitroglycerin 0.4 mg Tablet, Sublingual 0.4 mg SUBLINGUAL Q5M PRN (Reason: Chest Pain) 0RF tizanidine 4 mg Capsule 4 mg PO TID 0RF metoprolol tartrate 50 mg tablet 50 mg PO BID Qty: 60 0RF insulin regular human 100 unit/mL solution See Rx Instructions .ROUTE .COMPLEX PRN (Reason: hyperglycemia) Qty: 10 0RF Rx Instructions: administer according to sliding scale (DME) Insulin Syringe 1 mL 29 gauge x 1/2 syringe See Rx Instructions .ROUTE Qty: 100 0RF Rx Instructions: As directed Discharge Orders: Discharge ED (Routine); Ordered 03/03/22 Ordered By: Roe Gautam Referrals: Linda Erickson MD [Primary Care Provider] - Discharge Diet: Usual diet Discharge Activity: Increase activity as tolerated Patient Instructions: Hematoma (ED), Opioid Safety Activity Restrictions/Additional Instructions: Apply ice to hematoma on the scalp three to four times per day for 15-20 minutes at a time as needed. You may use the pain medicaitons previously prescribed for discomfort. Follow up with your primary care doctor if you have any concerns. You may increase your activity as you feel able. Coding Level of Care Code ED Typesetting Machine Operator/Tender for Rama Fwd Exam Comprehensive
[2022-03-03 08:06] LABS: Basophils # 0.1 10^3/uL (0.0-0.1); Basophils % 0.7 %; Eosinophils # 0.3 10^3/uL (0.0-0.8); Hemoglobin 13.1 g/dL (11.5-15.3); Lymphocytes % 24.2 %; Mean Corpuscular HGB Conc 34.5 g/dL (30.0-36.0); Mean Corpuscular Hemoglobin 27.2 pg (28.0-34.0); Mean Corpuscular Volume 78.8 fl (81-99); Mean Platelet Volume 10.1 fL (7.4-10.4); Monocytes # 0.6 10^3/uL (0.2-0.9); Monocytes % 7.3 %; Neutrophils # 5.09 10^3/uL (1.8-7.7); Neutrophils % 63.3 %; Nucleated Red Blood Cells % 0 %; Platelet Count 179 10^3/cmm (130-400); Red Blood Count 4.82 10^6/uL (4.1-5.3); Red Cell Distribution Width 12.3 % (12.1-15.1); White Blood Count 8.1 10^3/uL (4.0-10.0)
[2022-03-03] MEDS: promethazine 25 mg/mL SDV 1 mL IM (08:31)
[2022-03-03 08:36] LABS: Alanine Aminotransferase 23 U/L (0-33); Albumin Level 3.8 g/dL (3.5-5.2); Alkaline Phosphatase 149 IU/L (35-105); Anion Gap 15.5 (5-19); Aspartate Amino Transferase 13 U/L (0-32); Blood Urea Nitrogen 26 mg/dL (6-20); Calcium 9.2 mg/dL (8.5-10.5); Carbon Dioxide 22 mmol/L (22-29); Chloride 99 mmol/L (98-107); Globulin 2.9 g/dL (1.3-4.6); Glomerular Filtration Rate 43.4 mL/min (90-130); Glucose 250 mg/dL (65-115); Osmolality Calculated 287 mOsm/kg (285-295); Potassium 4.5 mmol/L (3.5-5.1); Sodium 132 mmol/L (136-145); Total Bilirubin 0.3 mg/dL (0.15-1.2); Total Protein 6.7 g/dL (6.6-8.7)
--- NOTE | 2022-03-03 10:45 | PC.NURSE ---
Pt appears upset and states having nausea and a headache. Dr Gautam notified and Phenergan ordered and given. Pt states still having a headache. Dr Gautam ordered Tylenol and patient refused stating I can take that at home. Pt continues to hit call button and after multiple nurses and tech being in the room still appears very upset and states that we are not providing the care we are supposed to. Offered a drink and repositioning that the pt refused also. Verbal reassurance provided and Dr Gautam talked to pt and family again. Pt discharged without any issues.
== END 2022-03-03 10:50 | disposition home or self-care (01) ==
PROVIDERS: Emergency Provider Family Medicine; PCP Family Medicine
DX: S00.03XA Contusion of scalp, initial encounter (principal); E11.40 Type 2 diabetes mellitus with diabetic neuropathy, unspecified; Z79.82 Long term (current) use of aspirin; Z79.4 Long term (current) use of insulin; E11.22 Type 2 diabetes mellitus with diabetic chronic kidney disease; N18.30 Chronic kidney disease, stage 3 unspecified; E78.5 Hyperlipidemia, unspecified; W19.XXXA Unspecified fall, initial encounter
CPT/HCPCS: 36416; 70450; 72125; 72170; 80053; 82962; 85025; 96372; 99285; J2550

== ENCOUNTER 2022-06-18 11:46 | Outpatient (CLI) | payer BC, SELFPAY | END 2022-06-18 11:47 | disposition home or self-care (01) | LOC: SPT 11:47 | PROVIDERS: PCP Family Medicine; Visit Provider Podiatrist Foot & Ankle Surgery | DX: Z46.89 Encounter for fitting and adjustment of other specified devices (principal); M19.172 Post-traumatic osteoarthritis, left ankle and foot; M19.079 Primary osteoarthritis, unspecified ankle and foot | CPT/HCPCS: 97760; L3030 ==

== ENCOUNTER → 2022-07-03 15:11 | Outpatient (BNVA) | payer BC, SELFPAY | PROVIDERS: PCP Family Medicine; Visit Provider Internal Medicine | DX: E11.42 Type 2 diabetes mellitus with diabetic polyneuropathy (principal); E78.5 Hyperlipidemia, unspecified; I10 Essential (primary) hypertension | CPT/HCPCS: 36415; 80053; 80061; 83036 ==

== ENCOUNTER 2022-07-22 11:09 | Outpatient (CLI) | payer BC, SELFPAY ==
[2022-07-22 11:47] LABS: Total Volume Urine 535 ml
[2022-07-22 12:08] LABS: Creatinine 24 Hour Urine 898.8 mg/dL (601-1689); Urine Creatinine 168 mg/dL (28-217)
[2022-07-26 20:05] LABS: Calculated Total (E+NE) 30 mcg/24 h (26-121)
== END 2022-07-22 11:10 | disposition home or self-care (01) ==
LOC: LAB 11:11
PROVIDERS: PCP Family Medicine; Visit Provider Internal Medicine
DX: E11.42 Type 2 diabetes mellitus with diabetic polyneuropathy (principal); E78.5 Hyperlipidemia, unspecified; I10 Essential (primary) hypertension
CPT/HCPCS: 82384; 82570

== ENCOUNTER → 2022-10-31 13:38 | Outpatient (BNVA) | payer BC, SELFPAY | PROVIDERS: PCP Family Medicine; Visit Provider Podiatrist Foot & Ankle Surgery | DX: M19.172 Post-traumatic osteoarthritis, left ankle and foot (principal); R29.6 Repeated falls; Z91.81 History of falling; E11.42 Type 2 diabetes mellitus with diabetic polyneuropathy; M20.41 Other hammer toe(s) (acquired), right foot; M21.612 Bunion of left foot; L60.3 Nail dystrophy; M20.42 Other hammer toe(s) (acquired), left foot | CPT/HCPCS: 73630 ==

== ENCOUNTER 2022-11-28 05:35 | Day surgery (SDC) | payer BC, SELFPAY ==
[2022-11-27 12:50] VITALS: BMI 25.7
[2022-11-28 05:54] VITALS: BP 105/71; PULSE 71; RESP 18; TEMP 36.1; O2SAT 93
[2022-11-28 06:31] LABS: Glucose Point of Care 63 mg/dL (70-110)
[2022-11-28] MEDS: sodium chloride 0.9% 1,000 ML 30 ML IV (06:44)
--- NOTE | 2022-11-28 06:48 | W.PM.OPSUD ---
Surgery/Procedure H&P Update DATE OF PROCEDURE: November 28, 2022 DATE H&P PERFORMED: 10/31/22 CHANGES TO PREVIOUS DOCUMENTATION: None PREOP DIAGNOSIS: Cyst, hammertoe, all left fourth toe. PLANNED PROCEDURE: Operation Date: 11/28/22 07:40 Proposed Procedures p ?Hammertoe correction of the left fourth toe 64549 Excision of mucoid cyst left fourth toe.? CPT code 00342, M20.42, M67.472(Left) - Gregorio Matos DPM s Excision of mucoid cyst left fourth toe.(Left) - Gregorio Matos DPM
--- NOTE | 2022-11-28 07:24 | ANES.PREANE2 ---
Pre-Anesthetic Assessment Height/Weight: Height 1.8 m Weight 83.915 kg Temp Pulse Resp BP Pulse Ox O2 Del Method 97 F L 71 18 105/71 93 Room Air 11/28/22 05:54 11/28/22 05:54 11/28/22 05:54 11/28/22 05:54 11/28/22 05:54 11/28/22 06:10 Preop Diagnosis: Cyst, hammertoe, all left fourth toe. Operation Date: 11/28/22 07:40 Proposed Procedures p ?Hammertoe correction of the left fourth toe 49860 Excision of mucoid cyst left fourth toe.? CPT code 91515, M20.42, M67.472(Left) - Gregorio Matos DPM s Excision of mucoid cyst left fourth toe.(Left) - Gregorio Matos DPM Familial anesthetic complications: none Was Beta Ashley taken within 24 hours: Yes Was Clonidine taken within 24 hours: N/A Last intake: Intake Last Liquid Date 11/27/22 Last Liquid Time 23:50 Last Solid Date 11/27/22 Last Solid Time 21:00 Social No alcohol and No tobacco Exam alert, oriented x 3, clear to auscultation bilaterally and regular rate & rhythm Airway Submandibular: within normal limits Cervical ROM: within normal limits Mallampati: Class II Dentition: false CV/HEM Hypertension Metabolic Diabetes Mellitus, Hyperlipidemia and Morbid Obesity Musc/skel Lower Back Pain and Osteoarthritis/DJD Neuropsych Anxiety Chronic pain/opioid Anesthetic Plan ASA status: 3 Anesthesia: Choice Medications/Allergies Home Medications Medication Instructions Recorded Confirmed Last Taken Type epinephrine 0.3 mg/0.3 mL 0.3 mg IM ONCE PRN Allergic 09/16/19 11/27/22 11/27/22 History injection, auto-injector Reaction biotin 10,000 mcg capsule 10,000 mcg PO DAILY@0700 02/02/20 11/27/22 11/27/22 History Sole Supports #1 ea 02/06/20 10/31/22 Unknown Rx diphenhydramine HCl 25 mg tablet 25 mg PO BID PRN Allergic Symptoms 10/25/20 11/27/22 11/27/22 History (Benadryl Allergy) fish, borage, flaxseed oils-omega 3 cap PO DAILY@2100 10/25/20 11/27/22 11/25/22 History 3,6,9 cb #1 400 mg-400 mg-400 mg cap (Triple [place] 3-6-9) atorvastatin 20 mg tablet 20 mg PO DAILY 11/25/20 11/27/22 11/27/22 History hydroxyzine pamoate 50 mg capsule 50 mg PO TID@07,12,21 11/25/20 11/27/22 11/27/22 History conjugated estrogens 0.625 mg/gram See Rx Instructions .Route .COMPLEX 02/16/21 11/27/22 11/27/22 History vaginal cream (Premarin) metoclopramide HCl 10 mg tablet 10 mg PO PRN 02/16/21 11/27/22 11/27/22 History pantoprazole 40 mg tablet,delayed 40 mg PO BID@0700,2100 02/16/21 11/27/22 11/28/22 History release lactulose 10 gram/15 mL oral 15 ml PO BID PRN Constipation 04/18/21 11/27/22 11/27/22 History solution oxycodone-acetaminophen 10 mg-325 1 tab PO TID PRN pain 30 days #90 06/04/21 11/27/22 11/28/22 Rx mg tablet tabs collagen-hyaluronic 2 cap PO DAILY 06/15/21 11/27/22 11/27/22 History hqxq-wnqcckewbu-rjwd extract 490 mg capsule valacyclovir 1 gram tablet 1,000 mg PO BID PRN Outbreak 06/15/21 11/27/22 11/27/22 History vitamin B complex-vitamin C 100 1 tab PO DAILY 06/15/21 11/27/22 11/27/22 History mg-folic acid 1 mg tablet (Dialyvite) clonazepam 0.5 mg tablet 0.5 mg PO BID 07/22/21 11/27/22 11/27/22 History nitroglycerin 0.4 mg sublingual 0.4 mg sublingual Q5M PRN Chest 07/22/21 11/27/22 11/27/22 History tablet Pain Custom Molded Accommodative #1 ea 09/05/21 10/31/22 Unknown Rx Orthotics Ca 600 mg-D3 20 mcg-mag oxide 50 1 tab PO DAILY 01/02/22 11/27/22 11/27/22 History qz-Sz-czjwar-manganese-boron tablet (Calcium 600-D3 Plus (mag-zinc)) bupropion HCl 75 mg tablet 75 mg PO DAILY 01/02/22 11/27/22 11/27/22 History gabapentin 600 mg tablet 600 mg PO TID 01/02/22 11/27/22 11/27/22 History melatonin 1 mg tablet 10 mg PO BEDTIME@2100 01/02/22 11/27/22 11/27/22 History rizatriptan 10 mg tablet (Maxalt) 10 mg PO Q2H PRN Migraine Headache 01/02/22 11/28/22 Unknown History vitamin B complex-vitamin C-folic 1 tab PO DAILY 01/02/22 11/27/22 11/27/22 History acid 0.8 mg tablet (Dialyvite 800) Custom Orthotics #1 ea 01/20/22 10/31/22 Unknown Rx Sanchez Balance Brace- Left Foot #1 ea 01/20/22 10/31/22 Unknown Rx semaglutide 2 mg/dose (8 mg/3 mL) 2 mg (0.75 mL) SUBCUT .weekly #9 mL 01/20/22 11/27/22 11/27/22 Rx subcutaneous pen injector (Ozempic) insulin syringe-needle U-100 1 mL #100 ea 03/04/22 10/31/22 Unknown Rx 29 gauge x 1/2 (Insulin Syringe) cyclobenzaprine 5 mg tablet 5 mg PO TID 03/06/22 11/27/22 11/27/22 History quetiapine 25 mg tablet (Seroquel) 25 mg PO DAILY 03/06/22 11/28/22 Unknown History pen needle, diabetic 32 gauge x #100 ea 03/07/22 10/31/22 Unknown Rx 5/32 (BD Ultra-Fine Emilia Pen Needle) blood-glucose meter,continuous #1 ea 07/01/22 10/31/22 Unknown Rx (Dexcom G6 Theatre Arts Professor) blood-glucose sensor (Dexcom G6 #9 ea 11/05/22 Unknown Rx Sensor device) blood-glucose transmitter (Dexcom #1 ea 11/05/22 Unknown Rx G6 Transmitter device) aspirin 81 mg tablet,delayed 81 mg PO DAILY PRN Migraine 11/27/22 11/27/22 11/25/22 History release Headache docusate sodium 250 mg capsule 1,250 mg PO DAILY 11/27/22 11/27/2223 History estradiol 0.075 mg/24 hr 1 patch transdermal .2XWK 11/27/22 11/27/22 11/27/22 History semiweekly transdermal patch fluconazole 150 mg tablet 150 mg PO DAILY PRN Outbreak 11/27/22 11/27/22 11/27/22 History (Diflucan) insulin glargine 100 unit/mL (3 40 unit SUBCUT QAM 11/27/22 11/27/22 11/27/22 History mL) subcutaneous pen (Lantus Solostar U-100 Insulin) metoprolol tartrate 50 mg tablet 50 mg PO DAILY 11/27/22 11/27/22 11/28/22 History riboflavin (vitamin B2) 400 mg 400 mg PO DAILY 11/27/22 11/27/22 11/27/22 History tablet Ozempic 2 SUBCUT UNK 11/28/22 11/22/22 History Allergies Allergy/AdvReac Type Severity Reaction Status Date / Time spider venom Allergy ALGY-Anaphy Verified 10/31/22 13:05 laxis tizanidine Allergy ADR-Cramping Verified 11/28/22 05:53 of the Muscles vilazodone [From Viibryd] Allergy ADR-Halluci Verified 10/31/22 13:05 nating NSAIDS (Non-Steroidal AdvReac Unknown CKD4 Verified 10/31/22 13:05 Anti-Inflamma Iodinated Contrast Media AdvReac CKD4 - Verified 10/31/22 13:05 Current Medications Generic Name Dose Route Start Last Admin Trade Name Freq PRN Reason Stop Dose Admin Sodium Chloride 1,000 mls @ 30 mls/hr 11/28/22 06:00 11/28/22 06:44 Sodium Chloride 0.9% IV 11/29/22 05:59 30 mls/hr .Q24H ARMIDA Administration PFSH Anesthesia Medical History Abdominal pain chronic Anxiety CKD (chronic kidney disease) stage 3, GFR 30-59 ml/min DDD (degenerative disc disease), cervical DDD (degenerative disc disease), lumbar Depression Diabetes mellitus, type II Diabetic peripheral neuropathy associated with type 2 diabetes mellitus Facet syndrome, lumbar Fibromyalgia GERD (gastroesophageal reflux disease) History of pulmonary function tests (01/2020) normal Hyperlipidemia Kidney stone Long-term current use of opiate analgesic Lumbosacral spondylosis with radiculopathy Panic attacks Seizures Therapeutic opioid induced constipation Surgical History History of ankle surgery (~2018) ORIF right ankle, Dr Matos History of arthrodesis (09/2019) left 1st, 2nd, and 3rd tarsometatarsal joints by Dr Matos, due to Lisfranc dislocation History of esophagogastroduodenoscopy (EGD) (04/2020) Dr Ruelas History of excision of mass (05/2020) right hip fibroma/granuloma by Dr Gonzales History of nephrectomy (~2013) History of ventriculoperitoneal shunting (~01/04/09) Dr. Cordelia Roche 01/04/2009 Ventriculoperitoneal shunt placement. William Aaron Programmable Valve, Siphonguard device. Valve at 15cm H2O. 2010 reprogrammed to 14 cm H2O Hx of appendectomy (~2002) Hx of cholecystectomy (~2003) Hx of hysterectomy Hx of laminectomy S/P hardware removal (10/26/20) deep hardware left foot by Dr Matos Status post hardware removal (04/19/21) deep hardware left foot by Dr Matos Family History Mother Diabetes DM2 Family/Other Cancer MATERNAL AUNT- BREAST CANCER Social History Smoking and tobacco status: never smoked Second hand smoke exposure: No Alcohol intake: never Caregiver/support person: Yes Lives independently: Yes Household members: spouse Marital status: Current occupational status: disabled Data Anesthesia Cardiac Studies: Echocardiogram 09/19/21 Sestamibi Stress Test (Cardiology) 09/20/21
[2022-11-28] MEDS: ceFAZolin 2,000 MG in sodium chloride 0.9% (plus) 50 ML 100 MG IV (07:57)
--- NOTE | 2022-11-28 08:42 | XR_ITS ---
WS: [id number] EXAMINATION: XR foot LT 2V 70467 REASON FOR EXAM: OR PICS COMPARISON: Previous studies ORDER DATE: 11/28/2022 8:42 AM FINDINGS:: Intraoperative C-arm views are obtained demonstrating pinning of the fourth toe fractures. XR/XR foot LT 2V [id number] IMPRESSION: Total fluoroscopy time 6 seconds
[2022-11-28 08:47] VITALS: BP 100/61; PULSE 70; RESP 12; TEMP 36.3; O2SAT 96
--- NOTE | 2022-11-28 08:47 | P.OP_ITS ---
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 CPT code 71487 Excision of mucoid cyst left fourth toe. CPT code 46525 Implants: 4-0 Vicryl, 4 nylon, 6 2 K wire Specimens removed/disposition: None Pathology: 3 mm x 6 mm soft tissue mass consistent with mucoid cyst sent to pathology for review Surgeon: Gregorio Matos D.P.M. Picture Booker: Alix Estimated blood loss: 5 28 IV fluids: 0 Urine output: 0 Complications: None Brief History: Left foot 3 views taken and reviewed x-ray shows no fracture or dislocation to the left foot.? [place] sign with contracture of hammertoe of the left fourth toe.? Patient having pain on a daily basis to the left fourth toe, has a soft tissue mass consistent with mucoid cyst at the dorsal aspect of the left distal interphalangeal joint which is painful.? Requesting removal of the mass, I advised a hammertoe correction and arthrodesis of the DIPJ and PIPJ to provide a more predictable outcome and not have a higher risk for reoccurrence of mucoid cyst.? Patient is agreeable and wishes to proceed.? I reviewed at length with the patient, the risks, potential complications, benefits, alternatives, expectations, and typical outcomes associated with the surgery. The risks and potential complications were explained in detail, including but not limited to infection, wound dehiscence or soft tissue complications, bleeding and hematoma, chronic edema, neuritis or nerve damage producing numbness or chronic pain, CRPS, failure to relieve pain or worsening pain, thick / painful / unsightly scar, limited motion / stiffness, malposition, delayed union, malunion, or nonunion, fracture, reaction to implants, anesthetic complications, venous thromboembolism, and deformity recurrence.? I discussed the notion of no regrets with the patient as it pertains to complications and outcomes. The patient seemed to understand the nature of the proposed care and required convalescence. They asked appropriate questions, answered to their satisfaction. They are aware no guarantees can be made as to a satisfactory outcome and they understand there may be other possible unforeseen complications or outcomes not listed here that will be treated accordingly if they arise. There were no written or implied guarantees given to the patient. They gave informed consent to proceed. Procedure: Under mild sedation the patient was brought to the operating room and remained on the gurney in supine position. A timeout was performed. Anesthesia was then administered by the anesthesia service. Local anesthesia was injected by myself consisting of 20 cc of 0.5% Marcaine plain in a left fourth ray block fashion. Exparel 10 mL was then injected subcutaneously in a grid like fashion proximal to the operative site primary fracture recommendation and technique. A well- padded pneumatic tourniquet was applied to the left ankle. The left lower extremity was scrubbed, prepped and draped utilizing normal aseptic technique. Left foot was examined you waited with an Esmarch bandage and the tourniquet inflated to 250 mmHg. Attention was directed to the dorsal aspect of the left fourth toe. At the level of the distal interphalangeal joint, dorsally and slightly medial to midline a soft tissue mass was appreciated approximately 3 mm x 6 mm semielliptical converging incisions were performed full-thickness through skin with the soft tissue mass consistent with mucoid cyst sent to pathology for review. The incision was flushed with copious amounts of sterile skin solution and closed utilizing 4-0 nylon. Attention was then directed to the dorsal central portion of the left fourth toe where a midline incision was made at the level of the proximal interphalangeal joint coursing distally to the level of the distal interphalangeal joint. The extensor tendons were transected at the level of the distal interphalangeal joint and held proximally with a mosquito hemostat. The head of the proximal phalanx, the base of the intermediate phalanx, the head of the intermediate phalanx and the base of the distal phalanx were denuded of the articular surface sharply with bone nippers perpendicular to the longitudinal axis. These were passed from the operative field. Next a K wire was inserted from the base of the middle phalanx and antegrade out the distal left fourth toe centrally within the intramedullary canal of the middle phalanx and distal phalanx. The K wire was then integrated into the head of the proximal phalanx and seated and buried K wire technique into the distal aspect of the distal phalanx and care was taken to not cross the metatarsal phalangeal joint this was confirmed with AP, oblique and lateral views utilizing intraoperative C arm. The incision was irrigated with copious amounts of sterile skin solution. Excellent placement of K wire for fixation of distal interphalangeal joint and proximal interphalangeal arthrodesis site to the left fourth toe was appreciated. The left fourth toe was held rectus with the toenail facing 12:00 without any rotational deformity, no transverse plane deformity appreciated. The incision was irrigated once again with sterile saline solution, extensor tendons reapproximated utilizing 4- 0 Vicryl, skin closed with 4-0 nylon. The incision site was dressed with Adaptic, sterile 4 x 4, Kerlix and John wrap. Tourniquet was deflated and a prompt hyperemic response was noted to the distal digits of the left foot. Patient tolerated the procedure and anesthesia well and was transferred to the PACU with vital signs stable and vascular status intact. Following a period of postoperative monitoring she will be discharged home. She is given at home care instructions, given follow-up in my cell phone number to contact with any postoperative questions or concerns. She was dispensed a cam boot as well as a postop shoe to wear either 1 at all times both when weightbearing and sleeping.
[2022-11-28 08:52] VITALS: BP 103/63; PULSE 70; RESP 16; O2SAT 98
[2022-11-28 08:57] VITALS: BP 103/69; PULSE 70; RESP 17; O2SAT 99
[2022-11-28 09:02] VITALS: BP 115/67; PULSE 70; RESP 17; TEMP 36.8; O2SAT 99
[2022-11-28 09:23] VITALS: BP 90/61; PULSE 73; RESP 18; TEMP 36.6; O2SAT 97
--- NOTE | 2022-11-28 13:43 | ANE.PACU2 ---
Inpatient post-anesthesia follow up: Airway intact: Yes Vital signs: Temperature 97.9 F Pulse Rate 73 Respiratory Rate 18 Blood Pressure 90/61 Pulse Oximetry 97 Oxygen Delivery Me thod Room Air Oxygen Flow Rate 6 Fraction of Inspir ed Oxygen Hydration adequate: Yes Nausea and vomiting: No Pain level: 1 Mental status: Baseline
[2022-11-28 15:39] LABS: Glucose Point of Care 63 mg/dL (70-110)
== END 2022-11-28 10:00 | disposition home or self-care (01) ==
PROVIDERS: PCP Family Medicine; Visit Provider Podiatrist Foot & Ankle Surgery
PROC: (CPT 28285; principal; 2022-11-28 07:40)
PROC: (CPT 28090; 2022-11-28 07:40)
DX: M20.42 Other hammer toe(s) (acquired), left foot (principal); M71.372 Other bursal cyst, left ankle and foot; M19.072 Primary osteoarthritis, left ankle and foot; Z79.82 Long term (current) use of aspirin; F41.9 Anxiety disorder, unspecified; F32.A Depression, unspecified; K21.9 Gastro-esophageal reflux disease without esophagitis; E11.42 Type 2 diabetes mellitus with diabetic polyneuropathy; E78.5 Hyperlipidemia, unspecified; Z79.891 Long term (current) use of opiate analgesic; Z79.4 Long term (current) use of insulin; E11.22 Type 2 diabetes mellitus with diabetic chronic kidney disease; I12.9 Hypertensive chronic kidney disease with stage 1 through stage 4 chronic kidney disease, or unspecified chronic kidney disease; N18.30 Chronic kidney disease, stage 3 unspecified
CPT/HCPCS: 28090; 28285; 36416; 73620; 76000; 82962; 88304; C9290; J0690; J2250; J2405; J2704; J3010; J3490; J7030

== ENCOUNTER → 2022-12-12 14:35 | Outpatient (BNVA) | payer BC, SELFPAY | PROVIDERS: PCP Family Medicine; Visit Provider Podiatrist Foot & Ankle Surgery | DX: M20.42 Other hammer toe(s) (acquired), left foot (principal); M19.172 Post-traumatic osteoarthritis, left ankle and foot; R29.6 Repeated falls; Z91.81 History of falling; E11.42 Type 2 diabetes mellitus with diabetic polyneuropathy; M79.672 Pain in left foot; M20.41 Other hammer toe(s) (acquired), right foot; M21.612 Bunion of left foot; L60.3 Nail dystrophy; M21.622 Bunionette of left foot | CPT/HCPCS: 73630 ==

== ENCOUNTER → 2022-12-23 16:04 | Outpatient (BNVA) | payer BC, SELFPAY | PROVIDERS: PCP Family Medicine; Visit Provider Podiatrist Foot & Ankle Surgery | DX: M21.622 Bunionette of left foot (principal); E11.42 Type 2 diabetes mellitus with diabetic polyneuropathy; M20.41 Other hammer toe(s) (acquired), right foot; M20.42 Other hammer toe(s) (acquired), left foot; M20.12 Hallux valgus (acquired), left foot; Z79.4 Long term (current) use of insulin | CPT/HCPCS: 73630 ==